=== PATIENT | male | born 1960 | race Caucasian/White ===

== ENCOUNTER → 2017-09-23 17:41 | Outpatient (CLI) | payer MEDICAID, SELFPAY ==
[2017-09-23 18:19] LABS: Hematocrit 36.3 % (40-54); Hemoglobin 11.9 g/dl (13.0-16.5); Mean Corp Hgb Conc 32.8 g/gl (32-36); Mean Corpuscular Volume 88.5 fL (80-94); Mean Platelet Vol. 10.1 fl (6.2-12.0); Platelet Count 258 K/mm3 (150-450); RBC Distribution Width CV 15.4 % (11.6-14.6); RBC Distribution Width SD 49.6 fl (35.1-43.9); White Blood Count 7.2 K/mm3 (4.4-11.0)
[2017-09-23 18:21] LABS: Scan Indicated on CBC? Y/N NO
[2017-09-23 18:42] LABS: Albumin, Serum 3.3 g/dL (3.2-5.0); BUN 44 mg/dL (7-18); BUN/Creat Ratio 14.9 RATIO (10-20); Chloride 109 mmol/L (98-107); Creatinine, Serum 2.96 mg/dL (0.70-1.30); EST Glomerular Filtration Rate 24 mL/min (>60); Est Glom Filt Rate - Afr Amer 29 mL/min (>60); Glucose 81 mg/dL (74-106); Phosphorus 3.8 mg/dL (2.5-4.9); Potassium 4.6 mmol/L (3.5-5.1); Sodium Level 142 mmol/L (136-145)
[2017-09-23 19:02] LABS: Microalbumin:Creatinine Ratio 2369.6 mg/g CRE (<30 mg/g CRE)
[2017-09-24 09:06] LABS: PTHIN 56.8 pg/mL (18.4-80.1)
[2017-09-24 09:34] LABS: Vitamin D,25 Hydroxy 38.2 ng/mL (29.95-100.01)
== END ==
PROVIDERS: Family Provider Family Medicine Geriatric Medicine; PCP Family Medicine Geriatric Medicine; Visit Provider Internal Medicine Nephrology
DX: N18.4 Chronic kidney disease, stage 4 (severe) (principal); D64.9 Anemia, unspecified; E55.9 Vitamin D deficiency, unspecified
CPT/HCPCS: 36415; 80069; 82043; 82306; 82570; 83970; 85027

== ENCOUNTER → 2017-09-29 13:42 | Outpatient (CLI) | payer MEDICAID, SELFPAY ==
[2017-09-29 17:14] LABS: Absolute Lymphocyte Count 2.05 X10^3/ul (0.83-4.51); Absolute Neutrophil Count 4.2 X10^3/uL (2.0-7.7); Basophil# 0.04 X10^3/uL; Basophil% 0.5 % (0-1); Eosinophil# 0.21 X10^3/uL; Eosinophils% 2.8 % (0-5); Hematocrit 36.8 % (40-54); Lymphocyte # 2.05 X10^3/ul (4.0); Lymphocyte % 27.7 % (19-41); Mean Corp Hgb Conc 32.6 g/gl (32-36); Mean Corpuscular Hgb 28.9 pg (27.0-32.0); Mean Corpuscular Volume 88.7 fL (80-94); Mean Platelet Vol. 10.3 fl (6.2-12.0); Monocyte# 0.88 X10^3/uL; Monocyte% 11.9 % (0-10); Neutrophil # 4.17 X10^3/uL (2.7-7.7); Neutrophil % 56.6 % (47-70); POSITIVE COUNT NO; POSITIVE DIFFERENTIAL NO; POSITIVE MORPHOLOGY NO; Platelet Count 231 K/mm3 (150-450); RBC Distribution Width CV 15.4 % (11.6-14.6); Red Blood Count 4.15 M/mm3 (4.6-6.2); White Blood Count 7.4 K/mm3 (4.4-11.0)
[2017-09-29 17:39] LABS: ALB/GLOB Ratio 0.9 RATIO (0.9-2.4); AST(SGOT) 8 U/L (15-37); Alanine Aminotransfer ALT/SGPT 18 U/L (16-61); Albumin, Serum 3.2 g/dL (3.2-5.0); Alkaline Phosphatase 68 U/L (45-117); Anion Gap 10 (5-15); BUN 49 mg/dL (7-18); BUN/Creat Ratio 16.1 RATIO (10-20); Calcium,Total 8.3 mg/dL (8.5-10.1); Chloride 109 mmol/L (98-107); Creatinine, Serum 3.04 mg/dL (0.70-1.30); EST Glomerular Filtration Rate 23 mL/min (>60); Est Glom Filt Rate - Afr Amer 28 mL/min (>60); Globulin 3.4 g/dL (2.2-4.2); Glucose 80 mg/dL (74-106); Potassium 3.9 mmol/L (3.5-5.1); Protein, Total 6.6 g/dL (6.4-8.2); Sodium Level 144 mmol/L (136-145); Thyroid Stim Hormone (TSH) 2.03 uIU/mL (0.358-3.74)
== END ==
PROVIDERS: Family Provider Family Medicine Geriatric Medicine; PCP Family Medicine Geriatric Medicine; Visit Provider Family Medicine Geriatric Medicine
DX: I10 Essential (primary) hypertension (principal)
CPT/HCPCS: 36415; 80053; 84443; 85025

== ENCOUNTER → 2017-10-16 11:08 | Outpatient (CLI) | payer MEDICAID, SELFPAY ==
--- NOTE | 2017-10-16 11:11 | CT_ITS ---
STUDY: CT BRAIN WITHOUT CONTRAST REASON FOR EXAM: Male, 57 years old. SAH--S/P CLIPPING DIZZINESS, HEADACHE RADIATION DOSAGE (If Supplied By Facility): CTDIvol = ( 44.99 ) mGy, DLP = ( 779.24 ) mGycm TECHNIQUE: Transaxial CT imaging of the brain was performed without administration of intravenous contrast material. Individualized dose optimization techniques were used for this CT. COMPARISON: 05.13.17. FINDINGS: Normal soft tissue structures. There is a left frontal craniotomy/craniectomy. There are calcifications around the carotid artery. These are noted in the cavernous carotid arteries. There is mild cerebral atrophy with widening of the extra-axial spaces and ventricular dilatation. There are areas of decreased attenuation within the white matter tracts of the supratentorial brain, consistent with microvascular disease changes. Normal basal ganglia and thalami. Normal brainstem. There is mild cerebellar atrophy. There is an old infarct of the frontal lobes. Diffuse areas of encephalomalacia from prior infarction or surgery in the superior right frontoparietal lobe. Bilateral frontal lobe rales. There is no intracranial hemorrhage. There are no findings of an acute ischemic infarction. Opacified left maxillary sinus. Soft tissue mass extends from the left maxillary sinus into the left side of the nasopharynx. This appears stable. CT/Brain/Head without Contrast IMPRESSION: Chronic involutional changes of the brain. There are no acute findings. Old stable infarction or areas related to prior surgery. Opacified left maxillary sinus. Soft tissue mass extends from the left maxillary sinus into the left side of the nasopharynx. This appears stable. Electronically Signed: Daryn Clark MD at 20:17 EDT , Service support ,
== END ==
PROVIDERS: Family Provider Family Medicine Geriatric Medicine; PCP Family Medicine Geriatric Medicine; Visit Provider Nurse Practitioner Acute Care
DX: R42 Dizziness and giddiness (principal); R51 Headache; Z86.79 Personal history of other diseases of the circulatory system
CPT/HCPCS: 70450

== ENCOUNTER → 2017-12-24 09:19 | Outpatient (CLI) | payer MEDICAID, SELFPAY ==
[2017-12-24 12:16] LABS: Absolute Lymphocyte Count 1.88 X10^3/ul (0.83-4.51); Absolute Neutrophil Count 5.2 X10^3/uL (2.0-7.7); Basophil# 0.04 X10^3/uL; Basophil% 0.5 % (0-1); Differential Indicated SCAN CRITERIA MET; Eosinophil# 0.21 X10^3/uL; Eosinophils% 2.6 % (0-5); Hematocrit 38.5 % (40-54); Hemoglobin 12.3 g/dl (13.0-16.5); Lymphocyte # 1.88 X10^3/ul (4.0); Lymphocyte % 23.2 % (19-41); Mean Corp Hgb Conc 31.9 g/gl (32-36); Mean Corpuscular Hgb 28.3 pg (27.0-32.0); Mean Corpuscular Volume 88.7 fL (80-94); Mean Platelet Vol. 10.6 fl (6.2-12.0); Monocyte# 0.77 X10^3/uL; Monocyte% 9.5 % (0-10); Neutrophil # 5.19 X10^3/uL (2.7-7.7); POSITIVE COUNT NO; POSITIVE DIFFERENTIAL NO; POSITIVE MORPHOLOGY YES; Platelet Count 260 K/mm3 (150-450); RBC Distribution Width CV 14.8 % (11.6-14.6); RBC Distribution Width SD 47.8 fl (35.1-43.9); Red Blood Count 4.34 M/mm3 (4.6-6.2); White Blood Count 8.1 K/mm3 (4.4-11.0)
[2017-12-24 12:40] LABS: ALB/GLOB Ratio 0.9 RATIO (0.9-2.4); AST(SGOT) 9 U/L (15-37); Alanine Aminotransfer ALT/SGPT 18 U/L (16-61); Albumin, Serum 3.3 g/dL (3.2-5.0); Alkaline Phosphatase 72 U/L (45-117); Anion Gap 8 (5-15); BUN 42 mg/dL (7-18); BUN/Creat Ratio 11.3 RATIO (10-20); Calcium,Total 8.4 mg/dL (8.5-10.1); Chloride 108 mmol/L (98-107); Creatinine, Serum 3.73 mg/dL (0.70-1.30); EST Glomerular Filtration Rate 18 mL/min (>60); Est Glom Filt Rate - Afr Amer 22 mL/min (>60); Globulin 3.5 g/dL (2.2-4.2); Glucose 73 mg/dL (74-106); Potassium 4.5 mmol/L (3.5-5.1); Protein, Total 6.8 g/dL (6.4-8.2); Sodium Level 144 mmol/L (136-145); Thyroid Stim Hormone (TSH) 1.89 uIU/mL (0.358-3.74)
[2017-12-24 13:16] LABS: Differential Comment SCANNED
== END ==
PROVIDERS: Family Provider Family Medicine Geriatric Medicine; PCP Family Medicine Geriatric Medicine; Visit Provider Family Medicine Geriatric Medicine
DX: I10 Essential (primary) hypertension (principal)
CPT/HCPCS: 36415; 80053; 84443; 85025

== ENCOUNTER → 2018-01-17 09:29 | Outpatient (CLI) | payer MEDICAID, SELFPAY ==
--- NOTE | 2018-01-18 14:26 | EEG ---
- Electroencephalogram Date of service 01/17/18 History EEG is being done in this 57 yr M to rule out seizures EEG Description: This is an 18 channel EEG with 10-20 lead placement system. Bipolar montages, Referential and Circumferential montages were reviewed. Photic stimulation and Hyperventilation were performed. The posterior dominant background rhythm is 8-9 HZ synchronous, symmetric, reacting to eye opening and closing. Photo stimulation elicited normal driving response but no abnormal photoparoxysmal response, Hyperventilation did not elicit any abnormal photoparoxysmal response but elicited post hyperventilation slowing. Sleep was not identified. There was no epileptiform discharges or electrographic seizures noted during this recording. EEG Interpretation This is a normal awake EEG. There is no epileptiform discharges or electrographic seizures noted during the record.
== END ==
PROVIDERS: Family Provider Family Medicine Geriatric Medicine; PCP Family Medicine Geriatric Medicine; Visit Provider Psychiatry & Neurology Neurology
DX: R56.9 Unspecified convulsions (principal)
CPT/HCPCS: 95819; 97112

== ENCOUNTER → 2018-02-07 17:05 | Outpatient (CLI) | payer MEDICAID, SELFPAY ==
[2018-02-07 17:47] LABS: Hematocrit 38.5 % (40-54); Hemoglobin 12.3 g/dl (13.0-16.5); Mean Corp Hgb Conc 31.9 g/gl (32-36); Mean Corpuscular Hgb 28.5 pg (27.0-32.0); Mean Corpuscular Volume 89.1 fL (80-94); Mean Platelet Vol. 9.3 fl (6.2-12.0); Platelet Count 425 K/mm3 (150-450); RBC Distribution Width CV 14.9 % (11.6-14.6); RBC Distribution Width SD 47.6 fl (35.1-43.9); Red Blood Count 4.32 M/mm3 (4.6-6.2); White Blood Count 12.1 K/mm3 (4.4-11.0)
--- NOTE | 2018-02-07 17:47 | RAD_ITS ---
STUDY: X-RAY CHEST REASON FOR EXAM: Male, 57 years old. Cough. TECHNIQUE: PA and lateral views of the chest. COMPARISON: May 13, 2017. FINDINGS: The lungs are clear and expanded. There is no demonstrated pleural abnormality. Normal size heart. Normal mediastinum and riky. Normal visualized pulmonary arteries. There is mild atherosclerotic calcification of the aortic arch with tortuosity. Normal visualized thoracic spine. Normal visualized ribs, clavicles, and shoulders. There is no demonstrated abnormality of the visualized soft tissue structures of the upper abdomen. RAD/Chest PA and Lateral IMPRESSION: No acute cardiopulmonary disease or major interval change. Electronically Signed: Miki Hernandez DO at 19:52 EDT Tel [phone], Service support ,
[2018-02-07 18:08] LABS: Albumin, Serum 2.5 g/dL (3.2-5.0); BUN 60 mg/dL (7-18); BUN/Creat Ratio 14.1 RATIO (10-20); Calcium,Total 8.6 mg/dL (8.5-10.1); Chloride 111 mmol/L (98-107); Creatinine, Serum 4.25 mg/dL (0.70-1.30); EST Glomerular Filtration Rate 16 mL/min (>60); Est Glom Filt Rate - Afr Amer 19 mL/min (>60); Glucose 96 mg/dL (74-106); Phosphorus 4.4 mg/dL (2.5-4.9); Potassium 4.4 mmol/L (3.5-5.1); Sodium Level 147 mmol/L (136-145)
[2018-02-07 18:13] LABS: PTHIN 36.6 pg/mL (18.4-80.1); Vitamin D,25 Hydroxy 38.6 ng/mL (29.95-100.01)
[2018-02-07 18:47] LABS: Basophil% 0.6 % (0-1); Differential Indicated SCAN CRITERIA MET; Lymphocyte % 15.6 % (19-41); Monocyte% 13.6 % (0-10); Neutrophil % 67.4 % (47-70); POSITIVE COUNT NO; POSITIVE DIFFERENTIAL YES; POSITIVE MORPHOLOGY YES
[2018-02-07 18:48] LABS: Absolute Lymphocyte Count 1.98 X10^3/ul (0.83-4.51); Absolute Neutrophil Count 8.6 X10^3/uL (2.0-7.7); Basophil# 0.07 X10^3/uL; Eosinophil# 0.13 X10^3/uL; Lymphocyte # 1.98 X10^3/ul (4.0); Monocyte# 1.73 X10^3/uL; Neutrophil # 8.55 X10^3/uL (2.7-7.7)
[2018-02-07 19:08] LABS: Differential Comment SCANNED
== END ==
PROVIDERS: Family Provider Family Medicine Geriatric Medicine; PCP Family Medicine Geriatric Medicine; Visit Provider Internal Medicine Nephrology
DX: N18.4 Chronic kidney disease, stage 4 (severe) (principal); N39.0 Urinary tract infection, site not specified; R05 Cough; R09.02 Hypoxemia
CPT/HCPCS: 36415; 71046; 80069; 82306; 83970; 85025; 87086; 87088; 87633

== ENCOUNTER → 2018-03-28 13:50 | Outpatient (CLI) | payer MEDICAID, SELFPAY | PROVIDERS: Family Provider Family Medicine Geriatric Medicine; PCP Family Medicine Geriatric Medicine; Visit Provider Family Medicine Geriatric Medicine | DX: Z00.00 Encounter for general adult medical examination without abnormal findings (principal) ==

== ENCOUNTER → 2018-05-02 10:09 | Outpatient (CLI) | payer MEDICAID, SELFPAY ==
--- NOTE | 2018-05-02 10:13 | NM_ITS ---
CLINICAL: 58-year-old male with reported history of subclinical hyperthyroidism. I-123 THYROID UPTAKE and SCAN COMPARISON: None available FINDINGS: The patient was administered a 294 uCi I-123 capsule by mouth. The 4-hour I-123 radioactive iodine thyroidal uptake was calculated to be 1.9 % (normal 5 to 25 %). The 24-hour I-123 radioactive iodine thyroidal uptake was calculated to be 2.5 % (normal 5 to 40 %). The I-123 thyroid scan demonstrates nonvisualization of functioning thyroid colloid in the expected distribution of the right-left thyroid beds. NM/Thyroid Uptake Single or Mult IMPRESSION: 1. ABNORMAL DECREASED 4- and 24-hour I-123 radioactive iodine thyroidal uptakes. 2. Nonvisualization of the thyroid colloid on the thyroid scan, in conjunction with a calculated iodine uptake values and apparent clinical hyperthyroidism is most consistent with the injurious phase of subacute thyroiditis. (Kp et al, Endocrinol Rev 1: 411, 1980). Electronically Signed: Wayne Grullon DO at 23:46 EDT Tel , Service support ,
== END ==
PROVIDERS: Family Provider Family Medicine Geriatric Medicine; PCP Family Medicine Geriatric Medicine; Referring Provider Family Medicine Geriatric Medicine; Visit Provider Family Medicine Geriatric Medicine
DX: E05.90 Thyrotoxicosis, unspecified without thyrotoxic crisis or storm (principal)
CPT/HCPCS: 78012; A9516

== ENCOUNTER → 2018-06-02 14:53 | Outpatient (CLI) | payer MEDICAID, SELFPAY ==
[2018-06-02 13:35] VITALS: BMI 20.9
[2018-06-02 16:34] LABS: Free T3 1.9 pg/mL (2.18-3.98); T4 Free Direct 0.81 ng/dL (0.76-1.46); Thyroid Stim Hormone (TSH) 3.45 uIU/mL (0.358-3.74)
[2018-06-04 09:18] LABS: Thyroid Peroxidase AB 7 IU/mL (0-34)
--- OUTSIDE RECORDS SUMMARY | 2018-07-28 20:29 | XMS RPT_ITS ---
:1960 Author Organization OHIP Support Name Relationship Address Phone CUTTER, ADRIENNE Unavailable [address] + [place] [address] D Unavailable Unavailable Unavailable CUTTER, ADRIENNE Unavailable [address] + [place] [address] D Unavailable Unavailable Unavailable CUTTER, ADRIENNE Unavailable [address] + [place] [address] D Unavailable Unavailable Unavailable CUTTER, ADRIENNE Unavailable [address] + [place] [address] D Unavailable Unavailable Unavailable CUTTER, ADRIENNE Unavailable [address] + [place] [address] D Unavailable Unavailable Unavailable CUTTER, ADRIENNE Unavailable [address] + [place] [address] D Unavailable Unavailable Unavailable CUTTER, ADRIENNE Unavailable [address] + [place] [address] D Unavailable Unavailable Unavailable CUTTER, ADRIENNE Unavailable [address] + [place] [address] D Unavailable Unavailable Unavailable CUTTER, ADRIENNE Unavailable [address] + [facility] [place] [address] D Unavailable Unavailable Unavailable CUTTER, ADRIENNE Unavailable Unavailable + CUTTER, ADRIENNE Unavailable Unavailable + CUTTER, ADRIENNE Unavailable Unavailable + CUTTER, ADRIENNE Unavailable Unavailable + CUTTER, ADRIENNE Unavailable Unavailable + CUTTER, ADRIENNE Unavailable Unavailable + CUTTER, ADRIENNE Unavailable [address] + [place] [address] D Unavailable Unavailable Unavailable CUTTER, ADRIENNE Unavailable Unavailable + CUTTER, ADRIENNE Unavailable [address] + [place] [address] D Unavailable Unavailable Unavailable CUTTER, ADRIENNE Unavailable [address] + [place] [address] D Unavailable Unavailable Unavailable CUTTER, ADRIENNE Unavailable Unavailable + CUTTER, ADRIENNE Unavailable [address] + [place] [id number] D Unavailable Unavailable Unavailable CUTTER, ADRIENNE Unavailable Unavailable + CUTTER, ADRIENNE Unavailable Unavailable + CUTTER, ADRIENNE Unavailable Unavailable + CUTTER, ADRIENNE Unavailable [address] + [place] [id number] D Unavailable Unavailable Unavailable CUTTER, ADRIENNE Unavailable Unavailable + CUTTER, ADRIENNE Unavailable [address] + [place] [id number] D Unavailable Unavailable Unavailable CUTTER, ADRIENNE Unavailable Unavailable + CUTTER, ADRIENNE Unavailable Unavailable + CUTTER, ADRIENNE Unavailable Unavailable + CUTTER, ADRIENNE Unavailable Unavailable + Care Team Providers Name Role Phone SELENA PORTILLO Attending Unavailable GEORGE, NILSON CHI Primary Care Unavailable GEORGE, NILSON CHI Primary Care Unavailable JAIME EPPS Attending Unavailable GEORGE, NILSON CHI Primary Care Unavailable MANJINDER VILLARREAL Attending Unavailable GEORGE, NILSON CHI Primary Care Unavailable LONAS, PIYUSH K Attending Unavailable GEORGE, NILSON CHI Primary Care Unavailable LONAS, PIYUSH K Attending Unavailable GEORGE, NILSON CHI Primary Care Unavailable LONAS, PIYUSH K Attending Unavailable GEORGE, NILSON CHI Primary Care Unavailable LONAS, PIYUSH K Attending Unavailable GEORGE, NILSON CHI Primary Care Unavailable LONAS, PIYUSH K Attending Unavailable GEORGE, NILSON CHI Primary Care Unavailable LONAS, PIYUSH K Attending Unavailable GEORGE, NILSON CHI Primary Care Unavailable LONAS, PIYUSH K Attending Unavailable GEORGE, NILSON CHI Primary Care Unavailable YIFAN HDZ Attending Unavailable GEORGE, NILSON CHI Primary Care Unavailable JARED BEGUM Attending Unavailable GEORGE, NILSON CHI Primary Care Unavailable JARED BEGUM Attending Unavailable GEORGE, NILSON CHI Primary Care Unavailable LONAS, PIYUSH K Attending Unavailable GEORGE, NILSON CHI Primary Care Unavailable LONAS, PIYUSH K Attending Unavailable GEORGE, NILSON CHI Primary Care Unavailable LONAS, PIYUSH K Attending Unavailable George, Nilson Chi Attending Unavailable George, Nilson Chi Attending Unavailable Ankur Tolentino Primary Care Unavailable George, Nilson Chi Attending Unavailable George, Nilson Chi Primary Care Unavailable Nina, Jayaprakash Attending Unavailable George, Nilson Chi Primary Care Unavailable Nina, Jayaprakash Attending Unavailable George, Nilson Chi Primary Care Unavailable George, Nilson Chi Attending Unavailable George, Nilson Chi Primary Care Unavailable Karen Clayton HAND EXPANSION ENVELOPE MAKER-C Attending Unavailable ForrestKaren HAND EXPANSION ENVELOPE MAKER-C Referring Unavailable George, Inlson Chi Primary Care Unavailable George, Nilson Chi Attending Unavailable George, Nilson Chi Referring Unavailable George, Nilson Chi Primary Care Unavailable George, Nilson Chi Attending Unavailable George, Nilson Chi Primary Care Unavailable Nina, Jayaprakash Attending Unavailable George, Nilson Chi Primary Care Unavailable Nina, Jayaprakash Referring Unavailable Denice Velasco Attending Unavailable Denice Velasco Referring Unavailable George, Nilson Chi Primary Care Unavailable George, Nilson Chi Attending Unavailable George, Nilson Chi Primary Care Unavailable George, Nilson Chi Attending Unavailable George, Nilson Chi Referring Unavailable George, Nilson Chi Primary Care Unavailable Mariana Bolden HAND EXPANSION ENVELOPE MAKER-C Attending Unavailable George, Nilson Chi Referring Unavailable Nina, Jayaprakash Attending Unavailable Nina, Jayaprakash Referring Unavailable George, Nilson Chi Primary Care Unavailable Mariana Bolden HAND EXPANSION ENVELOPE MAKER-C Consulting Unavailable PROBLEMS PROBLEMS DATE TYPE CONDITION / CODE ATTENDING STATUS SOURCE 06/20/2018 Unknown Z86.73 - Personal George, Nilson Chi Active [place] history of Community transient ischemic Hospital attack (TIA), and Repository cerebral infarction without residual deficits / Z86.73(ICD-10) 06/02/2018 Unknown N18.4 - Chronic Nina, Active [place] kidney disease, Jayaprakash Community stage 4 (severe) / Hospital N18.4(ICD-10) Repository 06/02/2018 Unknown D64.9 - Anemia, Nina, Active [place] unspecified / [facility] D64.9(ICD-10) Hospital Repository 06/02/2018 Unknown E06.0 - Acute Mariana Bolden Active [place] thyroiditis / HAND EXP[employer]ION ENVELOPE MAKER-C Community E06.0(ICD-10) Hospital Repository 02/07/2018 Unknown R05 - Cough / Nina, Active [place] R05(ICD-10) [facility] Hospital Repository 02/07/2018 Unknown N39.0 - Urinary Nina, Active [place] tract infection, [facility] site not specified Hospital / N39.0(ICD-10) Repository 12/24/2017 Unknown I10 - Essential George, Nilson Chi Active [place] (primary) Community hypertension / Hospital I10(ICD-10) Repository 07/26/2017 Unknown F17.200 - Nicotine George, Nilson Chi Active [place] dependence, Community unspecified, Hospital uncomplicated / Repository F17.200(ICD-10) 07/06/2017 Unknown R19.7 - Diarrhea, George, Nilson Chi Active [place] unspecified / Community R19.7(ICD-10) Hospital Repository 07/06/2017 Unknown N40.0 - Benign George, Nilson Chi Active [place] prostatic Community hyperplasia without Hospital lower urinary tract Repository symptoms / N40.0(ICD-10) 06/30/2017 Unknown E55.9 - Vitamin D George, Nilson Chi Active [place] deficiency, Community unspecified / Hospital E55.9(ICD-10) Repository 06/30/2017 Unknown Z12.5 - Encounter George, Nilson Chi Active [place] for screening for Community malignant neoplasm [facility] of prostate / Repository Z12.5(ICD-10) 06/30/2017 Unknown Z13.89 - Encounter George, Nilson Chi Active [place] for screening for Community other disorder / Hospital Z13.89(ICD-10) Repository PROCEDURES PROCEDURES No Procedure Records FoundRESULTS RESULTS OFFICE VISIT REPORT Observed: 06/05/2018 Status: F Source: [place] 5:09 PM [facility] HOSPITAL REPOSITORY [facility] [place] [address] OFFICE VISIT Date of Service: 06/02/18 MR#: [id number] Acct: [id number] Patient: SHIRLENE [place] Rep #: [id number] : 1960 Provider: Mariana Bolden NP Age/Sex: 58/M Location: [facility] [place] [place] Status: Signed Intake Vital Signs06/02/18 Height 5 ft 11 in 06/02/18 Weight: 150 lb 06/02/18 Body Mass Index (BMI) 20.9 06/02/18 Blood Pressure 132/85 H 06/02/18 Blood Pressure Location Rt popliteal 06/02/18 Blood Pressure Position Sitting Intake Visit Reasons: Thyroid dysfunction Pediatric Social Worker Required: No Accompanied by: Family / Other Allergies No Known Allergies Allergy (Verified 06/02/18 13:22) Medications Aspirin [Aspirin, Baby] 81 mg PO DAILY@0800 05/08/17 [History Confirmed 06/02/18] Amlodipine [Norvasc] 10 mg PO DAILY #30 tab 06/15/17 [Rx Confirmed 06/02/18] Atorvastatin Calcium [Lipitor] 40 mg PO QHS #30 tab 06/15/17 [Rx Confirmed 06/02/18] Cholecalciferol (VIT D3) [Vitamin D3] 1,000 unit PO DAILY #30 tab 06/15/17 [Rx Confirmed 06/02/18] Divalproex Sodium [Depakote] 500 mg PO TIDCM #90 tab 06/15/17 [Rx Confirmed 06/02/18] metoprolol tartrate 25 mg tablet 12.5 mg PO DAILY tab 06/02/18 [History] quetiapine 25 mg tablet 50 mg PO BID tab 06/02/18 [History] sertraline 50 mg tablet 150 mg PO DAILY tab 06/02/18 [History] PFSH Medical History Anxiety and depression (Acute) Arthritis (Acute) Back problem (Acute) Bone fracture (Acute) Brain aneurysm (Acute) H/O transfusion of whole blood (Acute) Kidney disease (Acute) Kidney failure (Acute) Seasonal allergies (Acute) Seizure (Acute) Stroke (Acute) Vitamin D deficiency (Acute) HTN (hypertension) (Chronic) Family History Unknown Arthritis Breast cancer Hypertension Kidney stones Social History Smoking Status: Former smoker alcohol intake: never substance use type: does not use Questionnaire Depression Screen PHQ-2/9 PHQ-2 Over the last 2 weeks, how often have you been bothered by any of the following problems? 1. Little interest or pleasure in doing things: more than half the days 2. Feeling down, depressed, or hopeless: more than half the days Total score: 4 If score is 2 or greater, continue 3. Trouble falling or staying asleep, or sleeping too much: more than half the days 4. Feeling tired or having little energy: nearly every day 5. Poor appetite or overeating: more than half the days 6. Feeling bad about yourself - or that you are a failure or have let yourself and your family down: several days 7. Trouble concentrating on things, such as reading the newspaper or watching television: more than half the days 8. Moving or speaking so slowly that other people could have noticed? - Or the opposite - being so fidgety or restless that you have been moving around a lot more than usual: several days 9. Thoughts that you would be better off or of hurting yourself in some way: several days Total score: 16 If you checked off any problems, how difficult have these problems made it for you to do your work, take care of things at home, or get along with other people?: extremely difficult Source: Developed by Drs. Cisco Layton, Kecia Tejeda, Rustam Ayala and colleagues, with an educational teri from [employer]. Scoring: Total Score Depression Severity Action 1-4 Minimal depression No action needed 5-9 Mild depression Repeat PHQ-9 at follow up 10-14 Moderate depression Make tx plan,consider counseling, fup, prescription HPI HPI Details: SHIRLENE HERNANDEZ, is a 58 M who presents to the office today for consult of thyroid. Patient of Dr. Vazquez. Is accompanied by his daughter and son in law. Labs note 04/04/18 he had a TSH of 0.01. At that time Dr. Vazquez ordered HUIZAR 123 scan which noted decreased uptake. No additional labs done since 04/2018 Severity, modifying factors, context, and associated signs and symptoms are as follows: Thyroid pain: No Energy: s/p stroke in w/c Sleep: Not awakened refreshed Temp: No intolerance GI:constipation Weight: Flucuates Eyes: Denies any pain, unable to tell me if vision has changed Appetite has diminished. Angry much of the time. ROS Const Constitutional: Positive for fatigue, malaise, weakness and change in appetite; no anorexia, body ache, chills, fever(s), frequent falls, decreased energy, night sweats, weight change, sleep problems, abnormal sleep pattern, other, headache(s), snoring or excessive sweating Eyes Eyes: No blurry vision, change in vision, double vision, discharge, dry eyes, bulging eyes, floaters, visual disturbances, eye pain, light sensitivity, spots in vision, tunnel vision or other ENT ENT: Positive for nasal congestion and nasal discharge; no abnormal hearing, ear pain, ear discharge, ear pressure, hearing loss, tinnitus, dizziness/vertigo, balance problems, nosebleed/epistaxis, nasal obstruction, nose pain, sinus pressure, sinus pain, post nasal drip, headache(s), facial pain, dental pain, dry mouth, bad breath, hoarseness, lip swelling, mouth lesions, mouth pain, sore throat, tongue swelling, throat swelling, other, difficulty swallowing or neck pain Resp Respiratory: No cough, change in phlegm color, chest congestion, excessive phlegm production, hemoptysis, pain on inspiration, shortness of breath, pain with cough, snoring, stridor, wheezing or other Cardio Cardiology: Positive for lightheadedness; no chest pain at rest, chest pain with exertion, leg pain with exertion, excessive sweating, shortness of breath, dyspnea on exertion, generalized swelling, irregular heart rhythm, orthopnea, radiating jaw, neck or arm pain, fast heart rate, slow heart rate, palpitations or other Gastro GI: Positive for constipation; no abdominal pain, belching, bloating, change in bowel habits, change in stool character, coffee ground emesis, cramping, diarrhea, heartburn, difficulty swallowing, feeling full early, excessive flatus, incontinent of stools, Vomiting blood/hematemesis, blood in stool, loose stools, Black,tarry stools, nausea/dyspepsia, pain with swallowing, vomiting or other Genitourinary Male: No difficulty urinating, burning urination, painful urination, urinary incontinence, urinary frequency, urinary urgency, urinary hesitancy, urinary retention, blood in urine, Frequent nighttime urination/ nocturia, post void dribbling, suprapubic fullness, side pain, sexual problems, genital lesions, genital itching, erectile dysfunction, penile discharge, difficulty with ejaculations, blood in semen, scrotal swelling, testicle lump, testicle pain or other Musc Musculoskeletal: No abnormal walking, joint pain, back pain, deformity, joint swelling, limited range of motion, loss of height, muscle cramps, muscle weakness, decreased muscle mass, body aches, neck pain, numbness, radiating pain into limb, stiffness, tingling or other Skin Skin: No acne, hair loss, change in hair, nail changes, boil, change in skin color, dry skin, redness, excessive hair growth, yellowing of the skin, lesions, itching, rash, skin pain, skin ulcer, sores, skin swelling, wounds or other Breast Breast: No other Neuro Neurology: Positive for weakness; no frequent falls, visual disturbances, abnormal hearing, headache(s), abnormal walking, numbness or tingling Psych Psychiatric: No abnormal sleep pattern, Positive for change in appetite Endo Endocrine: Positive for fatigue; no other or excessive sweating Aller/Imm Allergy/Immunologic: No lip swelling, tongue swelling, throat swelling, wheezing or itchy eyes Exam Const General: comfortable Nutritional Appearance: well nourished Orientation: oriented to person Limitations: behavioral limitations [facility] Head: normal to inspection, atraumatic Ears: hearing grossly normal bilaterally Mouth: oral mucosae normal, moist mucous membranes Teeth and gingiva: dentition normal Eyes General: appearance normal, both eyes and all related structures Eyelids: eyelids normal Conjunctivae: conjunctivae normal Resp Effort AND Inspection: normal respiratory effort, able to speak in complete sentences, symmetric chest movement Auscultation: Bilateral: Clear to Auscultation Cardio Rate: regular rate Rhythm: regular rhythm Heart Sounds: S1 normal, S2 normal GI Auscultation: normal bowel sounds Palpation: soft, no guarding Musc Musculoskeletal: No muscle weakness Skin General: no rashes or lesions noted Hair: normal Neuro General: does not move all extremities, other (In wheelchair, easily agitated) Extrem General: muscle atrophy Psych Appearance: well kempt Mood: angry Affect: indifferent Speech and Movement: speech clear Attitude: other Thought Process: other Judgment: poor Assessment AND Plan 1. Thyroid dysfunction E07.9 Plan Initiial lab with suppressed TSH noted. Will recheck as the I-123 suggests thyroiditis. Discussed with patient and his family the difference of hyperthyroidism and thyroiditis. Discussed standard treatment of hyperthyroidism as well as how thyroiditis is managed. Will recheck labs today and then discuss how to proceed with family. Plan Detail Other Orders Orders: Additional Comments Labs today. Will call patient/family with results and POC. Coding Level of Care Code Off vis,new,level 3 Diagnoses Thyroid dysfunction E07.9 06/05/18 1709 <Electronically signed by Mariana COLEC> Date Mariana Bolden NP-C Cosigner Signature: Date (if applicable) CC: FREE T3 Collected: 06/02/2018 Status: F Source: [place] 3:00 PM [facility] Order Comment: DR. RICHARDSON WANTS THE PTH VITD RENAL CBC HAND EXPANSION ENVELOPE MAKER.FABI WANTS THE TSH T4F T3F THYROID AB TYPE CODE TESTS RESULT OUT OF RANGE REFERENCE UNITS LAB L501.04351 2.18-3.98 pg/mL Low FREE T3 1.9 Performed By: #### L501.89777, L501.9520, L506.0400 #### [facility] [address] [place], [address] THYROID STIM HORMONE Collected: 06/02/2018 Status: F Source: [place] (TSH) 3:00 PM [facility] Order Comment: DR. RICHARDSON WANTS THE PTH VITD RENAL CBC HAND EXPANSION ENVELOPE MAKER.FABI WANTS THE TSH T4F T3F THYROID AB TYPE CODE TESTS RESULT OUT OF RANGE REFERENCE UNITS LAB L501.9520 0.358-3.74 uIU/mL Normal TSH 3.45 Performed By: #### L501.61591, L501.9520, L506.0400 #### [facility] [address] [place], [address] T4 FREE DIRECT Collected: 06/02/2018 Status: F Source: [place] 3:00 PM [facility] Order Comment: DR. RICHARDSON WANTS THE PTH VITD RENAL CBC HAND EXPANSION ENVELOPE MAKER.FABI WANTS THE TSH T4F T3F THYROID AB TYPE CODE TESTS RESULT OUT OF RANGE REFERENCE UNITS LAB L506.0400 0.76-1.46 ng/dL Normal T4 FREE 0.81 DIRECT Performed By: #### L501.84198, L501.9520, L506.0400 #### [facility] [address] [place], [place], [address] THYROID PEROXIDASE AB Collected: 06/02/2018 Status: F Source: [place] 3:00 PM [facility] Order Comment: DR. RICHARDSON WANTS THE PTH VITD RENAL CBC HAND EXPANSION ENVELOPE MAKER.FABI WANTS THE TSH T4F T3F THYROID AB TYPE CODE TESTS RESULT OUT OF RANGE REFERENCE UNITS LAB L3300.6900 0-34 IU/mL Normal TPO AB 7 [phone] Result Comment: Performed at: [facility] [id number] Poultry Grader: Karlos Fleming PhD, Phone: [phone] Performed By: #### L3300.6900 #### [facility] (refer to report for specific site) refer to report for address and phone number OT D/C SUMMARY Observed: 05/31/2018 Status: F Source: [place] 9:37 AM [facility] [address] [place] [address]. [address] [place] [address] Fax REHABILITATION SERVICES DISCHARGE SUMMARY MR#: [id number] Acct: [id number] Name: SHIRLENE [place] Rep #: [id number] : 1960 58 From: Meme Fernandez OTR/L, CHT Referring Dr.: Nilson Vazquez MD Status: REG RCR Eval Date: Discharge Date: HP - OT D/C Summary It has been my pleasure to treat SHIRLENE HERNANDEZ under orders from Nilson Vazquez, for the diagnosis of CVA for a total of 17 visit(s). Please see the following information for a summary of their discharge status. - Objective Objective/Function: Family with pt. states they have had difficlty with care staff in following with pts HEP. pts. dtr. and son in law are doing well with mtg. pts needs and following HEP. Family agreed to HEP as increase difficulty with transportation. OT educated pt. about HEP and handouts for new care staff on PROM, AAROM and wt.bearing ex. upon pt. d/c. - Goals Patient Goals: Regain Mobility, Use Hand/Wrist/Arm Normally Again, Be More Independent in ADLS Goal:: pt will demo a increase in left shoulder AROM by 90 degrees or greater to increase pts ind. with BADls and IADLS. Pt will demo active elbow flex to 135 degrees to increase pts use of left UE as assistive unit with performance of BADLS and IADLS by D/c Goal:: pt will demo the ability to use left UE as assisite device for BADLs and IADLS by d/c Goal:: Pt will demo ability to citrus picker large, med. sized objects to increase pts ind.with BADLS and IADLS by d/c Goal:: caregiver ed will be completed to assist pt with cont. with his HEP - Plan Plan: arm bike followed by increasing awareness of pt. L arm. - D/C Information Discharge Comments: patient made progress with POC and demo decreased tone in hand. At this time with POC, pt. plateaued with current progression. pt. success may have been limited by inability to attend all therapy visits. pt. was d/c with HEP for cont. management of tone. pt. and family reported understanding of the HEP. If there are questions or concerns regarding this patient's occupational therapy, please fell free to call me at [phone]. Thank you for the referral of this patient. Sincerely, DARLINE Cueto/Leonel, CHT <Electronically signed by Meme GREGORIO/Leonel CHT> 05/31/18 0937 CC: Nilson Vazquez MD CHELA Signed THYROID UPTAKE Observed: 05/02/2018 Status: F Source: [place] SINGLE OR MULT 10:14 AM [facility] Imaging Services [address] [place] [address] Thyroid Uptake Single or Mult MR#: [id number] Acct: [id number] Name: HANDYGEMMASHIRLENE R Rep #: [id number] : 1960 M 58 From: Wayne Grullon DO PCP: George CODY,Nilson Blankenship Status: REG CLI Study: Thyroid Uptake Single or Mult Date of Exam: 05/02/18 Exam# [id number] Ordering Dr: Nilson Vazquez MD CLINICAL: 58-year-old male with reported history of subclinical hyperthyroidism. I-123 THYROID UPTAKE and SCAN COMPARISON: None available FINDINGS: The patient was administered a 294 uCi I-123 capsule by mouth. The 4-hour I-123 radioactive iodine thyroidal uptake was calculated to be 1.9 % (normal 5 to 25 %). The 24-hour I-123 radioactive iodine thyroidal uptake was calculated to be 2.5 % (normal 5 to 40 %). The I-123 thyroid scan demonstrates nonvisualization of functioning thyroid colloid in the expected distribution of the right-left thyroid beds. NM/Thyroid Uptake Single or Mult IMPRESSION: 1. ABNORMAL DECREASED 4- and 24-hour I-123 radioactive iodine thyroidal uptakes. 2. Nonvisualization of the thyroid colloid on the thyroid scan, in conjunction with a calculated iodine uptake values and apparent clinical hyperthyroidism is most consistent with the injurious phase of subacute thyroiditis. (Kp et al, Endocrinol Rev 1: 411, 1980). Electronically Signed: Wayne Grullon DO at 23:46 EDT Tel , Service support , CC: Nilson Vazquez MD Wood Tile Installer: Signed CBC W/DIFF, AUTOMATED Collected: 04/04/2018 Status: F Source: [place] 3:34 PM [facility] Order Comment: DR RICHARDSON ORDERED RENAL PTH VITD TYPE CODE TESTS RESULT OUT OF RANGE REFERENCE UNITS LAB L100.1000 4.4-11.0 K/mm3 Normal WBC 8.6 LAB L100.1200 4.6-6.2 M/mm3 Low RBC 4.36 LAB L100.1300 13.0-16.5 g/dl Low HGB 12.5 LAB L100.1400 40-54 % Low HCT 38.8 LAB L100.1500 80-94 fL Normal MCV 89.0 LAB L100.1600 27.0-32.0 pg Normal MCH 28.7 LAB L100.1700 32-36 g/gl Normal MCHC 32.2 LAB L100.1810 11.6-14.6 % High RDW CV 16.1 LAB L100.1820 35.1-43.9 fl High RDW SD 51.9 LAB L100.1900 150-450 K/mm3 Normal PLT 226 LAB L100.2000 6.2-12.0 fl Normal MPV 10.6 LAB L100.2100 47-70 % Normal NEUT% 65.7 LAB L100.2200 19-41 % Normal LY% 19.4 LAB L100.2300 0-10 % High MONO% 11.9 LAB L100.2400 0-5 % Normal EO% 1.8 LAB L100.2500 0-1 % Normal BASO% 0.4 LAB L100.2550 0.0-0.9 % Normal IM GRAN % 0.800 Result Comment: IG% - Immature Granulocytes (promyelocytes, myelocytes and metamyelocytes) > 1% indicates that a LEFT SHIFT is Present. LAB L100.2620 2.0-7.7 X10 3/uL Normal Absolute Neut 5.6 LAB L100.2720 0.83-4.51 X10 3/ul Normal Absolute Lymph 1.66 Performed By: #### L100.0100 #### [facility] [address] [place], [address] COMPREHENSIVE METABOLIC Collected: 04/04/2018 Status: F Source: [place] [facility] 3:34 PM [facility] Order Comment: DR RICHARDSON ORDERED RENAL PTH VITD DR VAZQUEZ ADDED FT4 [id number] LIPID TYPE CODE TESTS RESULT OUT OF RANGE REFERENCE UNITS LAB L501.0100 74-106 mg/dL Normal GLU 97 Result Comment: Please note revised GLUCOSE reference range effective 2017. LAB L501.1000 7-18 mg/dL High BUN 38 LAB L501.1100 0.70-1.30 mg/dL High CREAT,SERUM 3.68 Result Comment: The validity of the calculated GFR AND GFRAA in patients over 70 years has not been determined. Clinical correlation is essential. LAB L501.1110 >60 mL/min Low EST GFR 18 Result Comment: Non- GFR Calc LAB L501.1115 >60 mL/min Low EST GFR - AA 22 Result Comment: GFR Calc LAB L501.1300 10-20 RATIO Normal BUN/CRE 10.3 LAB L501.1500 6.4-8.2 g/dL T Normal PROT 6.6 LAB L501.1800 3.2-5.0 g/dL Low ALB 2.7 LAB L501.1950 2.2-4.2 g/dL Normal GLOB 3.9 LAB L501.2000 0.9-2.4 RATIO Low A/G 0.7 LAB L501.2200 8.5-10.1 mg/dL CA Normal 9.0 LAB L501.4100 15-37 U/L Low AST 13 Result Comment: Slight Hemolysis, Result may be falsely increased. LAB L501.4305 45-117 U/L Normal ALK P 77 LAB L501.4405 16-61 U/L Normal ALT 18 LAB L501.4600 0.20-1.00 mg/dL Normal T BILI 0.20 LAB L501.5300 136-145 mmol/L Normal NA 143 LAB L501.5600 3.5-5.1 mmol/L Normal K 4.5 Result Comment: Slight Hemolysis, Result may be falsely increased. LAB L501.5900 98-107 mmol/L High CL 108 LAB L501.6100 21.0-32.0 mmol/L Normal CO2 28.0 LAB L501.6200 5-15 Normal 7 GAP Performed By: #### L500.4050, L501.4700, L501.9520, L500.4100, L501.9195, L506.0400 #### [facility] [address] [place], [address] BILIRUBIN, DIRECT Collected: 04/04/2018 Status: F Source: [place] 3:34 PM [facility] Order Comment: DR RICHARDSON ORDERED RENAL PTH VITD DR VAZQUEZ ADDED FT4 [id number] LIPID TYPE CODE TESTS RESULT OUT OF RANGE REFERENCE UNITS LAB L501.4700 0.00-0.30 mg/dL Normal D BILI 0.06 Performed By: #### L500.4050, L501.4700, L501.9520, L500.4100, L501.9195, L506.0400 #### [facility] [address] [place], [address] THYROID STIM HORMONE Collected: 04/04/2018 Status: F Source: [place] ([facility]) 3:34 PM [facility] Order Comment: DR RICHARDSON ORDERED RENAL PTH VITD DR VAZQUEZ ADDED FT4 [id number] LIPID TYPE CODE TESTS RESULT OUT OF RANGE REFERENCE UNITS LAB L501.9520 0.358-3.74 uIU/mL Low TSH < 0.01 Performed By: #### L500.4050, L501.4700, L501.9520, L500.4100, L501.9195, L506.0400 #### [facility] [address] [place], [address] LIPID PROFILE Collected: 04/04/2018 Status: F Source: [place] 3:34 PM [facility] Order Comment: DR RICHARDSON ORDERED RENAL PTH VITD DR VAZQUEZ ADDED FT4 [id number] LIPID TYPE CODE TESTS RESULT OUT OF RANGE REFERENCE UNITS LAB L501.5000 mg/dL High TRIG 220 Result Comment: The drugs N-Acetylcysteine and Metamizole may falsely depress this assay. Serum Triglycerides Reference Interval Normal <150 mg/dL Borderline high 150 - 199 mg/dL High 200 - 499 mg/dL Very High > or = 500 mg/dL LAB L501.6400 mg/dL Low HDL 28 Result Comment: The drugs N-Acetylcysteine and Metamizole may falsely depress this assay. Reference Range HDL <40 mg/dL Low HDL Cholesterol HDL >or= 60 mg/dL High HDL Cholesterol LAB L501.4900 200 mg/dL Normal CHOL 128 Result Comment: <200 mg/dL Desirable 200-240 mg/dL Borderline >240 mg/dL High Risk LAB L501.6500 0-130 mg/dL Normal LDL 56 LAB L501.6600 5-40 mg/dL High VLDL 44 Performed By: #### L500.4050, L501.4700, L501.9520, L500.4100, L501.9195, L506.0400 #### [facility] [address] [place], [address] T3 UPTAKE Collected: 04/04/2018 Status: F Source: [place] 3:34 PM [facility] Order Comment: DR RICHARDSON ORDERED RENAL PTH VITD DR VAZQUEZ ADDED FT4 [id number] LIPID TYPE CODE TESTS RESULT OUT OF RANGE REFERENCE UNITS LAB L501.9410 1.4-4.5 Test Normal T7 (FTI) not performed LAB L501.9210 33-40 % 34 Normal T3 UPTAKE Performed By: #### L500.4050, L501.4700, L501.9520, L500.4100, L501.9195, L506.0400 #### [facility] [address] [place], [address] T4 FREE DIRECT Collected: 04/04/2018 Status: F Source: [place] 3:34 PM [facility] Order Comment: DR RICHARDSON ORDERED RENAL PTH VITD DR VAZQUEZ ADDED FT4 [id number] LIPID TYPE CODE TESTS RESULT OUT OF RANGE REFERENCE UNITS LAB L506.0400 0.76-1.46 ng/dL Normal T4 FREE 0.98 DIRECT Performed By: #### L500.4050, L501.4700, L501.9520, L500.4100, L501.9195, L506.0400 #### [facility] [address] [place], [address] PTHIN Collected: 04/04/2018 Status: F Source: [place] 3:34 PM [facility] Order Comment: DR RICHARDSON ORDERED RENAL PTH VITD TYPE CODE TESTS RESULT OUT OF RANGE REFERENCE UNITS LAB L509.1000 18.4-80.1 pg/mL Normal PTHIN 22.7 Performed By: #### L509.1000 #### [facility] [address] [place], [address] VITAMIN D,25 HYDROXY Collected: 04/04/2018 Status: F Source: [place] 3:34 PM [facility] Order Comment: DR RICHARDSON ORDERED RENAL PTH VITD TYPE CODE TESTS RESULT OUT OF RANGE REFERENCE UNITS LAB L506.1000 29.95-100.01 ng/mL Normal Vitamin D 34.4 25-OH Result Comment: Vitamin D 25(OH) Status Range Deficiency <20 ng/mL (50nmol/L) Insuffciency 20 - 30 ng/mL (50 - 75 nmol/L) Sufficiency 30 - 100 ng/mL (75 - 250 nmol/L) Toxicity >100 ng/mL (>250 nmol/L) Performed By: #### L506.1000 #### [facility] [address] [place], [address] RE-EVALUATION - PT (1) Observed: 04/04/2018 Status: F Source: [place] 1:22 PM [facility] [address] [place] [address] Fax REEVALUATION / MEDICARE RECERTIFICATION PHYSICAL THERAPY MR#: [id number] Acct: [id number] Name: SHIRLENE HERNANDEZ Rep #: [id number] : 1960 57 From: Jack Nichols DPT Referring Dr.: Nilson Vazquez MD Status: REG RCR Insurance: [facility] SELF PAY INSURANCE Nilson Vazquez, It has been my pleasure to treat SHIRLENE HERNANDEZ over the last 9 visits for Subarachnoid hemorage, CVA, seizure disorder. Please see the progress note below for an update on the physical therapy plan of care! Subjective: Pt. was on PT hold as he was awaiting botox injection in his arm and wanted to complete therapies together, same day. Pt. reports no new symptoms, but reports feeling weaker. he reports not being as active as he was recovering form being sick. Objective/Function: Reassement: sit to stand- min A with increased Vcing for proper hand placement. Stand pivot transfer with hemiwalker and Ladi for stability, pivots with LLE, tends to not lift. GAIT: pt. ambulated upto 36' this date with mod A for LLE advance ment and min A for stablity with trunk. Pt. has alot of difficulty with attempts to advance LLE Pt. reports increased pain in LLE during stance phase. MMT: LLE- flacid distal strength, 2/5 HS, 2/5 hip flexors, 2-/5 hip abductors. bed mobility- mod A to complete with limited ability on LLE to assist, both UE and LEs. Plan Plan: Pt. would benefit from continued to PT to work on txs, gait, bed mobility. He needs to have icnreased stability with bed mobility and txs. It would be great to increase his gait stability, but with his difficulty advancing his LLE, independent walking may not be achievable. Goals Goal 1:: Pt. to be I with HEP. Goal Time Frame: 4-6 Weeks Goal Progress: Progressing Goal 2:: Pt. to have increased bilateral HS length to 70deg in 90/90 testing Goal Time Frame: 4-6 Weeks Goal Progress: Progressing Goal 3:: Pt. to ambulate 50+ft. with hemiwalker with CGA/SBA allowing for increased ease of functional mobility in home. Goal Time Frame: 4-6 Weeks Goal Progress: Progressing Goal 4:: Pt. to have increased RLE strength by 1/2 grade allowing for increased stability with gait and stability with functional mobility. Goal Time Frame: 4-6 Weeks Goal Progress: Progressing Goal 5:: Pt. to compelted all txs with CGA with hemiwalker allowing for increased stability and decreased caregiver need. Goal Time Frame: 4-6 Weeks Goal Progress: Progressing Goal 6:: Pt. to complete all bed mobilty with CGA allowing for increased independence with in room. Goal Time Frame: 4-6 Weeks Anticipated Interventions Patient/Client Instruction: Educate patient on: Condition, Plan of Care, Risk Factors, Benefits of Fitness Program For the Purpose of:: To improve decision making, To facilitate caregiver knowledge, To improve self management, To prevent re-injury, To improve ability to perform tasks related to life management, To improve tolerance to ADL's Therapeutic Exercise to Include: Strength training, Power training, Endurance training, Agility training, Body mechanics, Postural training, Flexibilty training, Gait and locomotor training, Passive ROM, Active ROM, Dynamic Lumbar Stabilization For the Purpose of:: To decrease pain, To increase ROM, To improve nutrient delivery to tissue, To improve muscle performance and motor function, To improve ability to perform ADL's, To increase tolerance to activity/condition/position, To improve performance and independence with ADL's, To decrease level of supervision to perform tasks, To improve ability of physical actions for home/community/work/leisure, To improve gait and locomotor functions, To improve health of tissue, To decrease soft tissue restriction, To increase flexibility/ROM Please do not hesitate to contact me at [phone] by phone or if you have questions or concerns regarding this new plan of care! Sincerely, Jack Nichols <Electronically signed by Jack Nichols DPT> 04/04/18 1322 CC: Nilson Vazquez MD CLS Signed For Medicare only, by signing this I certify the plan of care. Physicians Signature Date RE-EVALUATION - PT (1) Observed: 04/04/2018 Status: F Source: [place] 1:01 PM [facility] [address] [place] [address] Fax REEVALUATION / MEDICARE RECERTIFICATION PHYSICAL THERAPY MR#: [id number] Acct: [id number] Name: SHIRLENE HERNANDEZ Rep #: [id number] : 1960 57 From: Jack Nichols DPT Referring Dr.: Nilson Vazquez MD Status: REG RCR Insurance: [facility] SELF PAY INSURANCE Nilson Vazquez, It has been my pleasure to treat SHIRLENE HERNANDEZ over the last 10 visits for Subarachnoid hemorage, CVA, seizure disorder. Please see the progress note below for an update on the physical therapy plan of care! Subjective: Pt. arrives today with his son in law. Pt. reports continued L knee pain with standing and WBing activities. He has AFO on this date. Pt. reports nothing new. No new symptoms. Objective/Function: Pt. tolerated all PT, he continues to have increased difficulty with L stance phase, but is slowly improving. Pt. continues to slowly progress. Pt. family was walking about pt. have consistent difficulty with sacral wounds. He does not currently have one, but caregivers report that his skin is heading that way. Pt. would benefit from a wedge to increase proper positioning in bed to reduce skin break down. Plan Plan: Possible need for meniscal tear managment. May be injection? But unsure if this would even help. POC will be extended x2 per week for 4 weeks to continue to progress RLE strenth, transfer training to increas independence and gait progression. Goals Goal 1:: Pt. to be I with HEP. Goal Time Frame: 4-6 Weeks Goal Progress: Progressing Goal 2:: Pt. to have increased bilateral HS length to 70deg in 90/90 testing Goal Time Frame: 4-6 Weeks Goal Progress: Progressing Goal 3:: Pt. to ambulate 50+ft. with hemiwalker with CGA/SBA allowing for increased ease of functional mobility in home. Goal Time Frame: 4-6 Weeks Goal Progress: Progressing Goal 4:: Pt. to have increased RLE strength by 1/2 grade allowing for increased stability with gait and stability with functional mobility. Goal Time Frame: 4-6 Weeks Goal Progress: Progressing Goal 5:: Pt. to compelted all txs with CGA with hemiwalker allowing for increased stability and decreased caregiver need. Goal Time Frame: 4-6 Weeks Goal Progress: Progressing Goal 6:: Pt. to complete all bed mobilty with CGA allowing for increased independence with in room. Goal Time Frame: 4-6 Weeks Anticipated Interventions Patient/Client Instruction: Educate patient on: Condition, Plan of Care, Risk Factors, Benefits of Fitness Program For the Purpose of:: To improve decision making, To facilitate caregiver knowledge, To improve self management, To prevent re-injury, To improve ability to perform tasks related to life management, To improve tolerance to ADL's Therapeutic Exercise to Include: Strength training, Power training, Endurance training, Agility training, Body mechanics, Postural training, Flexibilty training, Gait and locomotor training, Passive ROM, Active ROM, Dynamic Lumbar Stabilization For the Purpose of:: To decrease pain, To increase ROM, To improve nutrient delivery to tissue, To improve muscle performance and motor function, To improve ability to perform ADL's, To increase tolerance to activity/condition/position, To improve performance and independence with ADL's, To decrease level of supervision to perform tasks, To improve ability of physical actions for home/community/work/leisure, To improve gait and locomotor functions, To improve health of tissue, To decrease soft tissue restriction, To increase flexibility/ROM Please do not hesitate to contact me at [phone] by phone or if you have questions or concerns regarding this new plan of care! Sincerely, Jack Nichols <Electronically signed by Jack Nichols DPT> 04/04/18 1301 CC: Nilson Vazquez MD CLS Signed For Medicare only, by signing this I certify the plan of care. Physicians Signature Date RE-EVALUTION OT Observed: 03/16/2018 Status: F Source: [place] 12:24 PM [facility] [address] [place] [address] Fax REEVALUATION / MEDICARE RECERTIFICATION OCCUPATIONAL THERAPY MR#: [id number] Acct: [id number] Name: SHIRLENE HERNANDEZ Rep #: [id number] : 1960 57 From: Meme Fernandez OTR/L, CHT Referring Dr.: Nilson Vazquez MD Status: REG R Insurance: [facility] Date: SELF PAY INSURANCE Nilson Vazquez, It has been my pleasure to treat SHIRLENE HERNANDEZ over the last 9 visits for CVA. Please see the progress note below for an update on the occupational therapy plan of care! Subjective: pt arrives with brother and sister two weeks following botox injections. Objective/Function: digits lose and not digging into palm of hand with PROM of wrist- wrist to N. therapist question if carpal bones are shifting blocking further ext of wrist. pt does have pain at base of D2 at carpal region - pt would benefit from skilled OT services 2x week for 4 weeks to challenged left UE as a functional assistive RU for ADLS Plan Frequency: 2-3x /Week Duration: 4 Weeks Plan: cont to intiate elbow flx/ext with FES use of arm skate- (use wrist brace while performing this) and if time permits initiate wrist ext /finger ext/flex. Goals - Goals Goal:: pt will demo a increase in left shoulder AROM by 90 degrees or greater to increase pts ind. with BADls and IADLS. Pt will demo active elbow flex to 135 degrees to increase pts use of left UE as assistive unit with performance of BADLS and IADLS by D/c Goal:: pt will demo the ability to use left UE as assisite device for BADLs and IADLS by d/c Goal:: Pt will demo ability to citrus picker large, med. sized objects to increase pts ind.with BADLS and IADLS by d/c Goal:: caregiver ed will be completed to assist pt with cont. with his HEP Anticipated Interventions Anticipated Interventions: A/AAROM/PROM, Strengthening, Modalities, Orthoses, Neuro Reeducation, Caregiver Training Please do not hesitate to contact me at [phone] by phone or if you have questions or concerns regarding this new plan of care! Sincerely, DARLINE Cueto/ROHAN Castaneda <Electronically signed by Meme GREGORIO/ROHAN Castaneda> 03/16/18 1224 CC: Nilson Vazquez MD Signed For Medicare only, by signing this I certify the plan of care. Physicians Signature Date Observed: 02/07/2018 Status: F Source: [place] CULTURE, URINE 6:16 PM [facility] Urine Culture ORGANISM 1: Mixed Gram Pos AND Gram Neg Org [place] Count 25,000-50,000 MIX CULTURE Mixed contaminants. Submit a new specimen if indicated. Performed By: #### M100.0650 #### [facility] [place] [address], [address] Observed: 02/07/2018 Status: F Source: [place] RESPIRATORY PANEL 6:10 PM [facility] RP PANEL ADENOVIRUS Not Detected HUMAN METAPHNEUMO Not Detected INFLUENZA A Not Detected INFLUENZA A (SUBTYPE H1) Not Detected INFLUENZA A (SUBTYPE H3) Not Detected INFLUENZA B Not Detected PARAINFLUENZA 1 Not Detected PARAINFLUENZA 2 Not Detected PARAINFLUENZA 3 Not Detected PARAINFLUENZA 4 Not Detected RHINOVIRUS Not Detected RSV A Not Detected RSV B Not Detected NAAT METHOD Testing was performed using nucleic acid amplification Performed By: #### M100.638 #### [facility] [address] [place], [address] CHEST PA AND LATERAL Observed: 02/07/2018 Status: F Source: [place] 5:47 PM [facility] Imaging Services [address] [place] [address] Chest PA and Lateral MR#: [id number] Acct: [id number] Name: SHIRLENE HERNANDEZ Rep #: [id number] : 1960 M 57 From: Miki Hernandez DO PCP: Nilson Vazquez MD, Chi Status: REG CLI Study: Chest PA and Lateral Date of Exam: 02/07/18 Exam# [id number] Ordering Dr: Nilson Vazquez MD STUDY: X-RAY CHEST REASON FOR EXAM: Male, 57 years old. Cough. TECHNIQUE: PA and lateral views of the chest. COMPARISON: May 13, 2017. FINDINGS: The lungs are clear and expanded. There is no demonstrated pleural abnormality. Normal size heart. Normal mediastinum and riky. Normal visualized pulmonary arteries. There is mild atherosclerotic calcification of the aortic arch with tortuosity. Normal visualized thoracic spine. Normal visualized ribs, clavicles, and shoulders. There is no demonstrated abnormality of the visualized soft tissue structures of the upper abdomen. RAD/Chest PA and Lateral IMPRESSION: No acute cardiopulmonary disease or major interval change. Electronically Signed: Miki Hernandez DO at 19:52 EDT Tel [phone], Service support , CC: Nilson Vazquez MD Wood Tile Installer: Signed CBC-COMPLETE BLOOD CNT Collected: 02/07/2018 Status: F Source: [place] NO DIFF 5:06 PM [facility] TYPE CODE TESTS RESULT OUT OF RANGE REFERENCE UNITS LAB L100.1000 4.4-11.0 K/mm3 High WBC 12.1 LAB L100.1200 4.6-6.2 M/mm3 Low RBC 4.32 LAB L100.1300 13.0-16.5 g/dl Low HGB 12.3 LAB L100.1400 40-54 % Low HCT 38.5 LAB L100.1500 80-94 fL Normal MCV 89.1 LAB L100.1600 27.0-32.0 pg Normal MCH 28.5 LAB L100.1700 32-36 g/gl Low MCHC 31.9 LAB L100.1810 11.6-14.6 % High RDW CV 14.9 LAB L100.1820 35.1-43.9 fl High RDW SD 47.6 LAB L100.1900 150-450 K/mm3 Normal PLT 425 LAB L100.2000 6.2-12.0 fl Normal MPV 9.3 Performed By: #### L100.0500, L100.0100 #### [facility] [address], [place], [id number] CBC W/DIFF, AUTOMATED Collected: 02/07/2018 Status: F Source: [place] 5:06 PM [facility] TYPE CODE TESTS RESULT OUT OF RANGE REFERENCE UNITS LAB L100.1000 4.4-11.0 K/mm3 High WBC 12.1 LAB L100.1200 4.6-6.2 M/mm3 Low RBC 4.32 LAB L100.1300 13.0-16.5 g/dl Low HGB 12.3 LAB L100.1400 40-54 % Low HCT 38.5 LAB L100.1500 80-94 fL Normal MCV 89.1 LAB L100.1600 27.0-32.0 pg Normal MCH 28.5 LAB L100.1700 32-36 g/gl Low MCHC 31.9 LAB L100.1810 11.6-14.6 % High RDW CV 14.9 LAB L100.1820 35.1-43.9 fl High RDW SD 47.6 LAB L100.1900 150-450 K/mm3 Normal PLT 425 LAB L100.2000 6.2-12.0 fl Normal MPV 9.3 LAB L100.2100 47-70 % Normal NEUT% 67.4 LAB L100.2200 19-41 % Low LY% 15.6 LAB L100.2300 0-10 % High MONO% 13.6 LAB L100.2400 0-5 % Normal EO% 1.0 LAB L100.2500 0-1 % Normal BASO% 0.6 LAB L100.2550 0.0-0.9 % High IM GRAN % 1.800 Result Comment: IG% - Immature Granulocytes (promyelocytes, myelocytes and metamyelocytes) > 1% indicates that a LEFT SHIFT is Present. LAB L100.2620 2.0-7.7 X10 3/uL High Absolute Neut 8.6 LAB L100.2720 0.83-4.51 X10 3/ul Normal Absolute Lymph 1.98 LAB L100.4500 Normal SMEAR COMMENT SCANNED Performed By: #### L100.0500, L100.0100 #### [facility] [address] [place], [address] RENAL PROFILE Collected: 02/07/2018 Status: F Source: [place] 5:06 PM [facility] TYPE CODE TESTS RESULT OUT OF RANGE REFERENCE UNITS LAB L501.0100 74-106 mg/dL Normal GLU 96 Result Comment: Please note revised GLUCOSE reference range effective 2017. LAB L501.1000 7-18 mg/dL High BUN 60 LAB L501.1100 0.70-1.30 mg/dL High CREAT,SERUM 4.25 Result Comment: The validity of the calculated GFR AND GFRAA in patients over 70 years has not been determined. Clinical correlation is essential. LAB L501.1110 >60 mL/min Low EST GFR 16 Result Comment: Non- GFR Calc LAB L501.1115 >60 mL/min Low EST GFR - AA 19 Result Comment: GFR Calc LAB L501.1300 10-20 RATIO Normal BUN/CRE 14.1 LAB L501.1800 3.2-5.0 g/dL Low ALB 2.5 LAB L501.2200 8.5-10.1 mg/dL CA Normal 8.6 LAB L501.2300 2.5-4.9 mg/dL Normal PHOS 4.4 LAB L501.5300 136-145 mmol/L High NA 147 LAB L501.5600 3.5-5.1 mmol/L K Normal 4.4 LAB L501.5900 98-107 mmol/L High CL 111 LAB L501.6100 21.0-32.0 mmol/L Normal CO2 26.0 Performed By: #### L500.3600 #### [facility] [address] [place], [address] VITAMIN D,25 HYDROXY Collected: 02/07/2018 Status: F Source: [place] 5:06 PM [facility] TYPE CODE TESTS RESULT OUT OF RANGE REFERENCE UNITS LAB L506.1000 29.95-100.01 ng/mL Normal Vitamin D 38.6 25-OH Result Comment: Vitamin D 25(OH) Status Range Deficiency <20 ng/mL (50nmol/L) Insuffciency 20 - 30 ng/mL (50 - 75 nmol/L) Sufficiency 30 - 100 ng/mL (75 - 250 nmol/L) Toxicity >100 ng/mL (>250 nmol/L) Performed By: #### L506.1000 #### [facility] [address] [place], [address] PTHIN Collected: 02/07/2018 Status: F Source: [place] 5:06 PM [facility] TYPE CODE TESTS RESULT OUT OF RANGE REFERENCE UNITS LAB L509.1000 18.4-80.1 pg/mL Normal PTHIN 36.6 Performed By: #### L509.1000 #### [facility] [address] [place], [address] ELECTROENCEPHALOGRAM Observed: 01/30/2018 Status: F Source: [place] 12:32 AM [facility] Pulmonary Services/Neurology [address] [place] [address] [place] [address] MR#: [id number] Acct: [id number] Name: SHIRLENE HERNANDEZ Rep #: [id number] : 1960 57 From: Denice Velasco MD Referring Dr: Krista CODY, Jayden Status: REG CLI Ordering Dr: Date: Location: [facility] Sex: M C - Electroencephalogram Date of service 01/17/18 History EEG is being done in this 57 yr M to rule out seizures EEG Description: This is an 18 channel EEG with 10-20 lead placement system. Bipolar montages, Referential and Circumferential montages were reviewed. Photic stimulation and Hyperventilation were performed. The posterior dominant background rhythm is 8-9 HZ synchronous, symmetric, reacting to eye opening and closing. Photo stimulation elicited normal driving response but no abnormal photoparoxysmal response, Hyperventilation did not elicit any abnormal photoparoxysmal response but elicited post hyperventilation slowing. Sleep was not identified. There was no epileptiform discharges or electrographic seizures noted during this recording. EEG Interpretation This is a normal awake EEG. There is no epileptiform discharges or electrographic seizures noted during the record. 01/30/18 0032 <Electronically signed by Denice Velasco MD> Date Denice Velasco MD CC: Jayden Velasco MD; Nilson Vazquez MD Date Dictated: 01/18/181425 Date Transcribed: 01/18/181425 Wood Tile Installer: RSR Signed RE-EVALUATION - PT (1) Observed: 01/26/2018 Status: F Source: [place] 12:13 PM [facility] [address] [place] [address]. [address] [place], [place] [address] Fax REEVALUATION / MEDICARE RECERTIFICATION PHYSICAL THERAPY MR#: [id number] Acct: [id number] Name: SHIRLENE HERNANDEZ Rep #: [id number] : 1960 57 From: Jack Nichols DPT Referring Dr.: Nilson Vazquez MD Status: REG RCR Insurance: [employer] SELF PAY INSURANCE Nilson Vazquez, It has been my pleasure to treat SHIRLENE HERNANDEZ over the last 8 visits for Subarachnoid hemorage, CVA, seizure disorder. Please see the progress note below for an update on the physical therapy plan of care! Subjective: Pt. reports having increased L knee pain this date. Pt. arrives with daughter today. Daughter reports he is attempting more walking at home. Objective/Function: Pt. reported increased L knee pain. Pt. has improved ability to hip hike for 10 feet, but fatigues out at that point. Pt. does better with assistance to advance LLE. Pt. continues to slowly progress. He has increased RLE strenght, but cotninues to have no voluntary movement of L ankle/knee, slight hip hiking wtih QL, but other than than minimal LLE movement. Pt. is limited with gait with increased L knee pain during all wt bearing activites. Pt. may have better functional mobility if he did not have a great of pain with L knee wt bearing activities. Plan Plan: Possible need for meniscal tear managment. May be injection? But unsure if this would even help. POC will be extended x2 per week for 4 weeks to continue to progress RLE strenth, transfer training to increas independence and gait progression. Goals Goal 1:: Pt. to be I with HEP. Goal Time Frame: 4-6 Weeks Goal Progress: Progressing Goal 2:: Pt. to have increased bilateral HS length to 70deg in 90/90 testing Goal Time Frame: 4-6 Weeks Goal Progress: Progressing Goal 3:: Pt. to ambulate 50+ft. with hemiwalker with CGA/SBA allowing for increased ease of functional mobility in home. Goal Time Frame: 4-6 Weeks Goal Progress: Progressing Goal 4:: Pt. to have increased RLE strength by 1/2 grade allowing for increased stability with gait and stability with functional mobility. Goal Time Frame: 4-6 Weeks Goal Progress: Progressing Goal 5:: Pt. to compelted all txs with CGA with hemiwalker allowing for increased stability and decreased caregiver need. Goal Time Frame: 4-6 Weeks Goal Progress: Progressing Goal 6:: Pt. to complete all bed mobilty with CGA allowing for increased independence with in room. Goal Time Frame: 4-6 Weeks Anticipated Interventions Patient/Client Instruction: Educate patient on: Condition, Plan of Care, Risk Factors, Benefits of Fitness Program For the Purpose of:: To improve decision making, To facilitate caregiver knowledge, To improve self management, To prevent re-injury, To improve ability to perform tasks related to life management, To improve tolerance to ADL's Therapeutic Exercise to Include: Strength training, Power training, Endurance training, Agility training, Body mechanics, Postural training, Flexibilty training, Gait and locomotor training, Passive ROM, Active ROM, Dynamic Lumbar Stabilization For the Purpose of:: To decrease pain, To increase ROM, To improve nutrient delivery to tissue, To improve muscle performance and motor function, To improve ability to perform ADL's, To increase tolerance to activity/condition/position, To improve performance and independence with ADL's, To decrease level of supervision to perform tasks, To improve ability of physical actions for home/community/work/leisure, To improve gait and locomotor functions, To improve health of tissue, To decrease soft tissue restriction, To increase flexibility/ROM Please do not hesitate to contact me at [phone] by phone or if you have questions or concerns regarding this new plan of care! Sincerely, Jack Nichols <Electronically signed by Jack Nichols DPT> 01/26/18 1213 CC: Nilson Vazquez MD CLS Signed For Medicare only, by signing this I certify the plan of care. Physicians Signature Date INITAL EVALUATION (1) Observed: 12/28/2017 Status: F Source: [place] - [place] 2:05 PM [facility] [address] [place] [address] Fax REHABILITATION SERVICES INITIAL EVALUATION MR#: [id number] Acct: [id number] Name: [place]Y [place] Rep #: [id number] : 1960 57 From: Jack Nichols DPT Referring Dr.: Nilson Vazquez MD Status: REG RCR Insurance: [facility] SELF PAY INSURANCE Patient's Visit Information SHIRLENE R GLORIANataliia is a 57 year old M referred to Physical Therapy by Nilson Vazquez with a diagnosis of Subarachnoid hemorage, CVA, seizure disorder. Date of Evaluation: 12/21/17 Physical Therapist: Jack Nichols - Visit Plan Frequency: 2-3x /Week Duration: 4-6 Weeks Plan: Start with RLE strengthening, static/dynamic balance, gait training, endurnace training. tx training and bed mobility. Add in HS stretching as well. - Subjective Subjective: Pt. is here today for his initial evaluation with diagnosis of CVA and seizure disorder. This 57 year old male of CVA- pt suffered a stroke on November 25 after undergiong sx to repair a aneurysm on November 24, 2016. per family he was in the hospital or therapy until 2016. pt has had home therapy until two weeks ago. pt amb with anjali walker and has hired aide 5 x week for 8-9 hours a day to assist pt with self care, bathing, dressing etc. Family reports patient walks in home with assistance and completes all functional mobility with assistance. Pt. can also become agitated at times and gets easily distracted per family. He has an AFO on his L ankle and L knee brace as well. Pt. reports having constant pain in his L knee, that increases with walking. - Pain L knee Pain Intensity (Out of 10): Unrated - Objective POSTURE: Pt. is able to sit with proper improved posture with VCing. Generally flexed posture. Pt. uses pummel in wc to maintain improved stability. Pt. marked weakness in LUE, kept at side. (OT addressing). PALPATION: Pt. has increased pain to palpation throughout LLE including knee and quad. No back pain noted. NEUROLOGICAL: Pt. has 2+ RLE achilles and patellar DTR, did not elicite LLE DTR. Pt. has normal sensation to sharp touch on bilateral LEs. Pt. has decreased sensation throughout LLE to light touch. Pt. is unable to rise on heels or toes of either LE in standing. He is able to use RLE in sitting through, LLE no able to complete. ROM: Pt. has full ROM of BLEs, increased pain with L knee ROM, tightness in B HS L worse than R. Pt. has tight L G/S complex as well. MMT: RLE- ankle 5/5 throughout; knee- ext 4+/5, flexion 4/5; hip- flexion 4/5, abd 4/5, ext 4/5. LLE- ankle 1/5 throughout knee- ext 1/5, flexion 1/5; hip- flexion 2+/5, abd 2+/5, ext 2/5. Core strength- poor-. GAIT: Pt. ambulates with a anjali walker 1x15' and 1x5' with MODA to complete. Pt. has step to pattern with increased trunk rotation to advance LLE. Pt. reports fatigue and L leg pain as limiting factor. Pt. became agitated during txs and gait testing, but after stopping was plesant. TX- sit to stand modA x1, stand pivot txs with hemiwalker modA x1 + VCing for proper technqiues. Bed mobility- supine to sitting max A for LEs, mod A x1 for UB. Rolling- min A to L side and CGA to R side. STAIRS- DNT. - Goals Goal 1:: Pt. to be I with HEP. Goal Time Frame: 4-6 Weeks Goal 2:: Pt. to have increased bilateral HS length to 70deg in 90/90 testing Goal Time Frame: 4-6 Weeks Goal 3:: Pt. to ambulate 50+ft. with hemiwalker with CGA/SBA allowing for increased ease of functional mobility in home. Goal Time Frame: 4-6 Weeks Goal 4:: Pt. to have increased RLE strength by 1/2 grade allowing for increased stability with gait and stability with functional mobility. Goal Time Frame: 4-6 Weeks Goal 5:: Pt. to compelted all txs with CGA with hemiwalker allowing for increased stability and decreased caregiver need. Goal Time Frame: 4-6 Weeks Goal 6:: Pt. to complete all bed mobilty with CGA allowing for increased independence with in room. Goal Time Frame: 4-6 Weeks - Rehabilitation Potential Physical Therapy Diagnosis: Pt. has sigs and symptoms consistent with generall weakness, difficulty with gait, imbalance, LLE pain and difficulty with all functional mobility after having CVA and subarachnoid hemorage. Pt. would benefit from PT to address above issues progressing gait and stability allowing for increased safety in home and decreased caregiver need. Rehabilitation Potential: Fair - Anticipated Interventions Patient/Client Instruction: Educate patient on: Condition, Plan of Care, Risk Factors, Benefits of Fitness Program For the Purpose of:: To improve decision making, To facilitate caregiver knowledge, To improve self management, To prevent re-injury, To improve ability to perform tasks related to life management, To improve tolerance to ADL's Therapeutic Exercise to Include: Strength training, Power training, Endurance training, Agility training, Body mechanics, Postural training, Flexibilty training, Gait and locomotor training, Passive ROM, Active ROM, Dynamic Lumbar Stabilization For the Purpose of:: To decrease pain, To increase ROM, To improve nutrient delivery to tissue, To improve muscle performance and motor function, To improve ability to perform ADL's, To increase tolerance to activity/condition/position, To improve performance and independence with ADL's, To decrease level of supervision to perform tasks, To improve ability of physical actions for home/community/work/leisure, To improve gait and locomotor functions, To improve health of tissue, To decrease soft tissue restriction, To increase flexibility/ROM Thank you for the opportunity to evaluate your patient. For Medicare and Medicare HMO plans, please review the plan of care and approve it. It will need to be FAXED BACK to us at [phone] for Medicare purposes. Please let me know if there are questions or concerns regarding this plan of care. Physician Signature: Date: <Electronically signed by Jack Nichols DPT> 12/28/17 1405 CC: Nilson Vazquez MD CLS Signed For Medicare only, by signing this I certify the plan of care. Physicians Signature Date CBC W/DIFF, AUTOMATED Collected: 12/24/2017 Status: F Source: [place] 10:06 AM [facility] [place] TYPE CODE TESTS RESULT OUT OF RANGE REFERENCE UNITS LAB L100.1000 4.4-11.0 K/mm3 Normal WBC 8.1 LAB L100.1200 4.6-6.2 M/mm3 Low RBC 4.34 LAB L100.1300 13.0-16.5 g/dl Low HGB 12.3 LAB L100.1400 40-54 % Low HCT 38.5 LAB L100.1500 80-94 fL Normal MCV 88.7 LAB L100.1600 27.0-32.0 pg Normal MCH 28.3 LAB L100.1700 32-36 g/gl Low MCHC 31.9 LAB L100.1810 11.6-14.6 % High RDW CV 14.8 LAB L100.1820 35.1-43.9 fl High RDW SD 47.8 LAB L100.1900 150-450 K/mm3 Normal PLT 260 LAB L100.2000 6.2-12.0 fl Normal MPV 10.6 LAB L100.2100 47-70 % Normal NEUT% 64.0 LAB L100.2200 19-41 % Normal LY% 23.2 LAB L100.2300 0-10 % Normal MONO% 9.5 LAB L100.2400 0-5 % Normal EO% 2.6 LAB L100.2500 0-1 % Normal BASO% 0.5 LAB L100.2550 0.0-0.9 % Normal IM GRAN % 0.200 Result Comment: IG% - Immature Granulocytes (promyelocytes, myelocytes and metamyelocytes) > 1% indicates that a LEFT SHIFT is Present. LAB L100.2620 2.0-7.7 X10 3/uL Normal Absolute Neut 5.2 LAB L100.2720 0.83-4.51 X10 3/ul Normal Absolute Lymph 1.88 LAB L100.4500 Normal SMEAR COMMENT SCANNED Performed By: #### L100.0100 #### [facility] [address] [place], [address] COMPREHENSIVE METABOLIC Collected: 12/24/2017 Status: F Source: [facility] 10:06 AM [facility] TYPE CODE TESTS RESULT OUT OF RANGE REFERENCE UNITS LAB L501.0100 74-106 mg/dL Low GLU 73 Result Comment: Please note revised GLUCOSE reference range effective 2017. LAB L501.1000 7-18 mg/dL High BUN 42 LAB L501.1100 0.70-1.30 mg/dL High CREAT,SERUM 3.73 Result Comment: The validity of the calculated GFR AND GFRAA in patients over 70 years has not been determined. Clinical correlation is essential. LAB L501.1110 >60 mL/min Low EST GFR 18 Result Comment: Non- GFR Calc LAB L501.1115 >60 mL/min Low EST GFR - AA 22 Result Comment: GFR Calc LAB L501.1300 10-20 RATIO Normal BUN/CRE 11.3 LAB L501.1500 6.4-8.2 g/dL T Normal PROT 6.8 LAB L501.1800 3.2-5.0 g/dL Normal ALB 3.3 LAB L501.1950 2.2-4.2 g/dL Normal GLOB 3.5 LAB L501.2000 0.9-2.4 RATIO Normal A/G 0.9 LAB L501.2200 8.5-10.1 mg/dL Low CA 8.4 LAB L501.4100 15-37 U/L Low AST 9 LAB L501.4305 45-117 U/L Normal ALK P 72 LAB L501.4405 16-61 U/L Normal ALT 18 LAB L501.4600 0.20-1.00 mg/dL T Normal BILI 0.30 LAB L501.5300 136-145 mmol/L NA Normal 144 LAB L501.5600 3.5-5.1 mmol/L K Normal 4.5 LAB L501.5900 98-107 mmol/L High CL 108 LAB L501.6100 21.0-32.0 mmol/L Normal CO2 28.0 LAB L501.6200 5-15 Normal GAP 8 Performed By: #### L500.4050, L501.9520 #### [facility] [address] [facility]. [place], [place], [id number] THYROID STIM HORMONE Collected: 12/24/2017 Status: F Source: [place] ([facility]) 10:06 AM [facility] TYPE CODE TESTS RESULT OUT OF RANGE REFERENCE UNITS LAB L501.9520 0.358-3.74 uIU/mL Normal TSH 1.89 Performed By: #### L500.4050, L501.9520 #### [facility] [address] [place], [place], [id number] OT GENERAL EVALUATION Observed: 12/23/2017 Status: F Source: [place] 2:31 PM [facility] [address] [place] [address] Fax REHABILITATION SERVICES INITIAL EVALUATION MR#: [id number] Acct: [id number] Name: SHIRLENE HERNANDEZ Rep #: [id number] : 1960 57 From: Meme GREGORIO/ROHAN Castaneda Referring Dr.: Nilson Vazquez MD Status: REG RCR Insurance: [place] Eval Date: SELF PAY INSURANCE Patient's Visit Information SHIRLENE HERNANDEZ is a 57 year old M, referred to Occupational Therapy by Nilson Vazquez, with a diagnosis of CVA. Date of Evaluation: 12/21/17 Occupational Therapist: DARLINE Cueto/Leonel, ROHAN - Subjective Subjective: This 57 year old male was seen for inital OT eval with dx. of CVA- pt suffered a stroke on November 25 after undergiong sx to repair a aneurysm on November 24, 2016. per family he was in the hospital or therapy until 2016. pt has had home therapy until two weeks ago. pt amb with anjali walker and has hired aide 5 x week for 8-9 hours a day to assist pt with self care, bathing, dressing etc. Family would like for pt to reach his max rehab potential and possible use of left UE as assistive arm/hand - ROM ROM Comments: no active left UE ROM - - Strength Slunk Skinner: right 45# left unable - Sensation Stereognosis: Normal - Right, Abnormal - Left Kinesthesia: Normal - Right, Abnormal - Left Proprioception: Normal - Right, Abnormal - Left - Movement Muscle Tone: left wrist ext max tone- min elbow tone and min digit tone Movement Comments: left UE demo no initiation of movement - Cognitive Skills Follows Directions: Yes Oriented to (Check all that apply): Person Cognitive Comments: pt impulsive and will yell out with bad language - Attention Attention: Fair - In-Hand Manipulation Finger to Palm Translation: Normal - Right, Unable - Right Palm to Finger Translation: Normal - Right, Unable - Right Shift: Normal - Right, Unable - Right Rotation: Normal - Right, Unable - Right - DASH-Disabilities of Arm, Shoulder AND Hand DASH Sum: 111 - Goals Goal:: pt will demo a increase in left shoulder AROM by 90 degrees or greater to increase pts ind. with BADls and IADLS. Pt will demo active elbow flex to 135 degrees to increase pts use of left UE as assistive unit with performance of BADLS and IADLS by D/c Goal:: pt will demo the ability to use left UE as assisite device for BADLs and IADLS by d/c Goal:: Pt will demo ability to citrus picker large, med. sized objects to increase pts ind.with BADLS and IADLS by d/c Goal:: caregiver ed will be completed to assist pt with cont. with his HEP - Rehabilitation General Assessment: Left UE weakness Rehabilitation Potential: Questionable - Anticipated Interventions Anticipated Interventions: A/AAROM/PROM, Strengthening, Modalities, Orthoses, Neuro Reeducation, Caregiver Training - Visit Plan Frequency: 2-3x /Week Duration: 4 Weeks TEXT: Thank you for the opportunity to evaluate your patient. For Medicare and Medicare HMO plans, please review the plan of care and approve it. It will need to be FAXED BACK to us at [phone] for Medicare purposes. Please let me know if there are questions or concerns regarding this plan of care. Physician Signature: Date: <Electronically signed by Meme GREGORIO/ROHAN Castaneda> 12/23/17 1431 CC: Nilson Vazquez MD CHELA Signed For Medicare only, by signing this I certify the plan of care. Physicians Signature Date BRAIN/HEAD WITHOUT Observed: 10/16/2017 Status: F Source: [place] 11:12 AM [facility] Imaging Services [address] [place] [address] Brain/Head without Contrast MR#: [id number] Acct: [id number] Name: SHIRLENE HERNANDEZ Rep #: [id number] : 1960 M 57 From: Daryn Clark MD PCP: George CODY,Nilson Blankenship Status: REG CLI Study: Brain/Head without Contrast Date of Exam: 10/16/17 Exam# [id number] Ordering Dr: Karen Clayton HAND EXPANSION ENVELOPE MAKER-C STUDY: CT BRAIN WITHOUT CONTRAST REASON FOR EXAM: Male, 57 years old. SAH--S/P CLIPPING DIZZINESS, HEADACHE RADIATION DOSAGE (If Supplied By Facility): CTDIvol = ( 44.99 ) mGy, DLP = ( 779.24 ) mGycm TECHNIQUE: Transaxial CT imaging of the brain was performed without administration of intravenous contrast material. Individualized dose optimization techniques were used for this CT. COMPARISON: 05.13.17. FINDINGS: Normal soft tissue structures. There is a left frontal craniotomy/craniectomy. There are calcifications around the carotid artery. These are noted in the cavernous carotid arteries. There is mild cerebral atrophy with widening of the extra- axial spaces and ventricular dilatation. There are areas of decreased attenuation within the white matter tracts of the supratentorial brain, consistent with microvascular disease changes. Normal basal ganglia and thalami. Normal brainstem. There is mild cerebellar atrophy. There is an old infarct of the frontal lobes. Diffuse areas of encephalomalacia from prior infarction or surgery in the superior right frontoparietal lobe. Bilateral frontal lobe rales. There is no intracranial hemorrhage. There are no findings of an acute ischemic infarction. Opacified left maxillary sinus. Soft tissue mass extends from the left maxillary sinus into the left side of the nasopharynx. This appears stable. CT/Brain/Head without Contrast IMPRESSION: Chronic involutional changes of the brain. There are no acute findings. Old stable infarction or areas related to prior surgery. Opacified left maxillary sinus. Soft tissue mass extends from the left maxillary sinus into the left side of the nasopharynx. This appears stable. Electronically Signed: Daryn Clark MD at 20:17 EDT , Service support , CC: DENILSON Clayton; Nilson Vazquez MD Wood Tile Installer: Signed CBC W/DIFF, AUTOMATED Collected: 09/29/2017 Status: F Source: [place] 1:47 PM [facility] TYPE CODE TESTS RESULT OUT OF RANGE REFERENCE UNITS LAB L100.1000 4.4-11.0 K/mm3 Normal WBC 7.4 LAB L100.1200 4.6-6.2 M/mm3 Low RBC 4.15 LAB L100.1300 13.0-16.5 g/dl Low HGB 12.0 LAB L100.1400 40-54 % Low HCT 36.8 LAB L100.1500 80-94 fL Normal MCV 88.7 LAB L100.1600 27.0-32.0 pg Normal MCH 28.9 LAB L100.1700 32-36 g/gl Normal MCHC 32.6 LAB L100.1810 11.6-14.6 % High RDW CV 15.4 LAB L100.1820 35.1-43.9 fl High RDW SD 50.0 LAB L100.1900 150-450 K/mm3 Normal PLT 231 LAB L100.2000 6.2-12.0 fl Normal MPV 10.3 LAB L100.2100 47-70 % Normal NEUT% 56.6 LAB L100.2200 19-41 % Normal LY% 27.7 LAB L100.2300 0-10 % High MONO% 11.9 LAB L100.2400 0-5 % Normal EO% 2.8 LAB L100.2500 0-1 % Normal BASO% 0.5 LAB L100.2550 0.0-0.9 % Normal IM GRAN % 0.500 Result Comment: IG% - Immature Granulocytes (promyelocytes, myelocytes and metamyelocytes) > 1% indicates that a LEFT SHIFT is Present. LAB L100.2620 2.0-7.7 X10 3/uL Normal Absolute Neut 4.2 LAB L100.2720 0.83-4.51 X10 3/ul Normal Absolute Lymph 2.05 Performed By: #### L100.0100 #### [facility] [place], [place], [address] COMPREHENSIVE METABOLIC Collected: 09/29/2017 Status: F Source: [place] 1:47 PM [facility] Order Comment: Comments: \ TYPE CODE TESTS RESULT OUT OF RANGE REFERENCE UNITS LAB L501.0100 74-106 mg/dL Normal GLU 80 Result Comment: Please note revised GLUCOSE reference range effective 2017. LAB L501.1000 7-18 mg/dL High BUN 49 LAB L501.1100 0.70-1.30 mg/dL High CREAT,SERUM 3.04 Result Comment: The validity of the calculated GFR AND GFRAA in patients over 70 years has not been determined. Clinical correlation is essential. LAB L501.1110 >60 mL/min Low EST GFR 23 Result Comment: Non- GFR Calc LAB L501.1115 >60 mL/min Low EST GFR - AA 28 Result Comment: GFR Calc LAB L501.1300 10-20 RATIO Normal BUN/CRE 16.1 LAB L501.1500 6.4-8.2 g/dL T Normal PROT 6.6 LAB L501.1800 3.2-5.0 g/dL Normal ALB 3.2 LAB L501.1950 2.2-4.2 g/dL Normal GLOB 3.4 LAB L501.2000 0.9-2.4 RATIO Normal A/G 0.9 LAB L501.2200 8.5-10.1 mg/dL Low CA 8.3 LAB L501.4100 15-37 U/L Low AST 8 LAB L501.4305 45-117 U/L Normal ALK P 68 LAB L501.4405 16-61 U/L Normal ALT 18 Result Comment: Please note revised ALT reference range effective 2017. LAB L501.4600 0.20-1.00 mg/dL Normal T BILI 0.20 LAB L501.5300 136-145 mmol/L Normal NA 144 LAB L501.5600 3.5-5.1 mmol/L Normal K 3.9 LAB L501.5900 98-107 mmol/L High CL 109 LAB L501.6100 21.0-32.0 mmol/L Normal CO2 25.0 LAB L501.6200 5-15 Normal GAP 10 Performed By: #### L500.4050, L501.9520 #### [facility] [address] [place], [place], [address] THYROID STIM HORMONE Collected: 09/29/2017 Status: F Source: [place] ([facility]) 1:47 PM [facility] Order Comment: Comments: \ TYPE CODE TESTS RESULT OUT OF RANGE REFERENCE UNITS LAB L501.9520 0.358-3.74 uIU/mL Normal TSH 2.03 Performed By: #### L500.4050, L501.9520 #### [facility] [address] [place], [place], [id number] CBC-COMPLETE BLOOD CNT Collected: 09/23/2017 Status: F Source: [place] NO DIFF 5:49 PM [facility] TYPE CODE TESTS RESULT OUT OF RANGE REFERENCE UNITS LAB L100.1000 4.4-11.0 K/mm3 Normal WBC 7.2 LAB L100.1200 4.6-6.2 M/mm3 Low RBC 4.10 LAB L100.1300 13.0-16.5 g/dl Low HGB 11.9 LAB L100.1400 40-54 % Low HCT 36.3 LAB L100.1500 80-94 fL Normal MCV 88.5 LAB L100.1600 27.0-32.0 pg Normal MCH 29.0 LAB L100.1700 32-36 g/gl Normal MCHC 32.8 LAB L100.1810 11.6-14.6 % High RDW CV 15.4 LAB L100.1820 35.1-43.9 fl High RDW SD 49.6 LAB L100.1900 150-450 K/mm3 Normal PLT 258 LAB L100.2000 6.2-12.0 fl Normal MPV 10.1 Performed By: #### L100.0500 #### [facility] [address] [place], [place], [id number] RENAL PROFILE Collected: 09/23/2017 Status: F Source: [place] 5:49 PM [facility] [place] TYPE CODE TESTS RESULT OUT OF RANGE REFERENCE UNITS LAB L501.0100 74-106 mg/dL Normal GLU 81 Result Comment: Please note revised GLUCOSE reference range effective 2017. LAB L501.1000 7-18 mg/dL High BUN 44 LAB L501.1100 0.70-1.30 mg/dL High CREAT,SERUM 2.96 Result Comment: The validity of the calculated GFR AND GFRAA in patients over 70 years has not been determined. Clinical correlation is essential. LAB L501.1110 >60 mL/min Low EST GFR 24 Result Comment: Non- GFR Calc LAB L501.1115 >60 mL/min Low EST GFR - AA 29 Result Comment: GFR Calc LAB L501.1300 10-20 RATIO Normal BUN/CRE 14.9 LAB L501.1800 3.2-5.0 g/dL Normal ALB 3.3 LAB L501.2200 8.5-10.1 mg/dL Low CA 8.0 LAB L501.2300 2.5-4.9 mg/dL Normal PHOS 3.8 LAB L501.5300 136-145 mmol/L NA Normal 142 LAB L501.5600 3.5-5.1 mmol/L K Normal 4.6 LAB L501.5900 98-107 mmol/L High CL 109 LAB L501.6100 21.0-32.0 mmol/L Normal CO2 25.0 Performed By: #### L500.3600 #### [facility] [address] [facility]. [place], [place], [address] MICROALB:CREAT Collected: 09/23/2017 Status: F Source: [facility] [place] 5:49 PM [facility] [place] TYPE CODE TESTS RESULT OUT OF RANGE REFERENCE UNITS LAB L501.1200 NO RANGE EST. mg/dL Normal UR CREAT 92.00 LAB L502.0500 NO RANGE EST. mg/L Normal 2180.0 MICROALBUMIN ,UR LAB L502.0600 <30 mg/g CRE mg/g CRE High 2369.6 MALB:CREAT Performed By: #### L502.0250 #### [facility] [address] [place], [address] PTHIN Collected: 09/23/2017 Status: F Source: [place] 5:49 PM [facility] [place] TYPE CODE TESTS RESULT OUT OF RANGE REFERENCE UNITS LAB L509.1000 18.4-80.1 pg/mL Normal PTHIN 56.8 Result Comment: Please Note: PTH INTACT METHOD AND REFERENCE RANGE CHANGE Effective 06/23/2017. Performed By: #### L509.1000 #### [facility] [address] [facility] [place], [address] VITAMIN D,25 HYDROXY Collected: 09/23/2017 Status: F Source: [place] 5:49 PM [facility] [place] TYPE CODE TESTS RESULT OUT OF RANGE REFERENCE UNITS LAB L506.1000 29.95-100.01 ng/mL Normal Vitamin D 38.2 25-OH Result Comment: Vitamin D 25(OH) Status Range Deficiency <20 ng/mL (50nmol/L) Insuffciency 20 - 30 ng/mL (50 - 75 nmol/L) Sufficiency 30 - 100 ng/mL (75 - 250 nmol/L) Toxicity >100 ng/mL (>250 nmol/L) Performed By: #### L506.1000 #### [facility] [address] [facility] [place], [address] LUNG Observed: 07/26/2017 Status: F Source: [place] SCREENING 6:32 PM [facility] [place] [facility] Imaging Services [address] [facility] [place] [address] Lung Screening MR#: [id number] Acct: [id number] Name: SHIRLENE HERNANDEZ Rep #: [id number] : 1960 M 57 From: Bolivar Olvera MD PCP: George CODY,Nilson Blankenship Status: [facility] Study: Low Dose CT Lung Screening Date of Exam: 07/26/17 Exam# [id number] Ordering Dr: Nilson Vazquez MD STUDY: LOW DOSE CT LUNG CANCER SCREENING REASON FOR EXAM: Male, 57 years old. History of 30 pack year smoking. RADIATION DOSAGE (If Supplied By Facility): CTDIvol = ( 2.01 ) mGy, DLP = ( 63.94 ) mGycm TECHNIQUE: No contrast was administered. Low dose technique was utilized (average mAS-38 and kVp 120). 1.25 mm axial source images with a slice interval of 1.25- mm were reconstructed in lung windows. 2.5 mm axial source images with a slice interval of 2.5-mm were reconstructed in lung windows. 5.0 mm axial source images with a slice interval of 5.0-mm were reconstructed in soft tissue windows. Nodule measured using lung windows on PACS and/or independent workstation with automated measurement of minimum and maximum diameter. Nodule measurement reported as average diameter rounded to the nearest whole number. Growth is defined as an increase ins size of greater than 1.5 mm. COMPARISON: None. NODULES: There is evidence of a soft tissue density in the lung apices slightly worse on the right side. This most likely is secondary to apical scarring. Emphysema: Mild emphysematous changes. Endobronchial lesion: No endobronchial lesion is seen. Aorta: Coronary arteries: Coronary artery calcification. Heart: Not enlarged. Mediastinal nodes: Small mediastinal lymphadenopathy. Other chest and abdominal findings: CT/Low Dose CT Lung Screening IMPRESSION: Lung-RADS category 2 - Continue annual screening with LDCT in 12 months. IMPORTANT NOTES FOR USE: ACR Lung-RADS Version 1.0 Assessment Categories Release Date: October 30, 2013 Category: Coded 0-4 bases on nodule(s) with highest degree of suspicion. Negative screen is defined as categories 1 and 2; a positive screen is defined as categories 3 and 4. Category 3 and 4A nodules that are unchanged on interval CT should be coded as category 2, and individuals returned to screening in 12 months. Category 4X: Category 3 or 4 nodules with additional imaging findings that increase the suspicion of lung cancer, such as spiculation, GGN that doubles in size in 1 year, enlarged lymph notes, etc. Category Modifiers: S (significant finding unrelated to lung cancer) and C (prior history of treated lung cancer) may be added to the 0-4 Lung-RADS Electronically Signed: Bolivar Olvera MD at 9:35 EST Tel [phone], Service support , CC: Nilson Vazquez MD Wood Tile Installer: Signed STOOL Observed: 07/04/2017 Status: F Source: [place] LACTOFERRIN/WBC 1:20 PM [facility] [place] Stool Lacto/WBC Normal Reference Range = Negative Fecal WBC Lactoferrin Negative: No Fecal WBC Lactoferrin present Performed By: #### M100.0605, M100.7900, M100.6796, M100.637 #### [facility] [address] [place], [address] Observed: 07/04/2017 Status: F Source: [place] STOOL OCCULT BLOOD 1:20 PM [facility] [place] STOB iFOB Occult Blood Negative Performed By: #### M100.0605, M100.7900, M100.6796, M100.637 #### [facility] [address] [place], [address] Observed: 07/04/2017 Status: F Source: [place] CDIFF (MOLECULAR) 1:20 PM [facility] [place] Cdiff-Molecular Normal Reference Range = Negative C. Diff DNA Negative- No toxigenic C. Diff DNA Detected NAAT METHOD Testing was performed using nucleic acid amplification Performed By: #### M100.0605, M100.7900, M100.6796, M100.637 #### [facility] [address] [place], [place], [id number] Observed: 07/04/2017 Status: F Source: [place] ENTERIC PATHOGEN 1:20 PM [facility] [place] PANEL STOOL REPOSITORY EP PANEL STOOL Not detected for Campylobacter group, Salmonella species, Shigella species, Vibrio Group, Yersinia enterocolitica, EHEC (Shiga Toxin 1, Shiga Toxin 2), Norovirus Gl/Gll, and Rotavirus A. Other common stool pathogens are not detected on this panel include: Aeromonas/Plesiomonas or parasites. Order testing for these organisms separately if suspected. This is an amplified DNA test which makes it both specific and sensitive. Normal Reference Range = Not Detected CAMPYLOBACTER Not Detected Salmonella Not Detected Shigella sp. Not Detected Shiga Toxin Not Detected Yersinia Not Detected VIBRIO Not Detected Norovirus Not Detected Rotavirus Not Detected Performed By: #### M100.0605, M100.7900, M100.6796, M100.637 #### [facility] [address] [place], [address] Observed: 07/04/2017 Status: F Source: [place] OVA AND PARASITES 8623 1:20 PM [facility] [place] O + P 8623 OVA AND PARASITES EXAM, ROUTINE These results were obtained using wet preparation(s) and trichrome stained smear. This test does not include testing for Crytosporidium parvum, Cyclospora, or Microsporidia. TESTING PERFORMED AT [facility]. ORIGINAL REPORT ON FILE IN LAB CONTAINS ADDITIONAL TEST SITE INFORMATION. Ova/Parasite Exam NO OVA, CYSTS, OR PARASITES FOUND. Performed By: #### M600.5000 #### [facility] [place], [address] ABD INC DECUB Observed: 06/29/2017 Status: F Source: [place] AND/OR ERECT 3:14 PM [facility] [facility] Imaging Services [address] [place] [address] [place] [address] Abd Inc Decub and/or Erect MR#: [id number] Acct: [id number] Name: SHIRLENE HERNANDEZ Rep #: [id number] : 1960 M 57 From: Germán Gutierrez MD PCP: Status: REG CLI Study: Abd Inc Decub and/or Erect Date of Exam: 06/29/17 Exam# [id number] Ordering Dr: Nilson Vazquez MD STUDY: X-RAY - ABDOMEN/PELVIS REASON FOR EXAM: Male, 57 years old. Diarrhea. TECHNIQUE: Supine, frontal projections of the abdomen/pelvis. COMPARISON: None. FINDINGS: Normal visualized lung bases. There is an unremarkable bowel gas pattern. There is no demonstrated free abdominal air. The visualized liver, spleen and kidneys are grossly normal in size and morphology. Normal soft tissue structures. Normal visualized osseous structures. RAD/Abd Inc Decub and/or Erect IMPRESSION: Normal x-ray examination of the abdomen and pelvis. Electronically Signed: Germán Gutierrez MD at 15:19 EST , Service support , CC: Nilson Vazquez MD Wood Tile Installer: Signed CBC W/DIFF, AUTOMATED Collected: 06/29/2017 Status: F Source: [place] 2:38 PM [facility] [place] TYPE CODE TESTS RESULT OUT OF RANGE REFERENCE UNITS LAB L100.1000 4.4-11.0 K/mm3 Normal WBC 7.5 LAB L100.1200 4.6-6.2 M/mm3 Low RBC 4.21 LAB L100.1300 13.0-16.5 g/dl Low HGB 12.1 LAB L100.1400 40-54 % Low HCT 36.4 LAB L100.1500 80-94 fL Normal MCV 86.5 LAB L100.1600 27.0-32.0 pg Normal MCH 28.7 LAB L100.1700 32-36 g/gl Normal MCHC 33.2 LAB L100.1810 11.6-14.6 % High RDW CV 15.2 LAB L100.1820 35.1-43.9 fl High RDW SD 47.2 LAB L100.1900 150-450 K/mm3 Normal PLT 268 LAB L100.2000 6.2-12.0 fl Normal MPV 10.3 LAB L100.2100 47-70 % Normal NEUT% 62.4 LAB L100.2200 19-41 % Normal LY% 22.5 LAB L100.2300 0-10 % High MONO% 10.2 LAB L100.2400 0-5 % Normal EO% 4.1 LAB L100.2500 0-1 % Normal BASO% 0.7 LAB L100.2550 0.0-0.9 % Normal IM GRAN % 0.100 Result Comment: IG% - Immature Granulocytes (promyelocytes, myelocytes and metamyelocytes) > 1% indicates that a LEFT SHIFT is Present. LAB L100.2620 2.0-7.7 X10 3/uL Normal Absolute Neut 4.7 LAB L100.2720 0.83-4.51 X10 3/ul Normal Absolute Lymph 1.69 Performed By: #### L100.0100 #### [facility] [address] [place], [address] COMPREHENSIVE METABOLIC Collected: 06/29/2017 Status: F [facility] [place] TYPE CODE TESTS RESULT OUT OF RANGE REFERENCE UNITS LAB L501.0100 70-110 mg/dL Normal GLU 79 LAB L501.1000 7-18 mg/dL High BUN 41 LAB L501.1100 0.70-1.30 mg/dL High 3.57 CREAT,SERUM Result Comment: The validity of the calculated GFR AND GFRAA in patients over 70 years has not been determined. Clinical correlation is essential. LAB L501.1110 >60 mL/min Low EST GFR 19 Result Comment: Non- GFR Calc LAB L501.1115 >60 mL/min Low EST GFR - AA 23 Result Comment: GFR Calc LAB L501.1300 10-20 RATIO Normal BUN/CRE 11.5 LAB L501.1500 6.4-8.2 g/dL T Normal PROT 7.0 LAB L501.1800 3.4-5.0 g/dL Normal ALB 3.4 Result Comment: Please note revised Albumin AND Globulin reference range effective 2017. LAB L501.1950 2.2-4.2 g/dL Normal GLOB 3.6 LAB L501.2000 0.9-2.4 RATIO Normal A/G 0.9 LAB L501.2200 8.5-10.1 mg/dL Normal CA 9.6 LAB L501.4100 15-37 U/L Low AST 5 LAB L501.4305 45-117 U/L Normal ALK P 80 LAB L501.4405 12-78 U/L Low ALT 8 LAB L501.4600 0.20-1.00 mg/dL Normal T BILI 0.30 LAB L501.5300 136-145 mmol/L Normal NA 141 LAB L501.5600 3.5-5.1 mmol/L Normal K 3.8 LAB L501.5900 98-107 mmol/L High CL 109 LAB L501.6100 21.0-32.0 mmol/L Normal CO2 25.0 LAB L501.6200 5-15 Normal GAP 7 Performed By: #### L500.4050, L501.9520, L501.9910 #### [facility] [address] [place], [address] THYROID STIM HORMONE Collected: 06/29/2017 Status: F Source: [place] (TSH) 2:38 PM [facility] [place] TYPE CODE TESTS RESULT OUT OF RANGE REFERENCE UNITS LAB L501.9520 0.358-3.74 uIU/mL Normal TSH 1.65 Performed By: #### L500.4050, L501.9520, L501.9910 #### [facility] [address] [place], [address] PSA,TOTAL - ANNUAL Collected: 06/29/2017 Status: F Source: [place] SCREEN 2:38 PM [facility] [place] TYPE CODE TESTS RESULT OUT OF RANGE REFERENCE UNITS LAB L501.9910 0.00-4.00 ng/mL Normal PSA,TOT 0.58 SCREEN Result Comment: This test was performed using the TPSA assay method for the [employer] chemistry system. Values obtained with different assay methods cannot be used interchangably. When changing PSA assays in the course of monitoring a patient, additional sequential testing should be carried out to confirm baseline values. Performed By: #### L500.4050, L501.9520, L501.9910 #### [facility] [address] [place], [place], [address] VITAMIN D,25 HYDROXY Collected: 06/29/2017 Status: F Source: [place] 2:38 PM [facility] TYPE CODE TESTS RESULT OUT OF RANGE REFERENCE UNITS LAB L506.1000 ng/mL Normal Vitamin D 35.8 25-OH Result Comment: Vitamin D 25(OH) Status Range Deficiency <20 ng/mL (50nmol/L) Insuffciency 20 - 30 ng/mL (50 - 75 nmol/L) Sufficiency 30 - 100 ng/mL (75 - 250 nmol/L) Toxicity >100 ng/mL (>250 nmol/L) Performed By: #### L506.1000 #### [facility] [address] [place], [address] HEPATITIS C ANTIBODIES Collected: 06/29/2017 Status: F Source: [place] 2:38 PM [facility] [place] TYPE CODE TESTS RESULT OUT OF RANGE REFERENCE UNITS LAB L3100.0650 0.0-0.9 s/co ratio Normal HEP C AB <0.1 Result Comment: Negative: < 0.8 Indeterminate: 0.8 - 0.9 Positive: > 0.9 The CDC recommends that a positive HCV antibody result be followed up with a HCV Nucleic Acid Amplification test (241757). Performed at: [facility] [id number] Poultry Grader: Karlos Fleming PhD, Phone: [phone] Performed By: #### L3100.0625 #### [facility] (refer to report for specific site) refer to report for address and phone number ALLERGIES ALLERGIES DATE TYPE / CODE NAME / CODE REACTION SEVERITY SOURCE 06/02/2018 Drug No Known Unknown [facility] Allergy/416 Allergies/T75349 Hospital 661233(SNOM 0388(RXNORM) Repository ED CT) Drug NO KNOWN [facility] Three Class/86693 ALLERGIES Repository 1003(SNOMED CT) ENCOUNTERS ENCOUNTERS ADMIT/DISCHARGE ACCOUNT NUMBER ADMITTING ENCOUNTER LOCATION SOURCE CLASS 06/20/2018 [id number] Ambulatory [facility] ding:PT Repository 06/02/2018 [id number] Ambulatory [facility] ding:LAB Repository 06/02/2018/06/02/20 [id number] Ambulatory BMS[facility]: [place] [facility] Repository 05/02/2018 [id number] Ambulatory [facility] ding:NM Repository 03/28/2018 [id number] Ambulatory [facility] Hospital ding:POLAB3 Repository 02/07/2018 [id number] Ambulatory [facility] Hospital ding:LAB.FUT Repository URE 01/17/2018 [id number] Ambulatory [facility] Hospital ding:PSN Repository 12/24/2017 [id number] Ambulatory [facility] Hospital ding:POLAB3 Repository 10/16/2017 [id number] Ambulatory [facility] Hospital ding:CT Repository 10/08/2017 [id number] Ambulatory Building:[facility] Three Repository 10/08/2017 [id number] Ambulatory Building:[facility] Three Repository 10/08/2017 [id number] Ambulatory Building:[facility] Three Repository 10/06/2017 [id number] Ambulatory Building:[facility] Three Repository 10/05/2017 [id number] Ambulatory Building:[facility] Three Repository 10/04/2017 [id number] Ambulatory Building:[facility] Three Repository 09/29/2017 [id number] Ambulatory [facility] Hospital ding:POLAB3 Repository 09/27/2017 [id number] Ambulatory Building:[facility] Three Repository 09/23/2017 [id number] Ambulatory [facility] Hospital ding:LAB.FUT Repository URE 09/07/2017 [id number] Ambulatory [facility] Hospital ding:LAB.FUT Repository URE 08/30/2017 [id number] Ambulatory Building:[facility] Three Repository 07/26/2017 [id number] [facility] Repository 07/12/2017 [id number] Ambulatory Building:[facility] Three Repository 07/07/2017 [id number] Ambulatory Building:[facility] Three Repository 07/05/2017 [id number] Ambulatory Building:[facility] Three Repository 07/04/2017 [id number] Ambulatory [facility] Hospital ding:LABSPEC Repository 06/30/2017 [id number] Ambulatory Building:[facility] Three Repository 06/29/2017 [id number] Ambulatory [place] [facility] ding:POLAB3 Repository 06/29/2017 [id number] Ambulatory Building:[facility] Three Repository 06/28/2017 [id number] Ambulatory Building:[facility] Three Repository 06/26/2017 [id number] Ambulatory Building:[facility] Three Repository 06/23/2017 [id number] Ambulatory Building:[facility] Three Repository PAYERS PAYERS ENCOUNTER GUARANTOR PAYER SUBSCRIBER SOURCE 06/20/2018 [place] Darby [id number] W Insurance:CARESOURCEP SACHARADOB: [facility] Number: [id number] [id number] Repository [place] Date:2017-06-04P O 67[address]Yvx: (009) [address]ATTN: CLAIMS [phone] () [place] [address]BH: 06/20/2018 Secondary NOT GIVENUNK [place] Insurance:SELF PAY [facility] Number: Effective Repository Date:2017-12-14 06/02/2018 [place]E Darby [id number] W Insurance:CARESOURCEP SACHARADOB: [facility] Number: [id number] Clark Medical Center [id number] Repository [place] Date:2018-06-02P O 668[address]Aug: (816) [address]ATTN: CLAIMS [phone] () [place] [address]VM: 06/02/2018 Secondary NOT GIVENUNK [place] Insurance:SELF PAY [facility] Number: Effective Repository Date:2018-06-02 06/02/2018 SHIRLENE Darby [id number] W Insurance:CARESOURCEP SACHARADOB: [facility] Number: [id number] Clark Medical Center [id number] Repository [place] Date:2018-05-13P O 28[address]Rfq: (330) [address]ATTN: CLAIMS [phone] (HP) [place] [address]AP: 06/02/2018 Secondary NOT GIVENUNK [place] Insurance:SELF PAY [facility] Number: Effective Repository Date:2018-06-02 05/02/2018 SHIRLENE R Primary SHIRLENE R [place] [id number] W Insurance:CARESOURCEP SACHARADOB: [facility] Number: [id number] Clark Medical Center [id number] [place] Date:2018-04-08P O [address]87[address]Slp: (330) [address]ATTN: CLAIMS [phone] (HP) [place] [address]LR: 05/02/2018 Secondary NOT GIVENUNK [place] Insurance:SELF PAY [facility] Number: Effective Repository Date:2018-04-08 03/28/2018 SHIRLENE R Primary SHIRLENE R [place] [id number] W Insurance:CARESOURCEP SACHARADOB: [facility] Number: [id number] Clark Medical Center [id number] Repository [facility] Date:2018-03-28P O 513[address]Pum: (330) [address]ATTN: CLAIMS [phone] (HP) [place] [address]HX: 03/28/2018 Secondary NOT GIVENUNK [place] Insurance:SELF PAY [facility] Number: Effective Repository Date:2018-03-28 02/07/2018 [place]E [place] Primary SHIRLENE R [place] [id number] W Insurance:CARESOURCEP SACHARADOB: [facility] Number: [id number] Clark Medical Center [id number] Repository [facility] Date:2017-12-24P O 16872Kbu: (330) [address]ATTN: CLAIMS [phone] (HP) [place] [address]EK: 02/07/2018 Secondary NOT GIVENUNK [place] Insurance:SELF PAY [facility] Number: Effective Repository Date:2017-12-24 01/17/2018 SHIRLENE R Primary SHIRLENE [id number] W Insurance:CARESOURCEP SACHARADOB: [facility] Number: [id number] Clark Medical Center [id number] Repository [place] Date:2018-01-13 O 37267Fxz: 330) [address]ATTN: CLAIMS [phone] (HP) [place] [address]MM: 01/17/2018 Secondary NOT GIVENUNK [place] Insurance:SELF PAY [facility] Number: Effective Repository Date:2018-01-13 12/24/2017 SHIRLENE R Primary SHIRLENE R [place] [id number] W Insurance:CARESOURCEP SACHARADOB: [facility] Number: [id number] Clark Medical Center [id number] Repository [place] Date:2017-12-24P O 88[address]Nyp: (123) [address]ATTN: CLAIMS [phone] (HP) [place] [address]IX: 12/24/2017 Secondary NOT GIVENUNK [place] Insurance:SELF PAY [facility] Number: Effective Repository Date:2017-12-24 10/16/2017 SHIRLENE HERNANDEZ8 Primary SHIRLENE Darby TR Insurance:CARESOURCEP SACHARADOB: [address] Number: [id number], [place] [address]Pvy: [id number] Repository Date:2017-10-12P O (AI) [address]ATTN: [place] [address]YY: 10/16/2017 Secondary NOT GIVENUNK [place] Insurance:SELF PAY [facility] Number: Effective Repository Date:2017-10-12 10/08/2017 [facility]CARESOURCE SACHARADOB: Three Repository MANAGED [id number] [facility] MEDICAIDPolicy [address] [place] [address] Number: [place] [id number] [place], [place] [address]Pjh: (330) Date:1366-82-61AD [address] [phone] (HP) [place] [address]YO: 10/08/2017 [facility] Insurance:CARESOURCE SACHARADOB: Three Repository MANAGED [id number] MEDICAIDPolicy [address] [place] [address] Number: [place] [id number] [place] Date:3867-28-45YX [address] [address], [place] [address]NT: 10/08/[address] [facility] [facility]: [facility]OLIND[facility]ENTERAD[facility]: Three Repository MANAGED [id number] [facility] MEDICAIDPolicy [address] [place] [address] Number: [place] [id number] [place], [place] [address]Jlo: (330) Date:7593-76-08MV [address] [phone] (HP) [place] [address]TH: 10/08/2017 [facility] Insurance:CARESOURCE SACHARADOB: Three Repository MANAGED [id number] MEDICAIDPoly [address] [place] [address] Number: [place] [id number] [place] Date:3803-83-93KZ [address] [address], [place] [address]WI: 10/08/[address] [facility] [facility]: Insurance:CARESOURCE SACHARADOB: Three Repository MANAGED [id number] [place] [address] [place] [address] Number: [place] [id number] [place], [place] [address]Slz: (330) Date:4285-62-00VC [address] [phone] (HP) [address], [place] [address]PF: 10/08/2017 Secondary [facility] Insurance:CAR[facility]OLIND[facility]ACMOUNT[facility] MEDICAL CENTERADOB: Three Repository MANAGED [id number] MEDICAIDPolicy [address] [place] Number: [place] [id number] [place] Date:1892-22-90VL [address] [address], [place] [address]EF: 10/06/2017 [facility]:FIRSTHEALTHADOB: Three Repository MANAGED [id number] [place] MEDICAIDPolicy [address] Number: [place] [id number] [place], [place] [address]Sxh: (330) Date:1946-49-30[address] [phone] (HP) [address], [place] [address]DZ: 10/06/2017 [facility] Insurance:FIRSTHEALTHADOB: Three Repository MANAGED [id number] MEDICAIDPolicy [address] Number: [place] [id number] [place] Date:5219-66-56JP [address] [address] [address]TR: 10/05/2017 [facility]: Insurance[facility] MEDICAL CENTERADOB: Three Repository MANAGED [id number] [place] MEDICAIDPolicy [address] Number: [place] [id number] [place], [place] [address]Viw: (330) Date:7852-64-18TQ [address] [phone] (HP) [place], [place] [address]DV: 10/05/2017 Secondary [facility] Health Insurance:CARESOURCE SACHARADOB: Three Repository MANAGED [id number] MEDICAIDPolicy [address] [place] Number: [place] [id number] [facility] [place] Date:9970-74-35SH [address] [address], [place] [address]XP: 10/04/2017 [facility] SACHARADOB: Insurance:[facility] MARTHAB: Three Repository MANAGED [id number] [place] MEDICAIDPolicy [address] Number: [place], [place] [id number] [place], [place] [address]Dmw: (330) Date:8826-98-64HK [address] [phone] (HP) [address], [place] [address]FU: 10/04/2017 Secondary [facility] Insurance:[facility] SACHARADOB: Three Repository MANAGED [id number] MEDICAIDPolicy [address] [place] Number: [place] [id number] [facility], [place] Date:2531-25-86RG [address] [address] [place] [address]UH: 09/29/2017 SHIRLENE HERNANDEZ8 Primary SHIRLENE Darby TR Insurance:[facility]MERFL[facility]ENC[facility] THE MEDICAL CENTERADOB: [address] Number: [id number] [place], [place] [address]Ium: [id number] Repository [phone] Date:2017-09-29P O -2 (HP) [address]ATTN: [place] [address]WJ: 09/29/2017 Secondary NOT GIVENUNK [place] Insurance:SELF PAY Community [facility] Number: Effective Repository Date:2017-09-29 09/27/2017 SHIRLENE Primary [facility] SACHARADOB: Insurance:CARESOURCE SACKINGADOB: Three Repository MANAGED [id number] [place] MEDICAIDPolicy [address] Number: [place], [place] [id number] [place], [place] [address]Zny: (330) Date:4866-04-82MW [address] [phone] (HP) [address], [place] [address]VQ: 09/27/2017 Secondary [facility] Insurance:[facility]ENTERADOB: Three Repository MANAGED [id number] MEDICAIDPolicy [address] [place] Number: [place] [id number] [place] Date:3652-52-83WE [address] [phone] [address], [place] [address]DV: 09/23/2017 SHIRLENE Reinier HERNANDEZ8 Primary SHIRLENE R Mehnaz TR Insurance:CARESOURCEP THE MEDICAL CENTERADOB: [address] Number: [id number], [place] [address]Hjh: [id number] Repository [phone] Date:2017-09-22P O -2 (HP) [address]ATTN: [place] [address]XD: 09/23/2017 Secondary [facility] Mehnaz Insurance:SELF PAY [facility] Number: Effective Repository Date:2017-09-22 09/07/2017 SHIRLENE CASTROA8 Primary SHIRLENE Mehnaz TR Insurance:CARESOURCEP THE MEDICAL CENTERADOB: [address] Number: [id number], [place] [address]Iia: [id number] Repository [phone] Date:2017-09-07P O -2 (HP) [address]ATTN: [place] [address]AM: 09/07/2017 Secondary NOT GIVENUNK Mehnaz Insurance:SELF PAY [facility] Number: Effective Repository Date:2017-09-07 08/30/2017 SHIRLENE [facility] SACHARADOB: Insurance:CARESOURCE SACHARADOB: Three Repository MANAGED [id number] [place] MEDICAIDPolicy [address] Number: [place], [place] [id number] [place], [place] [address]Qwd: (330) Date:1708-63-26XQ [address] [phone] () [address], [place] [address]NG: 08/30/2017 Secondary [facility] Insurance:CARESOURCE SACHARADOB: Three Repository MANAGED [id number] MEDICAIDPolicy [address] Number: [place] [id number] [place] Date:1784-66-10HS [address] [address], [place] [address]EX: 07/26/2017 [address] Mehnaz TR Insurance:MARCELOSOKELSEY CASTROADOB: [address] Number: [id number] [place], [place] [address]Kwy: [id number] Repository [phone] Date:2017-06-29 O -2 () [address]ATTN: [place] [address]KJ: 07/26/2017 Secondary NOT G[place]UNK [place] Insurance:SELF PAY [facility] Number: Effective Repository Date:2017-06-29 07/12/2017 [facility] SACHARADOB: Insurance:CARESOURCE SACHARADOB: Three Repository MANAGED [id number] [place] MEDICAIDPolicy [address] Number: [place], [place] [id number] [place], [place] [address]Stx: (330) Date:4509-06-67ZF [address] [phone] (HP) [address], [place] [address]BV: 07/12/2017 [facility] Insurance:[facility] THE MEDICAL CENTERADOB: Three Repository MANAGED [id number] MEDICAIDPolicy [address] Number: [place] [id number] [place] Date:1043-62-04FT [address] [address], [place] [address]RI: 07/07/[address] [facility] [facility] Insurance:[facility]HEN[facility] FOR[facility] JACKSON HOSPITALADOB: Three Repository MANAGED [id number] [place] MEDICAIDPolicy [address] Number: [facility] [place] [id number] [place], [place] [address]Wkr: (330) Date:1572-62-86OV [address] [phone] (HP) [address], [place] [address]DQ: 07/07/2017 [facility] Insurance:FIRSTHEALTHADOB: Three Repository MANAGED [id number] MEDICAIDPolicy [address] [place] Number: [place] [id number] [place] Date:2899-98-81WG [address] [address] [place] [address]NN: 07/05/2017 [facility] SACHARADOB: Insurance:[facility]ENTERADOB: Three Repository MANAGED [id number] [place] MEDICAIDPolicy [address] Number: [facility]ENTER[facility]NEA [place] [id number] [place], [place] [address]Xvo: (330) Date:7614-08-06SU [address] [phone] (HP) [address], [place] [address]SP: 07/05/2017 Secondary [facility] Insurance:CARETENET ST. LOUISNahum SACHARADOB: Three Repository MANAGED [id number] MEDICAIDPolicy [address] Number: [place] [id number] [place] Date:2490-02-88XK [address] [address], [place] [address]TC: 07/04/2017 [place] [address] Primary [facility] Insurance:[facility]OSPITALB: [address] Number: [id number] [place], [place] [address]Mzy: [id number] Repository [phone] Date:2017-07-04 O -2 () [address]ATTN: [place] [address]FA: 07/04/2017 Secondary [facility]:SELF PAY [facility] Number: Effective Repository Date:2017-07-04 06/30/2017 [facility] SACHARADOB: Insurance:[facility] ELMERNahum THE MEDICAL CENTERJANETHB: Three Repository MANAGED [id number] [place] MEDICAIDPolicy [address] Number: [place], [place] [id number] [place], [place] [address]Svd: (330) Date:7751-31-71YO [address] [phone] (HP) [address], [place] [address]KE: 06/30/2017 Secondary [facility] Insurance:FIRSTHEALTHADOB: Three Repository MANAGED [id number] MEDICAIDPolicy [address] Number: [place] [id number] [place] Date:9912-35-49IJ [address] [address], [place] [address]LK: 06/29/2017 SHIRLENE GLORIAA8 Primary SHIRLENE Darby TR Insurance:CARESOURCEP SACHARADOB: [address] Number: [id number], [place] [address]Zan: [id number] Repository [phone] Date:2017-06-29P O -2 (HP) [address]ATTN: [place] [address]ZH: 06/29/2017 Secondary NOT RAYNA De La Torreoster Insurance:SELF PAY [facility] Number: Effective Repository Date:2017-06-29 06/29/2017 SHIRLENE [facility] SACHARADOB: Insurance:CARESOURCE SACHARADOB: Three Repository MANAGED [id number] [place] MEDICAIDPolicy [address] Number: [place], [place] [id number] [place], [place] [address]Dvv: (330) Date:5061-00-64LN [address] [phone] (HP) [address], [place] [address]LM: 06/29/2017 Secondary [facility] Insurance:CARESOURCE SACHARADOB: Three Repository MANAGED [id number] MEDICAIDPolicy [address] Number: [place] [id number] [facility], [place] Date:1310-91-65YA [address] [address] [address]CO: 06/28/2017 [facility] SACHARADOB: Insurance:CARESOURCE SACHARADOB: Three Repository MANAGED [id number] [place] MEDICAIDPolicy [address] Number: [place], [place] [id number] [place], [place] [address]Yug: (330) Date:9670-93-02PM [address] [phone] (HP) [place], [place] [address]JB: 06/28/2017 Secondary [facility] Health Insurance:CARESOURCE SACHARADOB: Three Repository MANAGED [id number] MEDICAIDPolicy [address] Number: [place] [id number] [place] Date:5239-45-89KJ [address] [address], [place] [address]PU: 06/26/2017 [facility] SACHARADOB: Insurance:[facility] THE MEDICAL CENTERADOB: Three Repository MANAGED [id number] [place] MEDICAIDPolicy [address] [place] [address] Number: [facility] HOSPITALDEREJE [place] [id number] [place], [place] [address]Aqv: (330) Date:9622-97-12RG [address] [phone] (HP) [address] [place] [address]EX: 06/26/2017 [facility] Health Insurance:[facility] SACM[facility] MED[facility] CENTERADOB: Three Repository MANAGED [id number] MEDICAIDPolicy [address] [place] Number: [place] [id number] [place] Date:6545-62-36HF [address] [address] [place] [address]MQ: 06/23/2017 [facility] SACHARADOB: Insurance:CARESOURCE SACHARADOB: Three Repository MANAGED [id number] [place] MEDICAIDPolicy [address] [place] [address] Number: [facility]NEA [place] [id number] [place], [place] [address]Siw: (330) Date:4213-68-28BV [address] [phone] (HP) [address], [place] [address]FT: 06/23/2017 Secondary [facility] Health Insurance:CARESOURCE SACHARADOB: Three Repository MANAGED [id number] MEDICAIDPolicy [address] [place] Number: [place]ST[place] [id number] [place]OY[place] Date:7149-37-74JE [address] [address], [place] [address]DX:
== END ==
PROVIDERS: Nurse Practitioner; Family Provider Family Medicine Geriatric Medicine; PCP Family Medicine Geriatric Medicine; Referring Provider Internal Medicine Nephrology; Visit Provider Internal Medicine Nephrology
DX: N18.4 Chronic kidney disease, stage 4 (severe) (principal); E06.0 Acute thyroiditis; D64.9 Anemia, unspecified
CPT/HCPCS: 36415; 84439; 84443; 84481; 86376

== ENCOUNTER → 2018-07-13 15:37 | Outpatient (CLI) | payer MEDICAID, SELFPAY ==
[2018-06-02 13:35] VITALS: BMI 20.9
[2018-07-13 18:31] LABS: ALB/GLOB Ratio 0.8 RATIO (0.9-2.4); AST(SGOT) 7 U/L (15-37); Alanine Aminotransfer ALT/SGPT 13 U/L (16-61); Albumin, Serum 2.7 g/dL (3.2-5.0); Alkaline Phosphatase 80 U/L (45-117); Anion Gap 10 (5-15); BUN 40 mg/dL (7-18); BUN/Creat Ratio 13.7 RATIO (10-20); Chloride 110 mmol/L (98-107); Cholesterol 196 mg/dL (200); Creatinine, Serum 2.93 mg/dL (0.70-1.30); EST Glomerular Filtration Rate 24 mL/min (>60); Est Glom Filt Rate - Afr Amer 29 mL/min (>60); Globulin 3.6 g/dL (2.2-4.2); Glucose 68 mg/dL (74-106); High Density Lipoprotein 41 mg/dL; PSA,Total - Annual Screen 0.74 ng/mL (0.00-4.00); Potassium 4.2 mmol/L (3.5-5.1); Protein, Total 6.3 g/dL (6.4-8.2); Sodium Level 144 mmol/L (136-145); Thyroid Stim Hormone (TSH) 3.91 uIU/mL (0.358-3.74); Triglycerides 235 mg/dL; Very Low Density Lipoprotein 47 mg/dL (5-40)
[2018-07-13 19:19] LABS: Absolute Lymphocyte Count 2.04 X10^3/ul (0.83-4.51); Absolute Neutrophil Count 4.1 X10^3/uL (2.0-7.7); Basophil# 0.06 X10^3/uL; Basophil% 0.8 % (0-1); Eosinophil# 0.22 X10^3/uL; Hematocrit 41.1 % (40-54); Hemoglobin 12.7 g/dl (13.0-16.5); Lymphocyte # 2.04 X10^3/ul (4.0); Mean Corp Hgb Conc 30.9 g/gl (32-36); Mean Corpuscular Hgb 28.7 pg (27.0-32.0); Mean Corpuscular Volume 92.8 fL (80-94); Mean Platelet Vol. 10.6 fl (6.2-12.0); Monocyte# 0.83 X10^3/uL; Monocyte% 11.4 % (0-10); Neutrophil # 4.09 X10^3/uL (2.7-7.7); Neutrophil % 56.3 % (47-70); POSITIVE COUNT NO; POSITIVE DIFFERENTIAL NO; POSITIVE MORPHOLOGY NO; Platelet Count 250 K/mm3 (150-450); RBC Distribution Width CV 16.1 % (11.6-14.6); RBC Distribution Width SD 55.1 fl (35.1-43.9); Red Blood Count 4.43 M/mm3 (4.6-6.2); White Blood Count 7.3 K/mm3 (4.4-11.0)
== END ==
PROVIDERS: Family Provider Family Medicine Geriatric Medicine; PCP Family Medicine Geriatric Medicine; Visit Provider Family Medicine Geriatric Medicine
DX: I10 Essential (primary) hypertension (principal); Z12.5 Encounter for screening for malignant neoplasm of prostate
CPT/HCPCS: 36415; 80053; 80061; 84153; 84443; 85025; G0103

== ENCOUNTER → 2018-07-13 16:51 | Outpatient (CLI) | payer MEDICAID, SELFPAY ==
[2018-06-02 13:35] VITALS: BMI 20.9
== END ==
PROVIDERS: Family Provider Family Medicine Geriatric Medicine; PCP Family Medicine Geriatric Medicine; Visit Provider Family Medicine Geriatric Medicine
DX: I10 Essential (primary) hypertension (principal); E78.49 Other hyperlipidemia; Z12.5 Encounter for screening for malignant neoplasm of prostate

== ENCOUNTER 2018-08-31 11:00 | Outpatient (RCR) | payer MEDICAID, SELFPAY ==
--- NOTE | 2017-12-21 15:19 | HP.OTEVAL_ITS ---
Patient's Visit Information SHIRLENE HERNANDEZ is a 57 year old M, referred to Occupational Therapy by Jarrett Garrett, with a diagnosis of CVA. Date of Evaluation: 12/21/17 Occupational Therapist: DARLINE Cueto/Leonel, CHT - Subjective Subjective: This 57 year old male was seen for inital OT eval with dx. of CVA- pt suffered a stroke on November 25 after undergiong sx to repair a aneurysm on November 24, 2016. per family he was in the hospital or therapy until 2016. pt has had home therapy until two weeks ago. pt amb with anjali walker and has hired aide 5 x week for 8-9 hours a day to assist pt with self care, bathing, dressing etc. Family would like for pt to reach his max rehab potential and possible use of left UE as assistive arm/hand - ROM ROM Comments: no active left UE ROM - - Strength Porcelain Enamel Installer: right 45# left unable - Sensation Stereognosis: Normal - Right, Abnormal - Left Kinesthesia: Normal - Right, Abnormal - Left Proprioception: Normal - Right, Abnormal - Left - Movement Muscle Tone: left wrist ext max tone- min elbow tone and min digit tone Movement Comments: left UE demo no initiation of movement - Cognitive Skills Follows Directions: Yes Oriented to (Check all that apply): Person Cognitive Comments: pt impulsive and will yell out with bad language - Attention Attention: Fair - In-Hand Manipulation Finger to Palm Translation: Normal - Right, Unable - Right Palm to Finger Translation: Normal - Right, Unable - Right Shift: Normal - Right, Unable - Right Rotation: Normal - Right, Unable - Right - DASH-Disabilities of Arm, Shoulder& Hand DASH Sum: 111 - Goals Goal:: pt will demo a increase in left shoulder AROM by 90 degrees or greater to increase pts ind. with BADls and IADLS. Pt will demo active elbow flex to 135 degrees to increase pts use of left UE as assistive unit with performance of BADLS and IADLS by D/c Goal:: pt will demo the ability to use left UE as assisite device for BADLs and IADLS by d/c Goal:: Pt will demo ability to pickling drum operator large, med. sized objects to increase pts ind.with BADLS and IADLS by d/c Goal:: caregiver ed will be completed to assist pt with cont. with his HEP - Rehabilitation General Assessment: Left UE weakness Rehabilitation Potential: Questionable - Anticipated Interventions Anticipated Interventions: A/AAROM/PROM, Strengthening, Modalities, Orthoses, Neuro Reeducation, Caregiver Training - Visit Plan Frequency: 2-3x /Week Duration: 4 Weeks TEXT: Thank you for the opportunity to evaluate your patient. For Medicare and Medicare HMO plans, please review the plan of care and approve it. It will need to be FAXED BACK to us at [phone] for Medicare purposes. Please let me know if there are questions or concerns regarding this plan of care. Physician Signature: Date:
--- NOTE | 2017-12-21 15:25 | HP.OTEVAL_ITS ---
Patient's Visit Information SHIRLENE HERNANDEZ is a 57 year old M, referred to Occupational Therapy by Jarrett Garrett, with a diagnosis of CVA. Date of Evaluation: 12/21/17 Occupational Therapist: DARLINE Cueto/Leonel, CHT - Subjective Subjective: This 57 year old male was seen for inital OT eval with dx. of CVA- pt suffered a stroke on November 25 after undergiong sx to repair a aneurysm on November 24, 2016. per family he was in the hospital or therapy until 2016. pt has had home therapy until two weeks ago. pt amb with anjali walker and has hired aide 5 x week for 8-9 hours a day to assist pt with self care, bathing, dressing etc. Family would like for pt to reach his max rehab potential and possible use of left UE as assistive arm/hand - ROM ROM Comments: no active left UE ROM - - Strength Cigarette Tipper: right 45# left unable - Sensation Stereognosis: Normal - Right, Abnormal - Left Kinesthesia: Normal - Right, Abnormal - Left Proprioception: Normal - Right, Abnormal - Left - Movement Muscle Tone: left wrist ext max tone- min elbow tone and min digit tone Movement Comments: left UE demo no initiation of movement - Cognitive Skills Follows Directions: Yes Oriented to (Check all that apply): Person Cognitive Comments: pt impulsive and will yell out with bad language - Attention Attention: Fair - In-Hand Manipulation Finger to Palm Translation: Normal - Right, Unable - Right Palm to Finger Translation: Normal - Right, Unable - Right Shift: Normal - Right, Unable - Right Rotation: Normal - Right, Unable - Right - DASH-Disabilities of Arm, Shoulder& Hand DASH Sum: 111 - Goals Goal:: pt will demo a increase in left shoulder AROM by 90 degrees or greater to increase pts ind. with BADls and IADLS. Pt will demo active elbow flex to 135 degrees to increase pts use of left UE as assistive unit with performance of BADLS and IADLS by D/c Goal:: pt will demo the ability to use left UE as assisite device for BADLs and IADLS by d/c Goal:: Pt will demo ability to pickle water pump operator large, med. sized objects to increase pts ind.with BADLS and IADLS by d/c Goal:: caregiver ed will be completed to assist pt with cont. with his HEP - Rehabilitation General Assessment: Left UE weakness Rehabilitation Potential: Questionable - Anticipated Interventions Anticipated Interventions: A/AAROM/PROM, Strengthening, Modalities, Orthoses, Neuro Reeducation, Caregiver Training - Visit Plan Frequency: 2-3x /Week Duration: 4 Weeks TEXT: Thank you for the opportunity to evaluate your patient. For Medicare and Medicare HMO plans, please review the plan of care and approve it. It will need to be FAXED BACK to us at [phone] for Medicare purposes. Please let me know if there are questions or concerns regarding this plan of care. Physician Signature: Date:
--- NOTE | 2017-12-28 14:05 | HP.PTEVAL_ITS ---
Patient's Visit Information SHIRLENE HERNANDEZ is a 57 year old M referred to Physical Therapy by Jarrett Garrett with a diagnosis of Subarachnoid hemorage, CVA, seizure disorder. Date of Evaluation: 12/21/17 Physical Therapist: Jack Nichols - Visit Plan Frequency: 2-3x /Week Duration: 4-6 Weeks Plan: Start with RLE strengthening, static/dynamic balance, gait training, endurnace training. tx training and bed mobility. Add in HS stretching as well. - Subjective Subjective: Pt. is here today for his initial evaluation with diagnosis of CVA and seizure disorder. This 57 year old male of CVA- pt suffered a stroke on November 25 after undergiong sx to repair a aneurysm on November 24, 2016. per family he was in the hospital or therapy until 2016. pt has had home therapy until two weeks ago. pt amb with anjali walker and has hired aide 5 x week for 8-9 hours a day to assist pt with self care, bathing, dressing etc. Family reports patient walks in home with assistance and completes all functional mobility with assistance. Pt. can also become agitated at times and gets easily distracted per family. He has an AFO on his L ankle and L knee brace as well. Pt. reports having constant pain in his L knee, that increases with walking. - Pain L knee Pain Intensity (Out of 10): Unrated - Objective POSTURE: Pt. is able to sit with proper improved posture with VCing. Generally flexed posture. Pt. uses pummel in wc to maintain improved stability. Pt. marked weakness in LUE, kept at side. (OT addressing). PALPATION: Pt. has increased pain to palpation throughout LLE including knee and quad. No back pain noted. NEUROLOGICAL: Pt. has 2+ RLE achilles and patellar DTR, did not elicite LLE DTR. Pt. has normal sensation to sharp touch on bilateral LEs. Pt. has decreased sensation throughout LLE to light touch. Pt. is unable to rise on heels or toes of either LE in standing. He is able to use RLE in sitting through , LLE no able to complete. ROM: Pt. has full ROM of BLEs, increased pain with L knee ROM, tightness in B HS L worse than R. Pt. has tight L G/S complex as well. MMT: RLE- ankle 5/5 throughout; knee- ext 4+/5, flexion 4/5; hip- flexion 4/5, abd 4/5, ext 4/5. LLE- ankle 1/5 throughout knee- ext 1/5, flexion 1/5; hip- flexion 2+/5, abd 2+/5, ext 2/5. Core strength- poor-. GAIT: Pt. ambulates with a anjali walker 1x15' and 1x5' with MODA to complete. Pt. has step to pattern with increased trunk rotation to advance LLE. Pt. reports fatigue and L leg pain as limiting factor. Pt. became agitated during txs and gait testing, but after stopping was plesant. TX- sit to stand modA x1, stand pivot txs with hemiwalker modA x1 + VCing for proper technqiues. Bed mobility- supine to sitting max A for LEs, mod A x1 for UB. Rolling- min A to L side and CGA to R side. STAIRS- DNT. - Goals Goal 1:: Pt. to be I with HEP. Goal Time Frame: 4-6 Weeks Goal 2:: Pt. to have increased bilateral HS length to 70deg in 90/90 testing Goal Time Frame: 4-6 Weeks Goal 3:: Pt. to ambulate 50+ft. with hemiwalker with CGA/SBA allowing for increased ease of functional mobility in home. Goal Time Frame: 4-6 Weeks Goal 4:: Pt. to have increased RLE strength by 1/2 grade allowing for increased stability with gait and stability with functional mobility. Goal Time Frame: 4-6 Weeks Goal 5:: Pt. to compelted all txs with CGA with hemiwalker allowing for increased stability and decreased caregiver need. Goal Time Frame: 4-6 Weeks Goal 6:: Pt. to complete all bed mobilty with CGA allowing for increased independence with in room. Goal Time Frame: 4-6 Weeks - Rehabilitation Potential Physical Therapy Diagnosis: Pt. has sigs and symptoms consistent with generall weakness, difficulty with gait, imbalance, LLE pain and difficulty with all functional mobility after having CVA and subarachnoid hemorage. Pt. would benefit from PT to address above issues progressing gait and stability allowing for increased safety in home and decreased caregiver need. Rehabilitation Potential: Fair - Anticipated Interventions Patient/Client Instruction: Educate patient on: Condition, Plan of Care, Risk Factors, Benefits of Fitness Program For the Purpose of:: To improve decision making, To facilitate caregiver knowledge, To improve self management, To prevent re-injury, To improve ability to perform tasks related to life management, To improve tolerance to ADL's Therapeutic Exercise to Include: Strength training, Power training, Endurance training, Agility training, Body mechanics, Postural training, Flexibilty training, Gait and locomotor training, Passive ROM, Active ROM, Dynamic Lumbar Stabilization For the Purpose of:: To decrease pain, To increase ROM, To improve nutrient delivery to tissue, To improve muscle performance and motor function, To improve ability to perform ADL's, To increase tolerance to activity/condition/ position, To improve performance and independence with ADL's, To decrease level of supervision to perform tasks, To improve ability of physical actions for home /community/work/leisure, To improve gait and locomotor functions, To improve health of tissue, To decrease soft tissue restriction, To increase flexibility/ ROM Thank you for the opportunity to evaluate your patient. For Medicare and Medicare HMO plans, please review the plan of care and approve it. It will need to be FAXED BACK to us at [phone] for Medicare purposes. Please let me know if there are questions or concerns regarding this plan of care. Physician Signature: Date:
--- NOTE | 2018-01-26 12:13 | HP.PTREVAL_ITS ---
Jarrett Garrett, It has been my pleasure to treat SHIRLENE HERNANDEZ over the last 8 visits for Subarachnoid hemorage, CVA, seizure disorder. Please see the progress note below for an update on the physical therapy plan of care! Subjective: Pt. reports having increased L knee pain this date. Pt. arrives with daughter today. Daughter reports he is attempting more walking at home. Objective/Function: Pt. reported increased L knee pain. Pt. has improved ability to hip hike for ~10 feet, but fatigues out at that point. Pt. does better with assistance to advance LLE. Pt. continues to slowly progress. He has increased RLE strenght, but cotninues to have no voluntary movement of L ankle/ knee, slight hip hiking wtih QL, but other than than minimal LLE movement. Pt. is limited with gait with increased L knee pain during all wt bearing activites. Pt. may have better functional mobility if he did not have a great of pain with L knee wt bearing activities. Plan Plan: Possible need for meniscal tear managment. May be injection? But unsure if this would even help. POC will be extended x2 per week for 4 weeks to continue to progress RLE strenth, transfer training to increas independence and gait progression. Goals Goal 1:: Pt. to be I with HEP. Goal Time Frame: 4-6 Weeks Goal Progress: Progressing Goal 2:: Pt. to have increased bilateral HS length to 70deg in 90/90 testing Goal Time Frame: 4-6 Weeks Goal Progress: Progressing Goal 3:: Pt. to ambulate 50+ft. with hemiwalker with CGA/SBA allowing for increased ease of functional mobility in home. Goal Time Frame: 4-6 Weeks Goal Progress: Progressing Goal 4:: Pt. to have increased RLE strength by 1/2 grade allowing for increased stability with gait and stability with functional mobility. Goal Time Frame: 4-6 Weeks Goal Progress: Progressing Goal 5:: Pt. to compelted all txs with CGA with hemiwalker allowing for increased stability and decreased caregiver need. Goal Time Frame: 4-6 Weeks Goal Progress: Progressing Goal 6:: Pt. to complete all bed mobilty with CGA allowing for increased independence with in room. Goal Time Frame: 4-6 Weeks Anticipated Interventions Patient/Client Instruction: Educate patient on: Condition, Plan of Care, Risk Factors, Benefits of Fitness Program For the Purpose of:: To improve decision making, To facilitate caregiver knowledge, To improve self management, To prevent re-injury, To improve ability to perform tasks related to life management, To improve tolerance to ADL's Therapeutic Exercise to Include: Strength training, Power training, Endurance training, Agility training, Body mechanics, Postural training, Flexibilty training, Gait and locomotor training, Passive ROM, Active ROM, Dynamic Lumbar Stabilization For the Purpose of:: To decrease pain, To increase ROM, To improve nutrient delivery to tissue, To improve muscle performance and motor function, To improve ability to perform ADL's, To increase tolerance to activity/condition/ position, To improve performance and independence with ADL's, To decrease level of supervision to perform tasks, To improve ability of physical actions for home /community/work/leisure, To improve gait and locomotor functions, To improve health of tissue, To decrease soft tissue restriction, To increase flexibility/ ROM Please do not hesitate to contact me at [phone] by phone or Fax: if you have questions or concerns regarding this new plan of care! Sincerely, Jack Nichols
--- NOTE | 2018-03-16 11:36 | HP.OTREVAL ---
Jarrett Garrett, It has been my pleasure to treat SHIRLENE HERNANDEZ over the last 9 visits for CVA. Please see the progress note below for an update on the occupational therapy plan of care! Subjective: pt arrives with brother and sister two weeks following botox injections. Objective/Function: digits lose and not digging into palm of hand with PROM of wrist- wrist to N. therapist question if carpal bones are shifting blocking further ext of wrist. pt does have pain at base of D2 at carpal region - pt would benefit from skilled OT services 2x week for 4 weeks to challenged left UE as a functional assistive RU for ADLS Plan Frequency: 2-3x /Week Duration: 4 Weeks Plan: cont to intiate elbow flx/ext with FES use of arm skate- (use wrist brace while performing this) and if time permits initiate wrist ext /finger ext/flex. Goals - Goals Goal:: pt will demo a increase in left shoulder AROM by 90 degrees or greater to increase pts ind. with BADls and IADLS. Pt will demo active elbow flex to 135 degrees to increase pts use of left UE as assistive unit with performance of BADLS and IADLS by D/c Goal:: pt will demo the ability to use left UE as assisite device for BADLs and IADLS by d/c Goal:: Pt will demo ability to bean picker machine operator large, med. sized objects to increase pts ind.with BADLS and IADLS by d/c Goal:: caregiver ed will be completed to assist pt with cont. with his HEP Anticipated Interventions Anticipated Interventions: A/AAROM/PROM, Strengthening, Modalities, Orthoses, Neuro Reeducation, Caregiver Training Please do not hesitate to contact me at [phone] by phone or if you have questions or concerns regarding this new plan of care! Sincerely, Meme Fernandez, OTR/L, CHT
--- NOTE | 2018-04-04 13:01 | HP.PTREVAL_ITS ---
Jarrett Garrett, It has been my pleasure to treat SHIRLENE HERNANDEZ over the last 10 visits for Subarachnoid hemorage, CVA, seizure disorder. Please see the progress note below for an update on the physical therapy plan of care! Subjective: Pt. arrives today with his son in law. Pt. reports continued L knee pain with standing and WBing activities. He has AFO on this date. Pt. reports nothing new. No new symptoms. Objective/Function: Pt. tolerated all PT, he continues to have increased difficulty with L stance phase, but is slowly improving. Pt. continues to slowly progress. Pt. family was walking about pt. have consistent difficulty with sacral wounds. He does not currently have one, but caregivers report that his skin is heading that way. Pt. would benefit from a wedge to increase proper positioning in bed to reduce skin break down. Plan Plan: Possible need for meniscal tear managment. May be injection? But unsure if this would even help. POC will be extended x2 per week for 4 weeks to continue to progress RLE strenth, transfer training to increas independence and gait p rogression. Goals Goal 1:: Pt. to be I with HEP. Goal Time Frame: 4-6 Weeks Goal Progress: Progressing Goal 2:: Pt. to have increased bilateral HS length to 70deg in 90/90 testing Goal Time Frame: 4-6 Weeks Goal Progress: Progressing Goal 3:: Pt. to ambulate 50+ft. with hemiwalker with CGA/SBA allowing for increased ease of functional mobility in home. Goal Time Frame: 4-6 Weeks Goal Progress: Progressing Goal 4:: Pt. to have increased RLE strength by 1/2 grade allowing for increased stability with gait and stability with functional mobility. Goal Time Frame: 4-6 Weeks Goal Progress: Progressing Goal 5:: Pt. to compelted all txs with CGA with hemiwalker allowing for increased stability and decreased caregiver need. Goal Time Frame: 4-6 Weeks Goal Progress: Progressing Goal 6:: Pt. to complete all bed mobilty with CGA allowing for increased independence with in room. Goal Time Frame: 4-6 Weeks Anticipated Interventions Patient/Client Instruction: Educate patient on: Condition, Plan of Care, Risk Factors, Benefits of Fitness Program For the Purpose of:: To improve decision making, To facilitate caregiver knowledge, To improve self management, To prevent re-injury, To improve ability to perform tasks related to life management, To improve tolerance to ADL's Therapeutic Exercise to Include: Strength training, Power training, Endurance training, Agility training, Body mechanics, Postural training, Flexibilty training, Gait and locomotor training, Passive ROM, Active ROM, Dynamic Lumbar Stabilization For the Purpose of:: To decrease pain, To increase ROM, To improve nutrient delivery to tissue, To improve muscle performance and motor function, To improve ability to perform ADL's, To increase tolerance to activity/condition/position, To improve performance and independence with ADL's, To decrease level of supervision to perform tasks, To improve ability of physical actions for home/community/work/leisure, To improve gait and locomotor functions, To improve health of tissue, To decrease soft tissue restriction, To increase flexibility/ROM Please do not hesitate to contact me at [phone] by phone or if you have questions or concerns regarding this new plan of care! Sincerely, aJck Nichols
--- NOTE | 2018-04-04 13:22 | HP.PTREVAL ---
Jarrett Garrett, It has been my pleasure to treat SHIRLENE HERNANDEZ over the last 9 visits for Subarachnoid hemorage, CVA, seizure disorder. Please see the progress note below for an update on the physical therapy plan of care! Subjective: Pt. was on PT hold as he was awaiting botox injection in his arm and wanted to complete therapies together, same day. Pt. reports no new symptoms, but reports feeling weaker. he reports not being as active as he was recovering form being sick. Objective/Function: Reassement: sit to stand- min A with increased Vcing for proper hand placement. Stand pivot transfer with hemiwalker and Ladi for stability, pivots with LLE, tends to not lift. GAIT: pt. ambulated upto 36' this date with mod A for LLE advance ment and min A for stablity with trunk. Pt. has alot of difficulty with attempts to advance LLE Pt. reports increased pain in LLE during stance phase. MMT: LLE- flacid distal strength, 2/5 HS, 2/5 hip flexors, 2-/5 hip abductors. bed mobility- mod A to complete with limited ability on LLE to assist, both UE and LEs. Plan Plan: Pt. would benefit from continued to PT to work on txs, gait, bed mobility. He needs to have icnreased stability with bed mobility and txs. It would be great to increase his gait stability, but with his difficulty advancing his LLE, independent walking may not be achievable. Goals Goal 1:: Pt. to be I with HEP. Goal Time Frame: 4-6 Weeks Goal Progress: Progressing Goal 2:: Pt. to have increased bilateral HS length to 70deg in 90/90 testing Goal Time Frame: 4-6 Weeks Goal Progress: Progressing Goal 3:: Pt. to ambulate 50+ft. with hemiwalker with CGA/SBA allowing for increased ease of functional mobility in home. Goal Time Frame: 4-6 Weeks Goal Progress: Progressing Goal 4:: Pt. to have increased RLE strength by 1/2 grade allowing for increased stability with gait and stability with functional mobility. Goal Time Frame: 4-6 Weeks Goal Progress: Progressing Goal 5:: Pt. to compelted all txs with CGA with hemiwalker allowing for increased stability and decreased caregiver need. Goal Time Frame: 4-6 Weeks Goal Progress: Progressing Goal 6:: Pt. to complete all bed mobilty with CGA allowing for increased independence with in room. Goal Time Frame: 4-6 Weeks Anticipated Interventions Patient/Client Instruction: Educate patient on: Condition, Plan of Care, Risk Factors, Benefits of Fitness Program For the Purpose of:: To improve decision making, To facilitate caregiver knowledge, To improve self management, To prevent re-injury, To improve ability to perform tasks related to life management, To improve tolerance to ADL's Therapeutic Exercise to Include: Strength training, Power training, Endurance training, Agility training, Body mechanics, Postural training, Flexibilty training, Gait and locomotor training, Passive ROM, Active ROM, Dynamic Lumbar Stabilization For the Purpose of:: To decrease pain, To increase ROM, To improve nutrient delivery to tissue, To improve muscle performance and motor function, To improve ability to perform ADL's, To increase tolerance to activity/condition/position, To improve performance and independence with ADL's, To decrease level of supervision to perform tasks, To improve ability of physical actions for home/community/work/leisure, To improve gait and locomotor functions, To improve health of tissue, To decrease soft tissue restriction, To increase flexibility/ROM Please do not hesitate to contact me at [phone] by phone or if you have questions or concerns regarding this new plan of care! Sincerely, Jack Nichols
[2018-04-04 17:22] LABS: Absolute Lymphocyte Count 1.66 X10^3/ul (0.83-4.51); Absolute Neutrophil Count 5.6 X10^3/uL (2.0-7.7); Basophil# 0.03 X10^3/uL; Basophil% 0.4 % (0-1); Eosinophil# 0.15 X10^3/uL; Eosinophils% 1.8 % (0-5); Hematocrit 38.8 % (40-54); Hemoglobin 12.5 g/dl (13.0-16.5); Lymphocyte # 1.66 X10^3/ul (4.0); Lymphocyte % 19.4 % (19-41); Mean Corp Hgb Conc 32.2 g/gl (32-36); Mean Corpuscular Hgb 28.7 pg (27.0-32.0); Mean Platelet Vol. 10.6 fl (6.2-12.0); Monocyte# 1.02 X10^3/uL; Monocyte% 11.9 % (0-10); Neutrophil # 5.64 X10^3/uL (2.7-7.7); Neutrophil % 65.7 % (47-70); Platelet Count 226 K/mm3 (150-450); RBC Distribution Width CV 16.1 % (11.6-14.6); RBC Distribution Width SD 51.9 fl (35.1-43.9); Red Blood Count 4.36 M/mm3 (4.6-6.2); White Blood Count 8.6 K/mm3 (4.4-11.0)
[2018-04-04 17:23] LABS: POSITIVE COUNT NO; POSITIVE DIFFERENTIAL NO; POSITIVE MORPHOLOGY NO
[2018-04-04 17:57] LABS: ALB/GLOB Ratio 0.7 RATIO (0.9-2.4); AST(SGOT) 13 U/L (15-37); Alanine Aminotransfer ALT/SGPT 18 U/L (16-61); Albumin, Serum 2.7 g/dL (3.2-5.0); Alkaline Phosphatase 77 U/L (45-117); Anion Gap 7 (5-15); BUN 38 mg/dL (7-18); BUN/Creat Ratio 10.3 RATIO (10-20); Bilirubin, Direct 0.06 mg/dL (0.00-0.30); Chloride 108 mmol/L (98-107); Creatinine, Serum 3.68 mg/dL (0.70-1.30); EST Glomerular Filtration Rate 18 mL/min (>60); Est Glom Filt Rate - Afr Amer 22 mL/min (>60); Globulin 3.9 g/dL (2.2-4.2); Glucose 97 mg/dL (74-106); Potassium 4.5 mmol/L (3.5-5.1); Protein, Total 6.6 g/dL (6.4-8.2); Sodium Level 143 mmol/L (136-145); Thyroid Stim Hormone (TSH) < 0.01 uIU/mL (0.358-3.74)
[2018-04-04 17:59] LABS: PTHIN 22.7 pg/mL (18.4-80.1); Vitamin D,25 Hydroxy 34.4 ng/mL (29.95-100.01)
[2018-04-05 10:04] LABS: Cholesterol 128 mg/dL (200); High Density Lipoprotein 28 mg/dL; T3 Uptake 34 % (33-40); T4 Free Direct 0.98 ng/dL (0.76-1.46); Triglycerides 220 mg/dL; Very Low Density Lipoprotein 44 mg/dL (5-40)
--- NOTE | 2018-05-30 09:44 | HP.OTDCSUM_ITS ---
HP - OT D/C Summary It has been my pleasure to treat SHIRLENE HERNANDEZ under orders from Jarrett Blankenship Gerry, for the diagnosis of CVA for a total of 17 visit(s). Please see the following information for a summary of their discharge status. - Objective Objective/Function: Family with pt. states they have had difficlty with care staff in following with pts HEP. pts. dtr. and son in law are doing well with mtg. pts needs and following HEP. Family agreed to HEP as increase difficulty with transportation. OT educated pt. about HEP and handouts for new care staff on PROM, AAROM and wt.bearing ex. upon pt. d/c. - Goals Patient Goals: Regain Mobility, Use Hand/Wrist/Arm Normally Again, Be More Independent in ADLS Goal:: pt will demo a increase in left shoulder AROM by 90 degrees or greater to increase pts ind. with BADls and IADLS. Pt will demo active elbow flex to 135 degrees to increase pts use of left UE as assistive unit with performance of BADLS and IADLS by D/c Goal:: pt will demo the ability to use left UE as assisite device for BADLs and IADLS by d/c Goal:: Pt will demo ability to picker tender helper large, med. sized objects to increase pts ind.with BADLS and IADLS by d/c Goal:: caregiver ed will be completed to assist pt with cont. with his HEP - Plan Plan: arm bike followed by increasing awareness of pt. L arm. - D/C Information Discharge Comments: patient made progress with POC and demo decreased tone in hand. At this time with POC, pt. plateaued with current progression. pt. success may have been limited by inability to attend all therapy visits. pt. was d/c with HEP for cont. management of tone. pt. and family reported understanding of the HEP. If there are questions or concerns regarding this patient's occupational therapy, please fell free to call me at [phone]. Thank you for the referral of this patient. Sincerely, Meme Fernandez, OTR/L, CHT
--- NOTE | 2018-06-29 07:34 | HP.PTREVAL ---
Jarrett Garrett MD, It has been my pleasure to treat SHIRLENE HERNANDEZ over the last 18 visits for Subarachnoid hemorage, CVA, seizure disorder. Please see the progress note below for an update on the physical therapy plan of care! Subjective: Pt. reports I am doing okay, the pain in my leg is gone. famly reports increased exercises and walking at home. Pt. still has quick spinning frame changer with assistance (aides) at home. Objective/Function: Pt. is able to complete sit to stand tx with Ladi, pt. is able to pull him self up without Assistance in parallel bars. Pt. still has trouble advancing LLE in stance. Pt. has increased stability with LLE wt. ~50% of the time. Pt. has improved gait pattern, but contniues to require increased VCing to increase erect posture. Pt. has 5-/5 RLE strength, contiues to have minimal volitional movement of LLE, slight hip flexion and 3/5 hip extension. Pt. has improved bed mobility to Ladi for LLE, but is able to hook with RLE at times to complete. Plan Plan: Pt. would benefit from PT to increase RLE strenth, stability/gait pattern, increase bed mobility and txs safety. I am requesting exetension of POC to x1-2 per week for another 4 weeks to work on above limitations. Goals Goal 1:: Pt. to be I with HEP. Goal Time Frame: 4-6 Weeks Goal Progress: Progressing Goal 2:: Pt. to have increased bilateral HS length to 70deg in 90/90 testing Goal Time Frame: 4-6 Weeks Goal Progress: Progressing Goal 3:: Pt. to ambulate 50+ft. with hemiwalker with CGA/SBA allowing for increased ease of functional mobility in home. Goal Time Frame: 4-6 Weeks Goal Progress: Progressing Goal 4:: Pt. to have increased RLE strength by 1/2 grade allowing for increased stability with gait and stability with functional mobility. Goal Time Frame: 4-6 Weeks Goal Progress: Progressing Goal 5:: Pt. to compelted all txs with CGA with hemiwalker allowing for increased stability and decreased caregiver need. Goal Time Frame: 4-6 Weeks Goal Progress: Progressing Goal 6:: Pt. to complete all bed mobilty with CGA allowing for increased independence with in room. Goal Time Frame: 4-6 Weeks Goal Progress: Progressing Anticipated Interventions Patient/Client Instruction: Educate patient on: Condition, Plan of Care, Risk Factors, Benefits of Fitness Program For the Purpose of:: To improve decision making, To facilitate caregiver knowledge, To improve self management, To prevent re-injury, To improve ability to perform tasks related to life management, To improve tolerance to ADL's Therapeutic Exercise to Include: Strength training, Power training, Endurance training, Agility training, Body mechanics, Postural training, Flexibilty training, Gait and locomotor training, Passive ROM, Active ROM, Dynamic Lumbar Stabilization For the Purpose of:: To decrease pain, To increase ROM, To improve nutrient delivery to tissue, To improve muscle performance and motor function, To improve ability to perform ADL's, To increase tolerance to activity/condition/position, To improve performance and independence with ADL's, To decrease level of supervision to perform tasks, To improve ability of physical actions for home/community/work/leisure, To improve gait and locomotor functions, To improve health of tissue, To decrease soft tissue restriction, To increase flexibility/ROM Please do not hesitate to contact me at [phone] by phone or if you have questions or concerns regarding this new plan of care! Sincerely, Jack Nicohls DPT
--- NOTE | 2018-09-13 15:45 | HP.PT.NRP ---
HP - Discharge Summary (1) - Patient Information SHIRLENE HERNANDEZ was seen in my office for initial evaluation on 12/21/17. The following Plan of Care was established for this patient: Initial Frequency: 2-3x /Week Initial Duration: 4-6 Weeks - Anticipated Interventions Patient/Client Instruction: Educate patient on: Condition, Plan of Care, Risk Factors, Benefits of Fitness Program For the Purpose of:: To improve decision making, To facilitate caregiver knowledge, To improve self management, To prevent re-injury, To improve ability to perform tasks related to life management, To improve tolerance to ADL's Therapeutic Exercise to Include: Strength training, Power training, Endurance training, Agility training, Body mechanics, Postural training, Flexibilty training, Gait and locomotor training, Passive ROM, Active ROM, Dynamic Lumbar Stabilization For the Purpose of:: To decrease pain, To increase ROM, To improve nutrient delivery to tissue, To improve muscle performance and motor function, To improve ability to perform ADL's, To increase tolerance to activity/condition/position, To improve performance and independence with ADL's, To decrease level of supervision to perform tasks, To improve ability of physical actions for home/community/work/leisure, To improve gait and locomotor functions, To improve health of tissue, To decrease soft tissue restriction, To increase flexibility/ROM This patient was last seen in our office 06/29/18. Pertinent comments regarding their Physical therapy will appear below: Pt. was seen for PT after sustaining a CVA. Pt. was making slow but gradual progress with ambulation and RLE. Pt. had limit activation of his LLE. Pt. has not been seen for a few months and will be DC from PT at this point in time. I did recieve a new script for PT and will be re evaluated at that time. At this point I will be discontinuing this patient from physical therapy. I would be happy to see this patient again in the future if found appropriate by the physician. Thank you! Jack Nichols DPT
== END 2018-08-31 19:00 | disposition home or self-care (01) ==
LOC: PT 11:00
PROVIDERS: Family Provider Family Medicine Geriatric Medicine; PCP Family Medicine Geriatric Medicine; Visit Provider Family Medicine Geriatric Medicine
DX: Z86.73 Personal history of transient ischemic attack (TIA), and cerebral infarction without residual deficits (principal)
CPT/HCPCS: 36415; 80053; 80061; 82248; 82306; 83970; 84439; 84443; 84479; 85025; 97110; 97112; 97162; 97166; 97530

== ENCOUNTER → 2018-09-26 13:17 | Outpatient (CLI) | payer MEDICAID, SELFPAY ==
[2018-06-02 13:35] VITALS: BMI 20.9
[2018-09-26 14:15] LABS: Hematocrit 45.8 % (40-54); Hemoglobin 14.2 g/dl (13.0-16.5); Mean Corpuscular Hgb 28.5 pg (27.0-32.0); Mean Platelet Vol. 10.9 fl (6.2-12.0); Platelet Count 226 K/mm3 (150-450); RBC Distribution Width CV 16.3 % (11.6-14.6); RBC Distribution Width SD 54.9 fl (35.1-43.9); Red Blood Count 4.98 M/mm3 (4.6-6.2); White Blood Count 9.3 K/mm3 (4.4-11.0)
[2018-09-26 14:26] LABS: Scan Indicated on CBC? Y/N NO
[2018-09-26 14:28] LABS: BUN 36 mg/dL (7-18); BUN/Creat Ratio 11.8 RATIO (10-20); Calcium,Total 8.6 mg/dL (8.5-10.1); Chloride 115 mmol/L (98-107); Creatinine, Serum 3.05 mg/dL (0.70-1.30); EST Glomerular Filtration Rate 23 mL/min (>60); Est Glom Filt Rate - Afr Amer 27 mL/min (>60); Glucose 83 mg/dL (74-106); Phosphorus 4.5 mg/dL (2.5-4.9); Potassium 4.4 mmol/L (3.5-5.1); Sodium Level 146 mmol/L (136-145)
[2018-09-26 14:35] LABS: PTHIN 66.9 pg/mL (18.4-80.1)
[2018-09-26 14:36] LABS: Vitamin D,25 Hydroxy 30.4 ng/mL (29.95-100.01)
== END ==
PROVIDERS: Family Provider Family Medicine Geriatric Medicine; PCP Family Medicine Geriatric Medicine; Referring Provider Internal Medicine Nephrology; Visit Provider Internal Medicine Nephrology
DX: N18.4 Chronic kidney disease, stage 4 (severe) (principal); D64.9 Anemia, unspecified
CPT/HCPCS: 36415; 80069; 82306; 83970; 85027

== ENCOUNTER → 2018-12-01 16:30 | Outpatient (CLI) | payer MEDICAID, SELFPAY ==
[2018-06-02 13:35] VITALS: BMI 20.9
[2018-12-01 17:32] LABS: Hematocrit 41.2 % (40-54); Hemoglobin 13.5 g/dl (13.0-16.5); Mean Corp Hgb Conc 32.8 g/gl (32-36); Mean Corpuscular Hgb 29.3 pg (27.0-32.0); Mean Corpuscular Volume 89.6 fL (80-94); Mean Platelet Vol. 11.9 fl (6.2-12.0); Platelet Count 221 K/mm3 (150-450); White Blood Count 10.8 K/mm3 (4.4-11.0)
[2018-12-01 17:34] LABS: Scan Indicated on CBC? Y/N NO
[2018-12-01 17:41] LABS: Albumin, Serum 3.1 g/dL (3.2-5.0); BUN 57 mg/dL (7-18); BUN/Creat Ratio 19.7 RATIO (10-20); Calcium,Total 8.6 mg/dL (8.5-10.1); Chloride 111 mmol/L (98-107); EST Glomerular Filtration Rate 24 mL/min (>60); Est Glom Filt Rate - Afr Amer 29 mL/min (>60); Glucose 96 mg/dL (74-106); Phosphorus 4.3 mg/dL (2.5-4.9); Potassium 4.5 mmol/L (3.5-5.1); Sodium Level 146 mmol/L (136-145)
[2018-12-01 17:48] LABS: PTHIN 74.2 pg/mL (18.4-80.1); Vitamin D,25 Hydroxy 31.6 ng/mL (29.95-100.01)
== END ==
PROVIDERS: Family Provider Family Medicine Geriatric Medicine; PCP Family Medicine Geriatric Medicine; Referring Provider Internal Medicine Nephrology; Visit Provider Internal Medicine Nephrology
DX: N18.4 Chronic kidney disease, stage 4 (severe) (principal); D64.9 Anemia, unspecified
CPT/HCPCS: 36415; 80069; 82306; 83970; 85027

== ENCOUNTER → 2019-01-12 16:38 | Outpatient (CLI) | payer MEDICAID, SELFPAY ==
[2018-06-02 13:35] VITALS: BMI 20.9
[2019-01-12 17:53] LABS: Absolute Lymphocyte Count 1.65 X10^3/ul (0.83-4.51); Basophil# 0.05 X10^3/uL; Basophil% 0.8 % (0-1); Eosinophil# 0.12 X10^3/uL; Eosinophils% 1.8 % (0-5); Hematocrit 41.9 % (40-54); Hemoglobin 13.4 g/dl (13.0-16.5); Lymphocyte # 1.65 X10^3/ul (4.0); Lymphocyte % 25.4 % (19-41); Mean Corpuscular Hgb 29.3 pg (27.0-32.0); Mean Corpuscular Volume 91.5 fL (80-94); Mean Platelet Vol. 11.8 fl (6.2-12.0); Monocyte# 0.65 X10^3/uL; Neutrophil # 4.01 X10^3/uL (2.7-7.7); Neutrophil % 61.7 % (47-70); Platelet Count 226 K/mm3 (150-450); RBC Distribution Width CV 14.9 % (11.6-14.6); RBC Distribution Width SD 50.5 fl (35.1-43.9); Red Blood Count 4.58 M/mm3 (4.6-6.2); White Blood Count 6.5 K/mm3 (4.4-11.0)
[2019-01-12 17:56] LABS: ALB/GLOB Ratio 0.8 RATIO (0.9-2.4); AST(SGOT) 10 U/L (15-37); Alanine Aminotransfer ALT/SGPT 17 U/L (16-61); Albumin, Serum 2.8 g/dL (3.2-5.0); Alkaline Phosphatase 76 U/L (45-117); Anion Gap 10 (5-15); BUN 48 mg/dL (7-18); BUN/Creat Ratio 16.1 RATIO (10-20); Calcium,Total 8.1 mg/dL (8.5-10.1); Chloride 110 mmol/L (98-107); Creatinine, Serum 2.98 mg/dL (0.70-1.30); EST Glomerular Filtration Rate 23 mL/min (>60); Est Glom Filt Rate - Afr Amer 28 mL/min (>60); Globulin 3.4 g/dL (2.2-4.2); Glucose 138 mg/dL (74-106); Potassium 4.4 mmol/L (3.5-5.1); Protein, Total 6.2 g/dL (6.4-8.2); Sodium Level 145 mmol/L (136-145); Thyroid Stim Hormone (TSH) 4.46 uIU/mL (0.358-3.74)
[2019-01-12 18:02] LABS: POSITIVE COUNT NO; POSITIVE DIFFERENTIAL NO; POSITIVE MORPHOLOGY NO
== END ==
PROVIDERS: Family Provider Family Medicine Geriatric Medicine; PCP Family Medicine Geriatric Medicine; Visit Provider Family Medicine Geriatric Medicine
DX: I10 Essential (primary) hypertension (principal)
CPT/HCPCS: 36415; 80053; 84443; 85025

== ENCOUNTER → 2019-02-28 14:02 | Outpatient (CLI) | payer MEDICAID, SELFPAY ==
[2018-06-02 13:35] VITALS: BMI 20.9
== END ==
PROVIDERS: Family Provider Family Medicine Geriatric Medicine; PCP Family Medicine Geriatric Medicine; Visit Provider Family Medicine Geriatric Medicine
DX: E03.9 Hypothyroidism, unspecified (principal)
CPT/HCPCS: 36415; 84443

== ENCOUNTER 2019-03-13 15:00 | Outpatient (RCR) | payer MEDICAID, SELFPAY ==
[2018-06-02 13:35] VITALS: BMI 20.9
--- NOTE | 2018-09-05 17:05 | HP.PTEVAL_ITS ---
Patient's Visit Information SHIRLENE HERNANDEZ is a 58 year old M referred to Physical Therapy by Jarrett Garrett MD with a diagnosis of Subarachnoid hemmorhage. Date of Evaluation: 09/05/18 Physical Therapist: Jack Nichols DPT - Visit Plan Frequency: 2x /Week Duration: 4-6 Weeks Plan: Start with RLE/core strengthening, txs ability, gait with anjali walker with decreased assistance, bed mobility and static/dynamic balance. - Subjective Findings: Pt. is here today for his initial evaluation with diagnosis of need for physical therapy after sustaining a subarachnoid hemorrhage. Pt. is known to this PT as I have seen him previously. Pt. is here today with his caregiver. Pt. walks with anjali walker, but only with assistance. Pt. reports having no pain currently. Pt. is requiring assistance with all functional mobility. Pt. is able to walk short distances in his home with assistance. He spends the majority of his time in his wheel chair and in his reclining chair. Pt. DME: wheel chair, hospital bed, raised commode. He also has a cushion. Pt's current wheel chair is damaged including the seat sling, and his pads on this arm rests are missing. Pt. also has a pummmel cushion which appears to be breaking down as well. Pt. is hopeful to increase his strength and improve his ability to ambulate. No pain reported in either knee pre treatment. - Objective POSTURE: Pt. is able to sit unsupported, but leans to his R side. Able to maintain improved posture with assitance. Pt. is able to stand with SBA with anjali walker,but has large R lateral lean. PALPATION: Pt. has subluxation of L shoulder, flacid L UE, but does have some flexor tone at his wrist and digits. Flaccid L LE. Pt. does wear an articulating AFO on his LLE. NEURO: No sensation on LLE to light and sharp touch. Pt. has normal RUE sensation. Pt. has 2+ patellar and achilles DTR on R side. ROM: Pt. has full ROM of bilateral LEs, expect 2deg of PROM L ankle in DF. Pt. has tight HS in BLE (L>R). MMT: RLE- ankle- 4/5 throughout; knee- ext 4+/5, flexion 4/5; hip- flexion 4/5, abd 4-/5, ext 4/5. LLE- ankle 0/5; knee- 0/5 throughout; hip- flexion 1/5, abd 1/5, ext 2/5. Core strength- poor. GAIT: Pt. ambulated wtih anjali walker and max A for his LLE to advance. ModA for stability. Pt. ambulated 23ft. before needing to sit down. STAIRS: Pt. unable to negotiate steps at this point in time. - Goals Goal 1:: Pt. to be I with HEP. Goal Time Frame: 4-6 Weeks Goal 2:: Pt. to ambulate with anjali walker with Ad[place]ay 50ft. allowing for increased independence in his home. Goal Time Frame: 4-6 Weeks Goal 3:: Pt. to have increased RLE strength by 1/2 grade of all effected musculature to increase stability with all functional mobility. Goal Time Frame: 4-6 Weeks Goal 4:: Pt. to complete all txs with Adonay with proper use of hemiwalker allo wing for increased independence in his home. Goal Time Frame: 4-6 Weeks Goal 5:: Pt. to complete bed mobility with ADONAY allowing for decreased caregiver assistance. - Rehabilitation Potential Physical Therapy Diagnosis: Pt. has signs and symptoms consist with L sided weakness, difficulty with gait and decreased stability after sustaining a subarachnoid hemmorhage. Pt. would benefit from PT to address above limitations progressing back to all functional mobility with decreased caregiver assistances. Rehabilitation Potential: Fair - Anticipated Interventions Patient/Client Instruction: Educate patient on: Condition, Plan of Care, Risk Factors, Benefits of Fitness Program For the Purpose of:: To facilitate caregiver knowledge, To improve self management, To prevent re-injury, To improve ability to perform tasks related to life management, To improve tolerance to ADL's Therapeutic Exercise to Include: Strength training, Power training, Endurance training, Balance training, Postural training, Flexibilty training, Gait and locomotor training, Passive ROM, Active ROM, Dynamic Lumbar Stabilization For the Purpose of:: To increase ROM, To improve nutrient delivery to tissue, To increase oxygenation perfusion, To improve muscle performance and motor function, To improve ability to perform ADL's, To improve gait and locomotor functions, To improve health of tissue, To decrease soft tissue restriction Thank you for the opportunity to evaluate your patient. For Medicare and Medicare HMO plans, please review the plan of care and approve it. It will need to be FAXED BACK to us at [phone] for Medicare purposes. For Medicare only, by signing this I certify the plan of care. Please let me know if there are questions or concerns regarding this plan of care. Physician Signature: Date:
--- NOTE | 2018-09-21 09:43 | HP.PTREVAL_ITS ---
Jarrett Garrett MD, It has been my pleasure to treat SHIRLENE HERNANDEZ over the last 4 visits for Subarachnoid hemmorhage. Please see the progress note below for an update on the physical therapy plan of care! Subjective: Pt. reports no new symptoms this date. His caregiver is with him today and was wondering about his DME and its progress towards getting them. He still has a a WC that has 2 arm rests, but the pads are no longer attached, he has 1 leg rest on the left side, the seat sling has wripped on the R side and is tearing further and his cushion is broken down. Objective/Function: Pt. had increased stability this date. He continues to have limited use throughout L side of his body. SLight glute activations, but minimal elsse where. He had no pain today. HIs caregivers main concern is with his wc breakdown. He truely needs a new wc. The seat sling is broken down, the pads from the arms rests are gone and his cushions is broken down. I am worried about skin break down in multiple places due to lack of padding and with the seat sling he is at a risk of eventually ripping it all the way through. I would hi ghly recommend a new wc. Due to the time frame that he spends in his wc daily I would recommend a higher quality of cushion to reduce risk of ischial tub skin break down. They also had questions on a chair lift. I think this could be appropriate, but may be difficult for him to self use. He also has a wrist splint to resist his flexor tone in his wrist and fingers. It as well has broken down a decent amount and really should be replaced. He did have spasticity management injections (botox I think). A better fitting splint would also be great. Thank you. Plan Plan: Cont. with POC. Goals Goal 1:: Pt. to be I with HEP. Goal Time Frame: 4-6 Weeks Goal 2:: Pt. to ambulate with anjali walker with Adonay 50ft. allowing for increased independence in his home. Goal Time Frame: 4-6 Weeks Goal 3:: Pt. to have increased RLE strength by 1/2 grade of all effected musculature to increase stability with all functional mobility. Goal Time Frame: 4-6 Weeks Goal 4:: Pt. to complete all txs with Adonay with proper use of hemiwalker allowing for increased independence in his home. Goal Time Frame: 4-6 Weeks Goal 5:: Pt. to complete bed mobility with ADONAY allowing for decreased caregiver assistance. Anticipated Interventions Patient/Client Instruction: Educate patient on: Condition, Plan of Care, Risk Factors, Benefits of Fitness Program For the Purpose of:: To facilitate caregiver knowledge, To improve self management, To prevent re-injury, To improve ability to perform tasks related to life management, To improve tolerance to ADL's Therapeutic Exercise to Include: Strength training, Power training, Endurance training, Balance training, Postural training, Flexibilty training, Gait and locomotor training, Passive ROM, Active ROM, Dynamic Lumbar Stabilization For the Purpose of:: To increase ROM, To improve nutrient delivery to tissue, To increase oxygenation perfusion, To improve muscle performance and motor function, To improve ability to perform ADL's, To improve gait and locomotor functions, To improve health of tissue, To decrease soft tissue restriction Please do not hesitate to contact me at [phone] by phone or if you have questions or concerns regarding this new plan of care! Sincerely, JAYE MatuteT
--- NOTE | 2018-11-24 11:24 | HP.OTEVAL ---
Patient's Visit Information SHIRLENE HERNANDEZ is a 58 year old M, referred to Occupational Therapy by Jarrett Garrett MD, with a diagnosis of stroke and seizure d/o. Date of Evaluation: 11/22/18 Occupational Therapist: Ritu Wilburn - Subjective Subjective: Pt seen for occupational therapy evaluation for contracted L arm s/p stroke 2 yrs ago and education on appropriate orthotics available for L UE. Pt had cortizone Wednesday L arm to decrease pain. Pt lives w/ daughter and has 24hr caregiver that completed ROM L UE every day. Caregiver states it is time for botox again and can't remember last time he had botox in L arm. R hand dominent. Wears resting hand splint all day other than couple hr breaks a day. Has L arm support on w/c to keep L arm supported secondary to pts tone. Pt had stroke 2 yrs ago. Pt's resting hand splint is made of soft material but very worn. Pt requires assist with all BADL tasks and ambulation and is currently in PT. Caregiver present for evaluation. Pt has PMHx of subarachnoid hemorrhage, debility, stroke. - Objective Objective/Observation: increased tone all joints L UE, Decreased AROM/PROM L UE, good skin integrity with wearing resting hand splint for several hrs, resting hand splint very worn. - ROM Wrist: L wrist - Edema Other: No edema - Goals Goal:: Pt will progress w/ L wrist PROM extension by 5 degrees with use of prolonged stretching technqiues by d/c from OT services. Goal:: Pt/caregivers will be educated on appropriate orthosis for L hand/wrist with good understanding 100%x. Goal:: Pt will be able to tolerate new orthotic for L hand/wrist while maintaining good skin integrity for 4 hrs at a time. Goal:: Pt/caregiver will be educated on L UE ROM HEP with good understanding and demo 100%x Goal:: Pt/caregiver will demo appropriate donning/doffing of new orthotic for L hand/wrist with 100% accuracy. - Rehabilitation General Assessment: Pt demonstrate tone and limited ROM of L UE all joints and would benefit from direct occupational therapy services to educate on L UE ROM HEP and would benefit from education on appropriate orthotic for L hand/wrist (resting hand splint) to decrease risk of further contracture while maintaining good skin integrity. 1x/wk for 4wks. Rehabilitation Potential: Excellent - Anticipated Interventions Anticipated Interventions: A/AAROM/PROM, Modalities, Orthoses, Neuro Reeducation, Education re Diagnosis, Education re Skin Care and Precautions, Education re Self Massage Techniques, Education re Correct Donning Tech,Care&Wearing Sched Comp Garments, Caregiver Training, Home Program - Visit Plan Frequency: 1x/Week Duration: 4 Weeks General Plan: increase PROM L wrist extension, edcuate on L UE ROM HEP, educate on appropriate L hand/wrist orthosis to decrease risk of further contracture while maintaining good skin integrity and ability to shelby/doff correctly to increase pts quality of life. 1x/wk x 4wks TEXT: Thank you for the opportunity to evaluate your patient. For Medicare and Medicare HMO plans, please review the plan of care and approve it. It will need to be FAXED BACK to us at [phone] for Medicare purposes. Please let me know if there are questions or concerns regarding this plan of care. Physician Signature: Date:
--- NOTE | 2018-12-13 14:57 | HP.PTREVAL_ITS ---
Jarrett Garrett MD, It has been my pleasure to treat SHIRLENE HERNANDEZ over the last 23 visits for Subarachnoid hemmorhage. Please see the progress note below for an update on the physical therapy plan of care! Subjective: No new issues. Pt's daughter and cavergiver would like the patient to have a platform attachment and walker for home use. Pt. reprots no new issues with walking or home use. Caregiver reports increased walking at home consistently. Objective/Function: Ambulation- patient is able to ambulate with platform walking with maxA to advance LLE, and varying between CGA to modA to trunk. Pt. is able to ambulate ranging from 15-35' consistently with gait, slowly progressing. Pt. does have minimal ability to advance his LLE in stance, but has incrased wt. shifting stability. Transfers- modA to complete with blocking of LLE for stability. Pt. has minimal strength through his LLE, but has improved with RLE strength and core stability. Plan Plan: Pt. has made some progress with walking, but minimal with LLE strength coordination. Pt. has progressed with platform walking stability and control, but continues to require min/mod A for trunk control and max A for LLE advancement. requesting further visits for PT to continue to work on gait and transfers to increase functional mobility and decreased caregvier burden. Goals Goal 1:: Pt. to be I with HEP. Goal Time Frame: 4-6 Weeks Goal Progress: Progressing Goal 2:: Pt. to ambulate 50ft. with platformwalker with Adonay allowing for increased mobility in home with decreased caregiver burden Goal Time Frame: 4-6 Weeks Goal Progress: Progressing Goal 3:: Pt. to have increased RLE strength by 1/2 grade of all effected muscula ture to increase stability with all functional mobility. Goal Time Frame: 4-6 Weeks Goal Progress: Goal Met Goal 4:: Pt. to complete all txs with Adonay with proper use of hemiwalker allowing for increased independence in his home. Goal Time Frame: 4-6 Weeks Goal Progress: Progressing Goal 5:: Pt. to complete bed mobility with ADONAY allowing for decreased caregiver assistance. Goal Progress: Progressing Anticipated Interventions Patient/Client Instruction: Educate patient on: Condition, Plan of Care, Risk Factors, Benefits of Fitness Program For the Purpose of:: To facilitate caregiver knowledge, To improve self management, To prevent re-injury, To improve ability to perform tasks related to life management, To improve tolerance to ADL's Therapeutic Exercise to Include: Strength training, Power training, Endurance training, Balance training, Postural training, Flexibilty training, Gait and locomotor training, Passive ROM, Active ROM, Dynamic Lumbar Stabilization For the Purpose of:: To increase ROM, To improve nutrient delivery to tissue, To increase oxygenation perfusion, To improve muscle performance and motor function, To improve ability to perform ADL's, To improve gait and locomotor functions, To improve health of tissue, To decrease soft tissue restriction Please do not hesitate to contact me at [phone] by phone or if you have questions or concerns regarding this new plan of care! Sincerely, JAYE MatuteT
--- NOTE | 2019-03-02 15:46 | HP.PTCOM ---
PT Communication Note 03/02/19 To Whom This May Concern , My name is Jack Nichols and I am the Physical Therapist who has been working with Mr. Hay Diego. He suffered an aneurysm and subsequent CVA leaving him with a very weak, (flaccid) right upper and lower extremity. Due to this he has a very difficult time walking and managing his wheel chair. He is able to ambulate with maximum assistance from aide or family member and is not safe to even attempt stair/step negotiation. He does have approximately 4-8 steps to enter his home making entering his home very difficult. I have not been there my self, but in the clinic he has not been able to complete any stair negotiation. He does not have the strength to advance his left leg or safety to bear wt. on that leg without maximum assistance. Have a ramp placement would allow for ease of entering/exiting home. Placement would also allow for potential independent entering/exiting home with use of wheel chair. Thank you for your consideration. If you have any questions about Mr. Diego's functional mobility please let me know. My number is [phone] Sincerely, Jack Nichols DPT Contact Information
--- NOTE | 2019-03-15 09:48 | HP.PTREVAL_ITS ---
Jarrett Garrett MD, It has been my pleasure to treat SHIRLENE HERNANDEZ over the last 31 visits for Subarachnoid hemmorhage. Please see the progress note below for an update on the physical therapy plan of care! Subjective: Caregiver reprots he did not do much over the past week or so. Pt. reports no pain when sitting, but once we attempted to stand he reports increased gluteal pain. Objective/Function: MMT: RLE- 5-/5 throughout, No pain. LLE- slight 1/5 knee ext at best, 0/5 ankle, 2/5 hip flexon, 2-/5 hip abd. GAIT: Pt. ambulated 31ft. with platform walker with min/mod A for UE and wt shifting. Max assistance to advance LLE. Pt. contiunes to require max Vcing for proper gait mechanics as he attempts to advance RLE, prior to LLE being planted. Increased assistance to advance LLE. Pt. cotniunes to become upset with all PT activites, but improves at times. Pt. contiunes to report increased pain with all standing/walking acivites. Patient fluctuates with ability to compelted bed mobility, a few attempts he was Adonay, then would be max A to complete, similar effect with txs. Plan Plan: Pt. needs to continue to increase WBing, standing, and walking to promote better health and fucntional independence. Cont. with nerve glides and core stability exercises as able. Goals Goal 1:: Pt. to be I with HEP. Goal Time Frame: 4-6 Weeks Goal Progress: Progressing Goal 2:: Pt. to ambulate 50ft. with platformwalker with Adonay allowing for increased mobility in home with decreased caregiver burden Goal Time Frame: 4-6 Weeks Goal Progress: Progressing Goal 3:: Pt. to have increased RLE strength by 1/2 grade of all effected musculature to increase stability with all functional mobility. Goal Time Frame: 4-6 Weeks Goal Progress: Goal Met Goal 4:: Pt. to complete all txs with Adonay with proper use of hemiwalker allow ing for increased independence in his home. Goal Time Frame: 4-6 Weeks Goal Progress: Progressing Goal 5:: Pt. to complete bed mobility with ADONAY allowing for decreased caregiver assistance. Goal Progress: Progressing Anticipated Interventions Patient/Client Instruction: Educate patient on: Condition, Plan of Care, Risk Factors, Benefits of Fitness Program For the Purpose of:: To facilitate caregiver knowledge, To improve self man agement, To prevent re-injury, To improve ability to perform tasks related to life management, To improve tolerance to ADL's Therapeutic Exercise to Include: Strength training, Power training, Endurance training, Balance training, Postural training, Flexibilty training, Gait and locomotor training, Passive ROM, Active ROM, Dynamic Lumbar Stabilization For the Purpose of:: To increase ROM, To improve nutrient delivery to tissue, To increase oxygenation perfusion, To improve muscle performance and motor function, To improve ability to perform ADL's, To improve gait and locomotor functions, To improve health of tissue, To decrease soft tissue restriction Please do not hesitate to contact me at [phone] by phone or Fax: if you have questions or concerns regarding this new plan of care! Sincerely, Jack Nichols DPT
== END 2019-03-13 19:00 | disposition home or self-care (01) ==
LOC: PT 15:00
PROVIDERS: Family Provider Family Medicine Geriatric Medicine; PCP Family Medicine Geriatric Medicine; Referring Provider Family Medicine Geriatric Medicine; Visit Provider Family Medicine Geriatric Medicine
DX: I60.9 Nontraumatic subarachnoid hemorrhage, unspecified (principal); R53.83 Other fatigue; M17.9 Osteoarthritis of knee, unspecified
CPT/HCPCS: 36415; 84443; 97110; 97161; 97166; 97530

== ENCOUNTER → 2019-04-28 11:50 | Outpatient (CLI) | payer MEDICAID, SELFPAY ==
[2018-06-02 13:35] VITALS: BMI 20.9
[2019-04-28 12:48] LABS: Absolute Lymphocyte Count 1.61 X10^3/uL (0.83-4.51); Absolute Neutrophil Count 7.5 X10^3/uL (2.0-7.7); Basophil# 0.06 X10^3/uL; Basophil% 0.6 % (0-1); Eosinophil# 0.15 X10^3/uL; Eosinophils% 1.5 % (0-5); Hematocrit 45.4 % (40-54); Hemoglobin 14.2 g/dL (13.0-16.5); Lymphocyte # 1.61 X10^3/ul (4.0); Lymphocyte % 15.9 % (19-41); Mean Corp Hgb Conc 31.3 g/dL (32-36); Mean Corpuscular Hgb 28.7 pg (27.0-32.0); Mean Corpuscular Volume 91.9 fL (80-94); Mean Platelet Vol. 10.8 fl (6.2-12.0); Monocyte# 0.79 X10^3/uL; Monocyte% 7.8 % (0-10); NRBC Flagged by Analyzer 0 % (0-5); Neutrophil # 7.49 X10^3/uL (2.7-7.7); Neutrophil % 73.8 % (47-70); Platelet Count 201 K/mm3 (150-450); RBC Distribution Width CV 14.8 % (11.6-14.6); RBC Distribution Width SD 50.4 fl (35.1-43.9); Red Blood Count 4.94 M/mm3 (4.6-6.2); White Blood Count 10.1 K/mm3 (4.4-11.0)
[2019-04-28 13:15] LABS: ALB/GLOB Ratio 0.8 RATIO (0.9-2.4); AST(SGOT) 15 U/L (15-37); Alanine Aminotransfer ALT/SGPT 10 U/L (16-61); Albumin, Serum 3.3 g/dL (3.2-5.0); Alkaline Phosphatase 91 U/L (45-117); Anion Gap 8 (5-15); BUN 23 mg/dL (7-18); BUN/Creat Ratio 9.2 RATIO (10-20); Chloride 107 mmol/L (98-107); EST Glomerular Filtration Rate 28 mL/min (>60); Est Glom Filt Rate - Afr Amer 34 mL/min (>60); Globulin 4.4 g/dL (2.2-4.2); Glucose 71 mg/dL (74-106); Potassium 4.2 mmol/L (3.5-5.1); Protein, Total 7.7 g/dL (6.4-8.2); Sodium Level 138 mmol/L (136-145); Thyroid Stim Hormone (TSH) 6.77 uIU/mL (0.358-3.74)
--- NOTE | 2019-04-28 13:24 | RAD_ITS ---
STUDY: X-RAY CHEST REASON FOR EXAM: Male, 59 years old. Chest congestion. TECHNIQUE: PA and lateral views of the chest. COMPARISON: Comparison is made with prior examination dated February 07, 2018. FINDINGS: The lungs are clear and expanded. There is no demonstrated pleural abnormality. Normal size heart. Normal mediastinum and riky. Normal visualized pulmonary arteries. There is atherosclerotic tortuosity of the aortic arch and descending thoracic aorta. There are degenerative changes of the visualized thoracic spine. Normal visualized ribs, clavicles, and shoulders. There is no demonstrated abnormality of the visualized soft tissue structures of the upper abdomen. RAD/Chest PA and Lateral IMPRESSION: No acute abnormalities seen. Electronically Signed: Bolivar Olvera, at 14:36 EDT , Service support ,
--- NOTE | 2019-04-28 13:30 | RAD_ITS ---
STUDY: X-RAY - ABDOMEN/PELVIS REASON FOR EXAM: Male, 59 years old. Fecal impaction TECHNIQUE: Single AP view of the abdomen / pelvis. COMPARISON: None. FINDINGS: Normal visualized lung bases. There is an unremarkable bowel gas pattern. There is no demonstrated free abdominal air. The visualized liver, spleen and kidneys are grossly normal in size and morphology. Normal soft tissue structures. Normal visualized osseous structures. RAD/Abdomen Single View IMPRESSION: Nonobstructive bowel gas pattern. Electronically Signed: Joe Davis MD (Brooks) at 17:15 EDT , Service support ,
== END ==
PROVIDERS: Family Provider Family Medicine Geriatric Medicine; PCP Family Medicine Geriatric Medicine; Referring Provider Family Medicine Geriatric Medicine; Visit Provider Family Medicine Geriatric Medicine
DX: F05 Delirium due to known physiological condition (principal); K56.41 Fecal impaction; R69 Illness, unspecified
CPT/HCPCS: 36415; 71046; 74018; 80053; 84443; 85025

== ENCOUNTER 2019-06-26 15:00 | Outpatient (RCR) | payer MEDICAID, SELFPAY ==
[2018-06-02 13:35] VITALS: BMI 20.9
--- NOTE | 2019-08-04 09:55 | HP.PT.NRP ---
HP - Discharge Summary (1) - Patient Information SHIRLENE HERNANDEZ was seen in my office for initial evaluation on . The following Plan of Care was established for this patient: This patient was last seen in our office 06/26/19. Pertinent comments regarding their Physical therapy will appear below: Pt. was seen for his CVA and general debility. Pt. was treated with strengthening, transfer training and gait. Pt. has not been seen for several weeks and will be DC from PT at this point in time. At this point I will be discontinuing this patient from physical therapy. I would be happy to see this patient again in the future if found appropriate by the physician. Thank you! JAYE MatuteT
== END 2019-06-26 19:00 | disposition home or self-care (01) ==
LOC: PT 15:00
PROVIDERS: Family Provider Family Medicine Geriatric Medicine; PCP Family Medicine Geriatric Medicine; Referring Provider Family Medicine Geriatric Medicine; Visit Provider Family Medicine Geriatric Medicine
DX: I60.9 Nontraumatic subarachnoid hemorrhage, unspecified (principal); R53.83 Other fatigue; Z86.73 Personal history of transient ischemic attack (TIA), and cerebral infarction without residual deficits

== ENCOUNTER → 2019-07-14 11:12 | Outpatient (CLI) | payer MEDICAID, SELFPAY ==
[2018-06-02 13:35] VITALS: BMI 20.9
[2019-07-14 12:44] LABS: Absolute Lymphocyte Count 1.74 X10^3/uL (0.83-4.51); Absolute Neutrophil Count 5.1 X10^3/uL (2.0-7.7); Basophil# 0.07 X10^3/uL; Basophil% 0.9 % (0-1); Eosinophil# 0.17 X10^3/uL; Eosinophils% 2.2 % (0-5); Hemoglobin 13.4 g/dL (13.0-16.5); Lymphocyte # 1.74 X10^3/ul (4.0); Lymphocyte % 22.3 % (19-41); Mean Corp Hgb Conc 31.2 g/dL (32-36); Mean Corpuscular Hgb 28.2 pg (27.0-32.0); Mean Corpuscular Volume 90.5 fL (80-94); Mean Platelet Vol. 11.9 fl (6.2-12.0); Monocyte# 0.68 X10^3/uL; Monocyte% 8.7 % (0-10); NRBC Flagged by Analyzer 0 % (0-5); Neutrophil % 65.4 % (47-70); Platelet Count 243 K/mm3 (150-450); RBC Distribution Width CV 14.1 % (11.6-14.6); RBC Distribution Width SD 46.9 fl (35.1-43.9); Red Blood Count 4.75 M/mm3 (4.6-6.2); White Blood Count 7.8 K/mm3 (4.4-11.0)
[2019-07-14 12:52] LABS: ALB/GLOB Ratio 0.8 RATIO (0.9-2.4); AST(SGOT) 5 U/L (15-37); Alanine Aminotransfer ALT/SGPT 13 U/L (16-61); Alkaline Phosphatase 80 U/L (45-117); Anion Gap 3 (5-15); BUN 37 mg/dL (7-18); BUN/Creat Ratio 12.7 RATIO (10-20); Calcium,Total 8.9 mg/dL (8.5-10.1); Chloride 111 mmol/L (98-107); Creatinine, Serum 2.91 mg/dL (0.70-1.30); EST Glomerular Filtration Rate 24 mL/min (>60); Est Glom Filt Rate - Afr Amer 29 mL/min (>60); Globulin 3.7 g/dL (2.2-4.2); Glucose 68 mg/dL (74-106); PSA,Total - Annual Screen 1.31 ng/mL (0.00-4.00); Potassium 4.6 mmol/L (3.5-5.1); Protein, Total 6.7 g/dL (6.4-8.2); Sodium Level 142 mmol/L (136-145); Thyroid Stim Hormone (TSH) 2.62 uIU/mL (0.358-3.74)
== END ==
PROVIDERS: Family Provider Family Medicine Geriatric Medicine; PCP Family Medicine Geriatric Medicine; Visit Provider Family Medicine Geriatric Medicine
DX: I10 Essential (primary) hypertension (principal); Z12.5 Encounter for screening for malignant neoplasm of prostate
CPT/HCPCS: 36415; 80053; 84153; 84443; 85025; G0103

== ENCOUNTER 2021-07-15 18:52 | Inpatient (IN) | payer MEDICAID, SELFPAY ==
[2021-07-15 18:53] VITALS: BP 149/93; PULSE 66; RESP 20; TEMP 36.4; O2SAT 98; BMI 26.1
[2021-07-15 18:59] VITALS: BP 149/93; PULSE 66; RESP 20; TEMP 36.4; O2SAT 98
--- NOTE | 2021-07-15 19:38 | EKG12_ITS ---
Test Reason : DYSRHYTHMIA Blood Pressure : / mmHG Vent. Rate : 070 BPM Atrial Rate : 070 BPM P-R Int : 146 ms QRS Dur : 084 ms QT Int : 400 ms P-R-T Axes : 053 -14 029 degrees QTc Int : 432 ms Normal sinus rhythm Nonspecific T wave abnormality Abnormal ECG Confirmed by ROMEO CODY, WILLIAN ([id number]), editor in chief newspaper [employer] PA ([id number]) on 07/16/2021 1:41:14 PM Referred By: EFRAIN Confirmed By:WILLIAN WALTERS MD
--- NOTE | 2021-07-15 19:41 | EDS_ITS ---
HPI History of Present Illness Chief Complaint: Abn Labs Detail of Chief Complaint: Abnormal labs Informant: patient Narrative Narrative: Patient sent to the emergency department from [facility] for abnormal lab work. Patient apparently tested positive for COVID-19 today. It is unclear how long he has had symptoms. Patient states he feels well otherwise. Patient apparently had elevated sodium and elevated creatinine as we ll as BUN. Patient tells me has been eating and drinking normally. Patient tells me has been urinating normally. Patient denies any fever. He has had mild cough. Prior similar symptoms: No PFSH PFSH Medical History (Updated 07/15/21 @ 21:[address] John Bean, DO) Anxiety and depression Arthritis Back problem Bone fracture Brain aneurysm H/O transfusion of whole blood HTN (hypertension) Kidney disease Kidney failure Seasonal allergies Seizure Stroke Vitamin D deficiency Home Medications aspirin 81 mg PO DAILY@0800 05/08/17 [History Last Taken 05/13/17] amlodipine 10 mg PO DAILY #30 tab 06/15/17 [Rx Last Taken Unknown] atorvastatin 40 mg PO QHS #30 tab 06/15/17 [Rx Last Taken Unknown] cholecalciferol (vitamin D3) 1,000 unit PO DAILY #30 tab 06/15/17 [Rx Last Taken Unknown] divalproex 500 mg PO TIDCM #90 tab 06/15/17 [Rx Last Taken Unknown] metoprolol tartrate 25 mg tablet 12.5 mg PO DAILY tab 06/02/18 [History Last Taken Unknown] quetiapine 25 mg tablet 50 mg PO BID tab 06/02/18 [History Last Taken Unknown] sertraline 50 mg tablet 150 mg PO DAILY tab 06/02/18 [History Last Taken Unknown] Allergy/AdvReac Type Severity Reaction Status Date / Time No Known Allergies Allergy Verified 07/15/21 18:59 Family History Unknown Arthritis Breast cancer Hypertension Kidney stones Social History (Updated 06/05/18 @ 17:08 by Mariana Bolden NP, UPHOLSTERY INSTRUCTOR-C) Smoking Status: Former smoker alcohol intake: never substance use type: does not use ROS ROS ED Constitutional Constitutional ED: Reports systems reviewed and no addt'l complaints, except as documented; Denies body ache(s), change in weight or chills Eyes Eyes: Denies acute decrease in peripheral vision, change in vision, double vision or loss of vision ENT ENT ED: Reports none; Denies ear pain, lip swelling, loss taste/smell, neck pain, otalgia or sore throat Cardiovascular Cardiovascular: Reports none; Denies abdominal pain, chest pain with activity, leg edema, lightheadedness, palpitations, rapid heart rate or syncope Respiratory/Chest Respiratory/Chest: Reports none and cough; Denies change in mental status, dry cough, dyspnea, hemoptysis, shortness of breath at rest or shortness of breath with exertion Gastrointestinal Gastrointestinal: Reports none; Denies abdominal pain, change in stool character, diarrhea, hematemesis, hematochezia, melena, rectal bleeding or vomiting Genitourinary Genitourinary ED: Reports none; Denies abdominal discomfort, anuria, dysuria, genital pain or polyuria Musculoskeletal Musculoskeletal: Reports none; Denies arthralgias, back pain, difficulty walking, extremity pain, muscle weakness or myalgias Integumentary Reports none; Denies abscess or rash Neurologic Neurologic: Reports none; Denies abnormal gait, confusion, focal weakness, frequent falls, headache(s), loss of vision, numbness, paresthesias, radicular pain, vertigo or weakness Psychiatric Psychiatric: Reports systems reviewed and no addt'l complaints, except as documented and none; Denies behavioral changes, confusion, difficulty concentrating, hallucinations, suicidal ideation, tactile hallucinations or visual hallucinations Endocrine Endocrinology: Denies none, cold intolerance, excessive sweating, fatigue or heat intolerance Hematologic/Lymphatic Hematologic/Lymphatic: Reports none; Denies anemia, easy bleeding or easy bruising Allergic/Immunologic Allergic/Immunologic ED: Denies as per HPI, none, lip swelling, mouth swelling, throat swelling, tongue swelling or hives EXAM Physical Exam Const Vital Signs: 07/15/21 18:53 07/15/21 18:59 07/15/21 19:00 Temperature 97.6 F L 97.6 F L Temperature Source Oral Oral Pulse Rate 66 66 Respiratory Rate 20 H 20 H Respiratory Effort Short of Breath Respiratory Pattern Normal Blood Pressure 149/93 H 149/93 H Blood Pressure Mean 111 111 Pulse Ox 98 98 Oxygen Delivery Method Room Air Room Air Positive well nourished and well developed General Appearance ED: well developed and NAD HEENT Reports TM's clear and moist mucous membranes normocephalic and atraumatic; Negative for trauma or tenderness Tympanic Membrane ED: Yes TM's clear Eyes PERRL and EOMs intact bilaterally General Eye ED: Negative for pale conjunctiva or scleral icterus Neck no lymphadenopathy, supple and no JVD General: Negative for tenderness Chest Wall inspection of chest normal and palpation of chest normal Chest: Negative for tenderness Resp normal respiratory effort and clear to auscultation bilaterally Effort and Inspection: Negative for respiratory distress or pain with movement Auscultation: Negative for rhonchi, wheezes or diminished lung sounds Cardio regular rate, regular rhythm, S1 normal heart sound, S2 normal heart sound and no murmurs Peripheral Pulses: pulses 2+ throughout GI normal to inspection, nondistended, normoactive bowel sounds, soft to palpation, non-tender, non-distended and no masses Back/Spine no CVA tenderness and no thoracic nor lumbar tenderness Extremity Extremity Narrative: Left upper extremity is contracted and paralyzed. Patient also with left lower extremity paralysis which is chronic from prior stroke. General Extremety ED: Negative for edema General Extremity: Negative for edema Neuro oriented x3, CN's II-XII intact bilaterally, no sensory deficits noted and gait normal Sensorium / Orientation: awake, alert, oriented to person, oriented to place and oriented to time Motor Exam: strength 5/5 throughout and strength abnormal Psych mental status grossly normal Skin no rashes or lesions noted and no wounds MDM MDM MDM Narrative Medical decision making narrative: IV line established on arrival. Patient was given a liter mostly of fluid bolus. Patient given normal saline. Case di scussed with hospitalist will evaluate patient for admission for acute kidney injury. Patient had a Galvan catheter placed to monitor I's and O's. Lab Data Attestation: I reviewed the patient's lab results. Labs: Laboratory Results - last 24 hr 07/15/21 07/15/21 07/15/21 19:06 19:06 20:00 WBC 3.5 L RBC 3.91 L Hgb 11.0 L Hct 34.8 L MCV 89.0 MCH 28.1 MCHC 31.6 L RDW Std Deviation 50.5 H RDW Coeff of Tomas 15.3 H Plt Count 248 MPV 11.1 Immature Gran % (Auto) 0.000 Neut % (Auto) 50.8 Lymph % (Auto) 26.6 [place] % (Auto) 15.6 H Eos % (Auto) 6.2 H Baso % (Auto) 0.8 Absolute Neuts (auto) 1.8 L Absolute Lymphs (auto) 0.94 Nucleated RBC % 0 Sodium 144 Potassium 4.7 Chloride 113 H Carbon Dioxide 24.0 Anion Gap 7 BUN 64 H Creatinine 6.49 H Estim Creat Clear Calc 13.05 Est GFR (MDRD) Af Amer 11 L Est GFR (MDRD) Non-Af 9 L BUN/Creatinine Ratio 9.9 L Glucose 124 H Lactic Acid 1.4 Calcium 8.3 L Total Bilirubin 0.20 AST 15 ALT 23 Alkaline Phosphatase 64 Troponin I High Sens 17 Total Protein 6.8 Albumin 3.2 Globulin 3.6 Albumin/Globulin Ratio 0.9 Valproic Acid 07/15/21 20:00 WBC RBC Hgb Hct MCV MCH MCHC RDW Std Deviation RDW Coeff of Tomas Plt Count MPV Immature Gran % (Auto) Neut % (Auto) Lymph % (Auto) [place] % (Auto) Eos % (Auto) Baso % (Auto) Absolute Neuts (auto) Absolute Lymphs (auto) Nucleated RBC % Sodium Potassium Chloride Carbon Dioxide Anion Gap BUN Creatinine Estim Creat Clear Calc Est GFR (MDRD) Af Amer Est GFR (MDRD) Non-Af BUN/Creatinine Ratio Glucose Lactic Acid Calcium Total Bilirubin AST ALT Alkaline Phosphatase Troponin I High Sens Total Protein Albumin Globulin Albumin/Globulin Ratio Valproic Acid < 3 L Radiography Diagnostic Testing: Clinical Impression(s) from Imaging Studies Chest X-Ray 07/15/21 20:30 IMPRESSION: Normal x-ray examination of the chest. Electronically Signed: Kaushik Lewis MD at 20:50 EST Tel , Service support , 1 view chest x-ray obtained interpreted by myself as no acute disease process. EKG Initial EKG: Attestation: I personally reviewed and interpreted this EKG as follows: Comments: Sinus rhythm with a ventricular rate of of [address] changes Discharge Plan Triage Chief Complaint: Abn Labs ED Provider: John Bean Dx/Rx/DC Orders Clinical Impression: JACI (acute kidney injury), COVID-19, Weakness Prescriptions: No Action metoprolol tartrate 25 mg tablet 12.5 mg PO DAILY RF: 0 quetiapine 25 mg tablet 50 mg PO BID RF: 0 sertraline 50 mg tablet 150 mg PO DAILY RF: 0 aspirin 81 MG tablet,chewable 81 mg PO DAILY@0800 RF: 0 atorvastatin 40 MG tablet 40 mg PO QHS Qty: 30 RF: 0 divalproex 250 MG tablet 500 mg PO TIDCM Qty: 90 RF: 0 amlodipine 10 MG tablet 10 mg PO DAILY Qty: 30 RF: 0 cholecalciferol (vitamin D3) 1,000 UNIT tablet 1,000 unit PO DAILY Qty: 30 RF: 0 Primary Care Provider: Jarrett Garrett Chi Referrals: Jarrett Garrett Chi, MD [Primary Care Provider] - Disposition Disposition: Acute Care Hospital [facility]
[2021-07-15 20:23] LABS: Absolute Lymphocyte Count 0.94 X10^3/uL (0.83-4.51); Absolute Neutrophil Count 1.8 X10^3/uL (2.0-7.7); Basophil# 0.03 X10^3/uL; Basophil% 0.8 % (0-1); Eosinophil# 0.22 X10^3/uL; Eosinophils% 6.2 % (0-5); Hematocrit 34.8 % (40-54); Lymphocyte # 0.94 X10^3/ul (0.83-4.51); Lymphocyte % 26.6 % (19-41); Mean Corp Hgb Conc 31.6 g/dL (32-36); Mean Corpuscular Hgb 28.1 pg (27.0-32.0); Mean Platelet Vol. 11.1 fl (6.2-12.0); Monocyte# 0.55 X10^3/uL; Monocyte% 15.6 % (0-10); NRBC Flagged by Analyzer 0 % (0-5); Neutrophil # 1.79 X10^3/uL (2.7-7.7); Neutrophil % 50.8 % (47-70); Platelet Count 248 K/mm3 (150-450); RBC Distribution Width CV 15.3 % (11.6-14.6); RBC Distribution Width SD 50.5 fl (35.1-43.9); Red Blood Count 3.91 M/mm3 (4.6-6.2); White Blood Count 3.5 K/mm3 (4.4-11.0)
--- NOTE | 2021-07-15 20:30 | RAD_ITS ---
STUDY: X-RAY CHEST REASON FOR EXAM: Male, 61 years old. covid TECHNIQUE: Single frontal view of the chest. COMPARISON: 04/28/2019. FINDINGS: The lungs are clear and expanded. There is no demonstrated pleural abnormality. Normal size heart. Normal mediastinum and riky. Normal visualized pulmonary arteries. Normal visualized aortic arch and descending thoracic aorta. Normal visualized thoracic spine. Normal visualized ribs, clavicles, and shoulders. There is no demonstrated abnormality of the visualized soft tissue structures of the upper abdomen. RAD/Chest 1 View (Portable) IMPRESSION: Normal x-ray examination of the chest. Electronically Signed: Kaushik Lewis MD at 20:50 EST Tel , Service support ,
[2021-07-15 20:42] LABS: ALB/GLOB Ratio 0.9 RATIO (0.9-2.4); AST(SGOT) 15 U/L (15-37); Alanine Aminotransfer ALT/SGPT 23 U/L (16-61); Albumin, Serum 3.2 g/dL (3.2-5.0); Alkaline Phosphatase 64 U/L (45-117); Anion Gap 7 (5-15); BUN 64 mg/dL (7-18); BUN/Creat Ratio 9.9 RATIO (10-20); Calcium,Total 8.3 mg/dL (8.5-10.1); Chloride 113 mmol/L (98-107); Creatinine, Serum 6.49 mg/dL (0.70-1.30); EST Glomerular Filtration Rate 9 mL/min (>60); Est Glom Filt Rate - Afr Amer 11 mL/min (>60); Estimated Creatinine Clearance 13.05 ml/min; Globulin 3.6 g/dL (2.2-4.2); Glucose 124 mg/dL (74-106); Potassium 4.7 mmol/L (3.5-5.1); Protein, Total 6.8 g/dL (6.4-8.2); Sodium Level 144 mmol/L (136-145); Troponin-I HS 17 pg/mL (3.0-78.0)
--- NOTE | 2021-07-15 21:00 | HP.PCM.HOS_ITS ---
HPI - General General Date of Admission: 07/15/21 Date of Service: 07/15/21 Chief Complaint: COVID positive, worsening renal function. HPI Narrative The patient is a 61 y/o M w/ PMHx: Hx CVA w/ chronic L sided hemiparesis, HTN, HLD, CKD stage IV, Seizure disorder, Anxiety and Depression, Former Tobacco use who presents to the [facility] ED on 07/15/21 with history of testing positive for COVID-19 at patient's long-term facility reporting with negative test the week prior with noted weekly testing with recent onset over the past 24 to 48 hours significant rhinorrhea, cough, mild frontal headache prompting facility to transport him to the ED for evaluation. The daughter reports patient having received a 2 dose vaccination series but cannot recall if it was Moderna or Pfizer with a booster as well. Patient occasionally noted not to be the best historian but does give information freely. Work-up in the ED included T97.6, heart rate 66, BP 149/93, respiratory rate 20, 98% on room air, CBC with WC 3.5, hemoglobin 11, platelet 248 with lymphopenia CMP with chloride 113, BUN/creatinine 64/6.49, glucose 124, lactic acid pending, unremarkable hepatic profile, troponin high-sensitivity 17, valproic acid level pending, blood cultur e x2 pending, chest x-ray with no acute cardiopulmonary findings. In ED patient ministered IV fluids. [facility] Medical History (Updated 07/16/21 @ 00:12 by Shruthi Dennis) Anxiety and depression Arthritis Back problem Bone fracture Brain aneurysm H/O transfusion of whole blood HTN (hypertension) Hypothyroidism Kidney disease Kidney failure Seasonal allergies Seizure Stroke Vascular dementia Vitamin D deficiency Home Medications aspirin 81 mg PO DAILY@0800 05/08/17 [History Last Taken 05/13/17] metoprolol tartrate 25 mg tablet 12.5 mg PO BID tab 06/02/18 [History Last Taken Unknown] amlodipine 5 mg PO DAILY 07/15/21 [History Last Taken Unknown] fenofibrate nanocrystallized 145 mg PO DAILY 07/15/21 [History Last Taken Unknown] fluoxetine 10 mg PO DAILY 07/15/21 [History Last Taken Unknown] gabapentin 300 mg PO QHS 07/15/21 [History Last Taken Unknown] hyoscyamine 0.125 mg PO TID 07/15/21 [History Last Taken Unknown] levothyroxine 50 mcg PO DAILY 07/15/21 [History Last Taken Unknown] lorazepam 0.5 mg PO Q6H 07/15/21 [History Last Taken Unknown] rosuvastatin [Crestor] 40 mg PO QHS 07/15/21 [History Last Taken Unknown] aripiprazole 10 mg PO QHS 07/16/21 [History Last Taken Unknown] cholecalciferol (vitamin D3) 1,250 mcg PO MOWEFR 07/16/21 [History Last Taken Unknown] fluticasone propionate [Flonase] 2 spray INTRANASAL DAILY 07/16/21 [History Last Taken Unknown] levocetirizine [Xyzal] 5 mg PO QPM 07/16/21 [History Last Taken Unknown] polyethylene glycol 3350 [Miralax] 17 g PO DAILY 07/16/21 [History Last Taken Unknown] sodium chloride [Saline Nasal] 2 spray INTRANASAL BID 07/16/21 [History Last Taken Unknown] Allergy/AdvReac Type Severity Reaction Status Date / Time No Known Allergies Allergy Verified 07/15/21 18:59 Family History (Updated 07/16/21 @ 02:[address] Julia Gruber MD) Unknown Arthritis Breast cancer Mother Kidney stones Father Hypertension Other Colon cancer Surgical History (Updated 07/16/21 @ 02:[address] Julia Gruber MD) H/O left inguinal hernia repair History of tonsillectomy and adenoidectomy S/P clamping of cerebral aneurysm Social History (Updated 07/16/21 @ 02:[address] Julia Gruber MD) housing: custodial Smoking Status: Former smoker how long ago did patient quit smoking: Quit 2017 after CVA, smoked 1 ppd since teen until quit. alcohol intake: never substance use type: does not use ROS ROS Narrative Admission Review of Systems: CONSTITUTIONAL: No weight loss, fever, chills, + weakness or fatigue. HEENT: + Headache, severe rhinorrhea, sore throat, congestion. Eyes: No visual loss, blurred vision, double vision or yellow sclerae. Ears, Nose, Throat: No hearing loss, sneezing. SKIN: No rash or itching, lesions, wounds. CARDIOVASCULAR: No chest pain, chest pressure or chest discomfort, palpitations, edema, orthopnea, syncopal events. RESPIRATORY: + Cough. No shortness of breath, increased sputum, wheezing, hemoptysis. GASTROINTESTINAL: No anorexia, nausea, vomiting or diarrhea, abdominal pain, melena, BRBPR. GENITOURINARY: No dysuria, frequency, urgency or retention. NEUROLOGICAL: + Hx CVA w/ chronic L sided paresis w/ contractures, headache, No dizziness, syncope, ataxia, change in bowel or bladder control, seizure. MUSCULOSKELETAL: + muscle, back pain, joint pain or stiffness. HEMATOLOGIC: No anemia, bleeding or bruising. LYMPHATICS: No enlarged nodes. No history of splenectomy. PSYCHIATRIC: + history of depression or anxiety. ENDOCRINOLOGIC: No reports of sweating, cold or heat intolerance. No polyuria or polydipsia. ALLERGIES: No history of asthma, hives, eczema or rhinitis. Vital Signs Vital Signs Vital Signs: 07/15/21 18:53 07/15/21 18:59 07/15/21 19:00 Temperature 97.6 F L 97.6 F L Temperature Source Oral Oral Pulse Rate 66 66 Respiratory Rate 20 H 20 H Respiratory Effort Short of Breath Respiratory Pattern Normal Blood Pressure 149/93 H 149/93 H Blood Pressure Mean 111 111 Pulse Ox 98 98 Oxygen Delivery Method Room Air Room Air Weight Weight: 187 lb 6.287 oz Body Mass Index (BMI) 26.1 Physical Exam Narrative Physical Examination: General: Awake, alert, oriented to self, place and some recent events, remains cooperative, fatigued, mildly ill-appearing, coughing fits, notable rhinorrhea, mildly increased respiratory rate. Skin: Normal color, normal turgor, no icterus, no cyanosis. HEENT: AT/NC, EOMI, PERRLA, moderately dry MM, significant rhinorrhea, no carotid bruits or JVD noted. Lungs: Diffusely diminished, greater bases, mildly increased respiratory rate, no rales, ronchi or wheezing. Heart: Regular rate with regular rhythm; no gallop, rub audible. Abdomen: Soft, NTTP, ND, mildly distant hypoactive bowel sounds, no obvious HSM. Extremities: No cyanosis, clubbing, or edema, chronic left-sided paresis with contractures. Neurological: Patient awake, alert, oriented as noted, cognitive function suspect near baseline intact with some suspected cognitive decline status post CVA; pupils equally reactive to light and accommodation, cranial nerves grossly normal, chronic left-sided paresis, strength severely global decrease secondary to acute presentation confounded by underlying comorbidities. Psychiatric: Affect appears fatigued, ill-appearing, no acute evidence of depressive or anxiety feelings. Results Lab / Micro Data Result Diagrams: 07/15/21 19:06 07/15/21 19:06 Labs: Laboratory Results - last 24 hr 07/15/21 19:06: WBC 3.5 L, RBC 3.91 L, Hgb 11.0 L, Hct 34.8 L, MCV 89.0, MCH 28.1, MCHC 31.6 L, RDW Std Deviation 50.5 H, RDW Coeff of Tomas 15.3 H, Plt Count 248, MPV 11.1, Immature Gran % (Auto) 0.000, Neut % (Auto) 50.8, Lymph % (Auto) 26.6, [place] % (Auto) 15.6 H, Eos % (Auto) 6.2 H, Baso % (Auto) 0.8, Absolute Neuts (auto) 1.8 L, Absolute Lymphs (auto) 0.94, Nucleated RBC % 0 07/15/21 19:06: Sodium 144, Potassium 4.7, Chloride 113 H, Carbon Dioxide 24.0, Anion Gap 7, BUN 64 H, Creatinine 6.49 H, Estim Creat Clear Calc 13.05, Est GFR (MDRD) Af Amer 11 L, Est GFR (MDRD) Non-Af 9 L, BUN/Creatinine Ratio 9.9 L, Glucose 124 H, Calcium 8.3 L, Total Bilirubin 0.20, AST 15, ALT 23, Alkaline Phosphatase 64, Troponin I High Sens 17, Total Protein 6.8, Albumin 3.2, Globulin 3.6, Albumin/Globulin Ratio 0.9 Radiology Impression Chest X-Ray 07/15/21 20:30 IMPRESSION: Normal x-ray examination of the chest. Electronically Signed: Kaushik Lewis MD at 20:50 EST Tel , Service support , Assessment & Plan Assessment/Plan (1) COVID-19: (2) JACI (acute kidney injury): PLAN: The patient is a 61 y/o M w/ PMHx: Hx CVA w/ chronic L sided hemiparesis, HTN, HLD, CKD stage IV, Seizure disorder, Anxiety and Depression, Former Tobacco use who presents to the [facility] ED on 07/15/21 with history of testing positive for COVID-19 at patient's long-term facility reporting with negative test the week prior with noted weekly testing with recent onset over the past 24 to 48 hours significant rhinorrhea, cough, mild frontal headache prompting facility to transport him to the ED for evaluation. #1. Acute Viral Syndrome, COVID-19: Will admit to the [place] telemetry, maintain on COVID precautions, will maintain on oxygen with wean as tolerated to room air, PRN albuterol, HOB, IS parameters w/ pending sputum cultures and urine antigens, will obtain D-dimer, procalcitonin, CRP, CPK, Ferritin, LDH and BNP, continue supportive care including q 2 hour turning including prone given no prone bed availability and judicious hydration, closely monitor for worsening status for ARDS and multiorgan failure. Patient suspect likely early in the course with no evidence of COVID-pneumonia on film nor any evidence of hypoxia therefore will defer any Decadron at this time. #2. Acute kidney injury on CKD stage IV: Secondary to suspected poor intake with #1, possibly GI side effects. Admission BUN/Cr 65/6.49, prior baseline creatinine noted to be 2.9-3.0 primarily. Will hydrate, hold nephrotoxic medications and repeat chemistry in AM. If no improvement would plan FeNa and renal US assessment. #3. Anxiety and depression/behavioral disorder: Patient per facility has significant behavioral disturbance issues requiring a sleeve placement as he attempts to bite himself, will closely monitor renal function but given history we will continue patient home psychiatric regimen with adjustments to dosing if needed if renal function continues to remain significantly impaired. #4. History of CVA: Patient with chronic left-sided hemiparesis with contractures, will continue aspirin, statin, hypertensive regimen. #5. Hypertension: Continue home regimen including metoprolol, amlodipine, PRN hydralazine. #6. Hyperlipidemia: We will continue patient on statin therapy. #7. Seizure disorder: Reported seizure disorder prior, previously on Depakote which is then discontinued per nursing facility with no recent seizure activity. #8. Hypothyroidism: We will continue patient home levothyroxine regimen. #9. Former tobacco use: Encourage continued tobacco cessation. #10. DVT prophylaxis: SCDs, heparin. #11. CODE status: Patient HCPSHONDA is his daughter who is present and living will is currently in place. Discussed CODE status at length including difference between FULL code, DNR-CCA and DNR-CC status. Following discussions about the differences in these status, requested DNR-CCA, no intubation status, no ag gressive interventions or procedures. Advanced Care Planning Face to Face Time: 16 minutes. Charges/Coding Visit Charges Inpatient E&M: 29399 Init Hosp L3 Procedures Hospitalists Procedures: 79827 Advncd Care Plan 30 Min
[2021-07-15 21:12] LABS: Lactic Acid 1.4 mmol/L (0.4-1.9)
[2021-07-15 21:21] LABS: Valproic Acid (Depakene) Level < 3 ug/mL (50-100)
[2021-07-15] MEDS: 0.9% Normal Saline 1,000 ML 999 ML IV (21:30)
[2021-07-15 22:05] VITALS: BP 168/87; PULSE 78; RESP 18; TEMP 37.1; O2SAT 98
[2021-07-15 22:08] LABS: Bacteria 0 SEEN /hpf (None Seen); Mucous, Urine 0 SEEN /hpf (<or=2+); Squamous Epithelial Cells - UA 0 SEEN /hpf (0-5)
[2021-07-15 22:18] LABS: D-Dimer Quantitative (DVT/PE) <= 0.27 FEU/ug/m (0.27-0.49)
[2021-07-15 22:20] LABS: Color, Urine Yellow (Yellow); Glucose, Dipstick 50 mg/dl (Normal); Ketone-Dipstick Negative (Negative); Leukocyte Esterase-Dipstick Negative /ul (Negative); Nitrite-Dipstick Negative (Negative); Occult Blood-Urine 50 /ul (Negative); Protein-Dipstick 500 mg/dl (Negative); Urine Bilirubin Dipstick Negative (Negative); Urine Clarity Clear (Clear); Urine Urobilinogen Normal (Normal)
[2021-07-15 22:28] LABS: Ferritin 55 ng/mL (26-388); LDH 206 U/L (87-241)
[2021-07-15 22:32] LABS: BNP,B-Type NATRIURETIC PEPTIDE 20.8 pg/mL (0-100); Procalcitonin 0.15 ng/mL (0.00-0.09)
[2021-07-15 22:33] VITALS: RESP 20
--- NOTE | 2021-07-15 22:34 | PCS.PANDOC ---
PANDEMIC DOCUMENTATION INITIATED: Date: 07/15/2021 Time 5397
[2021-07-15 22:51] VITALS: BP 139/70; PULSE 68; RESP 20; TEMP 36.8; O2SAT 98
[2021-07-15 22:57] LABS: Red Blood Cells-Urine 0-5 SEEN /hpf (0-5); White Blood Cells 0-5 SEEN /hpf (0-5)
[2021-07-15] MEDS: 0.9% Normal Saline 1,000 ML 125 ML IV (23:25)
[2021-07-15] MEDS: MELATONIN 3 MG TABLET PO (23:26)
[2021-07-15] MEDS: QUEtiapine 25 MG Tablet 50 MG PO (23:26)
[2021-07-15] MEDS: Heparin Injection (Vial) 5,000 UNIT/ML VIAL 5000 UNIT SC (23:26)
[2021-07-15] MEDS: guaiFENesin 10 ML UDC (200MG/10ML) 20 ML PO (23:26)
[2021-07-15] MEDS: Atorvastatin Calcium 40 MG Tablet PO (23:26)
[2021-07-15] MEDS: Acetaminophen 325 MG Tablet 650 MG PO (23:27)
[2021-07-15 23:29] VITALS: BMI 25.1
[2021-07-16] VITALS (12 sets, daily range): BP systolic 133–153; BP diastolic 76–100; PULSE 64–103; RESP 16–18; TEMP 36.5–37.1; O2SAT 95–100
[2021-07-16 01:26] LABS: Urine Sodium 83 mmol/L (Not Establ.)
[2021-07-16] MEDS: 0.9% Normal Saline 1,000 ML 125 ML IV ×2 (04:28→12:38)
[2021-07-16] MEDS: LORazepam 0.5 MG Tablet PO ×4 (04:28→21:58)
[2021-07-16 06:25] LABS: Absolute Lymphocyte Count 1.34 X10^3/uL (0.83-4.51); Absolute Neutrophil Count 2.4 X10^3/uL (2.0-7.7); Basophil# 0.02 X10^3/uL; Basophil% 0.4 % (0-1); Eosinophil# 0.25 X10^3/uL; Eosinophils% 5.5 % (0-5); Hemoglobin 9.9 g/dL (13.0-16.5); Lymphocyte # 1.34 X10^3/ul (0.83-4.51); Lymphocyte % 29.6 % (19-41); Mean Corp Hgb Conc 30.9 g/dL (32-36); Mean Corpuscular Hgb 27.4 pg (27.0-32.0); Mean Corpuscular Volume 88.6 fL (80-94); Mean Platelet Vol. 10.8 fl (6.2-12.0); Monocyte# 0.54 X10^3/uL; Monocyte% 11.9 % (0-10); NRBC Flagged by Analyzer 0 % (0-5); Neutrophil # 2.35 X10^3/uL (2.7-7.7); Neutrophil % 52.2 % (47-70); Platelet Count 221 K/mm3 (150-450); RBC Distribution Width CV 15.2 % (11.6-14.6); RBC Distribution Width SD 49.4 fl (35.1-43.9); Red Blood Count 3.61 M/mm3 (4.6-6.2); White Blood Count 4.5 K/mm3 (4.4-11.0)
[2021-07-16 06:51] LABS: ALB/GLOB Ratio 0.8 RATIO (0.9-2.4); AST(SGOT) 11 U/L (15-37); Alanine Aminotransfer ALT/SGPT 21 U/L (16-61); Albumin, Serum 2.6 g/dL (3.2-5.0); Alkaline Phosphatase 55 U/L (45-117); Anion Gap 10 (5-15); BUN 56 mg/dL (7-18); BUN/Creat Ratio 9.3 RATIO (10-20); Calcium,Total 7.7 mg/dL (8.5-10.1); Chloride 118 mmol/L (98-107); Creatinine, Serum 5.99 mg/dL (0.70-1.30); EST Glomerular Filtration Rate 10 mL/min (>60); Est Glom Filt Rate - Afr Amer 13 mL/min (>60); Estimated Creatinine Clearance 14.14 ml/min; Globulin 3.1 g/dL (2.2-4.2); Glucose 95 mg/dL (74-106); Potassium 4.2 mmol/L (3.5-5.1); Protein, Total 5.7 g/dL (6.4-8.2); Sodium Level 148 mmol/L (136-145)
[2021-07-16] MEDS: Hyoscyamine Sulfate 0.125 MG Tablet PO ×3 (08:58→17:19)
[2021-07-16] MEDS: Metoprolol Tartrate 25 MG Tablet 12.5 MG PO ×2 (09:00→21:57)
[2021-07-16] MEDS: FLUoxetine 10 MG Capsule PO (09:00)
[2021-07-16] MEDS: Polyethylene Glycol 3350 17 GM PACKET PO (09:00)
[2021-07-16] MEDS: Heparin Injection (Vial) 5,000 UNIT/ML VIAL 5000 UNIT SC ×2 (09:00→21:58)
[2021-07-16] MEDS: Aspirin 81 MG TAB.CHEW PO (09:01)
[2021-07-16] MEDS: amLODIPine 5 MG Tablet PO (09:01)
[2021-07-16] MEDS: Levothyroxine 50 MCG Tablet PO (09:01)
[2021-07-16] MEDS: QUEtiapine 25 MG Tablet 50 MG PO ×2 (09:02→21:56)
--- NOTE | 2021-07-16 10:31 | CASEMGMT ---
Addendum entered by Luly Alcazar 07/16/21 11:20: Social Work SW spoke w/Shila at [facility], pt can return when ready. SW called pt's daughter Lupe, confirmed the plan will be for pt to return to [facility] when ready. ANURADHA will continue to follow. 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 SW called, message left for [facility] inquiring if they will take pt back when he is ready, as he has COVID. Updates faxed. ANURADHA will continue to follow. [employer] [place]
--- NOTE | 2021-07-16 11:35 | PN.HOSP_ITS ---
Subjective Subjective Patient seen and examined. He was alert but not very verbally communicative. Unable to do review of systems as he would not really answer questions. He is noted to be mildly tachycardic but otherwise hemodynamically stable. Creatinine today is slightly down to 5.99. Objective Data Objective Data Vital Signs: Vital Signs Temp Pulse Resp BP Pulse Ox 98.2 F 103 H 16 153/91 H 100 07/16/21 10:30 07/16/21 10:30 07/16/21 10:30 07/16/21 10:30 07/16/21 10:30 Oxygen Delivery Method Room Air Weight: 178 lb 2.136 oz Body Mass Index (BMI) 25.1 Intake & Output: Intake and Output for Last 24 Hours 07/14/21 07/15/21 07/16/21 23:59 23:59 23:59 Intake Total 1200 / 1200 631.25 / 631.25 Output Total 300 / 300 300 / 300 Balance 900 / 900 331.25 / 331.25 Lab / Micro Data Result Diagrams: 07/16/21 05:54 07/16/21 05:54 Labs: Laboratory Results - last 24 hr 07/15/21 19:06: WBC 3.5 L, RBC 3.91 L, Hgb 11.0 L, Hct 34.8 L, MCV 89.0, MCH 28.1, MCHC 31.6 L, RDW Std Deviation 50.5 H, RDW Coeff of Tomas 15.3 H, Plt Count 248, MPV 11.1, Immature Gran % (Auto) 0.000, Neut % (Auto) 50.8, Lymph % (Auto) 26.6, [place] % (Auto) 15.6 H, Eos % (Auto) 6.2 H, Baso % (Auto) 0.8, Absolute Neuts (auto) 1.8 L, Absolute Lymphs (auto) 0.94, Nucleated RBC % 0 07/15/21 19:06: Sodium 144, Potassium 4.7, Chloride 113 H, Carbon Dioxide 24.0, Anion Gap 7, BUN 64 H, Creatinine 6.49 H, Estim Creat Clear Calc 13.05, Est GFR (MDRD) Af Amer 11 L, Est GFR (MDRD) Non-Af 9 L, BUN/Creatinine Ratio 9.9 L, Glucose 124 H, Calcium 8.3 L, Total Bilirubin 0.20, AST 15, ALT 23, Alkaline Phosphatase 64, Troponin I High Sens 17, Total Protein 6.8, Albumin 3.2, Globulin 3.6, Albumin/Globulin Ratio 0.9 07/15/21 19:06: Procalcitonin 0.15 H 07/15/21 19:06: Ferritin 55, Lactate Dehydrogenase 206, C-React Prot Ext Range 15.60 H 07/15/21 19:06: D-Dimer Quant (PE/DVT) <= 0.27 07/15/21 19:06: B-Natriuretic Peptide 20.8 07/15/21 20:00: Lactic Acid 1.4 07/15/21 20:00: Valproic Acid < 3 L 07/15/21 22:00: Urine Color Yellow, Urine Clarity Clear, Urine pH 7.0, Ur Specific [place] 1.010, Urine Protein 500 H, Urine Glucose (UA) 50 H, Urine Ketones Negative, Urine Occult Blood 50 H, Urine Nitrite Negative, Urine Bilirubin Negative, Urine Urobilinogen Normal, Ur Leukocyte Esterase Negative, Urine RBC 0-5 SEEN, Urine WBC 0-5 SEEN, Ur Squamous Epith Cells 0 SEEN, Urine Bacteria 0 SEEN, Urine Mucus 0 SEEN 07/16/21 01:00: Ur Random Sodium 83, Urine Creatinine 68.80 07/16/21 05:54: WBC 4.5, RBC 3.61 L, Hgb 9.9 L, Hct 32.0 L, MCV 88.6, MCH 27.4, MCHC 30.9 L, RDW Std Deviation 49.4 H, RDW Coeff of Tomas 15.2 H, Plt Count 221, MPV 10.8, Immature Gran % (Auto) 0.400, Neut % (Auto) 52.2, Lymph % (Auto) 29.6, Garden % (Auto) 11.9 H, Eos % (Auto) 5.5 H, Baso % (Auto) 0.4, Absolute Neuts (auto) 2.4, Absolute Lymphs (auto) 1.34, Nucleated RBC % 0 07/16/21 05:54: Sodium 148 H, Potassium 4.2, Chloride 118 H, Carbon Dioxide 20.0 L, Anion Gap 10, BUN 56 H, Creatinine 5.99 H, Estim Creat Clear Calc 14.14, Est GFR (MDRD) Af Amer 13 L, Est GFR (MDRD) Non-Af 10 L, BUN/Creatinine Ratio 9.3 L, Glucose 95, Calcium 7.7 L, Total Bilirubin 0.20, AST 11 L, ALT 21, Alkaline Phosphatase 55, Total Protein 5.7 L, Albumin 2.6 L, Globulin 3.1, Albumin/Globulin Ratio 0.8 L Micro: Microbiology 07/15/21 23:20 Urine Catheter - Catheter Legionella Antigen - Final 07/15/21 23:20 Urine Catheter - Catheter Streptococcus pneumoniae Antigen (M - Final Radiography Diagnostic Testing: Radiology Impression Chest X-Ray 07/15/21 20:30 IMPRESSION: Normal x-ray examination of the chest. Electronically Signed: Kaushik Lewis MD at 20:50 EST Tel , Service support , Physical Exam Const alert Constitutional Narrative: nonverbal Exam Limitations: other limitations HEENT head/scalp atraumatic Head and Scalp: normocephalic Mouth: dry mucous membranes Eyes PERRL, EOMs intact bilaterally and conjunctivae normal Neck no lymphadenopathy Resp normal respiratory effort, no retractions, no use of accessory muscles and clear to auscultation bilaterally Cardio regular rhythm, S1 normal heart sound, S2 normal heart sound and no murmurs GI normal to inspection, nondistended, normoactive bowel sounds, soft to palpation, non-tender and non-distended Extremity full ROM and no clubbing, cyanosis or edema Peripheral Pulses: Yes pulses 2+ throughout Skin no rashes or lesions noted Neuro Neuro Narrative: nonverbal, chronic left sided hemiparesis. Sensorium / Orientation: awake Psych Psych Narrative: flat affect Assessment & Plan Assessment/Plan (1) JACI (acute kidney injury): (2) CKD (chronic kidney disease) stage 4, GFR 15-29 ml/min: PLAN: #COVID 19 infection * On room air. Decadron deferred as patient is on room air. * Give oxygen as needed and titrate to maintain saturation above 90%. * #JACI on CKD stage IV * Creatinine is slightly down to 5.99 today. Baseline creatinine is about 2.9- 3. * Patient being hydrated with IV fluids. We will check renal ultrasound and also check Feurea * consult nephrology * monitor intake and output * #Hypernatremia: Sodium is up to 148 and this is likely due to IV fluid administration. Switch to half-normal saline. #History of CVA with chronic right hemiparesis: on aspirin and statin as well as metoprolol #Hypertension: on amlodipine and metoprolol. IV hydralazine prn. #Anxiety and depression with behavioral disorder * #Hypothyroidism: On Synthroid #History of seizure disorder: On Depakote which was discontinued in his [place] [facility] facility. Seizure precautions #Hyperlipidemia: On statin Charges/Coding Visit Charges Inpatient E&M: 71719 Subs Hosp L3
--- NOTE | 2021-07-16 11:46 | US_ITS ---
INDICATION: Maicol on CKD IV EXAMINATION: Ultrasound US Kidney(s) complete (eg, kidneys and bladder) TECHNIQUE: Gallagher scale and color doppler images were obtained of the kidneys. COMPARISON: 04/28/2019 abdominal x-ray. FINDINGS: RIGHT KIDNEY: 10.6 x 5.1 x 5.1 cm. There is no hydronephrosis. No shadowing calculus, suspicious focal lesion or perinephric collection is demonstrated. There are 2 simple renal cysts. One in the mid right kidney measuring 1.9 x 1.8 x 2.3 cm. Another at the inferior aspect of the right kidney, measuring 4.9 x 4.0 x 4.1 cm. These are both exophytic. LEFT KIDNEY: 9.4 x 5.2 x 5.5 cm. There is no hydronephrosis. No shadowing calculus, focal lesion or perinephric collection is demonstrated. There is trace bilateral cortical thinning. There may be mild, diffuse increased echogenicity as can be seen with medical renal disease. URINARY BLADDER: Mostly collapsed with MCARTHUR catheter in place. US/Kidney and Bladder IMPRESSION: No hydronephrosis or findings to explain acute kidney injury. Trace bilateral cortical thinning and questionable mild increased parenchymal echogenicity as can be seen with medical renal disease. Right renal exophytic simple cysts. Electronically Signed: Viktor Bartholomew DO at 20:07 EST Tel , Service support ,
--- NOTE | 2021-07-16 18:44 | PCM.CONS.R ---
Assessment & Plan Assessment/Plan (1) JACI (acute kidney injury): PLAN: -The patient has chronic kidney disease stage IV. Last available serum creatinine from 07/14/2019 was 2.91 mg/dL. -JACI is likely due to ischemic ATN. Fractional secretion sodium was greater than 1% on 07/15/2021. -However, the patient is still appears to be volume depleted on exam. Agree with continuing IV fluid. However, we will change IV fluid to half-normal saline since he is hypernatremic and he is hemodynamically stable. -We will recheck renal function tomorrow. There is no need for kidney replacement therapy tonight. (2) Chronic kidney disease, stage 4 (severe): PLAN: -Last available serum creatinine from 04/13/2020 was 2.91 mg/dL. Serum creatinine has been as high as 3.4 mg/dL in 2017 as well. -The patient tells me that he does not see a eyelet machine operator on a regular basis. (3) Metabolic acidosis: PLAN: -This is likely due to JACI. The patient denies diarrhea. -There could also be some contribution of saline causing acidosis as well. I will change the patient to half-normal saline. -If acidosis worsens, we may change him to D5W tomorrow if the patient remains hyponatremic and acidotic. (4) Hypernatremia: PLAN: -The patient does not appear to be polyuric. Hyponatremia is likely due to dehydration. -Since the patient is hemodynamically stable, I will switch the patient to half-normal saline for tonight. -Recheck serum sodium tomorrow. (5) COVID-19: PLAN: -Treatment as per hospital medicine service. 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 The patient presented from [facility] because of 2 days history of rhinorrhea, cough, and frontal headache. He also tested positive for COVID [address] [facility]. On presentation to the hospital, the patient was noted to have a serum creatinine of 6.49 mg/dL. Review of record reveals that his creatinine has been elevated as far back as 2017 at 3.4 mg/dL. The patient denies being followed by a eyelet machine operator on a regular basis. The patient also denies chest pain, shortness of breath, nausea, or edema. He denies lower urinary tract symptoms. He is not on STAR inhibitor or ARB at [facility], and there has been no exposure to NSAIDs. The patient has been placed on IV fluid since admission. He is serum creatinine has improved from 6.49 mg deciliter on 07/15/2021 down to 5.99 mg/dL today. The patient is not hyperkalemic. [facility] Medical History (Updated 07/16/21 @ 18:[address] Markel Askew MD) Anxiety and depression Arthritis Back problem Bone fracture Brain aneurysm H/O transfusion of whole blood HTN (hypertension) Hypothyroidism Kidney disease Kidney failure Seasonal allergies Seizure Stroke Vascular dementia Vitamin D deficiency Home Medications aspirin 81 mg PO DAILY@0800 05/08/17 [History Last Taken 05/13/17] metoprolol tartrate 25 mg tablet 12.5 mg PO BID tab 06/02/18 [History Last Taken Unknown] amlodipine 5 mg PO DAILY 07/15/21 [History Last Taken Unknown] fenofibrate nanocrystallized 145 mg PO DAILY 07/15/21 [History Last Taken Unknown] fluoxetine 10 mg PO DAILY 07/15/21 [History Last Taken Unknown] gabapentin 300 mg PO QHS 07/15/21 [History Last Taken Unknown] hyoscyamine 0.125 mg PO TID 07/15/21 [History Last Taken Unknown] levothyroxine 50 mcg PO DAILY 07/15/21 [History Last Taken Unknown] lorazepam 0.5 mg PO Q6H 07/15/21 [History Last Taken Unknown] rosuvastatin [Crestor] 40 mg PO QHS 07/15/21 [History Last Taken Unknown] aripiprazole 10 mg PO QHS 07/16/21 [History Last Taken Unknown] cholecalciferol (vitamin D3) 1,250 mcg PO MOWEFR 07/16/21 [History Last Taken Unknown] fluticasone propionate [Flonase] 2 spray INTRANASAL DAILY 07/16/21 [History Last Taken Unknown] levocetirizine [Xyzal] 5 mg PO QPM 07/16/21 [History Last Taken Unknown] polyethylene glycol 3350 [Miralax] 17 g PO DAILY 07/16/21 [History Last Taken Unknown] sodium chloride [Saline Nasal] 2 spray INTRANASAL BID 07/16/21 [History Last Taken Unknown] Allergy/AdvReac Type Severity Reaction Status Date / Time No Known Allergies Allergy Verified 07/15/21 18:59 Family History (Updated 07/16/21 @ 02:[address] Julia Gruber MD) Unknown Arthritis Breast cancer Mother Kidney stones Father Hypertension Other Colon cancer Surgical History (Updated 07/16/21 @ 02:[address] Julia Gruber MD) H/O left inguinal hernia repair History of tonsillectomy and adenoidectomy S/P clamping of cerebral aneurysm Social History (Updated 07/16/21 @ 02:[address] Julia Gruber MD) housing: residential Smoking Status: Former smoker how long ago did patient quit smoking: Quit 2017 after CVA, smoked 1 ppd since teen until quit. alcohol intake: never substance use type: does not use ROS ROS Narrative 06/15 review of system was done. They are otherwise noncontributory. Physical Exam Narrative General: No apparent distress. The patient is alert and oriented x3. HEENT: Normocephalic, atraumatic. Mucous membrane moist. PERRLA, EOMI. Neck: Supple, no JVD. Heart: Normal S1, S2 no rubs or murmurs. Lungs: CTAB. Abdomen: Normal bowel sounds, soft, nontender, no guarding or rebound. Extremity: No clubbing, cyanosis, or edema. Neurologic: Left hemiparesis. Dysarthric. Lab / Micro Data Result Diagrams: 07/16/21 05:54 07/16/21 05:54 Labs: Laboratory Results - last 24 hr 07/15/21 19:06: WBC 3.5 L, RBC 3.91 L, Hgb 11.0 L, Hct 34.8 L, MCV 89.0, MCH 28.1, MCHC 31.6 L, RDW Std Deviation 50.5 H, RDW Coeff of Tomas 15.3 H, Plt Count 248, MPV 11.1, Immature Gran % (Auto) 0.000, Neut % (Auto) 50.8, Lymph % (Auto) 26.6, [place] % (Auto) 15.6 H, Eos % (Auto) 6.2 H, Baso % (Auto) 0.8, Absolute Neuts (auto) 1.8 L, Absolute Lymphs (auto) 0.94, Nucleated RBC % 0 07/15/21 19:06: Sodium 144, Potassium 4.7, Chloride 113 H, Carbon Dioxide 24.0, Anion Gap 7, BUN 64 H, Creatinine 6.49 H, Estim Creat Clear Calc 13.05, Est GFR (MDRD) Af Amer 11 L, Est GFR (MDRD) Non-Af 9 L, BUN/Creatinine Ratio 9.9 L, Glucose 124 H, Calcium 8.3 L, Total Bilirubin 0.20, AST 15, ALT 23, Alkaline Phosphatase 64, Troponin I High Sens 17, Total Protein 6.8, Albumin 3.2, Globulin 3.6, Albumin/Globulin Ratio 0.9 07/15/21 19:06: Procalcitonin 0.15 H 07/15/21 19:06: Ferritin 55, Lactate Dehydrogenase 206, C-React Prot Ext Range 15.60 H 07/15/21 19:06: D-Dimer Quant (PE/DVT) <= 0.27 07/15/21 19:06: B-Natriuretic Peptide 20.8 07/15/21 20:00: Lactic Acid 1.4 07/15/21 20:00: Valproic Acid < 3 L 07/15/21 22:00: Urine Color Yellow, Urine Clarity Clear, Urine pH 7.0, Ur Specific [place] 1.010, Urine Protein 500 H, Urine Glucose (UA) 50 H, Urine Ketones Negative, Urine Occult Blood 50 H, Urine Nitrite Negative, Urine Bilirubin Negative, Urine Urobilinogen Normal, Ur Leukocyte Esterase Negative, Urine RBC 0-5 SEEN, Urine WBC 0-5 SEEN, Ur Squamous Epith Cells 0 SEEN, Urine Bacteria 0 SEEN, Urine Mucus 0 SEEN 07/16/21 01:00: Ur Random Sodium 83, Urine Creatinine 68.80 07/16/21 05:54: WBC 4.5, RBC 3.61 L, Hgb 9.9 L, Hct 32.0 L, MCV 88.6, MCH 27.4, MCHC 30.9 L, RDW Std Deviation 49.4 H, RDW Coeff of Tomas 15.2 H, Plt Count 221, MPV 10.8, Immature Gran % (Auto) 0.400, Neut % (Auto) 52.2, Lymph % (Auto) 29.6, [place] % (Auto) 11.9 H, Eos % (Auto) 5.5 H, Baso % (Auto) 0.4, Absolute Neuts (auto) 2.4, Absolute Lymphs (auto) 1.34, Nucleated RBC % 0 07/16/21 05:54: Sodium 148 H, Potassium 4.2, Chloride 118 H, Carbon Dioxide 20.0 L, Anion Gap 10, BUN 56 H, Creatinine 5.99 H, Estim Creat Clear Calc 14.14, Est GFR (MDRD) Af Amer 13 L, Est GFR (MDRD) Non-Af 10 L, BUN/Creatinine Ratio 9.3 L, Glucose 95, Calcium 7.7 L, Total Bilirubin 0.20, AST 11 L, ALT 21, Alkaline Phosphatase 55, Total Protein 5.7 L, Albumin 2.6 L, Globulin 3.1, Albumin/Globulin Ratio 0.8 L Micro: Microbiology 07/15/21 23:20 Urine Catheter - Catheter Legionella Antigen - Final 07/15/21 23:20 Urine Catheter - Catheter Streptococcus pneumoniae Antigen (M - Final Radiology Impression Chest X-Ray 07/15/21 20:30 IMPRESSION: Normal x-ray examination of the chest. Electronically Signed: Kaushik Lewis MD at 20:50 EST Tel , Service support ,
[2021-07-16] MEDS: 0.45% Normal Saline 1,000 ML 150 ML IV (21:23)
[2021-07-16] MEDS: Gabapentin 300 MG Capsule PO (21:56)
[2021-07-16] MEDS: ARIPiprazole 10 MG Tablet PO (21:56)
[2021-07-16] MEDS: Atorvastatin Calcium 40 MG Tablet PO (21:57)
[2021-07-17] VITALS (7 sets, daily range): BP systolic 144–158; BP diastolic 75–97; PULSE 64–72; RESP 16–18; TEMP 36.4–36.6; O2SAT 98–100
[2021-07-17] MEDS: 0.45% Normal Saline 1,000 ML 150 ML IV ×4 (04:00→23:32)
[2021-07-17] MEDS: LORazepam 0.5 MG Tablet PO ×4 (04:10→21:10)
[2021-07-17 07:15] LABS: Albumin, Serum 2.8 g/dL (3.2-5.0); BUN 48 mg/dL (7-18); BUN/Creat Ratio 9.7 RATIO (10-20); Calcium,Total 8.1 mg/dL (8.5-10.1); Chloride 116 mmol/L (98-107); Creatinine, Serum 4.94 mg/dL (0.70-1.30); EST Glomerular Filtration Rate 13 mL/min (>60); Est Glom Filt Rate - Afr Amer 16 mL/min (>60); Estimated Creatinine Clearance 17.15 ml/min; Glucose 81 mg/dL (74-106); Phosphorus 4.3 mg/dL (2.5-4.9); Potassium 4.2 mmol/L (3.5-5.1); Sodium Level 145 mmol/L (136-145)
[2021-07-17] MEDS: Polyethylene Glycol 3350 17 GM PACKET PO (09:29)
[2021-07-17] MEDS: Heparin Injection (Vial) 5,000 UNIT/ML VIAL 5000 UNIT SC ×2 (09:30→21:10)
[2021-07-17] MEDS: QUEtiapine 25 MG Tablet 50 MG PO ×2 (09:31→21:09)
[2021-07-17] MEDS: Levothyroxine 50 MCG Tablet PO (09:31)
[2021-07-17] MEDS: Aspirin 81 MG TAB.CHEW PO (09:31)
[2021-07-17] MEDS: Hyoscyamine Sulfate 0.125 MG Tablet PO ×3 (09:31→17:47)
[2021-07-17] MEDS: amLODIPine 5 MG Tablet PO (09:31)
[2021-07-17] MEDS: FLUoxetine 10 MG Capsule PO (09:32)
[2021-07-17] MEDS: Metoprolol Tartrate 25 MG Tablet 12.5 MG PO ×2 (09:37→21:09)
--- NOTE | 2021-07-17 10:18 | PN.RENAL_ITS ---
Subjective Subjective Following for JACI on CKD. The patient is dysarthric. He denies chest pain, shortness of breath, or nausea. There has been no diarrhea. Objective Data Objective Data Vital Signs: Vital Signs Temp Pulse Resp BP Pulse Ox 97.8 F 68 18 154/87 H 98 07/17/21 09:30 07/17/21 09:37 07/17/21 09:30 07/17/21 09:37 07/17/21 09:30 Oxygen Flow Rate (L/min) 97 Oxygen Delivery Method Room Air Weight: 79.8 kg Body Mass Index (BMI) 25.1 Intake & Output: Intake and Output for Last 24 Hours 07/15/21 07/16/21 07/17/21 23:59 23:59 23:59 Intake Total 1200 / 1200 3471.25 / 3471.25 992.5 / 992.5 Output Total 300 / 300 1150 / 1150 1050 / 1050 Balance 900 / 900 2321.25 / 2321.25 -57.5 / -57.5 Lab / Micro Data Result Diagrams: 07/16/21 05:54 07/17/21 06:20 Labs: Laboratory Results - last 24 hr 07/17/21 06:20: Sodium 145, Potassium 4.2, Chloride 116 H, Carbon Dioxide 21.0, BUN 48 H, Creatinine 4.94 H, Estim Creat Clear Calc 17.15, Est GFR (MDRD) Af Amer 16 L, Est GFR (MDRD) Non-Af 13 L, BUN/Creatinine Ratio 9.7 L, Glucose 81, Calcium 8.1 L, Phosphorus 4.3, Albumin 2.8 L Micro: Microbiology 07/15/21 23:20 Urine Catheter - Catheter Legionella Antigen - Final 07/15/21 23:20 Urine Catheter - Catheter Streptococcus pneumoniae Antigen (M - Final Radiography Diagnostic Testing: Radiology Impression Renal Ultrasound 07/16/21 11:46 IMPRESSION: No hydronephrosis or findings to explain acute kidney injury. Trace bilateral cortical thinning and questionable mild increased parenchymal echogenicity as can be seen with medical renal disease. Right renal exophytic simple cysts. Electronically Signed: Viktor Bartholomew DO at 20:07 EST Tel , Service support , Physical Exam Narrative General: No apparent distress. Neck: Supple, no JVD. Heart: Normal S1, S2 no rubs or murmurs. Lungs: CTAB. Abdomen: Normal bowel sounds, soft, nontender, no guarding or rebound. Extremity: No clubbing, cyanosis, or edema. Neurologic: Left hemiparesis. Dysarthric. Assessment & Plan Assessment/Plan (1) JACI (acute kidney injury): PLAN: -The patient has chronic kidney disease stage IV. Last available serum creatinine from 07/14/2019 was 2.91 mg/dL. -JACI is likely due to ischemic ATN. Fractional secretion sodium was greater than 1% on 07/15/2021. -Renal function is better today. -We will continue IV fluid today. Will reassess volume status again tomorrow. If he is more euvolemic, I will stop IV fluid tomorrow. -We will recheck renal function tomorrow. There is no need for kidney replacement therapy today. (2) Chronic kidney disease, stage 4 (severe): PLAN: -Last available serum creatinine from 04/13/2020 was 2.91 mg/dL. Serum creatinine has been as high as 3.4 mg/dL in 2017 as well. -The patient tells me that he does not see a fermentation engineer on a regular basis. -Once he is discharged, I will arrange for outpatient follow-up in our [place] office. (3) Metabolic acidosis: PLAN: -This is likely due to JACI. The patient denies diarrhea. -Serum bicarbonate level is better today at 21 mmol/L as renal function has improved. We will continue to monitor. (4) Hypernatremia: PLAN: -The patient does not appear to be polyuric. Hyponatremia is due to dehydration. -We will continue half-normal saline for today. -Recheck serum sodium tomorrow. (5) COVID-19: PLAN: -Treatment as per hospital medicine service.
--- NOTE | 2021-07-17 10:35 | CASEMGMT ---
Social Work Pt is not ready for discharge yet. Updates faxed to [facility]uero[facility]. [employer] [place]
--- NOTE | 2021-07-17 14:20 | PN.HOSP_ITS ---
Subjective Subjective Patient seen and examined. He was more alert and communicative today. He had no active complaints today and had an uneventful night. Review of systems is otherwise negative. He has remained hemodynamically stable. Objective Data Objective Data Vital Signs: Vital Signs Temp Pulse Resp BP Pulse Ox 97.8 F 68 18 154/87 H 98 07/17/21 09:30 07/17/21 09:37 07/17/21 09:30 07/17/21 09:37 07/17/21 09:30 Oxygen Flow Rate (L/min) 97 Oxygen Delivery Method Room Air Weight: 175 lb 14.862 oz Body Mass Index (BMI) 25.1 Intake & Output: Intake and Output for Last 24 Hours 07/15/21 07/16/21 07/17/21 23:59 23:59 23:59 Intake Total 1200 / 1200 3471.25 / 3471.25 1992.5 / 1992.5 Output Total 300 / 300 1150 / 1150 2100 / 2100 Balance 900 / 900 2321.25 / 2321.25 -107.5 / -107.5 Lab / Micro Data Result Diagrams: 07/16/21 05:54 07/17/21 06:20 Labs: Laboratory Results - last 24 hr 07/17/21 06:20: Sodium 145, Potassium 4.2, Chloride 116 H, Carbon Dioxide 21.0, BUN 48 H, Creatinine 4.94 H, Estim Creat Clear Calc 17.15, Est GFR (MDRD) Af Amer 16 L, Est GFR (MDRD) Non-Af 13 L, BUN/Creatinine Ratio 9.7 L, Glucose 81, Calcium 8.1 L, Phosphorus 4.3, Albumin 2.8 L Micro: Microbiology 07/15/21 23:20 Urine Catheter - Catheter Legionella Antigen - Final 07/15/21 23:20 Urine Catheter - Catheter Streptococcus pneumoniae Antigen (M - Final Radiography Diagnostic Testing: Radiology Impression Renal Ultrasound 07/16/21 11:46 IMPRESSION: No hydronephrosis or findings to explain acute kidney injury. Trace bilateral cortical thinning and questionable mild increased parenchymal echogenicity as can be seen with medical renal disease. Right renal exophytic simple cysts. Electronically Signed: Viktor Bartholomew DO at 20:07 EST Tel , Service support , Physical Exam Const alert, oriented x3 and no apparent distress Exam Limitations: no limitations HEENT head/scalp atraumatic Head and Scalp: normocephalic Eyes PERRL, EOMs intact bilaterally and conjunctivae normal Neck no lymphadenopathy Resp normal respiratory effort, no retractions, no use of accessory muscles and clear to auscultation bilaterally Cardio regular rate, regular rhythm, S1 normal heart sound, S2 normal heart sound and no murmurs GI normal to inspection, nondistended, normoactive bowel sounds, soft to palpation, non-tender and non-distended Extremity normal to inspection and no clubbing, cyanosis or edema Extremity Narrative: chronic left hemiparesis with contractures Peripheral Pulses: Yes pulses 2+ throughout Skin no rashes or lesions noted Neuro Neuro Narrative: nonverbal, chronic left sided hemiparesis. Sensorium / Orientation: awake Psych Psych Narrative: flat affect Assessment & Plan Assessment/Plan (1) JACI (acute kidney injury): (2) CKD (chronic kidney disease) stage 4, GFR 15-29 ml/min: PLAN: #COVID 19 infection * remains on room air. Decadron deferred as patient is on room air. * Give oxygen as needed and titrate to maintain saturation above 90%. * #JACI on CKD stage IV * Creatinine is slightly down to 4.94 today. Baseline creatinine is about 2.9- 3. * Patient being hydrated with IV fluids- 0.45 NS. We will check renal ultrasound and also check Feurea * nephrology on board. Appreciate rec's * monitor intake and output * #Hypernatremia: resolved. Na is now 145. #History of CVA with chronic right hemiparesis: on aspirin and statin as well as metoprolol #Hypertension: on amlodipine and metoprolol. IV hydralazine prn. #Anxiety and depression with behavioral disorder #Hypothyroidism: On Synthroid #History of seizure disorder: On Depakote which was discontinued in his long-term. Seizure precautions #Hyperlipidemia: On statin DVT prophylaxis; heparin Charges/Coding Visit Charges Inpatient E&M: 59247 Subs Hosp L2
[2021-07-17] MEDS: Gabapentin 300 MG Capsule PO (21:09)
[2021-07-17] MEDS: Atorvastatin Calcium 40 MG Tablet PO (21:09)
[2021-07-17] MEDS: ARIPiprazole 10 MG Tablet PO (21:10)
[2021-07-17] MEDS: 0.9% Saline Lock 10 ML Syringe IV (23:30)
[2021-07-18] VITALS (8 sets, daily range): BP systolic 132–154; BP diastolic 81–97; PULSE 62–74; RESP 16–18; TEMP 36.2–36.4; O2SAT 96–100
[2021-07-18] MEDS: LORazepam 0.5 MG Tablet PO ×4 (03:57→22:26)
[2021-07-18] MEDS: 0.45% Normal Saline 1,000 ML 150 ML IV (05:41)
[2021-07-18 06:30] LABS: Absolute Lymphocyte Count 0.85 X10^3/uL (0.83-4.51); Absolute Neutrophil Count 3.1 X10^3/uL (2.0-7.7); Basophil# 0.02 X10^3/uL; Basophil% 0.4 % (0-1); Eosinophil# 0.17 X10^3/uL; Eosinophils% 3.7 % (0-5); Hematocrit 33.3 % (40-54); Hemoglobin 10.4 g/dL (13.0-16.5); Lymphocyte # 0.85 X10^3/ul (0.83-4.51); Lymphocyte % 18.7 % (19-41); Mean Corp Hgb Conc 31.2 g/dL (32-36); Mean Corpuscular Hgb 26.9 pg (27.0-32.0); Mean Corpuscular Volume 86.3 fL (80-94); Mean Platelet Vol. 10.2 fl (6.2-12.0); Monocyte# 0.45 X10^3/uL; Monocyte% 9.9 % (0-10); NRBC Flagged by Analyzer 0 % (0-5); Neutrophil # 3.05 X10^3/uL (2.7-7.7); Neutrophil % 67.1 % (47-70); Platelet Count 232 K/mm3 (150-450); RBC Distribution Width CV 14.6 % (11.6-14.6); RBC Distribution Width SD 46.4 fl (35.1-43.9); Red Blood Count 3.86 M/mm3 (4.6-6.2); White Blood Count 4.6 K/mm3 (4.4-11.0)
[2021-07-18 06:52] LABS: BUN 44 mg/dL (7-18); Calcium,Total 8.2 mg/dL (8.5-10.1); Chloride 110 mmol/L (98-107); Creatinine, Serum 4.42 mg/dL (0.70-1.30); EST Glomerular Filtration Rate 15 mL/min (>60); Est Glom Filt Rate - Afr Amer 18 mL/min (>60); Estimated Creatinine Clearance 19.17 ml/min; Glucose 80 mg/dL (74-106); Phosphorus 3.5 mg/dL (2.5-4.9); Potassium 4.1 mmol/L (3.5-5.1); Sodium Level 139 mmol/L (136-145)
[2021-07-18] MEDS: Polyethylene Glycol 3350 17 GM PACKET PO (08:55)
[2021-07-18] MEDS: Heparin Injection (Vial) 5,000 UNIT/ML VIAL 5000 UNIT SC ×2 (08:56→22:26)
[2021-07-18] MEDS: amLODIPine 5 MG Tablet PO (08:56)
[2021-07-18] MEDS: Aspirin 81 MG TAB.CHEW PO (08:56)
[2021-07-18] MEDS: Hyoscyamine Sulfate 0.125 MG Tablet PO ×3 (08:56→16:38)
[2021-07-18] MEDS: Metoprolol Tartrate 25 MG Tablet 12.5 MG PO ×2 (08:57→22:25)
[2021-07-18] MEDS: QUEtiapine 25 MG Tablet 50 MG PO ×2 (08:57→22:23)
[2021-07-18] MEDS: Levothyroxine 50 MCG Tablet PO (08:58)
[2021-07-18] MEDS: FLUoxetine 10 MG Capsule PO (08:58)
--- NOTE | 2021-07-18 10:29 | CASEMGMT ---
Social Work Note ANURADHA faxed updated clinicals to [facility]. ANURADHA wrote on fax coversheet that pt may be ready for discharge over the weekend. ANURADHA placed Green Sheet, transport forms, COVID tool on pt's chart. Plan: Return to [facility] when medically cleared Audrey Neff DREDGE OPERATOR, DICTATING TRANSCRIBING MACHINE SERVICER
--- NOTE | 2021-07-18 10:43 | PCM.PN.REN ---
Subjective Subjective Following for JACI on CKD No overnight events. Objective Data Objective Data Vital Signs: Vital Signs Temp Pulse Resp BP Pulse Ox 97.4 F L 72 18 154/83 H 99 07/18/21 08:48 07/18/21 08:57 07/18/21 08:48 07/18/21 08:57 07/18/21 08:48 Oxygen Flow Rate (L/min) 97 Oxygen Delivery Method Room Air Weight: 79.5 kg Body Mass Index (BMI) 25.1 Intake & Output: Intake and Output for Last 24 Hours 07/16/21 07/17/21 07/18/21 23:59 23:59 23:59 Intake Total 3471.25 / 3471.25 3840.0 / 3840.0 2522.5 / 2522.5 Output Total 1150 / 1150 2550 / 2550 1650 / 1650 Balance 2321.25 / 2321.25 1290.0 / 1290.0 872.5 / 872.5 Lab / Micro Data Result Diagrams: 07/18/21 05:55 07/18/21 05:55 Labs: Laboratory Results - last 24 hr 07/18/21 05:55: Sodium 139, Potassium 4.1, Chloride 110 H, Carbon Dioxide 21.0, BUN 44 H, Creatinine 4.42 H, Estim Creat Clear Calc 19.17, Est GFR (MDRD) Af Amer 18 L, Est GFR (MDRD) Non-Af 15 L, BUN/Creatinine Ratio 10.0, Glucose 80, Calcium 8.2 L, Phosphorus 3.5, Albumin 3.0 L 07/18/21 05:55: WBC 4.6, RBC 3.86 L, Hgb 10.4 L, Hct 33.3 L, MCV 86.3, MCH 26.9 L, MCHC 31.2 L, RDW Std Deviation 46.4 H, RDW Coeff of Tomas 14.6, Plt Count 232, MPV 10.2, Immature Gran % (Auto) 0.200, Neut % (Auto) 67.1, Lymph % (Auto) 18.7 L, [place] % (Auto) 9.9, Eos % (Auto) 3.7, Baso % (Auto) 0.4, Absolute Neuts (auto) 3.1, Absolute Lymphs (auto) 0.85, Nucleated RBC % 0 Micro: Microbiology 07/15/21 20:00 Blood Culture (Wb) - Right Forearm Blood Culture - Preliminary No growth in 48 hours. 07/15/21 19:45 Blood Culture (Wb) - Right Forearm Blood Culture - Preliminary No growth in 48 hours. 07/15/21 23:20 Urine Catheter - Catheter Legionella Antigen - Final 07/15/21 23:20 Urine Catheter - Catheter Streptococcus pneumoniae Antigen (M - Final Physical Exam Narrative General: No apparent distress. Neck: Supple, no JVD. Heart: Normal S1, S2 no rubs or murmurs. Lungs: CTAB. Abdomen: Normal bowel sounds, soft, nontender, no guarding or rebound. Extremity: No clubbing, cyanosis, or edema. Neurologic: Left hemiparesis. Dysarthric. Assessment & Plan Assessment/Plan (1) JACI (acute kidney injury): PLAN: -The patient has chronic kidney disease stage IV. Last available serum creatinine from 07/14/2019 was 2.91 mg/dL. -JACI is likely due to ischemic ATN. Fractional secretion sodium was greater than 1% on 07/15/2021. -SCr peaked 6.49 mg/dL on 07/15/2021. Today creatinine 4.42 mg/dL. No acute indication for HARNESS BUILDER. -We will continue IV fluid today, decrease rate. Will reassess volume status again tomorrow. If he is more euvolemic, can stop IV fluid. Patient is on room air. (2) Chronic kidney disease, stage 4 (severe): PLAN: -Last available serum creatinine from 04/13/2020 was 2.91 mg/dL. Serum creatinine has been as high as 3.4 mg/dL in 2017 as well. -The patient tells me that he does not see a crap shooter on a regular basis. -Blood pressures acceptable on Lopressor and amlodipine. If systolic blood pressures consistently above 150, can increase amlodipine. -Once he is discharged, I will arrange for outpatient follow-up in our [place] office. Patient resides at [facility] (3) Metabolic acidosis: PLAN: -This is likely due to JACI. The patient denies diarrhea. -Serum bicarbonate level is better today at 21 mmol/L as renal function has improved. We will continue to monitor. (4) Hypernatremia: PLAN: -The patient does not appear to be polyuric. Hyponatremia is due to dehydration. -We will continue half-normal saline for today, will decrease rate and can possibly discontinue IV fluids tomorrow. (5) COVID-19: PLAN: -Treatment as per hospital medicine service.
--- NOTE | 2021-07-18 11:08 | PN.HOSP_ITS ---
Subjective Subjective Patient seen and examined. He had no active complaints and felt well. Review of systems otherwise negative. Cr is down to 4.42. Objective Data Objective Data Vital Signs: Vital Signs Temp Pulse Resp BP Pulse Ox 97.4 F L 72 18 154/83 H 99 07/18/21 08:48 07/18/21 08:57 07/18/21 08:48 07/18/21 08:57 07/18/21 08:48 Oxygen Flow Rate (L/min) 97 Oxygen Delivery Method Room Air Weight: 175 lb 4.28 oz Body Mass Index (BMI) 25.1 Intake & Output: Intake and Output for Last 24 Hours 07/16/21 07/17/21 07/18/21 23:59 23:59 23:59 Intake Total 3471.25 / 3471.25 3840.0 / 3840.0 2522.5 / 2522.5 Output Total 1150 / 1150 2550 / 2550 1650 / 1650 Balance 2321.25 / 2321.25 1290.0 / 1290.0 872.5 / 872.5 Lab / Micro Data Result Diagrams: 07/18/21 05:55 07/18/21 05:55 Labs: Laboratory Results - last 24 hr 07/18/21 05:55: Sodium 139, Potassium 4.1, Chloride 110 H, Carbon Dioxide 21.0, BUN 44 H, Creatinine 4.42 H, Estim Creat Clear Calc 19.17, Est GFR (MDRD) Af Amer 18 L, Est GFR (MDRD) Non-Af 15 L, BUN/Creatinine Ratio 10.0, Glucose 80, Calcium 8.2 L, Phosphorus 3.5, Albumin 3.0 L 07/18/21 05:55: WBC 4.6, RBC 3.86 L, Hgb 10.4 L, Hct 33.3 L, MCV 86.3, MCH 26.9 L, MCHC 31.2 L, RDW Std Deviation 46.4 H, RDW Coeff of Tomas 14.6, Plt Count 232, MPV 10.2, Immature Gran % (Auto) 0.200, Neut % (Auto) 67.1, Lymph % (Auto) 18.7 L, [place] % (Auto) 9.9, Eos % (Auto) 3.7, Baso % (Auto) 0.4, Absolute Neuts (auto) 3.1, Absolute Lymphs (auto) 0.85, Nucleated RBC % 0 Micro: Microbiology 07/15/21 20:00 Blood Culture (Wb) - Right Forearm Blood Culture - Preliminary No growth in 48 hours. 07/15/21 19:45 Blood Culture (Wb) - Right Forearm Blood Culture - Preliminary No growth in 48 hours. 07/15/21 23:20 Urine Catheter - Catheter Legionella Antigen - Final 07/15/21 23:20 Urine Catheter - Catheter Streptococcus pneumoniae Antigen (M - Final Physical Exam Const alert, oriented x3 and no apparent distress Constitutional Narrative: nonverbal Exam Limitations: no limitations HEENT head/scalp atraumatic Head and Scalp: normocephalic Eyes PERRL, EOMs intact bilaterally and conjunctivae normal Neck no lymphadenopathy Resp normal respiratory effort, no retractions, no use of accessory muscles and clear to auscultation bilaterally Cardio regular rate, regular rhythm, S1 normal heart sound, S2 normal heart sound and no murmurs GI normal to inspection, nondistended, normoactive bowel sounds, soft to palpation, non-tender and non-distended Extremity normal to inspection and no clubbing, cyanosis or edema Extremity Narrative: chronic left hemiparesis with contractures Skin no rashes or lesions noted Neuro oriented x3 Neuro Narrative: nonverbal, chronic left sided hemiparesis. Sensorium / Orientation: awake and alert Psych Psych Narrative: flat affect Assessment & Plan Assessment/Plan (1) JACI (acute kidney injury): (2) CKD (chronic kidney disease) stage 4, GFR 15-29 ml/min: PLAN: #COVID 19 infection * remains on room air. Decadron deferred as patient is on room air. * Give oxygen as needed and titrate to maintain saturation above 90%. * #JACI on CKD stage IV * Creatinine is down to 4.42 today. Baseline creatinine is about 2.9-3. * Patient being hydrated with IV fluids- 0.45 NS. * nephrology on board. Appreciate rec's * monitor intake and output * renal USG showed no hydronephrosis, trace bilateral cortical thinning and questionable mild increase parenchymal echogenicity as can by seen with medical renal disease. * #Hypernatremia: resolved. #History of CVA with chronic right hemiparesis: on aspirin and statin as well as metoprolol #Hypertension: on amlodipine and metoprolol. IV hydralazine prn. #Anxiety and depression with behavioral disorder #Hypothyroidism: On Synthroid #History of seizure disorder: On Depakote which was discontinued in his fdc. Seizure precautions #Hyperlipidemia: On statin DVT prophylaxis; heparin Charges/Coding Visit Charges Inpatient E&M: 01271 Subs Hosp L2
[2021-07-18] MEDS: 0.45% Normal Saline 1,000 ML 100 ML IV ×2 (12:25→21:41)
--- NOTE | 2021-07-18 15:30 | CASEMGMT ---
Social Work Note ANURADHA received call from Sheridan at [facility] stating they prefer for pt to return to them on Wednesday. Sheridan states they currently have a COVID outbreak and for staffing would prefer pt to return Wednesday. ANURADHA informed Sheridan that this worker will let physician know their preference. ANURADHA asked Sheridan if pt is medically ready for discharge over the weekend if they would tell [facility] to keep pt and Sheridan states they may. Sheridan states they may tell [facility] they cannot accept him back over the weekend. ANURADHA updated physician. ANURADHA updated Green sheet for staff to call [facility] on day of discharge to inquire if they can accept pt on day of discharge. Plan: Return to [facility]. [facility] is requesting pt return to them on Wednesday. Audrey Neff PRODUCTION CONTROL COORDINATOR, GROUNDS SUPERVISOR
[2021-07-18] MEDS: Gabapentin 300 MG Capsule PO (22:26)
[2021-07-18] MEDS: Atorvastatin Calcium 40 MG Tablet PO (22:26)
[2021-07-18] MEDS: ARIPiprazole 10 MG Tablet PO (22:27)
[2021-07-18] MEDS: 0.9% Saline Lock 10 ML Syringe IV (23:48)
[2021-07-19] VITALS (8 sets, daily range): BP systolic 122–171; BP diastolic 68–121; PULSE 76–117; RESP 18; TEMP 36–36.6; O2SAT 95–99
[2021-07-19] MEDS: hydrALAZINE 20 MG/ML Vial 10 MG IV (02:31)
[2021-07-19] MEDS: LORazepam 0.5 MG Tablet PO ×4 (04:05→21:15)
[2021-07-19 06:13] LABS: Absolute Lymphocyte Count 0.57 X10^3/uL (0.83-4.51); Absolute Neutrophil Count 7.4 X10^3/uL (2.0-7.7); Basophil# 0.03 X10^3/uL; Basophil% 0.4 % (0-1); Differential Indicated SCAN CRITERIA MET; Eosinophil# 0.01 X10^3/uL; Eosinophils% 0.1 % (0-5); Hematocrit 34.6 % (40-54); Lymphocyte # 0.57 X10^3/ul (0.83-4.51); Lymphocyte % 6.7 % (19-41); Mean Corp Hgb Conc 31.8 g/dL (32-36); Mean Corpuscular Hgb 27.1 pg (27.0-32.0); Mean Corpuscular Volume 85.2 fL (80-94); Mean Platelet Vol. 10.7 fl (6.2-12.0); Monocyte# 0.49 X10^3/uL; Monocyte% 5.7 % (0-10); NRBC Flagged by Analyzer 0 % (0-5); Neutrophil # 7.41 X10^3/uL (2.7-7.7); Neutrophil % 86.4 % (47-70); POSITIVE DIFFERENTIAL YES; Platelet Count 264 K/mm3 (150-450); RBC Distribution Width CV 14.6 % (11.6-14.6); RBC Distribution Width SD 44.9 fl (35.1-43.9); Red Blood Count 4.06 M/mm3 (4.6-6.2); White Blood Count 8.6 K/mm3 (4.4-11.0)
[2021-07-19 06:38] LABS: Differential Comment SCANNED
[2021-07-19 06:44] LABS: Anion Gap 7 (5-15); BUN 46 mg/dL (7-18); BUN/Creat Ratio 9.9 RATIO (10-20); Calcium,Total 8.7 mg/dL (8.5-10.1); Chloride 113 mmol/L (98-107); Creatinine, Serum 4.66 mg/dL (0.70-1.30); EST Glomerular Filtration Rate 14 mL/min (>60); Est Glom Filt Rate - Afr Amer 17 mL/min (>60); Estimated Creatinine Clearance 18.18 ml/min; Glucose 91 mg/dL (74-106); Potassium 4.2 mmol/L (3.5-5.1); Sodium Level 140 mmol/L (136-145)
[2021-07-19] MEDS: amLODIPine 5 MG Tablet PO (07:57)
[2021-07-19] MEDS: Hyoscyamine Sulfate 0.125 MG Tablet PO ×3 (07:57→16:18)
[2021-07-19] MEDS: Polyethylene Glycol 3350 17 GM PACKET PO (07:57)
[2021-07-19] MEDS: Levothyroxine 50 MCG Tablet PO (07:58)
[2021-07-19] MEDS: FLUoxetine 10 MG Capsule PO (07:59)
[2021-07-19] MEDS: QUEtiapine 25 MG Tablet 50 MG PO ×2 (08:02→21:15)
[2021-07-19] MEDS: Metoprolol Tartrate 25 MG Tablet 12.5 MG PO ×2 (08:05→21:14)
[2021-07-19] MEDS: Heparin Injection (Vial) 5,000 UNIT/ML VIAL 5000 UNIT SC ×2 (08:14→21:16)
[2021-07-19] MEDS: Aspirin 81 MG TAB.CHEW PO (09:53)
--- NOTE | 2021-07-19 10:11 | PCM.PN.REN ---
Subjective Subjective Following for JACI on CKD. The patient denies chest pain, shortness of breath, nausea, or vomiting. There is no diarrhea. The patient is eating, but he spits out around 50% of his food. Objective Data Objective Data Vital Signs: Vital Signs Temp Pulse Resp BP Pulse Ox 97.8 F 117 H 18 144/121 H 95 07/19/21 08:15 07/19/21 08:15 07/19/21 08:15 07/19/21 08:15 07/19/21 08:37 Oxygen Flow Rate (L/min) 97 Oxygen Delivery Method Room Air Weight: 80.1 kg Body Mass Index (BMI) 25.1 Intake & Output: Intake and Output for Last 24 Hours 07/17/21 07/18/21 07/19/21 23:59 23:59 23:59 Intake Total 3840.0 / 3840.0 4449.17 / 4449.17 Output Total 2550 / 2550 5100 / 5100 450 / 450 Balance 1290.0 / 1290.0 -650.83 / -650.83 -450 / -450 Lab / Micro Data Result Diagrams: 07/19/21 05:50 07/19/21 05:50 Labs: Laboratory Results - last 24 hr 07/19/21 05:50: WBC 8.6, RBC 4.06 L, Hgb 11.0 L, Hct 34.6 L, MCV 85.2, MCH 27.1, MCHC 31.8 L, RDW Std Deviation 44.9 H, RDW Coeff of Tomas 14.6, Plt Count 264, MPV 10.7, Immature Gran % (Auto) 0.700, Neut % (Auto) 86.4 H, Lymph % (Auto) 6.7 L, [place] % (Auto) 5.7, Eos % (Auto) 0.1, Baso % (Auto) 0.4, Absolute Neuts (auto) 7.4, Absolute Lymphs (auto) 0.57 L, Nucleated RBC % 0, Differential Comment SCANNED 07/19/21 05:50: Sodium 140, Potassium 4.2, Chloride 113 H, Carbon Dioxide 20.0 L, Anion Gap 7, BUN 46 H, Creatinine 4.66 H, Estim Creat Clear Calc 18.18, Est GFR (MDRD) Af Amer 17 L, Est GFR (MDRD) Non-Af 14 L, BUN/Creatinine Ratio 9.9 L, Glucose 91, Calcium 8.7 Micro: Microbiology 07/15/21 20:00 Blood Culture (Wb) - Right Forearm Blood Culture - Preliminary No growth in 48 hours. 07/15/21 19:45 Blood Culture (Wb) - Right Forearm Blood Culture - Preliminary No growth in 48 hours. 07/15/21 23:20 Urine Catheter - Catheter Legionella Antigen - Final 07/15/21 23:20 Urine Catheter - Catheter Streptococcus pneumoniae Antigen (M - Final Physical Exam Narrative General: No apparent distress. Neck: Supple, no JVD. Heart: Normal S1, S2 no rubs or murmurs. Lungs: CTAB anteriorly. Abdomen: Normal bowel sounds, soft, nontender, no guarding or rebound. Extremity: No clubbing, cyanosis, or edema. Neurologic: Left hemiparesis. Dysarthric. Assessment & Plan Assessment/Plan (1) JACI (acute kidney injury): PLAN: -The patient has chronic kidney disease stage IV. Last available serum creatinine from 07/14/2019 was 2.91 mg/dL. -JACI is likely due to ischemic ATN. Fractional secretion sodium was greater than 1% on 07/15/2021. -SCr peaked 6.49 mg/dL on 07/15/2021. Serum creatinine proved to 4.42 mg/dL yesterday on 07/18/2021. -However, serum creatinine increased to 4.66 mg/dL today. -Current serum creatinine of 4.4-4.7 may be his new baseline. No acute indication for OFFICE MACHINE MECHANIC since he is not uremic. -We will continue IV fluid today at current rate. Will reassess volume status again tomorrow. If renal function and volume status is stable tomorrow, we will stop IV fluid at that time. (2) Chronic kidney disease, stage 4 (severe): PLAN: -Last available serum creatinine from 04/13/2020 was 2.91 mg/dL. Serum creatinine has been as high as 3.4 mg/dL in 2017 as well. -The patient tells me that he does not see a insurance clerk on a regular basis. -Therefore, current serum creatinine of 4.4 to 4.7 mg/dL may be his new baseline as CKD may have progressed. -Blood pressures acceptable on Lopressor and amlodipine. If systolic blood pressures consistently above 150, can increase amlodipine. -Once he is discharged, I will arrange for outpatient follow-up in our [place] office. Patient resides at [facility] (3) Metabolic acidosis: PLAN: -This is likely due to JACI. The patient denies diarrhea. -Serum bicarbonate level is better today at 20 mmol/L. We will continue to monitor. -No need for supplemental sodium bicarbonate. (4) Hypernatremia: PLAN: -The patient does not appear to be polyuric. Hypernatremia was due to dehydration. -Serum sodium has improved. Serum sodium is 140 mmol/L today. Continue current IV fluid. (5) COVID-19: PLAN: -Treatment as per hospital medicine service.
--- NOTE | 2021-07-19 11:24 | PN.HOSP_ITS ---
Subjective Subjective Patient seen and examined. He had no complaints and had an uneventful night. Review of systems otherwise negative. Objective Data Objective Data Vital Signs: Vital Signs Temp Pulse Resp BP Pulse Ox 97.8 F 117 H 18 144/121 H 95 07/19/21 08:15 07/19/21 08:15 07/19/21 08:15 07/19/21 08:15 07/19/21 08:37 Oxygen Flow Rate (L/min) 98 Oxygen Delivery Method Room Air Weight: 176 lb 9.444 oz Body Mass Index (BMI) 25.1 Intake & Output: Intake and Output for Last 24 Hours 07/17/21 07/18/21 07/19/21 23:59 23:59 23:59 Intake Total 3840.0 / 3840.0 4449.17 / 4449.17 Output Total 2550 / 2550 5100 / 5100 450 / 450 Balance 1290.0 / 1290.0 -650.83 / -650.83 -450 / -450 Lab / Micro Data Result Diagrams: 07/19/21 05:50 07/19/21 05:50 Labs: Laboratory Results - last 24 hr 07/19/21 05:50: WBC 8.6, RBC 4.06 L, Hgb 11.0 L, Hct 34.6 L, MCV 85.2, MCH 27.1, MCHC 31.8 L, RDW Std Deviation 44.9 H, RDW Coeff of Tomas 14.6, Plt Count 264, MPV 10.7, Immature Gran % (Auto) 0.700, Neut % (Auto) 86.4 H, Lymph % (Auto) 6.7 L, [place] % (Auto) 5.7, Eos % (Auto) 0.1, Baso % (Auto) 0.4, Absolute Neuts (auto) 7.4, Absolute Lymphs (auto) 0.57 L, Nucleated RBC % 0, Differential Comment SCANNED 07/19/21 05:50: Sodium 140, Potassium 4.2, Chloride 113 H, Carbon Dioxide 20.0 L , Anion Gap 7, BUN 46 H, Creatinine 4.66 H, Estim Creat Clear Calc 18.18, Est GFR (MDRD) Af Amer 17 L, Est GFR (MDRD) Non-Af 14 L, BUN/Creatinine Ratio 9.9 L, Glucose 91, Calcium 8.7 Micro: Microbiology 07/15/21 20:00 Blood Culture (Wb) - Right Forearm Blood Culture - Preliminary No growth in 48 hours. 07/15/21 19:45 Blood Culture (Wb) - Right Forearm Blood Culture - Prelimina ry No growth in 48 hours. 07/15/21 23:20 Urine Catheter - Catheter Legionella Antigen - Final 07/15/21 23:20 Urine Catheter - Catheter Streptococcus pneumoniae Antigen (M - Final Physical Exam Const alert, oriented x3 and no apparent distress Exam Limitations: no limitations HEENT head/scalp atraumatic Head and Scalp: normocephalic Eyes PERRL, EOMs intact bilaterally and conjunctivae normal Neck no lymphadenopathy Resp normal respiratory effort, no retractions, no use of accessory muscles and clear to auscultation bilaterally Cardio regular rate, regular rhythm, S1 normal heart sound, S2 normal heart sound and no murmurs GI normal to inspection, nondistended, normoactive bowel sounds, soft to palpation, non-tender and non-distended Extremity no clubbing, cyanosis or edema Extremity Narrative: chronic left hemiparesis with contractures Peripheral Pulses: Yes pulses 2+ throughout Skin no rashes or lesions noted Neuro oriented x3 Neuro Narrative: chronic left sided hemiparesis. Sensorium / Orientation: awake and alert Psych Psych Narrative: flat affect Assessment & Plan Assessment/Plan (1) JACI (acute kidney injury): (2) CKD (chronic kidney disease) stage 4, GFR 15-29 ml/min: PLAN: #COVID 19 infection * remains on room air. Decadron deferred as patient is on room air. * Give oxygen as needed and titrate to maintain saturation above 90%. * #JACI on CKD stage IV and nonanion gap metabolic alkalosis * Creatinine trended up slightly to 4.66 today. * Patient being hydrated with IV fluids- 0.45 NS. * nephrology on board. * Per nephro, JACI is likely due to ATN. Thinking is that this current creatinine may be around his baseline. * Continue gentle hydration with IV fluids. If kidney function remains stable tomorrow, will DC IV fluids. * monitor intake and output * renal USG showed no hydronephrosis, trace bilateral cortical thinning and questionable mild increase parenchymal echogenicity as can by seen with medical renal disease. * #Hypernatremia: resolved. #History of CVA with chronic right hemiparesis: on aspirin and statin as well as metoprolol #Hypertension: on amlodipine and metoprolol. IV hydralazine prn. #Anxiety and depression with behavioral disorder #Hypothyroidism: On Synthroid #History of seizure disorder: On Depakote which was discontinued in his [facility] living. Currently not on any meds. Seizure precautions #Hyperlipidemia: On statin DVT prophylaxis; heparin Charges/Coding Visit Charges Inpatient E&M: 18901 Subs Hosp L2
[2021-07-19] MEDS: 0.45% Normal Saline 1,000 ML 100 ML IV ×2 (13:44→21:42)
[2021-07-19] MEDS: Gabapentin 300 MG Capsule PO (21:15)
[2021-07-19] MEDS: ARIPiprazole 10 MG Tablet PO (21:15)
[2021-07-19] MEDS: Atorvastatin Calcium 40 MG Tablet PO (21:15)
[2021-07-20] MEDS: LORazepam 0.5 MG Tablet PO ×4 (03:41→20:14)
[2021-07-20 03:47] VITALS: BP 136/88; PULSE 88; RESP 19; TEMP 36; O2SAT 98
[2021-07-20] MEDS: 0.45% Normal Saline 1,000 ML 100 ML IV (06:25)
[2021-07-20 07:37] LABS: Absolute Lymphocyte Count 0.72 X10^3/uL (0.83-4.51); Absolute Neutrophil Count 10.6 X10^3/uL (2.0-7.7); Basophil# 0.02 X10^3/uL; Basophil% 0.2 % (0-1); Hematocrit 31.4 % (40-54); Hemoglobin 10.2 g/dL (13.0-16.5); Lymphocyte # 0.72 X10^3/ul (0.83-4.51); Lymphocyte % 5.9 % (19-41); Mean Corp Hgb Conc 32.5 g/dL (32-36); Mean Corpuscular Hgb 27.3 pg (27.0-32.0); Mean Corpuscular Volume 84.2 fL (80-94); Mean Platelet Vol. 10.8 fl (6.2-12.0); Monocyte# 0.89 X10^3/uL; Monocyte% 7.2 % (0-10); NRBC Flagged by Analyzer 0 % (0-5); Neutrophil # 10.58 X10^3/uL (2.7-7.7); Neutrophil % 86.1 % (47-70); Platelet Count 282 K/mm3 (150-450); RBC Distribution Width CV 14.8 % (11.6-14.6); RBC Distribution Width SD 45.3 fl (35.1-43.9); Red Blood Count 3.73 M/mm3 (4.6-6.2); White Blood Count 12.3 K/mm3 (4.4-11.0)
[2021-07-20 08:09] LABS: Anion Gap 11 (5-15); BUN 44 mg/dL (7-18); BUN/Creat Ratio 10.3 RATIO (10-20); Calcium,Total 8.2 mg/dL (8.5-10.1); Chloride 108 mmol/L (98-107); Creatinine, Serum 4.29 mg/dL (0.70-1.30); EST Glomerular Filtration Rate 15 mL/min (>60); Est Glom Filt Rate - Afr Amer 18 mL/min (>60); Estimated Creatinine Clearance 19.75 ml/min; Glucose 101 mg/dL (74-106); Potassium 3.5 mmol/L (3.5-5.1); Sodium Level 137 mmol/L (136-145)
[2021-07-20 08:12] VITALS: BP 160/89; PULSE 90; RESP 18; TEMP 36.7; O2SAT 98
[2021-07-20 08:15] VITALS: PULSE 90
[2021-07-20] MEDS: Aspirin 81 MG TAB.CHEW PO (08:15)
[2021-07-20] MEDS: Metoprolol Tartrate 25 MG Tablet 12.5 MG PO ×2 (08:15→20:15)
[2021-07-20] MEDS: Polyethylene Glycol 3350 17 GM PACKET PO (08:15)
[2021-07-20] MEDS: amLODIPine 5 MG Tablet PO (08:16)
[2021-07-20] MEDS: FLUoxetine 10 MG Capsule PO (08:16)
[2021-07-20] MEDS: Hyoscyamine Sulfate 0.125 MG Tablet PO ×3 (08:16→17:52)
[2021-07-20] MEDS: Heparin Injection (Vial) 5,000 UNIT/ML VIAL 5000 UNIT SC ×2 (08:16→20:29)
[2021-07-20] MEDS: Levothyroxine 50 MCG Tablet PO (08:16)
[2021-07-20] MEDS: QUEtiapine 25 MG Tablet 50 MG PO ×2 (08:19→20:14)
--- NOTE | 2021-07-20 10:39 | PN.RENAL_ITS ---
Subjective Subjective Following for JACI on CKD. No new complaints. The patient denies chest pain or shortness of breath at rest. Objective Data Objective Data Vital Signs: Vital Signs Temp Pulse Resp BP Pulse Ox 98.0 F 90 18 160/89 H 98 07/20/21 08:12 07/20/21 08:15 07/20/21 08:12 07/20/21 08:12 07/20/21 08:12 Oxygen Flow Rate (L/min) 98 Oxygen Delivery Method Room Air Weight: 84.2 kg Body Mass Index (BMI) 25.1 Intake & Output: Intake and Output for Last 24 Hours 07/18/21 07/19/21 07/20/21 23:59 23:59 23:59 Intake Total 4449.17 / 4449.17 2696.67 / 2696.67 1111.67 / 1111.67 Output Total 5100 / 5100 2200 / 2200 600 / 600 Balance -650.83 / -650.83 496.67 / 496.67 511.67 / 511.67 Lab / Micro Data Result Diagrams: 07/20/21 06:45 07/20/21 06:45 Labs: Laboratory Results - last 24 hr 07/20/21 06:45: WBC 12.3 H, RBC 3.73 L, Hgb 10.2 L, Hct 31.4 L, MCV 84.2, MCH 27.3, MCHC 32.5, RDW Std Deviation 45.3 H, RDW Coeff of Tomas 14.8 H, Plt Count 282, MPV 10.8, Immature Gran % (Auto) 0.600, Neut % (Auto) 86.1 H, Lymph % (Auto) 5.9 L, [place] % (Auto) 7.2, Eos % (Auto) 0.0, Baso % (Auto) 0.2, Absolute Neuts (auto) 10.6 H, Absolute Lymphs (auto) 0.72 L, Nucleated RBC % 0 07/20/21 06:45: Sodium 137, Potassium 3.5, Chloride 108 H, Carbon Dioxide 18.0 L , Anion Gap 11, BUN 44 H, Creatinine 4.29 H, Estim Creat Clear Calc 19.75, Est GFR (MDRD) Af Amer 18 L, Est GFR (MDRD) Non-Af 15 L, BUN/Creatinine Ratio 10.3, Glucose 101, Calcium 8.2 L Micro: Microbiology 07/15/21 20:00 Blood Culture (Wb) - Right Forearm Blood Culture - Prelim inary No growth in 48 hours. 07/15/21 19:45 Blood Culture (Wb) - Right Forearm Blood Culture - Preliminary No growth in 48 hours. 07/15/21 23:20 Urine Catheter - Catheter Legionella Antigen - Final 07/15/21 23:20 Urine Catheter - Catheter Streptococcus pneumoniae Antigen (M - Final Physical Exam Narrative General: No apparent distress. Neck: Supple, no JVD. Heart: Normal S1, S2 no rubs or murmurs. Lungs: CTAB anteriorly. Abdomen: Normal bowel sounds, soft, nontender, no guarding or rebound. Extremity: No clubbing, cyanosis, or edema. Neurologic: Left hemiparesis. Dysarthric. Assessment & Plan Assessment/Plan (1) JACI (acute kidney injury): PLAN: -The patient has chronic kidney disease stage IV. Last available serum creatinine from 07/14/2019 was 2.91 mg/dL. -JACI is likely due to ischemic ATN. Fractional secretion sodium was greater than 1% on 07/15/2021. -SCr peaked 6.49 mg/dL on 07/15/2021. Serum creatinine has improved to 4.29 mg/dL today. -Current serum creatinine of 4.3-4.7 may be his new baseline creatinine. -No acute indication for KINESIOLOGIST since he is not uremic. -We will stop IV fluid today. The patient has been eatuing well. -Will reassess volume status and renal function again tomorrow off IVF. (2) Chronic kidney disease, stage 4 (severe): PLAN: -Last available serum creatinine from 04/13/2020 was 2.91 mg/dL. Serum creatinine has been as high as 3.4 mg/dL in 2017 as well. -The patient tells me that he does not see a ward attendant on a regular basis. -Therefore, current serum creatinine of 4.3 to 4.7 mg/dL may be his new baseline as CKD may have progressed. -Blood pressures acceptable on Lopressor and amlodipine. If systolic blood pressures consistently above 150, can increase amlodipine. -Once he is discharged, I will arrange for outpatient follow-up in our [place] office. Patient resides at [facility] (3) Metabolic acidosis: PLAN: -This is likely due to JACI. The patient denies diarrhea. -Serum bicarbonate level is lower today at 18 mmol/L. Will stop 1/2NS which can contribute to acidosis. -We will continue to monitor serum bicarbonate. -No need for supplemental sodium bicarbonate. (4) Hypernatremia: PLAN: -Resolved. -The patient does not appear to be polyuric. Hypernatremia was due to dehydration. Na was as high as 148 mmol/L on 07/16/21. -Serum sodium has improved with 1/2NS. Serum sodium is 137 mmol/L today. -Encouraged the patient to push oral fluids since we are stopping IV fluid. (5) COVID-19: PLAN: -Treatment as per hospital medicine service.
--- NOTE | 2021-07-20 10:40 | PN.RENAL_ITS ---
Subjective Subjective Following for JACI on CKD. No new complaints. The patient denies chest pain or shortness of breath at rest. Objective Data Objective Data Vital Signs: Vital Signs Temp Pulse Resp BP Pulse Ox 98.0 F 90 18 160/89 H 98 07/20/21 08:12 07/20/21 08:15 07/20/21 08:12 07/20/21 08:12 07/20/21 08:12 Oxygen Flow Rate (L/min) 98 Oxygen Delivery Method Room Air Weight: 84.2 kg Body Mass Index (BMI) 25.1 Intake & Output: Intake and Output for Last 24 Hours 07/18/21 07/19/21 07/20/21 23:59 23:59 23:59 Intake Total 4449.17 / 4449.17 2696.67 / 2696.67 1111.67 / 1111.67 Output Total 5100 / 5100 2200 / 2200 600 / 600 Balance -650.83 / -650.83 496.67 / 496.67 511.67 / 511.67 Lab / Micro Data Result Diagrams: 07/20/21 06:45 07/20/21 06:45 Labs: Laboratory Results - last 24 hr 07/20/21 06:45: WBC 12.3 H, RBC 3.73 L, Hgb 10.2 L, Hct 31.4 L, MCV 84.2, MCH 27.3, MCHC 32.5, RDW Std Deviation 45.3 H, RDW Coeff of Tomas 14.8 H, Plt Count 282, MPV 10.8, Immature Gran % (Auto) 0.600, Neut % (Auto) 86.1 H, Lymph % (Auto) 5.9 L, [place] % (Auto) 7.2, Eos % (Auto) 0.0, Baso % (Auto) 0.2, Absolute Neuts (auto) 10.6 H, Absolute Lymphs (auto) 0.72 L, Nucleated RBC % 0 07/20/21 06:45: Sodium 137, Potassium 3.5, Chloride 108 H, Carbon Dioxide 18.0 L , Anion Gap 11, BUN 44 H, Creatinine 4.29 H, Estim Creat Clear Calc 19.75, Est GFR (MDRD) Af Amer 18 L, Est GFR (MDRD) Non-Af 15 L, BUN/Creatinine Ratio 10.3, Glucose 101, Calcium 8.2 L Micro: Microbiology 07/15/21 20:00 Blood Culture (Wb) - Right Forearm Blood Culture - Prelim inary No growth in 48 hours. 07/15/21 19:45 Blood Culture (Wb) - Right Forearm Blood Culture - Preliminary No growth in 48 hours. 07/15/21 23:20 Urine Catheter - Catheter Legionella Antigen - Final 07/15/21 23:20 Urine Catheter - Catheter Streptococcus pneumoniae Antigen (M - Final Physical Exam Narrative General: No apparent distress. Neck: Supple, no JVD. Heart: Normal S1, S2 no rubs or murmurs. Lungs: CTAB anteriorly. Abdomen: Normal bowel sounds, soft, nontender, no guarding or rebound. Extremity: No clubbing, cyanosis, or edema. Neurologic: Left hemiparesis. Dysarthric. Assessment & Plan Assessment/Plan (1) JACI (acute kidney injury): PLAN: -The patient has chronic kidney disease stage IV. Last available serum creatinine from 07/14/2019 was 2.91 mg/dL. -JACI is likely due to ischemic ATN. Fractional secretion sodium was greater than 1% on 07/15/2021. -SCr peaked 6.49 mg/dL on 07/15/2021. Serum creatinine has improved to 4.29 mg/dL today. -Current serum creatinine of 4.3-4.7 may be his new baseline creatinine. -No acute indication for BENEFITS ASSISTANT since he is not uremic. -We will stop IV fluid today. The patient has been eatuing well. -Will reassess volume status and renal function again tomorrow off IVF. (2) Chronic kidney disease, stage 4 (severe): PLAN: -Last available serum creatinine from 04/13/2020 was 2.91 mg/dL. Serum creatinine has been as high as 3.4 mg/dL in 2017 as well. -The patient tells me that he does not see a marketing outreach coordinator on a regular basis. -Therefore, current serum creatinine of 4.3 to 4.7 mg/dL may be his new baseline as CKD may have progressed. -Blood pressures acceptable on Lopressor and amlodipine. If systolic blood pressures consistently above 150, can increase amlodipine. -Once he is discharged, I will arrange for outpatient follow-up in our [place] office. Patient resides at [facility] (3) Metabolic acidosis: PLAN: -This is likely due to JACI. The patient denies diarrhea. -Serum bicarbonate level is lower today at 18 mmol/L. Will stop 1/2NS which can contribute to acidosis. -We will continue to monitor serum bicarbonate. -No need for supplemental sodium bicarbonate. (4) Hypernatremia: PLAN: -Resolved. -The patient does not appear to be polyuric. Hypernatremia was due to dehydration. Na was as high as 148 mmol/L on 07/16/21. -Serum sodium has improved with 1/2NS. Serum sodium is 137 mmol/L today. -Encouraged the patient to push oral fluids since we are stopping IV fluid. (5) COVID-19: PLAN: -Treatment as per hospital medicine service.
[2021-07-20] MEDS: Fluticasone 0.05% 1 SPRAY NASAL.SRY NASAL ×2 (11:35→20:28)
--- NOTE | 2021-07-20 12:12 | PN.HOSP_ITS ---
Subjective Subjective Patient seen and examined. He was resting calmly in bed. He had no active complaints and review of systems was otherwise negative. His Cr is down to 4.29 today Objective Data Objective Data Vital Signs: Vital Signs Temp Pulse Resp BP Pulse Ox 98.0 F 90 18 160/89 H 98 07/20/21 08:12 07/20/21 08:15 07/20/21 08:12 07/20/21 08:12 07/20/21 08:12 Oxygen Flow Rate (L/min) 98 Oxygen Delivery Method Room Air Weight: 185 lb 10.067 oz Body Mass Index (BMI) 25.1 Intake & Output: Intake and Output for Last 24 Hours 07/18/21 07/19/21 07/20/21 23:59 23:59 23:59 Intake Total 4449.17 / 4449.17 2696.67 / 2696.67 2420.00 / 2420.00 Output Total 5100 / 5100 2200 / 2200 1250 / 1250 Balance -650.83 / -650.83 496.67 / 496.67 1170.00 / 1170.00 Lab / Micro Data Result Diagrams: 07/20/21 06:45 07/20/21 06:45 Labs: Laboratory Results - last 24 hr 07/20/21 06:45: WBC 12.3 H, RBC 3.73 L, Hgb 10.2 L, Hct 31.4 L, MCV 84.2, MCH 27.3, MCHC 32.5, RDW Std Deviation 45.3 H, RDW Coeff of Tomas 14.8 H, Plt Count 282, MPV 10.8, Immature Gran % (Auto) 0.600, Neut % (Auto) 86.1 H, Lymph % (Auto) 5.9 L, [place] % (Auto) 7.2, Eos % (Auto) 0.0, Baso % (Auto) 0.2, Absolute Neuts (auto) 10.6 H, Absolute Lymphs (auto) 0.72 L, Nucleated RBC % 0 07/20/21 06:45: Sodium 137, Potassium 3.5, Chloride 108 H, Carbon Dioxide 18.0 L , Anion Gap 11, BUN 44 H, Creatinine 4.29 H, Estim Creat Clear Calc 19.75, Est GFR (MDRD) Af Amer 18 L, Est GFR (MDRD) Non-Af 15 L, BUN/Creatinine Ratio 10.3, Glucose 101, Calcium 8.2 L Micro: Microbiology 07/15/21 20:00 Blood Culture (Wb) - Right Forearm Blood Culture - Preliminary No growth in 48 hours. 07/15/21 19:45 Blood Culture (Wb) - Right Forearm Blood Culture - Preliminary No growth in 48 hours. 07/15/21 23:20 Urine Catheter - Catheter Legionella Antigen - Final 07/15/21 23:20 Urine Catheter - Catheter Streptococcus pneumoniae Antigen (M - Final Physical Exam Const alert, oriented x3 and no apparent distress Constitutional Narrative: nonverbal Exam Limitations: no limitations HEENT head/scalp atraumatic and moist oral mucous membranes Head and Scalp: normocephalic Eyes PERRL, EOMs intact bilaterally and conjunctivae normal Neck no lymphadenopathy Resp normal respiratory effort, no retractions, no use of accessory muscles and clear to auscultation bilaterally Cardio regular rate, regular rhythm, S1 normal heart sound, S2 normal heart sound and no murmurs GI normal to inspection, nondistended, normoactive bowel sounds, soft to palpation, non-tender and non-distended Extremity no clubbing, cyanosis or edema Extremity Narrative: chronic left hemiparesis with contractures Peripheral Pulses: Yes pulses 2+ throughout Skin no rashes or lesions noted Neuro oriented x3 Neuro Narrative: chronic left sided hemiparesis. Sensorium / Orientation: awake and alert Psych Psych Narrative: flat affect Assessment & Plan Assessment/Plan (1) JACI (acute kidney injury): (2) CKD (chronic kidney disease) stage 4, GFR 15-29 ml/min: PLAN: #COVID 19 infection * remains on room air. Decadron deferred as patient is on room air. * Give oxygen as needed and titrate to maintain saturation above 90%. * #JACI on CKD stage IV and nonanion gap metabolic alkalosis * Creatinine is down to 4.29 today. * Patient being hydrated with IV fluids- 0.45 NS. * nephrology on board. * Per nephro, JACI is likely due to ATN. Thinking is that this current creatinine may be around his baseline. * per nephro, fluids dc'd maldonado. * monitor intake and output * renal USG showed no hydronephrosis, trace bilateral cortical thinning and questionable mild increase parenchymal echogenicity as can by seen with medical renal disease. * bicarb is 18 and anion gap is 11. * #Hypernatremia: resolved. #History of CVA with chronic right hemiparesis: on aspirin and statin as well as metoprolol #Hypertension: on amlodipine and metoprolol. IV hydralazine prn. #Anxiety and depression with behavioral disorder #Hypothyroidism: On Synthroid #History of seizure disorder: * On Depakote which was discontinued in his snf. Currently not on any meds. Seizure precautions #Hyperlipidemia: On statin DVT prophylaxis; heparin Charges/Coding Visit Charges Inpatient E&M: 32698 Subs Hosp L2
[2021-07-20 13:42] VITALS: BP 123/69; PULSE 96; RESP 18; TEMP 37.2; O2SAT 96
[2021-07-20 20:10] VITALS: BP 130/94; PULSE 109; RESP 18; TEMP 36.9; O2SAT 95
[2021-07-20] MEDS: ARIPiprazole 10 MG Tablet PO (20:14)
[2021-07-20] MEDS: Gabapentin 300 MG Capsule PO (20:14)
[2021-07-20 20:15] VITALS: BP 130/94; PULSE 109
[2021-07-20] MEDS: Atorvastatin Calcium 40 MG Tablet PO (20:15)
[2021-07-21 02:09] VITALS: PULSE 86; O2SAT 95
[2021-07-21 02:35] VITALS: BP 116/66; PULSE 80; RESP 18; TEMP 36.5; O2SAT 93
[2021-07-21] MEDS: LORazepam 0.5 MG Tablet PO ×2 (02:40→10:19)
[2021-07-21 06:36] LABS: Absolute Lymphocyte Count 1.49 X10^3/uL (0.83-4.51); Absolute Neutrophil Count 8.6 X10^3/uL (2.0-7.7); Basophil# 0.03 X10^3/uL; Basophil% 0.3 % (0-1); Eosinophils% 0.9 % (0-5); Hemoglobin 9.6 g/dL (13.0-16.5); Lymphocyte # 1.49 X10^3/ul (0.83-4.51); Lymphocyte % 12.9 % (19-41); Mean Corpuscular Hgb 27.4 pg (27.0-32.0); Mean Corpuscular Volume 85.7 fL (80-94); Mean Platelet Vol. 10.5 fl (6.2-12.0); Monocyte# 1.23 X10^3/uL; Monocyte% 10.6 % (0-10); NRBC Flagged by Analyzer 0 % (0-5); Neutrophil # 8.61 X10^3/uL (2.7-7.7); Neutrophil % 74.4 % (47-70); Platelet Count 262 K/mm3 (150-450); RBC Distribution Width CV 15.4 % (11.6-14.6); RBC Distribution Width SD 48.1 fl (35.1-43.9); White Blood Count 11.6 K/mm3 (4.4-11.0)
[2021-07-21 07:03] LABS: Anion Gap 10 (5-15); BUN 45 mg/dL (7-18); BUN/Creat Ratio 9.5 RATIO (10-20); Calcium,Total 8.3 mg/dL (8.5-10.1); Chloride 112 mmol/L (98-107); Creatinine, Serum 4.75 mg/dL (0.70-1.30); EST Glomerular Filtration Rate 13 mL/min (>60); Est Glom Filt Rate - Afr Amer 16 mL/min (>60); Estimated Creatinine Clearance 17.83 ml/min; Glucose 90 mg/dL (74-106); Potassium 3.4 mmol/L (3.5-5.1); Sodium Level 141 mmol/L (136-145)
[2021-07-21 08:00] VITALS: O2SAT 98
[2021-07-21 08:35] VITALS: BP 115/65; PULSE 92; RESP 18; TEMP 36.6; O2SAT 98
[2021-07-21] MEDS: QUEtiapine 25 MG Tablet 50 MG PO (08:51)
[2021-07-21 08:54] VITALS: BP 115/61; PULSE 91
[2021-07-21] MEDS: FLUoxetine 10 MG Capsule PO (08:54)
[2021-07-21] MEDS: amLODIPine 5 MG Tablet PO (08:54)
[2021-07-21] MEDS: Metoprolol Tartrate 25 MG Tablet 12.5 MG PO (08:54)
[2021-07-21] MEDS: Levothyroxine 50 MCG Tablet PO (08:54)
[2021-07-21] MEDS: Hyoscyamine Sulfate 0.125 MG Tablet PO ×2 (08:54→11:59)
[2021-07-21] MEDS: Aspirin 81 MG TAB.CHEW PO (08:54)
[2021-07-21] MEDS: Heparin Injection (Vial) 5,000 UNIT/ML VIAL 5000 UNIT SC (08:55)
[2021-07-21] MEDS: Fluticasone 0.05% 1 SPRAY NASAL.SRY NASAL (08:55)
--- NOTE | 2021-07-21 10:39 | CASEMGMT ---
Addendum entered by Audrey Neff 07/21/21 12:08: ANURADHA placed a call to Sheridan at [facility] and updated her that pt will likely discharge back to [facility] today. Sheridan states understanding. Original Note: Social Work Note ANURADHA faxed updated clinicals to [facility]. Plan: Return to [facility] when medically cleared Audrey Neff [employer]TURE POWER PLANT ENGINEER, ROUTE AIDE
--- NOTE | 2021-07-21 11:43 | PCM.PN.REN ---
Subjective Subjective No complaints, no overnight events. Objective Data Objective Data Vital Signs: Vital Signs Temp Pulse Resp BP Pulse Ox 97.8 F 91 18 115/61 98 07/21/21 08:35 07/21/21 08:54 07/21/21 08:35 07/21/21 08:54 07/21/21 08:35 Oxygen Flow Rate (L/min) 98 Oxygen Delivery Method Room Air Weight: 80.286 kg Body Mass Index (BMI) 25.1 Intake & Output: Intake and Output for Last 24 Hours 07/19/21 07/20/21 07/21/21 23:59 23:59 23:59 Intake Total 2696.67 / 2696.67 2420.00 / 2420.00 Output Total 2200 / 2200 2050 / 2050 650 / 650 Balance 496.67 / 496.67 370.00 / 370.00 -650 / -650 Lab / Micro Data Result Diagrams: 07/21/21 06:16 07/21/21 06:16 Labs: Laboratory Results - last 24 hr 07/21/21 06:16: WBC 11.6 H, RBC 3.50 L, Hgb 9.6 L, Hct 30.0 L, MCV 85.7, MCH 27.4, MCHC 32.0, RDW Std Deviation 48.1 H, RDW Coeff of Tomas 15.4 H, Plt Count 262, MPV 10.5, Immature Gran % (Auto) 0.900, Neut % (Auto) 74.4 H, Lymph % (Auto) 12.9 L, [place] % (Auto) 10.6 H, Eos % (Auto) 0.9, Baso % (Auto) 0.3, Absolute Neuts (auto) 8.6 H, Absolute Lymphs (auto) 1.49, Nucleated RBC % 0 07/21/21 06:16: Sodium 141, Potassium 3.4 L, Chloride 112 H, Carbon Dioxide 19.0 L, Anion Gap 10, BUN 45 H, Creatinine 4.75 H, Estim Creat Clear Calc 17.83, Est GFR (MDRD) Af Amer 16 L, Est GFR (MDRD) Non-Af 13 L, BUN/Creatinine Ratio 9.5 L, Glucose 90, Calcium 8.3 L Micro: Microbiology 07/15/21 19:45 Blood Culture (Wb) - Right Forearm Blood Culture - Final No growth in 5 days. 07/15/21 20:00 Blood Culture (Wb) - Right Forearm Blood Culture - Final No growth in 5 days. 07/15/21 23:20 Urine Catheter - Catheter Legionella Antigen - Final 07/15/21 23:20 Urine Catheter - Catheter Streptococcus pneumoniae Antigen (M - Final Physical Exam Narrative General: No apparent distress. Heart: Normal S1, S2 no rubs or murmurs. Lungs: CTAB anteriorly. Abdomen: Normal bowel sounds Extremity: No clubbing, cyanosis, or edema. Neurologic: Left hemiparesis. Dysarthric. Assessment & Plan Assessment/Plan (1) JACI (acute kidney injury): PLAN: -The patient has chronic kidney disease stage IV. Last available serum creatinine from 07/14/2019 was 2.91 mg/dL. -JACI is likely due to ischemic ATN. Fractional secretion sodium was greater than 1% on 07/15/2021. -SCr peaked 6.49 mg/dL on 07/15/2021. Current Serum creatinine 4.75mg/dL today. -Current serum creatinine of 4.3-4.7 may be his new baseline creatinine. 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 -He is off IVF. The patient has been eating ok. He needs to be encouraged to increase solute/fluids per nursing. (2) Chronic kidney disease, stage 4 (severe): PLAN: -Last available serum creatinine from 07/14/2019 was 2.91 mg/dL. Serum creatinine has been as high as 3.4 mg/dL in 2017 as well. -The patient tells me that he does not see a night warehouse manager on a regular basis. -Therefore, current serum creatinine of 4.3 to 4.7 mg/dL may be his new baseline as CKD may have progressed. -Blood pressures acceptable on Lopressor and amlodipine. -Once he is discharged, I will arrange for outpatient follow-up in our [place] office. Patient resides at [facility] (3) Metabolic acidosis: PLAN: -This is likely due to JACI. The patient denies diarrhea. imporved to 19mmol/L today -We will continue to monitor serum bicarbonate. -No need for supplemental sodium bicarbonate. (4) Hypernatremia: PLAN: -Resolved. -The patient does not appear to be polyuric. Hypernatremia was due to dehydration. Na was as high as 148 mmol/L on 07/16/21. -Serum sodium has improved with 1/2NS. Serum sodium is 141 mmol/L today. -Encouraged the patient to push oral fluids since we are stopped IV fluid. (5) COVID-19: PLAN: -Treatment as per hospital medicine service. Discharge planning in progress, to return to [facility] hopefully today
--- NOTE | 2021-07-21 13:06 | PCM.TXEXTCAR ---
Diet 07/15/21 22:33 Diet: Cardiac - Heart Healthy Food consistency:: Mechanical (Minced/Moist) Liquid Consistency:: Regular/Thin Is pt able to select menu?: No Routine Orders/Code Status Code Status: DNRCC-A (no intubation) Therapies Weight Bearing: Full weight bearing Physical Therapy: Eval and Treat Occupational Therapy: Eval and Treat Speech Therapy: Eval and Treat Problem/Diagnosis (1) JACI (acute kidney injury): Status: Acute (2) Chronic kidney disease, stage 4 (severe): Status: Chronic (3) Metabolic acidosis: Status: Acute (4) Hypernatremia: Status: Acute (5) COVID-19: Status: Acute Allergies/Procedures Done in Hospital Allergies No Known Allergies Allergy (Verified 07/15/21 18:59) Procedures: None Type of Care/Length of Stay Estimated LOS: More Than 30 Days Type of Care Needed: Intermediate Rehab Potential: Fair Prognosis: Fair Additional Orders/Day of Discharge Additional Orders: Self isolate for at least 10 days since symptoms began or the first positive COVID-19 test (07/15-) AND at least one day (24 hours) have passed since resolution of fever without the use of fever-reducing agents AND improvement of symptoms (e.g., cough, shortness of breath) When around people in the same room, wear a face mask. Individuals also in the room should wear a mask. If possible, use a different bathroom and bedroom. Perform adequate hand hygiene. Avoid sharing dishes, glasses, etc. Day of Discharge: 07/21/21 Dietary and Speech Recommendations Dietitian Recommendations/Changes: continue cardiac diet- mechanical soft (minced/moist), thin liquids as tolerated. If PO intake fails, consider ensure compact BID w/ meals. Will monitor renal labs and provide dietary restrictions as indicated. Discharge Plan Admission Admit Date/Time: 07/15/21 21:09 Primary Reason for Your Visit: JACI Attending Provider: Efrain Hoyos Consulting Providers: Mariangel Velasquez ; Jonh Torres ; Feng Wood ; Markel Askew ; Lidia Brewster ; Chris Hogue ; Rolando Calixto ; Yoanna Ramires Discharge Orders/Prescriptions Prescriptions: New amlodipine 5 mg Tablet 5 mg PO DAILY Qty: 0 RF: 0 Continued metoprolol tartrate 25 mg tablet 12.5 mg PO BID RF: 0 aspirin 81 MG tablet,chewable 81 mg PO DAILY@0800 RF: 0 fluoxetine 10 mg Tablet 10 mg PO DAILY RF: 0 levothyroxine 50 mcg Tablet 50 mcg PO DAILY RF: 0 hyoscyamine 0.15 mg Tablet 0.125 mg PO TID RF: 0 rosuvastatin [Crestor] 40 mg Tablet 40 mg PO QHS RF: 0 gabapentin 300 mg Tablet 300 mg PO QHS RF: 0 fenofibrate nanocrystallized 145 mg Tablet 145 mg PO DAILY RF: 0 aripiprazole 10 mg Tablet 10 mg PO QHS RF: 0 polyethylene glycol 3350 [Miralax] 17 gram Powder In Packet 17 g PO DAILY RF: 0 fluticasone propionate 50 mcg/actuation [place],Suspension 2 spray INTRANASAL DAILY RF: 0 Saline Nasal 0.65 % Aerosol,[place] 2 spray INTRANASAL BID RF: 0 cholecalciferol (vitamin D3) 1,250 mcg (50,000 unit) Tablet 1,250 mcg PO MOWEFR RF: 0 levocetirizine [Xyzal] 5 mg Tablet 5 mg PO QPM RF: 0 Discontinued lorazepam 0.5 mg Tablet 0.5 mg PO Q6H RF: 0 amlodipine 10 MG tablet 5 mg PO DAILY RF: 0 Referrals / Follow Up: Markel Askew MD [STAFF PHYSICIAN] - Within 1 Month Jarrett Garrett Chi, MD [COURTESY STAFF PHYSICIAN] - Within 2 Weeks Disposition Disposition (needs filled in before D/C Order can be placed): Residential Facility
[2021-07-21 13:15] VITALS: BP 133/75; PULSE 88; RESP 18; TEMP 36.4; O2SAT 98
--- NOTE | 2021-07-21 13:38 | DS.PCM_ITS ---
Providers Date of Admission: 07/15/21 Consultations 07/16/21 13:08 Consult: Nephrology Routine Consulting Provider: [facility] Reason for Consult: ckd stage 4, pt known to you EMERGENT Consult: No MD Notified: Yes Date Notified: 07/16/21 Time Notified: 13:27 Method of Notification: paged through office Reason For Visit: COVID, JACI Diagnosis Discharge Diagnosis (1) JACI (acute kidney injury): Status: Acute Code(s): N17.9 - Acute kidney failure, unspecified (2) Chronic kidney disease, stage 4 (severe): Status: Chronic Code(s): N18.4 - Chronic kidney disease, stage 4 (severe) (3) Metabolic acidosis: Status: Acute Code(s): E87.2 - Acidosis (4) Hypernatremia: Status: Acute Code(s): E87.0 - Hyperosmolality and hypernatremia (5) COVID-19: Status: Acute Code(s): U07.1 - COVID-19 Medications at Discharge Home Medications aspirin 81 mg PO DAILY@0800 05/08/17 metoprolol tartrate 25 mg tablet 12.5 mg PO BID tab 06/02/18 fenofibrate nanocrystallized 145 mg PO DAILY 07/15/21 fluoxetine 10 mg PO DAILY 07/15/21 gabapentin 300 mg PO QHS 07/15/21 hyoscyamine 0.125 mg PO TID 07/15/21 levothyroxine 50 mcg PO DAILY 07/15/21 rosuvastatin [Crestor] 40 mg PO QHS 07/15/21 Saline Nasal 2 spray INTRANASAL BID 07/16/21 aripiprazole 10 mg PO QHS 07/16/21 cholecalciferol (vitamin D3) 1,250 mcg PO MOWEFR 07/16/21 fluticasone propionate 2 spray INTRANASAL DAILY 07/16/21 levocetirizine [Xyzal] 5 mg PO QPM 07/16/21 polyethylene glycol 3350 [Miralax] 17 g PO DAILY 07/16/21 amlodipine 5 mg PO DAILY #0 tab 07/21/21 Hospital Course Operations None Procedures None Summary of Care Provided Minutes Spent on Discharge: 32 Hospital Course: 61-year-old male presents with COVID-19 but had worsening kidney function.. Patient had some mild upper respiratory symptoms from COVID and was previously vaccinated and boosted. His creatinine was noted to be elevated at 6.49, up from his baseline of 2.9. Patient was seen by nephrology. Patient was also having metabolic acidosis due to his acute kidney injury. Patient was on IV fluids and his creatinine steadily improved. No need for renal replacement therapy. Patient will be discharged back to his senior care in stable condition. Patient will need to continue with his isolation. Physical Exam Const alert Resp normal respiratory effort, no retractions, no use of accessory muscles and clear to auscultation bilaterally Cardio regular rate, regular rhythm, S1 normal heart sound and S2 normal heart sound GI normal to inspection, nondistended, normoactive bowel sounds, soft to palpation and non-tender Weight / BMI Weight Weight: 80.286 kg Body Mass Index (BMI) 25.1 ABG / Lab / Microbiology Data Result Diagrams: 07/21/21 06:16 07/21/21 06:16 Laboratory: Laboratory Results - last 24 hr 07/21/21 06:16: WBC 11.6 H, RBC 3.50 L, Hgb 9.6 L, Hct 30.0 L, MCV 85.7, MCH 27.4, MCHC 32.0, RDW Std Deviation 48.1 H, RDW Coeff of Tomas 15.4 H, Plt Count 262, MPV 10.5, Immature Gran % (Auto) 0.900, Neut % (Auto) 74.4 H, Lymph % (Auto) 12.9 L, [place] % (Auto) 10.6 H, Eos % (Auto) 0.9, Baso % (Auto) 0.3, Ab solute Neuts (auto) 8.6 H, Absolute Lymphs (auto) 1.49, Nucleated RBC % 0 07/21/21 06:16: Sodium 141, Potassium 3.4 L, Chloride 112 H, Carbon Dioxide 19.0 L, Anion Gap 10, BUN 45 H, Creatinine 4.75 H, Estim Creat Clear Calc 17.83, Est GFR (MDRD) Af Amer 16 L, Est GFR (MDRD) Non-Af 13 L, BUN/Creatinine Ratio 9.5 L , Glucose 90, Calcium 8.3 L Microbiology: Microbiology 07/15/21 19:45 Blood Culture (Wb) - Right Forearm Blood Culture - Final No growth in 5 days. 07/15/21 20:00 Blood Culture (Wb) - Right Forearm Blood Culture - Final No growth in 5 days. 07/15/21 23:20 Urine Catheter - Catheter Legionella Antigen - Final 07/15/21 23:20 Urine Catheter - Catheter Streptococcus pneumoniae Antigen (M - Final Meaningful Use Info Meaningful Use Diagnoses (Choose all that apply): None applicable Discharge Plan Admission Admit Date/Time: 07/15/21 21:09 Primary Reason for Your Visit: JACI Attending Provider: Efrain Hoyos Consulting Providers: Mariangel Velasquez ; Jonh Torres ; Feng Wood ; Markel Askew ; Lidia Brewster ; Chris Hogue ; Rolando Calixto ; Yoanna Ramires Discharge Orders/Prescriptions Prescriptions: New amlodipine 5 mg Tablet 5 mg PO DAILY Qty: 0 RF: 0 Continued metoprolol tartrate 25 mg tablet 12.5 mg PO BID RF: 0 aspirin 81 MG tablet,chewable 81 mg PO DAILY@0800 RF: 0 fluoxetine 10 mg Tablet 10 mg PO DAILY RF: 0 levothyroxine 50 mcg Tablet 50 mcg PO DAILY RF: 0 hyoscyamine 0.15 mg Tablet 0.125 mg PO TID RF: 0 rosuvastatin [Crestor] 40 mg Tablet 40 mg PO QHS RF: 0 gabapentin 300 mg Tablet 300 mg PO QHS RF: 0 fenofibrate nanocrystallized 145 mg Tablet 145 mg PO DAILY RF: 0 aripiprazole 10 mg Tablet 10 mg PO QHS RF: 0 polyethylene glycol 3350 [Miralax] 17 gram Powder In Packet 17 g PO DAILY RF: 0 fluticasone propionate 50 mcg/actuation [place],Suspension 2 spray INTRANASAL DAILY RF: 0 Saline Nasal 0.65 % Aerosol,[place] 2 spray INTRANASAL BID RF: 0 cholecalciferol (vitamin D3) 1,250 mcg (50,000 unit) Tablet 1,250 mcg PO MOWEFR RF: 0 levocetirizine [Xyzal] 5 mg Tablet 5 mg PO QPM RF: 0 Discontinued lorazepam 0.5 mg Tablet 0.5 mg PO Q6H RF: 0 amlodipine 10 MG tablet 5 mg PO DAILY RF: 0 Referrals / Follow Up: Markel Askew MD [STAFF PHYSICIAN] - Within 1 Month Jarrett Garrett Chi, MD [COURTESY STAFF PHYSICIAN] - Within 2 Weeks Disposition Disposition (needs filled in before D/C Order can be placed): [facility] Charges/Coding Visit Charges Inpatient E&M: 23868 Disch Hosp
--- NOTE | 2021-07-21 14:00 | CASEMGMT ---
Social Work Note Pt to discharge back to [facility] today. ANURADHA faxed completed discharge paperwork to [facility] including transfer to extended care facility, signed medication list, any scripts, COVID tool. Original in SNF folder and copy on pt's chart. ANURADHA spoke with RN, pt to transport via cot. SW accessed trip assist and arranged transportation via cot for 3:00pm. Transportation form completed and placed on SNF folder and copy on pt's chart. SW updated RN on transportation time. ANURADHA reviewed chart. Pt with agitation, vascular dementia. ANURADHA placed a call to pt's daughter Lupe and updated her that pt will be discharged back to [facility] today at 3:00pm. Lupe states understanding. ANURADHA placed a call to [facility] and spoke with Sheridan and updated her on discharge and transportation time. Sheridan states understanding. Plan: Return to [facility] with [facility] transporting pt via cot at 3:00pm Audrey HODGES, TANK SYSTEMS MAINTAINER
== END 2021-07-21 14:45 | disposition skilled nursing facility (03) | DRG 469 ==
LOC: ED 21:28 → MS3 21:56
PROVIDERS: Internal Medicine Nephrology; Nurse Practitioner Adult Health; Student in an Organized Health Care Education/Training Program; Admitting Provider Family Medicine; Emergency Provider Emergency Medicine
DX: N17.0 Acute kidney failure with tubular necrosis (principal); U07.1 COVID-19; E87.0 Hyperosmolality and hypernatremia; E87.2 Acidosis; I69.359 Hemiplegia and hemiparesis following cerebral infarction affecting unspecified side; N18.4 Chronic kidney disease, stage 4 (severe); G40.909 Epilepsy, unspecified, not intractable, without status epilepticus; F91.9 Conduct disorder, unspecified; I12.9 Hypertensive chronic kidney disease with stage 1 through stage 4 chronic kidney disease, or unspecified chronic kidney disease; E03.9 Hypothyroidism, unspecified; E78.5 Hyperlipidemia, unspecified; I69.322 Dysarthria following cerebral infarction; F41.9 Anxiety disorder, unspecified; Z87.891 Personal history of nicotine dependence; F32.A Depression, unspecified; Z66 Do not resuscitate; Z79.82 Long term (current) use of aspirin
CPT/HCPCS: 36415; 71045; 76770; 80048; 80053; 80069; 80164; 81001; 82570; 82728; 83605; 83615; 83880; 84145; 84300; 84484; 85025; 85379; 86140; 87040; 87449; 93005; 97110; 97162; 97166; 97530; 97535; 99251; 99285; J7030; A4216; G0463

== ENCOUNTER 2021-07-25 19:07 | Inpatient (IN) | payer MEDICAID, SELFPAY ==
[2021-07-25] VITALS (15 sets, daily range): BP systolic 94–157; BP diastolic 64–142; PULSE 100–109; RESP 17–28; TEMP 36.5–37.7; O2SAT 73–100; BMI 25.4; BMI 23.6
--- NOTE | 2021-07-25 19:33 | EKG12_ITS ---
Test Reason : DYSRHYTHMIA Blood Pressure : / mmHG Vent. Rate : 102 BPM Atrial Rate : 102 BPM P-R Int : 126 ms QRS Dur : 090 ms QT Int : 316 ms P-R-T Axes : 017 -10 124 degrees QTc Int : 411 ms Sinus tachycardia T wave abnormality, consider lateral ischemia Abnormal ECG Confirmed by SHADY CODY, MING ([id number]), editor newspaper NIMA PA ([id number]) on 07/28/2021 10:44:06 A M Referred By: CHIQUI Confirmed By:FATIMAH CARUSO MD
--- NOTE | 2021-07-25 19:35 | EDS_ITS ---
HPI History of Present Illness Chief Complaint: General Illness Informant: patient, family and SNF Narrative Narrative: Patient sent in from [facility] secondary to increased white count and worsening renal function. Patient was admitted to the hospital July 15 with COVID and acute renal failure. At the time of discharge his creatinine was 4.75. His white count was 11. It does not appear that he was discharged on Decadron. Lab work obtained from the [place] [facility] today indicates a white count of 23.9 and a BUN/creatinine of 59/7.0. Daughter is at bedside. She states he continues to have cough and congestion. He continues to have intermittent fevers. He does have an indwelling Galvan catheter now that he did not have prior to hospitalization. He was placed on oxygen today secondary to shortness of breath. [facility] Medical History Anxiety and depression Arthritis Back problem Bone fracture Brain aneurysm H/O transfusion of whole blood HTN (hypertension) Hypothyroidism Kidney disease Kidney failure Seasonal allergies Seizure Stroke Vascular dementia Vitamin D deficiency Home Medications aspirin 81 mg PO DAILY@0800 05/08/17 [History Last Taken 05/13/17] metoprolol tartrate 25 mg tablet 12.5 mg PO BID tab 06/02/18 [History Last Taken Unknown] fenofibrate nanocrystallized 145 mg PO DAILY 07/15/21 [History Last Taken Unknown] fluoxetine 10 mg PO DAILY 07/15/21 [History Last Taken Unknown] gabapentin 300 mg PO QHS 07/15/21 [History Last Taken Unknown] hyoscyamine 0.125 mg PO TID 07/15/21 [History Last Taken Unknown] levothyroxine 50 mcg PO DAILY 07/15/21 [History Last Taken Unknown] rosuvastatin [Crestor] 40 mg PO QHS 07/15/21 [History Last Taken Unknown] Saline Nasal 2 spray INTRANASAL BID 07/16/21 [History Last Taken Unknown] aripiprazole 10 mg PO QHS 07/16/21 [History Last Taken Unknown] cholecalciferol (vitamin D3) 1,250 mcg PO MOWEFR 07/16/21 [History Last Taken Unknown] fluticasone propionate 2 spray INTRANASAL DAILY 07/16/21 [History Last Taken Unknown] levocetirizine [Xyzal] 5 mg PO QPM 07/16/21 [History Last Taken Unknown] polyethylene glycol 3350 [Miralax] 17 g PO DAILY 07/16/21 [History Last Taken Unknown] amlodipine 5 mg PO DAILY #0 tab 07/21/21 [Rx Last Taken Unknown] Ativan 0.5 mg PO/SL 4X/DAY 07/25/21 [History Last Taken Unknown] Allergy/AdvReac Type Severity Reaction Status Date / Time No Known Allergies Allergy Verified 07/25/21 19:45 Family History Unknown Arthritis Breast cancer Mother Kidney stones Father Hypertension Other Colon cancer Surgical History H/O left inguinal hernia repair History of tonsillectomy and adenoidectomy S/P clamping of cerebral aneurysm Social History housing: [facility] Smoking Status: Former smoker how long ago did patient quit smoking: Quit 2017 after CVA, smoked 1 ppd since teen until quit. alcohol intake: never substance use type: does not use ROS ROS ED Constitutional Constitutional ED: Reports chills and fever(s) Eyes Eyes: Denies blurry vision ENT ENT ED: Denies rhinorrhea or sore throat Cardiovascular Cardiovascular: Denies chest pain Respiratory/Chest Respiratory/Chest: Reports cough and dyspnea Gastrointestinal Gastrointestinal: Reports nausea and vomiting Musculoskeletal Musculoskeletal: Denies myalgias Integumentary Denies rash Neurologic Neurologic: Denies headache(s) Allergic/Immunologic Allergic/Immunologic ED: Denies urticaria EXAM Physical Exam Const Vital Signs: 07/25/21 19:07 07/25/21 19:13 07/25/21 19:20 Temperature 97.7 F L 97.9 F Temperature Source Temporal Temporal Pulse Rate 105 H 105 H Respiratory Rate 17 19 H Respiratory Effort Respiratory Pattern Blood Pressure 126/77 H 126/77 H Blood Pressure Mean 93 93 Pulse Ox 100 98 93 Oxygen Delivery Method Nasal Cannula Room Air Nasal Cannula Oxygen Flow Rate (L/min) 3 3 07/25/21 19:46 07/25/21 19:48 07/25/21 19:51 Temperature 99.3 F H Temperature Source Temporal Pulse Rate 101 H Respiratory Rate 24 H Respiratory Effort Normal Respiratory Pattern Tachypnea Blood Pressure 157/142 H Blood Pressure Mean 147 Pulse Ox 98 Oxygen Delivery Method Nasal Cannula Oxygen Flow Rate (L/min) 2 07/25/21 20:33 07/25/21 21:00 07/25/21 21:16 Temperature 99.3 F H 99.8 F H 99.8 F H Temperature Source Temporal Oral Oral Pulse Rate 107 H 109 H 109 H Respiratory Rate 24 H 20 H 20 H Respiratory Effort Respiratory Pattern Blood Pressure 114/90 H 100/72 100/72 Blood Pressure Mean 98 81 81 Pulse Ox 98 95 95 Oxygen Delivery Method Nasal Cannula Nasal Cannula Oxygen Flow Rate (L/min) 2 2 Positive well nourished and well developed General Appearance ED: well developed Eyes PERRL and EOMs intact bilaterally Neck supple Chest Wall inspection of chest normal and palpation of chest normal Resp Resp Narrative: Lung sounds slightly diminished at the bases. No wheezes or rhonchi noted. Auscultation: diminished lung sounds Cardio regular rate and regular rhythm GI Auscultation: hypoactive bowel sounds Palpation: soft Extremity Extremity Narrative: Chronic contracture left upper extremity. Neuro Neuro Narrative: Answer some questions. Chronic left-sided weakness from prior stroke. Sensorium / Orientation: alert Skin no rashes or lesions noted MDM MDM MDM Narrative Medical decision making narrative: Sepsis work-up initiated. Lab Data Attestation: I reviewed the patient's lab results. Labs: Laboratory Results - last 24 hr 07/25/21 07/25/21 07/25/21 19:54 19:54 19:54 WBC 26.2 H RBC 3.18 L Hgb 8.5 L Hct 27.5 L MCV 86.5 MCH 26.7 L MCHC 30.9 L RDW Std Deviation 50.8 H RDW Coeff of Tomas 15.9 H Plt Count 343 MPV 10.7 Immature Gran % (Auto) 4.100 H Neut % (Auto) 85.1 H Lymph % (Auto) 4.4 L [place] % (Auto) 6.0 Eos % (Auto) 0.0 Baso % (Auto) 0.4 Absolute Neuts (auto) 22.3 H Absolute Lymphs (auto) 1.15 Nucleated RBC % 0 Differential Comment SCANNED Diff Path Review May foll PT Cancelled INR Cancelled APTT Cancelled Sodium 141 Potassium 4.1 Chloride 111 H Carbon Dioxide 23.0 Anion Gap 7 BUN 65 H Creatinine 7.63 H* Estim Creat Clear Calc 10.76 Est GFR (MDRD) Af Amer 9 L Est GFR (MDRD) Non-Af 8 L BUN/Creatinine Ratio 8.5 L Glucose 108 H Lactic Acid Calcium 8.4 L Total Bilirubin 0.30 AST 23 ALT 16 Alkaline Phosphatase 93 Total Protein 6.2 L Albumin 2.1 L Globulin 4.1 Albumin/Globulin Ratio 0.5 L Urine Color Urine Clarity Urine pH Ur Specific [place] Urine Protein Urine Glucose (UA) Urine Ketones Urine Occult Blood Urine Nitrite Urine Bilirubin Urine Urobilinogen Ur Leukocyte Esterase Urine RBC Urine WBC Ur Squamous Epith Cells Urine Bacteria Urine Mucus 07/25/21 07/25/21 07/25/21 19:54 20:33 20:53 WBC RBC Hgb Hct MCV MCH MCHC RDW Std Deviation RDW Coeff of Tomas Plt Count MPV Immature Gran % (Auto) Neut % (Auto) Lymph % (Auto) [place] % (Auto) Eos % (Auto) Baso % (Auto) Absolute Neuts (auto) Absolute Lymphs (auto) Nucleated RBC % Differential Comment Diff Path Review PT 17.2 H INR 1.5 APTT 43.6 H Sodium Potassium Chloride Carbon Dioxide Anion Gap BUN Creatinine Estim Creat Clear Calc Est GFR (MDRD) Af Amer Est GFR (MDRD) Non-Af BUN/Creatinine Ratio Glucose Lactic Acid 2.3 H* Calcium Total Bilirubin AST ALT Alkaline Phosphatase Total Protein Albumin Globulin Albumin/Globulin Ratio Urine Color Yellow Urine Clarity Sl. Cloudy Urine pH 5.0 Ur Specific [place] 1.015 Urine Protein 500 H Urine Glucose (UA) Normal Urine Ketones Negative Urine Occult Blood 250 H Urine Nitrite Positive H Urine Bilirubin Negative Urine Urobilinogen Normal Ur Leukocyte Esterase 500 H Urine RBC 10-25 SEEN Urine WBC 25-50 SEEN Ur Squamous Epith Cells 0 SEEN Urine Bacteria 1+ Urine Mucus 0 SEEN Influenza swab negative Radiography Chest X-Ray - ED: 1 View, Read by ED Physician and - (Atelectasis right base. No focal infiltrate.) Diagnostic Testing: Clinical Impression(s) from Imaging Studies Chest X-Ray 07/25/21 19:50 IMPRESSION: 1. Mildly decreased lung volumes and mild atelectasis right lower lobe. 2. No acute cardiopulmonary disease. Electronically Signed: Viktor Bartholomew DO at 20:15 EST Tel , Service support , EKG Initial EKG: Attestation: I personally reviewed and interpreted this EKG as follows: Interpretation: Sinus Tachycardia (Sinus tach at 102. Nonspecific lateral T wave flattening unchanged when compared to prior study.) Treatment and Re-Evaluation Comments:: CBC does reveal white count of 26.2 with left shift. Chemistry studies significant for BUN of 65 and creatinine is 7.63. Potassium normal at 4.1. Lactic acid mildly elevated at 2.3. Urinalysis does reveal infection with positive nitrites, 25-50 white cells, 1+ bacteria. Patient is given IV fluid bolus along with IV Rocephin. Patient be discussed with hospitalist regarding admission. Discharge Plan Triage Chief Complaint: General Illness ED Provider: Maribell Laws Dx/Rx/DC Orders Clinical Impression: UTI (urinary tract infection), Severe sepsis Prescriptions: No Action metoprolol tartrate 25 mg tablet 12.5 mg PO BID RF: 0 aspirin 81 MG tablet,chewable 81 mg PO DAILY@0800 RF: 0 fluoxetine 10 mg Tablet 10 mg PO DAILY RF: 0 levothyroxine 50 mcg Tablet 50 mcg PO DAILY RF: 0 hyoscyamine 0.15 mg Tablet 0.125 mg PO TID RF: 0 rosuvastatin [Crestor] 40 mg Tablet 40 mg PO QHS RF: 0 gabapentin 300 mg Tablet 300 mg PO QHS RF: 0 fenofibrate nanocrystallized 145 mg Tablet 145 mg PO DAILY RF: 0 aripiprazole 10 mg Tablet 10 mg PO QHS RF: 0 polyethylene glycol 3350 [Miralax] 17 gram Powder In Packet 17 g PO DAILY RF: 0 fluticasone propionate 50 mcg/actuation [place],Suspension 2 spray INTRANASAL DAILY RF: 0 Saline Nasal 0.65 % Aerosol,[place] 2 spray INTRANASAL BID RF: 0 cholecalciferol (vitamin D3) 1,250 mcg (50,000 unit) Tablet 1,250 mcg PO MOWEFR RF: 0 levocetirizine [Xyzal] 5 mg Tablet 5 mg PO QPM RF: 0 amlodipine 5 mg Tablet 5 mg PO DAILY Qty: 0 RF: 0 Ativan 0.5 mg PO/SL 4X/DAY RF: 0 Primary Care Provider: Yesy Ortzi Referrals: Yesy Ortiz [Primary Care Provider] - Disposition Disposition: Acute Care Hospital [facility]
--- NOTE | 2021-07-25 19:50 | RAD_ITS ---
INDICATION: sob EXAMINATION/TECHNIQUE: X-RAY - XR Chest 1 View COMPARISON: Chest x-ray 07/15/2021 and 04/28/2019 FINDINGS: LINES/DEVICES: None. LUNGS: Mildly decreased lung volumes with subtle linear reticular opacities right lung base likely representing atelectasis. No airspace disease. No pleural effusion or pneumothorax. Normal interstitial pattern. MEDIASTINUM AND CARDIOVASCULAR STRUCTURES: Normal size and contour of the cardiomediastinal silhouette. No evidence of pulmonary vascular congestion. BONES AND SOFT TISSUES: Mild lateral curvature, convex right, upper thoracic spine RAD/Chest 1 View (Portable) IMPRESSION: 1. Mildly decreased lung volumes and mild atelectasis right lower lobe. 2. No acute cardiopulmonary disease. Electronically Signed: Viktor Bartholomew DO at 20:15 EST Tel , Service support ,
[2021-07-25 20:05] LABS: Absolute Lymphocyte Count 1.15 X10^3/uL (0.83-4.51); Absolute Neutrophil Count 22.3 X10^3/uL (2.0-7.7); Basophil% 0.4 % (0-1); Eosinophil# 0.01 X10^3/uL; Hematocrit 27.5 % (40-54); Hemoglobin 8.5 g/dL (13.0-16.5); Lymphocyte # 1.15 X10^3/ul (0.83-4.51); Lymphocyte % 4.4 % (19-41); Mean Corp Hgb Conc 30.9 g/dL (32-36); Mean Corpuscular Hgb 26.7 pg (27.0-32.0); Mean Corpuscular Volume 86.5 fL (80-94); Mean Platelet Vol. 10.7 fl (6.2-12.0); Monocyte# 1.58 X10^3/uL; NRBC Flagged by Analyzer 0 % (0-5); Neutrophil % 85.1 % (47-70); POSITIVE DIFFERENTIAL YES; Platelet Count 343 K/mm3 (150-450); RBC Distribution Width CV 15.9 % (11.6-14.6); RBC Distribution Width SD 50.8 fl (35.1-43.9); Red Blood Count 3.18 M/mm3 (4.6-6.2); White Blood Count 26.2 K/mm3 (4.4-11.0)
[2021-07-25 20:10] LABS: Differential Indicated SCAN CRITERIA MET
[2021-07-25 20:46] LABS: ALB/GLOB Ratio 0.5 RATIO (0.9-2.4); AST(SGOT) 23 U/L (15-37); Alanine Aminotransfer ALT/SGPT 16 U/L (16-61); Albumin, Serum 2.1 g/dL (3.2-5.0); Alkaline Phosphatase 93 U/L (45-117); Anion Gap 7 (5-15); BUN 65 mg/dL (7-18); BUN/Creat Ratio 8.5 RATIO (10-20); Calcium,Total 8.4 mg/dL (8.5-10.1); Chloride 111 mmol/L (98-107); Creatinine, Serum 7.63 mg/dL (0.70-1.30); EST Glomerular Filtration Rate 8 mL/min (>60); Est Glom Filt Rate - Afr Amer 9 mL/min (>60); Estimated Creatinine Clearance 10.76 ml/min; Globulin 4.1 g/dL (2.2-4.2); Glucose 108 mg/dL (74-106); Lactic Acid 2.3 mmol/L (0.4-1.9); Potassium 4.1 mmol/L (3.5-5.1); Protein, Total 6.2 g/dL (6.4-8.2); Sodium Level 141 mmol/L (136-145)
[2021-07-25 20:49] LABS: International Normalized Ratio 1.5; Prothrombin Time (Protime)PT. 17.2 SECONDS (11.7-14.9)
[2021-07-25 20:50] LABS: Partial Thromboplast Time 43.6 Seconds (24.1-36.2)
[2021-07-25 20:58] LABS: Mucous, Urine 0 SEEN /hpf (<or=2+); Squamous Epithelial Cells - UA 0 SEEN /hpf (0-5)
[2021-07-25] MEDS: 0.9% Normal Saline 1,000 ML 999 ML IV (21:00)
[2021-07-25 21:11] LABS: Color, Urine Yellow (Yellow); Glucose, Dipstick Normal (Normal); Ketone-Dipstick Negative (Negative); Leukocyte Esterase-Dipstick 500 /ul (Negative); Nitrite-Dipstick Positive (Negative); Occult Blood-Urine 250 /ul (Negative); Protein-Dipstick 500 mg/dl (Negative); Specific Gravity, Urine 1.015 (1.002-1.030); Urine Bilirubin Dipstick Negative (Negative); Urine Clarity Sl. Cloudy (Clear); Urine Urobilinogen Normal (Normal)
[2021-07-25 21:13] LABS: Differential Comment SCANNED
[2021-07-25 21:17] LABS: Red Blood Cells-Urine 10-25 SEEN /hpf (0-5); White Blood Cells 25-50 SEEN /hpf (0-5)
[2021-07-25 21:18] LABS: Bacteria 1+ /hpf (None Seen)
[2021-07-25] MEDS: Ceftriaxone 1 GM/50 ML BAG IV (21:40)
--- NOTE | 2021-07-25 21:59 | PCM.HP.STD ---
HPI - General General Date of Admission: 07/25/21 HPI Narrative History was taken from patient daughter who was at the bedside because patient has vascular dementia and is unable to provide history. SHIRLENE HERNANDEZ, is a 61 M who is a patient at the skilled nursing and with a significant history of left-sided CVA and vascular dementia and who was admitted at the hospital on July 15 to July 21, 2021 with COVID returning because of fever. In regards to patient's COVID this day of presentation is the last day of his quarantine. Patient daughter reported that patient has been having fever for couple of days without being able to state the exact date. Associated with patient's symptoms is nausea, vomiting, and malaise. Because of nausea and vomiting on the same day of presentation the skilled nursing started patient on clear liquid diet. Patient has some productive cough. Per patient's daughter, on patient's recent admission to the hospital (July 15 to 2021) a Galvan catheter was placed. Patient daughter think that the Galvan catheter may be contributing to patient's symptoms and is requesting that it be removed. On last presentation patient had elevated creatinine and on this presentation his creatinine is even elevated some more. [facility] Medical History Anxiety and depression Arthritis Back problem Bone fracture Brain aneurysm H/O transfusion of whole blood HTN (hypertension) Hypothyroidism Kidney disease Kidney failure Seasonal allergies Seizure Stroke Vascular dementia Vitamin D deficiency Home Medications aspirin 81 mg PO DAILY@0800 05/08/17 [History Last Taken 05/13/17] metoprolol tartrate 25 mg tablet 12.5 mg PO BID tab 06/02/18 [History Last Taken Unknown] fenofibrate nanocrystallized 145 mg PO DAILY 07/15/21 [History Last Taken Unknown] fluoxetine 10 mg PO DAILY 07/15/21 [History Last Taken Unknown] gabapentin 300 mg PO QHS 07/15/21 [History Last Taken Unknown] hyoscyamine 0.125 mg PO TID 07/15/21 [History Last Taken Unknown] levothyroxine 50 mcg PO DAILY 07/15/21 [History Last Taken Unknown] rosuvastatin [Crestor] 40 mg PO QHS 07/15/21 [History Last Taken Unknown] Saline Nasal 2 spray INTRANASAL BID 07/16/21 [History Last Taken Unknown] aripiprazole 10 mg PO QHS 07/16/21 [History Last Taken Unknown] cholecalciferol (vitamin D3) 1,250 mcg PO MOWEFR 07/16/21 [History Last Taken Unknown] fluticasone propionate 2 spray INTRANASAL DAILY 07/16/21 [History Last Taken Unknown] levocetirizine [Xyzal] 5 mg PO QPM 07/16/21 [History Last Taken Unknown] polyethylene glycol 3350 [Miralax] 17 g PO DAILY 07/16/21 [History Last Taken Unknown] amlodipine 5 mg PO DAILY #0 tab 07/21/21 [Rx Last Taken Unknown] Ativan 0.5 mg PO/SL 4X/DAY 07/25/21 [History Last Taken Unknown] Allergy/AdvReac Type Severity Reaction Status Date / Time No Known Allergies Allergy Verified 07/25/21 19:45 Family History Unknown Arthritis Breast cancer Mother Kidney stones Father Hypertension Other Colon cancer Surgical History H/O left inguinal hernia repair History of tonsillectomy and adenoidectomy S/P clamping of cerebral aneurysm Social History housing: skilled nursing Smoking Status: Former smoker how long ago did patient quit smoking: Quit 2017 after CVA, smoked 1 ppd since teen until quit. alcohol intake: never substance use type: does not use ROS Review of Systems ROS Unobtainable: due to mental condition Vital Signs Vital Signs Vital Signs: 07/25/21 19:07 07/25/21 19:13 07/25/21 19:20 Temperature 97.7 F L 97.9 F Temperature Source Temporal Temporal Pulse Rate 105 H 105 H Respiratory Rate 17 19 H Respiratory Effort Respiratory Pattern Blood Pressure 126/77 H 126/77 H Blood Pressure Mean 93 93 Pulse Ox 100 98 93 Oxygen Delivery Method Nasal Cannula Room Air Nasal Cannula Oxygen Flow Rate (L/min) 3 3 07/25/21 19:46 07/25/21 19:48 07/25/21 19:51 Temperature 99.3 F H Temperature Source Temporal Pulse Rate 101 H Respiratory Rate 24 H Respiratory Effort Normal Respiratory Pattern Tachypnea Blood Pressure 157/142 H Blood Pressure Mean 147 Pulse Ox 98 Oxygen Delivery Method Nasal Cannula Oxygen Flow Rate (L/min) 2 07/25/21 20:33 07/25/21 21:00 07/25/21 21:16 Temperature 99.3 F H 99.8 F H 99.8 F H Temperature Source Temporal Oral Oral Pulse Rate 107 H 109 H 109 H Respiratory Rate 24 H 20 H 20 H Respiratory Effort Respiratory Pattern Blood Pressure 114/90 H 100/72 100/72 Blood Pressure Mean 98 81 81 Pulse Ox 98 95 95 Oxygen Delivery Method Nasal Cannula Nasal Cannula Oxygen Flow Rate (L/min) 2 2 Weight Weight: 80.513 kg Body Mass Index (BMI) 25.4 Physical Exam Narrative Physical exam: General: Well-nourished, well-developed. Head: Normocephalic, atraumatic, no tenderness Eyes: PERRLA, EOMI ENT, no trauma, no rhinorrhea Neck: Nontender, full range of motion, no spinal tenderness, deformities, step-off CVS: Regular rate and rhythm. S1-S2 present. No murmur, gallop or rub. Respiratory : clear to auscultation bilaterally, chest wall nontender, no wheezing Abdomen: Soft, nontender, nondistended, normal bowel sounds, no masses : Deferred Back: Nontender, no CVA tenderness, no midline spinal tenderness, deformities, step-offs Extremities: Nontender full range of motion, no trauma Skin: Normal color, no trauma, abrasions Neuro: Contracted left hand. Unable to move left upper and left lower extremity. Strength in right upper and right lower extremity 5 out of 5. Alert. Confused. Psychiatry: Verbally aggressive. Results Lab / Micro Data Result Diagrams: 07/25/21 19:54 07/25/21 19:54 Labs: Laboratory Results - last 24 hr 07/25/21 19:54: WBC 26.2 H, RBC 3.18 L, Hgb 8.5 L, Hct 27.5 L, MCV 86.5, MCH 26.7 L, MCHC 30.9 L, RDW Std Deviation 50.8 H, RDW Coeff of Tomas 15.9 H, Plt Count 343, MPV 10.7, Immature Gran % (Auto) 4.100 H, Neut % (Auto) 85.1 H, Lymph % (Auto) 4.4 L, [place] % (Auto) 6.0, Eos % (Auto) 0.0, Baso % (Auto) 0.4, Absolute Neuts (auto) 22.3 H, Absolute Lymphs (auto) 1.15, Nucleated RBC % 0, Differential Comment SCANNED, Diff Path Review November07/25/21 19:54: PT Cancelled, INR Cancelled, APTT Cancelled 07/25/21 19:54: Sodium 141, Potassium 4.1, Chloride 111 H, Carbon Dioxide 23.0, Anion Gap 7, BUN 65 H, Creatinine 7.63 H*, Estim Creat Clear Calc 10.76, Est GFR (MDRD) Af Amer 9 L, Est GFR (MDRD) Non-Af 8 L, BUN/Creatinine Ratio 8.5 L, Glucose 108 H, Calcium 8.4 L, Total Bilirubin 0.30, AST 23, ALT 16, Alkaline Phosphatase 93, Total Protein 6.2 L, Albumin 2.1 L, Globulin 4.1, Albumin/Globulin Ratio 0.5 L 07/25/21 19:54: Lactic Acid 2.3 H* 07/25/21 20:33: PT 17.2 H, INR 1.5, APTT 43.6 H 07/25/21 20:53: Urine Color Yellow, Urine Clarity Sl. Cloudy, Urine pH 5.0, Ur Specific [place] 1.015, Urine Protein 500 H, Urine Glucose (UA) Normal, Urine Ketones Negative, Urine Occult Blood 250 H, Urine Nitrite Positive H, Urine Bilirubin Negative, Urine Urobilinogen Normal, Ur Leukocyte Esterase 500 H, Urine RBC 10-25 SEEN, Urine WBC 25-50 SEEN, Ur Squamous Epith Cells 0 SEEN, Urine Bacteria 1+, Urine Mucus 0 SEEN Micro: Microbiology 07/25/21 20:00 Mucosa - Nasopharyngeal Influenza Types A,B Direct FA ([facility]) - Final Radiology Impression Chest X-Ray 07/25/21 19:50 IMPRESSION: 1. Mildly decreased lung volumes and mild atelectasis right lower lobe. 2. No acute cardiopulmonary disease. Electronically Signed: Viktor Bartholomew DO at 20:15 EST Tel , Service support , Assessment & Plan Assessment/Plan (1) UTI (urinary tract infection): (2) Severe sepsis: PLAN: Severe sepsis secondary to UTI with Galvan catheter contributing. SIRS criteria: Heart rate as high as 109 and sustained in the 100s. Respiratory rate as high as 28. White count 26.2. With neutrophilia of 85.1% and lymphopenia of 4.4%. Low-grade fever at the hospital. Chest x-ray independent interpretation no acute cardiopulmonary process and agree radiologist interpretation. Organ dysfunction: Lactic acid of 2.3. Creatinine of 7.63. Of note when patient left the hospital on 07/21/2021 his creatinine was 4.75. Lactic acid on presentation was elevated; trend. Urinalysis at the emergency department was abnormal. Urine culture and blood culture ordered to ED, follow-up. Received ceftriaxone the emergency department and continued. Received IV fluid bolus at the emergency department. Maintenance IV hydration ordered. Remove Galvan catheter. Hold all hypertensive medications. Accordingly will hold amlodipine and metoprolol. JACI on chronic kidney disease stage III From H&P on 07/15/2021 patient creatinine baseline creatinine is 2.9-3. Creatinine on presentation was 7.63. IV hydration as above. Avoid nephrotoxins. Hold fenofibrate. Decrease dose of gabapentin. As seen previously by architectural associate on last hospital admission. Nephrology consult. COVID-19 infection Enhanced isolation precautions for 1 more day. DVT prophylaxis: Subcutaneous heparin ordered. Charges/Coding Visit Charges Inpatient E&M: 37456 Init Hosp L3
[2021-07-25] MEDS: 0.9% Normal Saline 1,000 ML 99 ML IV (22:19)
--- NOTE | 2021-07-25 22:27 | ED.RN ---
Report given to Kassy in ICU
[2021-07-25] MEDS: 0.9% Normal Saline 1,000 ML 100 ML IV (23:27)
[2021-07-26] VITALS (20 sets, daily range): BP systolic 92–128; BP diastolic 59–86; PULSE 61–102; RESP 16–28; TEMP 36.6–37.7; O2SAT 94–99
[2021-07-26] LABS: Reflex Lactate? Y
[2021-07-26] MEDS: Sodium Chloride 0.65% 1 SPRAY SPRAY.BTL 2 SPRAY NASAL (00:44)
[2021-07-26] MEDS: Heparin Injection (Vial) 5,000 UNIT/ML VIAL 5000 UNIT SC ×4 (00:44→20:42)
[2021-07-26 01:18] LABS: Lactic Acid 1.3 mmol/L (0.4-1.9)
[2021-07-26 04:41] LABS: Absolute Lymphocyte Count 0.93 X10^3/uL (0.83-4.51); Absolute Neutrophil Count 23.9 X10^3/uL (2.0-7.7); Basophil# 0.07 X10^3/uL; Basophil% 0.3 % (0-1); Eosinophil# 0.04 X10^3/uL; Eosinophils% 0.1 % (0-5); Hematocrit 26.1 % (40-54); Hemoglobin 8.2 g/dL (13.0-16.5); Lymphocyte # 0.93 X10^3/ul (0.83-4.51); Lymphocyte % 3.4 % (19-41); Mean Corp Hgb Conc 31.4 g/dL (32-36); Mean Corpuscular Hgb 26.8 pg (27.0-32.0); Mean Corpuscular Volume 85.3 fL (80-94); Mean Platelet Vol. 10.3 fl (6.2-12.0); Monocyte# 2.15 X10^3/uL; Monocyte% 7.8 % (0-10); NRBC Flagged by Analyzer 0 % (0-5); Neutrophil % 86.5 % (47-70); POSITIVE DIFFERENTIAL YES; Platelet Count 348 K/mm3 (150-450); RBC Distribution Width CV 16.1 % (11.6-14.6); RBC Distribution Width SD 51.1 fl (35.1-43.9); Red Blood Count 3.06 M/mm3 (4.6-6.2); White Blood Count 27.6 K/mm3 (4.4-11.0)
[2021-07-26 04:51] LABS: Differential Indicated SCAN CRITERIA MET
[2021-07-26 04:54] LABS: Anion Gap 10 (5-15); BUN 60 mg/dL (7-18); BUN/Creat Ratio 8.2 RATIO (10-20); Calcium,Total 8.1 mg/dL (8.5-10.1); Chloride 113 mmol/L (98-107); EST Glomerular Filtration Rate 8 mL/min (>60); Est Glom Filt Rate - Afr Amer 10 mL/min (>60); Glucose 107 mg/dL (74-106); Potassium 3.8 mmol/L (3.5-5.1); Sodium Level 142 mmol/L (136-145)
[2021-07-26 05:36] LABS: Differential Comment SCANNED
--- NOTE | 2021-07-26 07:00 | CON.PCM.CC_ITS ---
Assessment & Plan Assessment/Plan (1) Severe sepsis: (2) UTI (urinary tract infection): (3) CKD (chronic kidney disease) stage 4, GFR 15-29 ml/min: (4) COVID-19: PLAN: RECOMMENDATIONS: 1. Continue empiric antibiotics pending culture results 2. No need for respiratory isolation 3. Not a candidate for Decadron, Remdesivir or baricitinib in my opinion 4. Possible transfer out of the intensive care unit later today 5. If remains hemodynamically stable on room air, will likely sign off from a critical care perspective on transfer IMPRESSIONS: 1. Severe sepsis secondary to UTI in the setting of chronic indwelling catheter Patient with significant leukocytosis, tachycardic, tachypneic and positive UA. Patient is on appropriate antibiotics at this time. Monitor in the intensive care unit through the morning to make sure he does not have a gram-negative syndrome, but if able to tolerate patient can likely leave the intensive care unit. Chest x-ray does not appear to have significant pneumonia or other complication following COVID-19. Galvan catheter has been removed, but may need a bladder scan if no urine output is noted as retention could be a problem. Continue to hold antihypertensive medications 2. JACI on CKD stage IIIb Patient with recent insult and renal failure following COVID-19 diagnosis. Patient's baseline appears to be around 3. Patient does have significant el evation of BUN and creatinine acute indications for [employer]RO [employer] at this time. Recommend treating problem #1 and monitoring renal function. Nephrology has been consulted. Patient has received IV hydration. 3. Recent COVID-19 Patient appears to be relatively asymptomatic from a COVID-19 perspective. Patient is on room air. Chest x-ray is not suggestive of extensive infilt rates. Patient was vaccinated 4. Debility/history of IVH/seizure disorder/vascular dementia/hypothyroidism Complicates care, management, recovery and prognosis. Okay to continue with baseline medications excluding those above. HPI Consult Data Date of Consult: 07/26/21 HPI Narrative HPI Narrative: SHIRLENE HERNANDEZ is a 61 M, with past medical history listed below, who presents to [facility] from [facility] on 07/25/2021 secondary to worsening renal function, leukocytosis and concerns for sepsis. Geo cheung was recently hospitalized July 15 through the for COVID and acute kidney injury. Patient had a creatinine of 4.75 on discharge with a white count of 11. Patient's blood was drawn at the [facility] and found to have a white count of 23.9 with a BUN and creatinine of 59/7. Patient has had some cough and congestion, but remains doing well on room air. Patient reportedly was discha rged with an indwelling Galvan catheter. In the ER, patient was afebrile, but tachycardic at 105 bpm. Blood pressures were adequate. Laboratory work-up showed a white blood cell count of 26.2, hemoglobin of 8.5, BUN of 65 and a creatinine of 7.63. Potassium is 4.1. INR is 1.5 and lactate was 2.3. UA is suggestive of a urinary tract infection. Chest x-ray was relatively unremarkable except for some mild atelectasis in the right lower lobe and EKG showed only sinus tachycardia. Patient was given Rocephin and admitted to the intensive care unit for further evaluation. Patient is not in respiratory isolation secondary to protracted COVID course. Since being admitted to the intensive care unit, patient has remained hemodynamically stable on room air. Patient reportedly has had some in termittent aggression with the nursing staff verbally, but is following commands and seems appropriate. Patient had reported some dysuria, especially with discontinuation of the Galvan catheter. Patient does have residual left-sided weakness secondary to a previous IVH. Patient is not reporting any dyspnea. Patient has had some cough. Patient denies any nausea or vomiting at this time. No seizure activity has been reported. Review of systems otherwise negative from a constitutional, HEENT, respiratory, cardiovascular, GI, genitourinary, musculoskeletal, skin, neurologic, psychiatric and hematologic system unless stated above. [facility] Medical History Anxiety and depression Arthritis Back problem Bone fracture Brain aneurysm H/O transfusion of whole blood HTN (hypertension) Hypothyroidism Kidney disease Kidney failure Seasonal allergies Seizure Stroke Vascular dementia Vitamin D deficiency Home Medications aspirin 81 mg PO DAILY@0800 05/08/17 [History Last Taken 05/13/17] metoprolol tartrate 25 mg tablet 12.5 mg PO BID tab 06/02/18 [History Last Taken Unknown] fenofibrate nanocrystallized 145 mg PO DAILY 07/15/21 [History Last Taken Unknown] fluoxetine 10 mg PO DAILY 07/15/21 [History Last Taken Unknown] gabapentin 300 mg PO QHS 07/15/21 [History Last Taken Unknown] hyoscyamine 0.125 mg PO TID 07/15/21 [History Last Taken Unknown] levothyroxine 50 mcg PO DAILY 07/15/21 [History Last Taken Unknown] rosuvastatin [Crestor] 40 mg PO QHS 07/15/21 [History Last Taken Unknown] Saline Nasal 2 spray INTRANASAL BID 07/16/21 [History Last Taken Unknown] aripiprazole 10 mg PO QHS 07/16/21 [History Last Taken Unknown] cholecalciferol (vitamin D3) 1,250 mcg PO MOWEFR 07/16/21 [History Last Taken Unknown] fluticasone propionate 2 spray INTRANASAL DAILY 07/16/21 [History Last Taken Unknown] levocetirizine [Xyzal] 5 mg PO QPM 07/16/21 [History Last Taken Unknown] polyethylene glycol 3350 [Miralax] 17 g PO DAILY 07/16/21 [History Last Taken Unknown] amlodipine 5 mg PO DAILY #0 tab 07/21/21 [Rx Last Taken Unknown] Ativan 0.5 mg PO/SL 4X/DAY 07/25/21 [History Last Taken Unknown] Allergy/AdvReac Type Severity Reaction Status Date / Time No Known Allergies Allergy Verified 07/25/21 19:45 Family History Unknown Arthritis Breast cancer Mother Kidney stones Father Hypertension Other Colon cancer Surgical History H/O left inguinal hernia repair History of tonsillectomy and adenoidectomy S/P clamping of cerebral aneurysm Social History housing: [facility] Smoking Status: Former smoker how long ago did patient quit smoking: Quit 2017 after CVA, smoked 1 ppd since teen until quit. alcohol intake: never substance use type: does not use ROS ROS Narrative See HPI Physical Exam Const alert and no apparent distress Orientation / Consciousness: oriented to person and oriented to place Exam Limitations: no limitations HEENT head/scalp atraumatic and moist oral mucous membranes Head and Scalp: normocephalic Eyes PERRL, EOMs intact bilaterally and conjunctivae normal Neck no lymphadenopathy Resp normal respiratory effort, no retractions, no use of accessory muscles and clear to auscultation bilaterally Cardio regular rate, regular rhythm, S1 normal heart sound, S2 normal heart sound and no murmurs GI normal to inspection, nondistended, normoactive bowel sounds, soft to palpation, non-tender and non-distended Extremity no clubbing, cyanosis or edema Extremity Narrative: chronic left hemiparesis with contractures Peripheral Pulses: Yes pulses 2+ throughout Skin no rashes or lesions noted Neuro oriented x3 Neuro Narrative: chronic left sided hemiparesis. Sensorium / Orientation: awake and alert Psych Psych Narrative: flat affect Lab / Micro Data Result Diagrams: 07/26/21 04:30 07/26/21 04:30 Labs: Laboratory Results - last 24 hr 07/25/21 19:54: WBC 26.2 H, RBC 3.18 L, Hgb 8.5 L, Hct 27.5 L, MCV 86.5, MCH 26.7 L, MCHC 30.9 L, RDW Std Deviation 50.8 H, RDW Coeff of Tomas 15.9 H, Plt Count 343, MPV 10.7, Immature Gran % (Auto) 4.100 H, Neut % (Auto) 85.1 H, Lymph % (Auto) 4.4 L, Boyle % (Auto) 6.0, Eos % (Auto) 0.0, Baso % (Auto) 0.4, Absolute Neuts (auto) 22.3 H, Absolute Lymphs (auto) 1.15, Nucleated RBC % 0, Differential Comment SCANNED, Diff Path Review November foll 07/25/21 19:54: PT Cancelled, INR Cancelled, APTT Cancelled 07/25/21 19:54: Sodium 141, Potassium 4.1, Chloride 111 H, Carbon Dioxide 23.0, Anion Gap 7, BUN 65 H, Creatinine 7.63 H*, Estim Creat Clear Calc 10.76, Est GFR (MDRD) Af Amer 9 L, Est GFR (MDRD) Non-Af 8 L, BUN/Creatinine Ratio 8.5 L, Glucose 108 H, Calcium 8.4 L, Total Bilirubin 0.30, AST 23, ALT 16, Alkaline Phosphatase 93, Total Protein 6.2 L, Albumin 2.1 L, Globulin 4.1, Albumin/Glob ulin Ratio 0.5 L 07/25/21 19:54: Lactic Acid 2.3 H* 07/25/21 20:33: PT 17.2 H, INR 1.5, APTT 43.6 H 07/25/21 20:53: Urine Color Yellow, Urine Clarity Sl. Cloudy, Urine pH 5.0, Ur Specific [place] 1.015, Urine Protein 500 H, Urine Glucose (UA) Normal, Urine Ketones Negative, Urine Occult Blood 250 H, Urine Nitrite Positive H, Urine Bilirubin Negative, Urine Urobilinogen Normal, Ur Leukocyte Esterase 500 H, Urine RBC 10-25 SEEN, Urine WBC 25-50 SEEN, Ur Squamous Epith Cells 0 SEEN, Urine Bacteria 1+, Urine Mucus 0 SEEN 07/26/21 00:40: Lactic Acid 1.3 07/26/21 04:30: WBC 27.6 H, RBC 3.06 L, Hgb 8.2 L, Hct 26.1 L, MCV 85.3, MCH 26.8 L, MCHC 31.4 L, RDW Std Deviation 51.1 H, RDW Coeff of Tomas 16.1 H, Plt Count 348, MPV 10.3, Immature Gran % (Auto) 1.900 H, Neut % (Auto) 86.5 H, Lymph % (Auto) 3.4 L, Boyle % (Auto) 7.8, Eos % (Auto) 0.1, Baso % (Auto) 0.3, Absolute Neuts (auto) 23.9 H, Absolute Lymphs (auto) 0.93, Nucleated RBC % 0, Differential Comment SCANNED, Diff Path Review November foll 07/26/21 04:30: Sodium 142, Potassium 3.8, Chloride 113 H, Carbon Dioxide 19.0 L , Anion Gap 10, BUN 60 H, Creatinine 7.30 H, Estim Creat Clear Calc 11.60, Est GFR (MDRD) Af Amer 10 L, Est GFR (MDRD) Non-Af 8 L, BUN/Creatinine Ratio 8.2 L, Glucose 107 H, Calcium 8.1 L Micro: Microbiology 07/25/21 20:00 Mucosa - Nasopharyngeal Influenza Types A,B Direct FA ([facility]) - Final Radiology Impression Chest X-Ray 07/25/21 19:50 IMPRESSION: 1. Mildly decreased lung volumes and mild atelectasis right lower lobe. 2. No acute cardiopulmonary disease. Electronically Signed: Viktor Bartholomew DO at 20:15 EST Tel , Service support , Charges/Coding Visit Charges Inpatient E&M: 14442 Init Hosp L2
[2021-07-26] MEDS: 0.9% Normal Saline 1,000 ML 100 ML IV ×2 (09:44→18:16)
--- NOTE | 2021-07-26 11:39 | PCM.PN.HOSP ---
Subjective Subjective Feels well. Denies complaints. Was curing at the nurses. Objective Data Objective Data Vital Signs: Vital Signs Temp Pulse Resp BP Pulse Ox 37.4 C H 95 19 H 118/77 98 07/26/21 04:00 07/26/21 10:00 07/26/21 10:00 07/26/21 10:00 07/26/21 10:00 Oxygen Flow Rate (L/min) 2 Oxygen Delivery Method Room Air Weight: 76.8 kg Body Mass Index (BMI) 23.6 Intake & Output: Intake and Output for Last 24 Hours 07/24/21 07/25/21 07/26/21 23:59 23:59 23:59 Intake Total 1135.8 / 1135.8 1914.2 / 1914.2 Output Total 525 / 525 Balance 1135.8 / 885.8 1389.2 / 1389.2 Lab / Micro Data Result Diagrams: 07/26/21 04:30 07/26/21 04:30 Labs: Laboratory Results - last 24 hr 07/25/21 19:54: WBC 26.2 H, RBC 3.18 L, Hgb 8.5 L, Hct 27.5 L, MCV 86.5, MCH 26.7 L, MCHC 30.9 L, RDW Std Deviation 50.8 H, RDW Coeff of Tomas 15.9 H, Plt Count 343, MPV 10.7, Immature Gran % (Auto) 4.100 H, Neut % (Auto) 85.1 H, Lymph % (Auto) 4.4 L, [place] % (Auto) 6.0, Eos % (Auto) 0.0, Baso % (Auto) 0.4, Absolute Neuts (auto) 22.3 H, Absolute Lymphs (auto) 1.15, Nucleated RBC % 0, Differential Comment SCANNED, Diff Path Review November07/25/21 19:54: PT Cancelled, INR Cancelled, APTT Cancelled 07/25/21 19:54: Sodium 141, Potassium 4.1, Chloride 111 H, Carbon Dioxide 23.0, Anion Gap 7, BUN 65 H, Creatinine 7.63 H*, Estim Creat Clear Calc 10.76, Est GFR (MDRD) Af Amer 9 L, Est GFR (MDRD) Non-Af 8 L, BUN/Creatinine Ratio 8.5 L, Glucose 108 H, Calcium 8.4 L, Total Bilirubin 0.30, AST 23, ALT 16, Alkaline Phosphatase 93, Total Protein 6.2 L, Albumin 2.1 L, Globulin 4.1, Albumin/Globulin Ratio 0.5 L 07/25/21 19:54: Lactic Acid 2.3 H* 07/25/21 20:33: PT 17.2 H, INR 1.5, APTT 43.6 H 07/25/21 20:53: Urine Color Yellow, Urine Clarity Sl. Cloudy, Urine pH 5.0, Ur Specific [place] 1.015, Urine Protein 500 H, Urine Glucose (UA) Normal, Urine Ketones Negative, Urine Occult Blood 250 H, Urine Nitrite Positive H, Urine Bilirubin Negative, Urine Urobilinogen Normal, Ur Leukocyte Esterase 500 H, Urine RBC 10-25 SEEN, Urine WBC 25-50 SEEN, Ur Squamous Epith Cells 0 SEEN, Urine Bacteria 1+, Urine Mucus 0 SEEN 07/26/21 00:40: Lactic Acid 1.3 07/26/21 04:30: WBC 27.6 H, RBC 3.06 L, Hgb 8.2 L, Hct 26.1 L, MCV 85.3, MCH 26.8 L, MCHC 31.4 L, RDW Std Deviation 51.1 H, RDW Coeff of Tomas 16.1 H, Plt Count 348, MPV 10.3, Immature Gran % (Auto) 1.900 H, Neut % (Auto) 86.5 H, Lymph % (Auto) 3.4 L, [place] % (Auto) 7.8, Eos % (Auto) 0.1, Baso % (Auto) 0.3, Absolute Neuts (auto) 23.9 H, Absolute Lymphs (auto) 0.93, Nucleated RBC % 0, Differential Comment SCANNED, Diff Path Review November foll 07/26/21 04:30: Sodium 142, Potassium 3.8, Chloride 113 H, Carbon Dioxide 19.0 L, Anion Gap 10, BUN 60 H, Creatinine 7.30 H, Estim Creat Clear Calc 11.60, Est GFR (MDRD) Af Amer 10 L, Est GFR (MDRD) Non-Af 8 L, BUN/Creatinine Ratio 8.2 L, Glucose 107 H, Calcium 8.1 L Micro: Microbiology 07/25/21 20:53 Urine, Clean Catch Urine Culture - Preliminary Gram negative aggie 07/25/21 20:00 Mucosa - Nasopharyngeal Influenza Types A,B Direct FA ([facility]) - Final Radiography Diagnostic Testing: Radiology Impression Chest X-Ray 07/25/21 19:50 IMPRESSION: 1. Mildly decreased lung volumes and mild atelectasis right lower lobe. 2. No acute cardiopulmonary disease. Electronically Signed: Viktor Bartholomew, DO at 20:15 EST Tel , Service support , Physical Exam Const alert and no apparent distress Resp normal respiratory effort, no retractions, no use of accessory muscles and clear to auscultation bilaterally Cardio regular rate, regular rhythm, S1 normal heart sound and S2 normal heart sound GI normal to inspection, nondistended, normoactive bowel sounds, soft to palpation, non-tender and non-distended Extremity normal to inspection Neuro Sensorium / Orientation: awake and alert Assessment & Plan Assessment/Plan (1) Sepsis: QUALIFIERS: Sepsis type: sepsis due to unspecified organism Sepsis acute organ dysfunction status: unspecified Qualified Code(s): A41.9 - Sepsis, unspecified organism (2) UTI (urinary tract infection): QUALIFIERS: Urinary tract infection type: catheter-associated UTI Indwelling urinary catheter type: indwelling urethral catheter Encounter type: initial encounter Qualified Code(s): T83.511A - Infection and inflammatory reaction due to indwelling urethral catheter, initial encounter; N39.0 - Urinary tract infection, site not specified (3) JACI (acute kidney injury): (4) Metabolic acidosis: PLAN: 1. Sepsis Present on admission qSOFA of 3 Severe sepsis ruled out Second UTI 2. UTI, catheter associated On ceftriaxone Follow-up cultures 3. Acute kidney injury On CKD 4 Continue IV fluids Nephrology consult 4. COVID-19 Completed quarantine No additional work-up or treatment indicated at this time 5. Metabolic acidosis Secondary to JACI Monitor 6. Depression/anxiety/behavioral disturbances Continue with aripiprazole Transfer to the progressive care unit Charges/Coding Visit Charges Inpatient E&M: 43324 Subs Hosp L2
--- NOTE | 2021-07-26 12:49 | CASEMGMT ---
HUGO PETERS chart review: Patient was admitted 07/15-07/21/21 for covid and JACI. Patient is from [facility]. See ANURADHA notes from previous admission. Patient was discharged to [facility] with follow-up with nephrology in 1 month. Patient returned to [facility] ED for general illness, increase WBC, and decreased kidney function. Patient was diagnosed with severe sepsis sencondary to UTI with chronic indwelling catheter. Patient was started on IV Rocephin daily and chin removed. Patient to return to [facility] when medically ready. ANURADHA notified of LTC at [facility].
--- NOTE | 2021-07-26 14:15 | NURSING ---
This RN took over care at this time.
--- NOTE | 2021-07-26 15:12 | PCS.PANDOC ---
PANDEMIC DOCUMENTATION INITIATED: Date: 02/17/2021 Time: 190
--- NOTE | 2021-07-26 16:42 | CM.ED ---
ANURADHA Note: ANURADHA called [facility] and spoke to patient's RN, Jey. She said that they are holding patient's bed and he can return at discharge. ANURADHA advised that patient's SW on PCU is Samia Flores [facility]
--- NOTE | 2021-07-26 18:08 | CON.PCM.RE_ITS ---
Assessment & Plan Assessment/Plan (1) JACI (acute kidney injury): PLAN: - The patient had recent JACI at the last hospital admission. Serum creatinine peaked at 6.49 mg deciliter at that time. Serum creatinine improved to 4.75 mg/dL prior to discharge with IV fluid volume repletion. -Serum creatinine is higher this time at 7.30 mg/dL. -Hopefully, we are dealing with mainly prerenal JACI from sepsis, poor intake and volume depletion from fever. JACI from these causes may be reversible. -Agree with continuing IV fluid and encouraging oral intake. -No urgent need for dialysis today. -However, the possibility of dialysis was mentioned to the patient and his daughter, Lupe, today since kidney injury is more severe than the last admission. (2) CKD (chronic kidney disease) stage 4, GFR 15-29 ml/min: PLAN: - Baseline serum creatinine is around 4.7 mg/dL. His serum creati nine was already 3.4 mg/dL as far back as 2017. -The patient's daughter tells me that he was dialyzed temporarily in 2017 at [facility]. -He did not follow-up with nephrology since then. -I suspect that there has been progression of CKD since then. (3) Metabolic acidosis: PLAN: - Serum bicarbonate level is slightly low at 19 mmol/L. -This is likely due to JACI on CKD. -If serum bicarbonate level is any lower tomorrow, I will switch the patient to LR. (4) UTI (urinary tract infection): QUALIFIERS: Urinary tract infection type: catheter-associated UTI Indwelling urinary catheter type: indwelling urethral catheter Encounter type: initial encounter Qualified Code(s): T83.511A - Infection and inflammatory reaction due to indwelling urethral catheter, initial encounter; N39.0 - Urinary tract infection, site not specified PLAN: - The patient is on ceftriaxone. -Management as per hospital medicine service. 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 [facility] serum creatinine has been around 4.7 to 4.8 mg/dL. The patient was admitted to the hospital between 07/15/2021 until 07/21/2021 with COVID-19 pneumonia. On presentation to the hospital at the last admission, the patient was noted to have a serum creatinine of 6.49 mg/dL. Review of record reveals that his creatinine has been elevated as far back as 2017 at 3.4 mg/dL. The patient denies being followed by a policy officer on a regular basis. Renal function did improve with IV fluid, and the patient was discharged on 07/21/2021 with serum creatinine of 4.75 mg/dL. The patient returns to the hospital yesterday on 07/25/2021 with fever for 2 days prior to admission. The patient also has nausea and vomiting with decreased oral intake prior to presentation. The patient denies chest pain, shortness of breath, nausea, or edema today. He also denies lower urinary tract symptoms. He is not on STAR inhibitor or ARB at [facility], and there has been no exposure to NSAIDs. Renal ultrasound at the last visit on 07/16/2021 did not reveal hydronephrosis. [facility] Medical History Anxiety and depression Arthritis Back problem Bone fracture Brain aneurysm H/O transfusion of whole blood HTN (hypertension) Hypothyroidism Kidney disease Kidney failure Seasonal allergies Seizure Stroke Vascular dementia Vitamin D deficiency Home Medications aspirin 81 mg PO DAILY@0800 05/08/17 [History Last Taken 05/13/17] metoprolol tartrate 25 mg tablet 12.5 mg PO BID tab 06/02/18 [History Last Taken Unknown] fenofibrate nanocrystallized 145 mg PO DAILY 07/15/21 [History Last Taken Unknown] fluoxetine 10 mg PO DAILY 07/15/21 [History Last Taken Unknown] gabapentin 300 mg PO QHS 07/15/21 [History Last Taken Unknown] hyoscyamine 0.125 mg PO TID 07/15/21 [History Last Taken Unknown] levothyroxine 50 mcg PO DAILY 07/15/21 [History Last Taken Unknown] rosuvastatin [Crestor] 40 mg PO QHS 07/15/21 [History Last Taken Unknown] Saline Nasal 2 spray INTRANASAL BID 07/16/21 [History Last Taken Unknown] aripiprazole 10 mg PO QHS 07/16/21 [History Last Taken Unknown] cholecalciferol (vitamin D3) 1,250 mcg PO MOWEFR 07/16/21 [History Last Taken Unknown] fluticasone propionate 2 spray INTRANASAL DAILY 07/16/21 [History Last Taken Unknown] levocetirizine [Xyzal] 5 mg PO QPM 07/16/21 [History Last Taken Unknown] polyethylene glycol 3350 [Miralax] 17 g PO DAILY 07/16/21 [History Last Taken Unknown] amlodipine 5 mg PO DAILY #0 tab 07/21/21 [Rx Last Taken Unknown] Ativan 0.5 mg PO/SL 4X/DAY 07/25/21 [History Last Taken Unknown] Allergy/AdvReac Type Severity Reaction Status Date / Time No Known Allergies Allergy Verified 07/25/21 19:45 Family History Unknown Arthritis Breast cancer Mother Kidney stones Father Hypertension Other Colon cancer Surgical History H/O left inguinal hernia repair History of tonsillectomy and adenoidectomy S/P clamping of cerebral aneurysm Social History [facility] Smoking Status: Former smoker how long ago did patient quit smoking: Quit 2017 after CVA, smoked 1 ppd since teen until quit. alcohol intake: never substance use type: does not use ROS ROS Narrative 06/15 ROS done. They are otherwise noncontributory. Physical Exam Narrative General: No apparent distress. The patient is alert and oriented x3. HEENT: Normocephalic, atraumatic. Mucous membrane moist. PERRLA, EOMI. Neck: Supple, no JVD. Heart: Normal S1, S2 no rubs or murmurs. Lungs: CTAB. Abdomen: Normal bowel sounds, soft, nontender, no guarding or rebound. Extremity: No clubbing, cyanosis, or edema. Neurologic: Left hemiparesis. Dysarthric. Lab / Micro Data Result Diagrams: 07/26/21 04:30 07/26/21 04:30 Labs: Laboratory Results - last 24 hr 07/25/21 19:54: WBC 26.2 H, RBC 3.18 L, Hgb 8.5 L, Hct 27.5 L, MCV 86.5, MCH 26.7 L, MCHC 30.9 L, RDW Std Deviation 50.8 H, RDW Coeff of Tomas 15.9 H, Plt Count 343, MPV 10.7, Immature Gran % (Auto) 4.100 H, Neut % (Auto) 85.1 H, Lymph % (Auto) 4.4 L, [place] % (Auto) 6.0, Eos % (Auto) 0.0, Baso % (Auto) 0.4, Absolute Neuts (auto) 22.3 H, Absolute Lymphs (auto) 1.15, Nucleated RBC % 0, Differential Comment SCANNED, Diff Path Review November07/25/21 19:54: PT Cancelled, INR Cancelled, APTT Cancelled 07/25/21 19:54: Sodium 141, Potassium 4.1, Chloride 111 H, Carbon Dioxide 23.0, Anion Gap 7, BUN 65 H, Creatinine 7.63 H*, Estim Creat Clear Calc 10.76, Est GFR (MDRD) Af Amer 9 L, Est GFR (MDRD) Non-Af 8 L, BUN/Creatinine Ratio 8.5 L, Glucose 108 H, Calcium 8.4 L, Total Bilirubin 0.30, AST 23, ALT 16, Alkaline Phosphatase 93, Total Protein 6.2 L, Albumin 2.1 L, Globulin 4.1, Albumin/Globulin Ratio 0.5 L 07/25/21 19:54: Lactic Acid 2.3 H* 07/25/21 20:33: PT 17.2 H, INR 1.5, APTT 43.6 H 07/25/21 20:53: Urine Color Yellow, Urine Clarity Sl. Cloudy, Urine pH 5.0, Ur Specific [place] 1.015, Urine Protein 500 H, Urine Glucose (UA) Normal, Urine Ketones Negative, Urine Occult Blood 250 H, Urine Nitrite Positive H, Urine Bilirubin Negative, Urine Urobilinogen Normal, Ur Leukocyte Esterase 500 H, Urine RBC 10-25 SEEN, Urine WBC 25-50 SEEN, Ur Squamous Epith Cells 0 SEEN, Urine Bacteria 1+, Urine Mucus 0 SEEN 07/26/21 00:40: Lactic Acid 1.3 07/26/21 04:30: WBC 27.6 H, RBC 3.06 L, Hgb 8.2 L, Hct 26.1 L, MCV 85.3, MCH 26.8 L, MCHC 31.4 L, RDW Std Deviation 51.1 H, RDW Coeff of Tomas 16.1 H, Plt Count 348, MPV 10.3, Immature Gran % (Auto) 1.900 H, Neut % (Auto) 86.5 H, Lymph % (Auto) 3.4 L, [place] % (Auto) 7.8, Eos % (Auto) 0.1, Baso % (Auto) 0.3, Absolute Neuts (auto) 23.9 H, Absolute Lymphs (auto) 0.93, Nucleated RBC % 0, Differential Comment SCANNED, Diff Path Review November foll 07/26/21 04:30: Sodium 142, Potassium 3.8, Chloride 113 H, Carbon Dioxide 19.0 L , Anion Gap 10, BUN 60 H, Creatinine 7.30 H, Estim Creat Clear Calc 11.60, Est GFR (MDRD) Af Amer 10 L, Est GFR (MDRD) Non-Af 8 L, BUN/Creatinine Ratio 8.2 L, Glucose 107 H, Calcium 8.1 L Micro: Microbiology 07/25/21 20:53 Urine, Clean Catch Urine Culture - Preliminary Gram negative aggie 07/25/21 20:00 Mucosa - Nasopharyngeal Influenza Types A,B Direct FA ([place]) - Final Radiology Impression Chest X-Ray 07/25/21 19:50 IMPRESSION: 1. Mildly decreased lung volumes and mild atelectasis right lower lobe. 2. No acute cardiopulmonary disease. Electronically Signed: Viktor Bartholomew DO at 20:15 EST Tel , Service support ,
[2021-07-26] MEDS: Ceftriaxone 1 GM/50 ML BAG IV (22:19)
[2021-07-27] VITALS (8 sets, daily range): BP systolic 109–125; BP diastolic 66–76; PULSE 80–91; RESP 15–18; TEMP 36.4–36.9; O2SAT 95–98
[2021-07-27] MEDS: 0.9% Normal Saline 1,000 ML 100 ML IV (05:41)
[2021-07-27] MEDS: Heparin Injection (Vial) 5,000 UNIT/ML VIAL 5000 UNIT SC ×3 (05:44→20:48)
[2021-07-27 07:13] LABS: Absolute Lymphocyte Count 1.06 X10^3/uL (0.83-4.51); Absolute Neutrophil Count 15.3 X10^3/uL (2.0-7.7); Basophil# 0.06 X10^3/uL; Basophil% 0.3 % (0-1); Eosinophil# 0.14 X10^3/uL; Eosinophils% 0.8 % (0-5); Hematocrit 24.8 % (40-54); Hemoglobin 7.8 g/dL (13.0-16.5); Lymphocyte # 1.06 X10^3/ul (0.83-4.51); Lymphocyte % 5.9 % (19-41); Mean Corp Hgb Conc 31.5 g/dL (32-36); Mean Corpuscular Hgb 26.9 pg (27.0-32.0); Mean Corpuscular Volume 85.5 fL (80-94); Mean Platelet Vol. 10.6 fl (6.2-12.0); Monocyte# 1.15 X10^3/uL; Monocyte% 6.4 % (0-10); NRBC Flagged by Analyzer 0 % (0-5); Neutrophil # 15.28 X10^3/uL (2.7-7.7); Neutrophil % 85.6 % (47-70); Platelet Count 320 K/mm3 (150-450); RBC Distribution Width CV 16.3 % (11.6-14.6); RBC Distribution Width SD 50.8 fl (35.1-43.9); White Blood Count 17.9 K/mm3 (4.4-11.0)
[2021-07-27 07:42] LABS: ALB/GLOB Ratio 0.4 RATIO (0.9-2.4); AST(SGOT) 65 U/L (15-37); Alanine Aminotransfer ALT/SGPT 36 U/L (16-61); Albumin, Serum 1.7 g/dL (3.2-5.0); Alkaline Phosphatase 96 U/L (45-117); Anion Gap 10 (5-15); BUN 56 mg/dL (7-18); BUN/Creat Ratio 8.4 RATIO (10-20); Calcium,Total 8.3 mg/dL (8.5-10.1); Chloride 120 mmol/L (98-107); EST Glomerular Filtration Rate 9 mL/min (>60); Est Glom Filt Rate - Afr Amer 11 mL/min (>60); Estimated Creatinine Clearance 12.64 ml/min; Globulin 3.9 g/dL (2.2-4.2); Glucose 84 mg/dL (74-106); Potassium 3.6 mmol/L (3.5-5.1); Protein, Total 5.6 g/dL (6.4-8.2); Sodium Level 146 mmol/L (136-145)
[2021-07-27] MEDS: Lactated Ringers 1,000 ML 100 ML IV ×2 (08:46→18:36)
[2021-07-27] MEDS: Aspirin 81 MG TAB.CHEW PO (08:48)
[2021-07-27] MEDS: Sodium Chloride 0.65% 1 SPRAY SPRAY.BTL 2 SPRAY NASAL ×2 (09:04→20:45)
[2021-07-27] MEDS: FLUoxetine 10 MG Capsule PO ×2 (09:04→20:48)
[2021-07-27] MEDS: Fluticasone 0.05% 1 SPRAY NASAL.SRY 2 SPRAY NASAL (09:04)
--- NOTE | 2021-07-27 12:21 | PCM.PN.HOSP ---
Subjective Subjective Denies any complaints. Objective Data Objective Data Vital Signs: Vital Signs Temp Pulse Resp BP Pulse Ox 36.7 C 88 16 109/66 95 07/27/21 10:00 07/27/21 10:00 07/27/21 10:00 07/27/21 10:00 07/27/21 10:00 Oxygen Flow Rate (L/min) 2 Oxygen Delivery Method Room Air Weight: 78.1 kg Body Mass Index (BMI) 23.6 Intake & Output: Intake and Output for Last 24 Hours 07/25/21 07/26/21 07/27/21 23:59 23:59 23:59 Intake Total 1135.8 / 1135.8 2877.53 / 2877.53 1348.33 / 1348.33 Output Total 525 / 525 Balance 1135.8 / 885.8 2352.53 / 2352.53 1348.33 / 1348.33 Lab / Micro Data Result Diagrams: 07/27/21 06:06 07/27/21 06:06 Labs: Laboratory Results - last 24 hr 07/27/21 06:06: WBC 17.9 H, RBC 2.90 L, Hgb 7.8 L, Hct 24.8 L, MCV 85.5, MCH 26.9 L, MCHC 31.5 L, RDW Std Deviation 50.8 H, RDW Coeff of Tomas 16.3 H, Plt Count 320, MPV 10.6, Immature Gran % (Auto) 1.000 H, Neut % (Auto) 85.6 H, Lymph % (Auto) 5.9 L, [place] % (Auto) 6.4, Eos % (Auto) 0.8, Baso % (Auto) 0.3, Absolute Neuts (auto) 15.3 H, Absolute Lymphs (auto) 1.06, Nucleated RBC % 0 07/27/21 06:06: Sodium 146 H, Potassium 3.6, Chloride 120 H, Carbon Dioxide 16.0 L, Anion Gap 10, BUN 56 H, Creatinine 6.70 H, Estim Creat Clear Calc 12.64, Est GFR (MDRD) Af Amer 11 L, Est GFR (MDRD) Non-Af 9 L, BUN/Creatinine Ratio 8.4 L, Glucose 84, Calcium 8.3 L, Total Bilirubin 0.30, AST 65 H, ALT 36, Alkaline Phosphatase 96, Total Protein 5.6 L, Albumin 1.7 L, Globulin 3.9, Albumin/Globulin Ratio 0.4 L Micro: Microbiology 07/25/21 20:53 Urine, Clean Catch Urine Culture - Final Pseudomonas aeroginosa 07/25/21 20:00 Mucosa - Nasopharyngeal Influenza Types A,B Direct FA ([place]) - Final Physical Exam Const Constitutional Narrative: up in bed. afebrile. Resp normal respiratory effort, no retractions, no use of accessory muscles and clear to auscultation bilaterally Cardio regular rate, regular rhythm, S1 normal heart sound and S2 normal heart sound GI normal to inspection, nondistended, normoactive bowel sounds, soft to palpation, non-tender and non-distended Assessment & Plan Assessment/Plan (1) Sepsis: QUALIFIERS: Sepsis type: sepsis due to unspecified organism Sepsis acute organ dysfunction status: unspecified Qualified Code(s): A41.9 - Sepsis, unspecified organism (2) UTI (urinary tract infection): QUALIFIERS: Urinary tract infection type: catheter-associated UTI Indwelling urinary catheter type: indwelling urethral catheter Encounter type: initial encounter Qualified Code(s): T83.511A - Infection and inflammatory reaction due to indwelling urethral catheter, initial encounter; N39.0 - Urinary tract infection, site not specified (3) JACI (acute kidney injury): (4) Metabolic acidosis: PLAN: 1. Sepsis Present on admission qSOFA of 3 Severe sepsis ruled out Second UTI 2. UTI, catheter associated pseudomonas, change to pip/tazo (hold off FQN given JACI for now) 3. Acute kidney injury On CKD 4 Continue IV fluids Nephrology consult slightly better 4. COVID-19 Completed quarantine No additional work-up or treatment indicated at this time 5. Metabolic acidosis Secondary to JACI Worse today, change NS to LR per nephrology recommendations. 6. Depression/anxiety/behavioral disturbances Continue with aripiprazole Charges/Coding Visit Charges Inpatient E&M: 83275 Subs Hosp L2
[2021-07-27] MEDS: Hyoscyamine Sulfate 0.125 MG Tablet PO ×2 (13:26→20:48)
[2021-07-27] MEDS: Ceftriaxone 1 GM/50 ML BAG IV (20:45)
[2021-07-27] MEDS: Atorvastatin Calcium 80 MG Tablet PO (20:48)
[2021-07-27] MEDS: Gabapentin 100 MG Capsule PO (20:48)
[2021-07-27] MEDS: ARIPiprazole 10 MG Tablet PO (20:48)
[2021-07-27] MEDS: Loratadine 10 MG Tablet PO (20:49)
[2021-07-28] VITALS (7 sets, daily range): BP systolic 133–141; BP diastolic 74–87; PULSE 74–90; RESP 16–18; TEMP 36.4–36.6; O2SAT 97–98
[2021-07-28] MEDS: Lactated Ringers 1,000 ML 100 ML IV ×2 (04:47→15:16)
[2021-07-28] MEDS: Levothyroxine 50 MCG Tablet PO (05:29)
[2021-07-28] MEDS: Heparin Injection (Vial) 5,000 UNIT/ML VIAL 5000 UNIT SC ×2 (05:29→15:16)
[2021-07-28] MEDS: Hyoscyamine Sulfate 0.125 MG Tablet PO (05:29)
[2021-07-28 06:00] LABS: Absolute Lymphocyte Count 0.83 X10^3/uL (0.83-4.51); Absolute Neutrophil Count 6.8 X10^3/uL (2.0-7.7); Basophil# 0.04 X10^3/uL; Basophil% 0.5 % (0-1); Eosinophil# 0.17 X10^3/uL; Eosinophils% 1.9 % (0-5); Hematocrit 25.1 % (40-54); Lymphocyte # 0.83 X10^3/ul (0.83-4.51); Lymphocyte % 9.5 % (19-41); Mean Corp Hgb Conc 31.9 g/dL (32-36); Mean Corpuscular Hgb 27.1 pg (27.0-32.0); Mean Corpuscular Volume 85.1 fL (80-94); Mean Platelet Vol. 10.5 fl (6.2-12.0); Monocyte# 0.83 X10^3/uL; Monocyte% 9.5 % (0-10); NRBC Flagged by Analyzer 0 % (0-5); Neutrophil # 6.79 X10^3/uL (2.7-7.7); Neutrophil % 77.5 % (47-70); Platelet Count 351 K/mm3 (150-450); RBC Distribution Width CV 16.4 % (11.6-14.6); RBC Distribution Width SD 51.5 fl (35.1-43.9); Red Blood Count 2.95 M/mm3 (4.6-6.2); White Blood Count 8.8 K/mm3 (4.4-11.0)
[2021-07-28 06:51] LABS: ALB/GLOB Ratio 0.5 RATIO (0.9-2.4); AST(SGOT) 62 U/L (15-37); Alanine Aminotransfer ALT/SGPT 45 U/L (16-61); Albumin, Serum 1.9 g/dL (3.2-5.0); Alkaline Phosphatase 90 U/L (45-117); Anion Gap 11 (5-15); BUN 51 mg/dL (7-18); BUN/Creat Ratio 8.6 RATIO (10-20); Calcium,Total 8.2 mg/dL (8.5-10.1); Chloride 121 mmol/L (98-107); Creatinine, Serum 5.91 mg/dL (0.70-1.30); EST Glomerular Filtration Rate 11 mL/min (>60); Est Glom Filt Rate - Afr Amer 13 mL/min (>60); Estimated Creatinine Clearance 14.33 ml/min; Glucose 80 mg/dL (74-106); Potassium 3.7 mmol/L (3.5-5.1); Protein, Total 5.9 g/dL (6.4-8.2); Sodium Level 148 mmol/L (136-145)
--- NOTE | 2021-07-28 09:25 | CASEMGMT ---
ANURADHA faxed information to [facility]. ANURADHA also wrote on fax face sheet that patient will likely return today. Samia JONES
[2021-07-28] MEDS: Sodium Chloride 0.65% 1 SPRAY SPRAY.BTL 2 SPRAY NASAL (10:51)
[2021-07-28] MEDS: Fluticasone 0.05% 1 SPRAY NASAL.SRY 2 SPRAY NASAL (10:51)
--- NOTE | 2021-07-28 11:18 | PCM.PN.REN ---
Subjective Subjective no new complaints Objective Data Objective Data Vital Signs: Vital Signs Temp Pulse Resp BP Pulse Ox 97.8 F 87 18 133/87 H 98 07/28/21 09:54 07/28/21 09:54 07/28/21 09:54 07/28/21 09:54 07/28/21 09:54 Oxygen Flow Rate (L/min) 2 Oxygen Delivery Method Room Air Weight: 77.8 kg Body Mass Index (BMI) 23.6 Intake & Output: Intake and Output for Last 24 Hours 07/26/21 07/27/21 07/28/21 23:59 23:59 23:59 Intake Total 2877.53 / 2877.53 2381.66 / 2381.66 1000 / 1000 Output Total 525 / 525 Balance 2352.53 / 2352.53 2381.66 / 2381.66 1000 / 1000 Lab / Micro Data Result Diagrams: 07/28/21 04:44 07/28/21 04:44 Labs: Laboratory Results - last 24 hr 07/28/21 04:44: WBC 8.8, RBC 2.95 L, Hgb 8.0 L, Hct 25.1 L, MCV 85.1, MCH 27.1, MCHC 31.9 L, RDW Std Deviation 51.5 H, RDW Coeff of Tomas 16.4 H, Plt Count 351, MPV 10.5, Immature Gran % (Auto) 1.100 H, Neut % (Auto) 77.5 H, Lymph % (Auto) 9.5 L, [place] % (Auto) 9.5, Eos % (Auto) 1.9, Baso % (Auto) 0.5, Absolute Neuts (auto) 6.8, Absolute Lymphs (auto) 0.83, Nucleated RBC % 0 07/28/21 04:44: Sodium 148 H, Potassium 3.7, Chloride 121 H, Carbon Dioxide 16.0 L, Anion Gap 11, BUN 51 H, Creatinine 5.91 H, Estim Creat Clear Calc 14.33, Est GFR (MDRD) Af Amer 13 L, Est GFR (MDRD) Non-Af 11 L, BUN/Creatinine Ratio 8.6 L, Glucose 80, Calcium 8.2 L, Total Bilirubin 0.30, AST 62 H, ALT 45, Alkaline Phosphatase 90, Total Protein 5.9 L, Albumin 1.9 L, Globulin 4.0, Albumin/Globulin Ratio 0.5 L Micro: Microbiology 07/25/21 20:53 Urine, Clean Catch Urine Culture - Final Pseudomonas aeroginosa 07/25/21 20:00 Mucosa - Nasopharyngeal Influenza Types A,B Direct FA ([place]) - Final Physical Exam Narrative General: No apparent distress. The patient is alert and oriented x3. HEENT: Normocephalic, atraumatic. Mucous membrane moist. PERRLA, EOMI. Neck: Supple, no JVD. Heart: Normal S1, S2 no rubs or murmurs. Lungs: CTAB. Abdomen: Normal bowel sounds, soft, nontender, no guarding or rebound. Extremity: No clubbing, cyanosis, or edema. Neurologic: Left hemiparesis. Dysarthric. Assessment & Plan Assessment/Plan (1) JACI (acute kidney injury): PLAN: he is known to me from before. about 4 years ago he had a [place]. was in for TBI. baseline cr prior to that was not known. came off dialysis and stayed around creatinine of 3.5. I saw him in office couple times and he was lost to follow up. now in [place]. likely end stage kidney. no urgent indications for HD now. will schedule appt as outpatient and discuss about HD options. dw Dr Martinez (2) CKD (chronic kidney disease) stage 4, GFR 15-29 ml/min: (3) Metabolic acidosis: PLAN: stable (4) UTI (urinary tract infection): QUALIFIERS: Urinary tract infection type: catheter-associated UTI Indwelling urinary catheter type: indwelling urethral catheter Encounter type: initial encounter Qualified Code(s): T83.511A - Infection and inflammatory reaction due to indwelling urethral catheter, initial encounter; N39.0 - Urinary tract infection, site not specified
--- NOTE | 2021-07-28 11:37 | TREXTCAR_ITS ---
Diet 07/27/21 10:01 Diet: Regular - General Food consistency:: Pureed Liquid Consistency:: Regular/Thin Is pt able to select menu?: No Diet Comments: total feed, no straws, check for pocketing, freq. oral care Therapies Physical Therapy: Eval and Treat Occupational Therapy: Eval and Treat Speech Therapy: Eval and Treat Problem/Diagnosis (1) JACI (acute kidney injury): Status: Acute (2) CKD (chronic kidney disease) stage 4, GFR 15-29 ml/min: Status: Acute (3) Metabolic acidosis: Status: Acute (4) UTI (urinary tract infection): Status: Acute Allergies/Procedures Done in Hospital Allergies No Known Allergies Allergy (Verified 07/25/21 19:45) Type of Care/Length of Stay Estimated LOS: Convalescent Care Less Than 30 days Type of Care Needed: Skilled Rehab Potential: Fair Prognosis: Fair Additional Orders/Day of Discharge Day of Discharge: 07/28/21 Dietary and Speech Recommendations Dietitian Recommendations/Changes: As medically able, rec ANTONINA to Renal / protein restricted - consistency per PATIENT CASE COORDINATOR Monitor need for oral nutrition supplements pending po intake once established Discharge Plan Admission Admit Date/Time: 07/25/21 21:48 Primary Reason for Your Visit: Confusion Attending Provider: Jorge Alberto Martinez Primary Care Provider: Yesy Ortiz Consulting Providers: Luis Manuel Maza ; Markel Askew Discharge Orders/Prescriptions Prescriptions: New ciprofloxacin HCl 500 mg tablet 500 mg PO BID Qty: 6 RF: 0 Continued metoprolol tartrate 25 mg tablet 12.5 mg PO BID RF: 0 aspirin 81 MG tablet,chewable 81 mg PO DAILY@0800 RF: 0 fluoxetine 10 mg Tablet 10 mg PO DAILY RF: 0 levothyroxine 50 mcg Tablet 50 mcg PO DAILY RF: 0 hyoscyamine 0.15 mg Tablet 0.125 mg PO TID RF: 0 rosuvastatin [Crestor] 40 mg Tablet 40 mg PO QHS RF: 0 gabapentin 300 mg Tablet 300 mg PO QHS RF: 0 fenofibrate nanocrystallized 145 mg Tablet 145 mg PO DAILY RF: 0 aripiprazole 10 mg Tablet 10 mg PO QHS RF: 0 polyethylene glycol 3350 [Miralax] 17 gram Powder In Packet 17 g PO DAILY RF: 0 fluticasone propionate 50 mcg/actuation [place],Suspension 2 spray INTRANASAL DAILY RF: 0 Saline Nasal 0.65 % Aerosol,[place] 2 spray INTRANASAL BID RF: 0 cholecalciferol (vitamin D3) 1,250 mcg (50,000 unit) Tablet 1,250 mcg PO MOWEFR RF: 0 levocetirizine [Xyzal] 5 mg Tablet 5 mg PO QPM RF: 0 amlodipine 5 mg Tablet 5 mg PO DAILY Qty: 0 RF: 0 Ativan 0.5 mg PO/SL 4X/DAY RF: 0 Referrals / Follow Up: Yesy Ortiz [Primary Care Provider] - Disposition Disposition (needs filled in before D/C Order can be placed): Nursing Home Facility
--- NOTE | 2021-07-28 11:58 | CASEMGMT ---
ANURADHA called [facility] and no one was available in admissions. ANURADHA spoke with Kristi letting her know about discharge today. ANURADHA will let them know a time and also fax orders once completed. Samia Harrell [employer] CLERK KAREN
--- NOTE | 2021-07-28 14:13 | SP.MBSS_ITS ---
Modified Barium Swallow - Patient Information Study Date: 07/28/21 Study Time: 12:00 Direct Billable Minutes: 110 Total Minutes procedure & reportin Diagnosis: Severe sepsis (A41.9), Altered mental status (R41.82) Referring Physician: Jorge Alberto Martinez Reason for Referral: Objectively assess swallow function and risk for aspiration. Medical History: SHIRLENE HERNANDEZ, is a 61 M who is a patient at the assisted with a significant history of left-sided CVA and vascular dementia and who was admitted at the hospital on July 15 to July 21, 2021 with COVID returning because of fever. Patient daughter reported that patient has been having fever for couple of days without being able to state the exact date. Associated with patient's s ymptoms is nausea, vomiting, and malaise. Because of nausea and vomiting on the same day of presentation the assisted started patient on clear liquid diet. Patient has some productive cough. 07/26/2021 Speech therapy evaluated pt and recommended NPO sips and chips. Pt was upgraded to Puree textures / Thin liquids with TOTAL FEED to ensure use of aspiration precautions. Pt referred for MBS study due to oral holding and sensation of pain in chest during meals. Medical History Anxiety and depression Arthritis Back problem Bone fracture Brain aneurysm H/O transfusion of whole blood HTN (hypertension) Hypothyroidism Kidney disease Kidney failure Seasonal allergies Seizure Stroke Vascular dementia Vitamin D deficiency Current Diet Ordered: Puree Textures / Thin Liquids Dentition: Missing Teeth Mental Status: WNL Respiratory Status: Oxygenating on Room Air - Penetration-Aspiration Scale Penetration-Aspiration Scale: OBJECTIVE ASSESSMENT OF SWALLOW FUNCTION (QUANTITATIVE ? PER TRIAL): PENETRATION / ASPIRATION SCALE (VÁZQUEZ): 1 = does not enter airway 2 = enters airway/above vocal folds/ejected 3 = enters airway/above vocal folds/not ejected 4 = enters airway/contacts vocal folds/ejected 5 = enters airway/contacts vocal folds/not ejected 6 = enters airway/below vocal folds/ejected 7 = enters airway/below vocal folds/not ejected despite effort 8 = enters airway/below vocal folds/no effort - Penetration-Aspiration Scale Score Thin Liquid via teaspoon Result: 7= enters airways/below vocal folds/not ejected despite effort Thin Liquid via 1/2 teaspoon Result: 1= does not enter airway - Patient required cue to swallow due to oral holding. Thin Liquid via teaspoon Trial 2 Result: 1= does not enter airway Thin Liquid via small single sip from cup Result: 2= enter airway/above vocal folds/ejected Thin Liquid via small single sip from cup Trial 2 Result: 1= does not enter airway [place] Thick Liquid via small single sip from cup Result: 1= does not enter airway Honey Thick Liquid via small single sip from cup Result: 1= does not enter airway Pudding with esophageal screen Result: 1= does not enter airway 1/4 Becca Doone Cookie Result: 1= does not enter airway Thin Liquid via single sip from straw Result: 8= enters airway/below vocal folds/no effort Thin Liquid via teaspoon Trial 3 Result: 2= enter airway/above vocal folds/ejected Thin Liquid via small single sip from cup Trial 3 Result: 1= does not enter airway - Patient verbalized pain at chest level after the swallow. Upon esophageal screen, patient had retention of contrast in the mid and distal esophagus, as well as slowed emptying. [place] Thick Liquid via teaspoon Result: 1= does not enter airway [place] Thick Liquid via single sip from straw Result: 2= enter airway/above vocal folds/ejected - Oral Phase Labial Seal: Interlabial escape, no progression to anterior lip Tongue Control During Bolus Hold: Posterior escape of less than half of bolus Bolus Preparation/Mastication: Slow prolonged chewing/mashing with complete recollection Bolus Transport/Lingual Motion: Repetitive/disorganized tongue motion Oral Residue: Trace residue lining oral structures - Pharyngeal Phase Initiation of Pharyngeal Swallow: Bolus head at posterior laryngeal surgace of epiglottis Soft Palate Elevation: No bolus between soft palate and pharyngeal wall Laryngeal Elevation: Partial superior movement thyroid cart/partial apprx aryt- epig petiole Anterior Hyoid Excursion: Partial anterior movement Epiglottic Movement: Partial inversion Laryngeal Vestibule Closure at Height of Swallow: Incomplete; narrow column of air/contrast in laryngeal vestibule Pharyngeal Stripping Wave: Present - diminished Pharyngoesophageal Segment Opening: Parital distension and partial duration; parital obstruction of flow Tongue Base Retraction: Narrow column of contrast between tongue base & post. pharyngeal wall Pharyngeal Residue: Collection of residue within or on pharyngeal structures - Esophageal Phase Esophageal Clearance: Esophageal retention - Diagnosis/Impression Diagnosis: mild-moderate oropharyngeal phase dysphagia (R13.12) Impression: The oral phase is marked by deficits in prolonged mastication, delayed initiation of A-P transport, and decreased bolus control. The patient demonstrated oral holding and required cues on two trials to initiate A-P transport of bolus and the pharyngeal phase of the swallow. He had mild oral residues. The pharyngeal phase of the swallow was marked by decreased airway protection due to decreased laryngeal elevation and anterior hyoid excursion. He had delayed swallow onset. He had increased pharyngeal residue as sip size increased, likely due to deficits in tongue base retraction and pharyngeal contraction. The patient demonstrated SILENT aspiration of thin liquids via straw. He also demonstrated overt aspiration of thin liquid via tsp, with ineffective cough reflex. The patient also demonstrated laryngeal penetration of nectar liquid via straw and thin liquid via tsp and cup. He verbalized he had pain in his chest twice during the swallow study and presented with retention of bolus in his mid and distal esophagus as well as slowed esophageal motility. - Recommendations Diet: Mechanical Soft Textures - Minced and Moist Textures (IDDSI Level 5), [place]-thick Liquids Comment: Verbally cue swallow if oral holding. Check for pocketing. Compensatory Strategies: Small Bites, Small Sips, No Straws, Slow Rate, Sitting upright, Remain sitting upright for 30 minutes after PO intake Supervision: Total Feed Recommend Repeat Modified Barium Swallow: Yes - Would recommend repeat MBS study prior to diet upgrade due to presence of SILENT aspiration of thin liquids. Need for Skilled Speech Therapy Services: Yes Comment: Will recommend the patient for continued dysphagia therapy to address deficits in oropharyngeal swallow function. Would consider the patient for oropharyngeal strengthening to improve lingual laryngeal elevation, hyoid excursion, tongue base retraction, and pharyngeal retraction. The patient would benefit from thorough education regarding diet recommendations and recommended compensatory strategies. Would consider the patient for downgrade to puree textures if frequently pocketing minced and moist textures at meals. Recommended Referrals: GI Consult - Esophageal retention in mid and distal esophagus. Slowed esophageal motility. Patient reporting pain in chest level after the swallow 2X during study. Education Completed: 1. Described result of evaluation., 7. Pt requires further education on strategies & risks. - Status Active ST Patient: Active - Contact Information [facility] Speech Therapy:: Alana Sparks M.A. CCC-FIRE PREVENTION INSPECTOR Speech-Language Pathologist [facility] [address] [place] [address] [email or web address] [phone] 07/28/21 14:33
--- NOTE | 2021-07-28 14:57 | PCM.DC.SUM ---
Documented by User: Ankur DEVINE 07/28/21 15:05 Providers Date of Admission: 07/25/21 Primary Care Physician: Yesy Ortiz Consultations 07/25/21 23:09 Consult: Global Regulatory Affairs Manager / Pulmonary Medicine Routine Consulting Provider: Luis Manuel Maza Reason for Consult: Severe sepsis EMERGENT Consult: No Notified: Yes Date Notified: 07/25/21 Time Notified: 21:57 Method of Notification: Text Consult: Nephrology Routine Consulting Provider: Markel Askew Reason for Consult: jaci EMERGENT Consult: No Notified: Yes Date Notified: 07/26/21 Time Notified: 07:26 Method of Notification: Answering Service Reason For Visit: SEVERE SEPSIS Diagnosis Discharge Diagnosis (1) JACI (acute kidney injury): Status: Resolved Code(s): N17.9 - Acute kidney failure, unspecified (2) CKD (chronic kidney disease) stage 4, GFR 15-29 ml/min: Code(s): N18.4 - Chronic kidney disease, stage 4 (severe) (3) Metabolic acidosis: Status: Resolved Code(s): E87.2 - Acidosis (4) UTI (urinary tract infection): Status: Acute Code(s): N39.0 - Urinary tract infection, site not specified Qualifiers: Encounter type: initial encounter Indwelling urinary catheter type: indwelling urethral catheter Urinary tract infection type: catheter-associated UTI Qualified Code(s): T83.511A - Infection and inflammatory reaction due to indwelling urethral catheter, initial encounter; N39.0 - Urinary tract infection, site not specified Medications at Discharge Home Medications aspirin 81 mg PO DAILY@0800 05/08/17 metoprolol tartrate 25 mg tablet 12.5 mg PO BID tab 06/02/18 fenofibrate nanocrystallized 145 mg PO DAILY 07/15/21 fluoxetine 10 mg PO DAILY 07/15/21 gabapentin 300 mg PO QHS 07/15/21 hyoscyamine 0.125 mg PO TID 07/15/21 levothyroxine 50 mcg PO DAILY 07/15/21 rosuvastatin [Crestor] 40 mg PO QHS 07/15/21 Saline Nasal 2 spray INTRANASAL BID 07/16/21 aripiprazole 10 mg PO QHS 07/16/21 cholecalciferol (vitamin D3) 1,250 mcg PO MOWEFR 07/16/21 fluticasone propionate 2 spray INTRANASAL DAILY 07/16/21 levocetirizine [Xyzal] 5 mg PO QPM 07/16/21 polyethylene glycol 3350 [Miralax] 17 g PO DAILY 07/16/21 amlodipine 5 mg PO DAILY #0 tab 07/21/21 Ativan 0.5 mg PO/SL 4X/DAY 07/25/21 ciprofloxacin HCl 500 mg PO BID #6 tab 07/28/21 Hospital Course Summary of Care Provided Minutes Spent on Discharge: 20 Hospital Course: Patient is a 61-year-old male with a significant history of vascular dementia who was admitted to the hospital on 07/25/2021 for evaluation/management of severe sepsis secondary to UTI. Patient was diagnosed with a catheter associated UTI which grew Pseudomonas, patient was placed on empiric Zosyn. Patient's cultures showed sensitivity to ciprofloxacin which was provided on discharge. Admission was also noted that patient had a acute kidney injury which was superimposed on CKD stage IV, nephrology was consulted. Patient was treated with fluids and did improve, there were no indications for hemodialysis while admitted. Patient is to follow-up with primary care provider and nephrology within the next 2 weeks. Patient seen by Ankur Ray PA-C, under the supervision of Dr. Martinez. Physical Exam Narrative Patient is a 61-year-old male lying in bed, alert and orient to self. Patient is unable to provide much insight into his current condition as his verbal status is limited at baseline. Does not appear in acute distress. Const alert, oriented x3 and no apparent distress HEENT normocephalic, head/scalp atraumatic and hearing grossly normal bilaterally Eyes PERRL, EOMs intact bilaterally and conjunctivae normal Neck no lymphadenopathy, supple and no JVD Resp normal respiratory effort, no retractions, no use of accessory muscles and clear to auscultation bilaterally Cardio regular rate, regular rhythm, no murmurs and no JVD GI normal to inspection, nondistended, normoactive bowel sounds, soft to palpation and non-tender Extremity normal to inspection, full ROM and no clubbing, cyanosis or edema Skin no rashes or lesions noted, no wounds and skin turgor normal Neuro CN's II-XII intact bilaterally Psych affect normal Medical Records Data Medical Nutrition Assessment Dietitian: Malnutrition Criteria Met Start: 07/28/21 11:40 Freq: Status: Active Protocol: Document 07/28/21 11:40 RMA (Rec: 07/28/21 11:41 RMA [id number]) Nutrition Malnutrition Evidence of Malnutrition Exists Yes Malnutrition (severe): Acute Illness/Injury Evidenced By Suboptimal Energy Intake ( Moderate),Weight Loss (Severe) Intake Problem Inadequate Oral Intake Etiology related to failed nsg dysphagia screen Signs/Symptoms as evidenced by NPO status Status Resolved Problem Clinical Problem Acute Disease or Injury Related Malnutrition Etiology Severe protein/calorie malnutrition in the context of acute illness related to inadequate oral intake/ difficulty chewing and swallowing Signs/Symptoms as evidenced by ~3% wt loss x past 1-2 weeks and oral intake meeting less than 50-75% estimated nutrition needs Status Active Problem Altered Nutrient-Related Laboratory Values Etiology related to renal dysfunction Signs/Symptoms as evidenced by BUN 51, Cr 5. 91 - nephrology being consulted Status Active Problem Recommendation Dietitian Recommendations/Changes As medically able, rec ANTONINA to Renal / protein restricted - consistency per MEDICAL EDUCATION SPECIALIST Monitor need for oral nutrition supplements pending po intake once established Weight / BMI Weight Weight: 171 lb 8.314 oz Body Mass Index (BMI) 23.6 ABG / Lab / Microbiology Data Result Diagrams: 07/28/21 04:44 07/28/21 04:44 Laboratory: Laboratory Results - last 24 hr 07/28/21 04:44: WBC 8.8, RBC 2.95 L, Hgb 8.0 L, Hct 25.1 L, MCV 85.1, MCH 27.1, MCHC 31.9 L, RDW Std Deviation 51.5 H, RDW Coeff of Tomas 16.4 H, Plt Count 351, MPV 10.5, Immature Gran % (Auto) 1.100 H, Neut % (Auto) 77.5 H, Lymph % (Auto) 9.5 L, [place] % (Auto) 9.5, Eos % (Auto) 1.9, Baso % (Auto) 0.5, Absolute Neuts (auto) 6.8, Absolute Lymphs (auto) 0.83, Nucleated RBC % 0 07/28/21 04:44: Sodium 148 H, Potassium 3.7, Chloride 121 H, Carbon Dioxide 16.0 L, Anion Gap 11, BUN 51 H, Creatinine 5.91 H, Estim Creat Clear Calc 14.33, Est GFR (MDRD) Af Amer 13 L, Est GFR (MDRD) Non-Af 11 L, BUN/Creatinine Ratio 8.6 L, Glucose 80, Calcium 8.2 L, Total Bilirubin 0.30, AST 62 H, ALT 45, Alkaline Phosphatase 90, Total Protein 5.9 L, Albumin 1.9 L, Globulin 4.0, Albumin/Globulin Ratio 0.5 L Microbiology: Microbiology 07/25/21 20:11 Blood Culture (Wb) - Right Hand Blood Culture - Preliminary No growth in 48 hours. 07/25/21 19:54 Blood Culture (Wb) - Anticubital Right Blood Culture - Preliminary No growth in 48 hours. 07/25/21 20:53 Urine, Clean Catch Urine Culture - Final Pseudomonas aeroginosa 07/25/21 20:00 Mucosa - Nasopharyngeal Influenza Types A,B Direct FA ([place]) - Final Meaningful Use Info Meaningful Use Diagnoses (Choose all that apply): None applicable Discharge Plan Admission Admit Date/Time: 07/25/21 21:48 Primary Reason for Your Visit: Confusion Attending Provider: Jorge Alberto Martinez Primary Care Provider: Yesy Ortiz Consulting Providers: Luis Manuel Maza ; Markel Askew Discharge Orders/Prescriptions Prescriptions: New ciprofloxacin HCl 500 mg tablet 500 mg PO BID Qty: 6 RF: 0 Continued metoprolol tartrate 25 mg tablet 12.5 mg PO BID RF: 0 aspirin 81 MG tablet,chewable 81 mg PO DAILY@0800 RF: 0 fluoxetine 10 mg Tablet 10 mg PO DAILY RF: 0 levothyroxine 50 mcg Tablet 50 mcg PO DAILY RF: 0 hyoscyamine 0.15 mg Tablet 0.125 mg PO TID RF: 0 rosuvastatin [Crestor] 40 mg Tablet 40 mg PO QHS RF: 0 gabapentin 300 mg Tablet 300 mg PO QHS RF: 0 fenofibrate nanocrystallized 145 mg Tablet 145 mg PO DAILY RF: 0 aripiprazole 10 mg Tablet 10 mg PO QHS RF: 0 polyethylene glycol 3350 [Miralax] 17 gram Powder In Packet 17 g PO DAILY RF: 0 fluticasone propionate 50 mcg/actuation [place],Suspension 2 spray INTRANASAL DAILY RF: 0 Saline Nasal 0.65 % Aerosol,[place] 2 spray INTRANASAL BID RF: 0 cholecalciferol (vitamin D3) 1,250 mcg (50,000 unit) Tablet 1,250 mcg PO MOWEFR RF: 0 levocetirizine [Xyzal] 5 mg Tablet 5 mg PO QPM RF: 0 amlodipine 5 mg Tablet 5 mg PO DAILY Qty: 0 RF: 0 Ativan 0.5 mg PO/SL 4X/DAY RF: 0 Referrals / Follow Up: Yesy Ortiz [Primary Care Provider] - Disposition Disposition (needs filled in before D/C Order can be placed): [facility] Facility Documented by User: Dr. Jorge Alberto Martinez MD 07/29/21 08:03 Providers Date of Admission: 07/25/21 Reason For Visit: SEVERE SEPSIS Medications at Discharge Home Medications aspirin 81 mg PO DAILY@0800 05/08/17 metoprolol tartrate 25 mg tablet 12.5 mg PO BID tab 06/02/18 fenofibrate nanocrystallized 145 mg PO DAILY 07/15/21 fluoxetine 10 mg PO DAILY 07/15/21 gabapentin 300 mg PO QHS 07/15/21 hyoscyamine 0.125 mg PO TID 07/15/21 levothyroxine 50 mcg PO DAILY 07/15/21 rosuvastatin [Crestor] 40 mg PO QHS 07/15/21 Saline Nasal 2 spray INTRANASAL BID 07/16/21 aripiprazole 10 mg PO QHS 07/16/21 cholecalciferol (vitamin D3) 1,250 mcg PO MOWEFR 07/16/21 fluticasone propionate 2 spray INTRANASAL DAILY 07/16/21 levocetirizine [Xyzal] 5 mg PO QPM 07/16/21 polyethylene glycol 3350 [Miralax] 17 g PO DAILY 07/16/21 amlodipine 5 mg PO DAILY #0 tab 07/21/21 Ativan 0.5 mg PO/SL 4X/DAY 07/25/21 ciprofloxacin HCl 500 mg PO BID #6 tab 07/28/21 Hospital Course Operations None Summary of Care Provided Minutes Spent on Discharge: 40 Hospital Course: This patient was seen in conjunction with Ankur Ray, PA-C. I have independently interviewed and examined the patient and reviewed pertinent historical, laboratory, and other data. Please refer to Ankur Ray PA-C's note for details of this patient's presentation, findings, and recommendations. I have reviewed Ankur Ray PA-C's note and concur with documented findings. In brief, patient is a 61-year-old gentleman resident at an extended care facility with past medical history single for CKD stage IV, hypertension, dyslipidemia was brought to the emergency department from his ECF with suspicion for sepsis. Patient was found to have acute cystitis urine cultures grew Pseudomonas. Patient was also seen in consultation by nephrology. GENERAL: cooperative HEENT: Atraumatic; EYES; Anicteric, Normal Conjunctiva NECK; supple, normal thyroid, RESPIRATORY: Diminished to auscultation CARDIOVASCULAR: Regular S1 S2, GI: soft, normoactive bowel sounds, : No Renal angle tenderness; EXTREMITIES: No edema, no clubbing, MUSCULOSKELETAL: no muscle waisting NEURO: Awake; no lateralizing signs. SKIN: No Rash PSYCH; Flat affect Hospital course; as documented above Total time spent by myself and the advanced practice practitioner evaluating patient, reviewing labs, subsequent management decisions, discussion with patient as well as other providers 40 minutes ( 25 of which was spent by myself) ABG / Lab / Microbiology Data Result Diagrams: 07/28/21 04:44 07/28/21 04:44 Discharge Plan Admission Admit Date/Time: 07/25/21 21:48 Primary Reason for Your Visit: Confusion Attending Provider: Jorge Alberto Martinez Primary Care Provider: Yesy Ortiz Consulting Providers: Luis Manuel Maza ; Markel Askew Discharge Orders/Prescriptions Prescriptions: New ciprofloxacin HCl 500 mg tablet 500 mg PO BID Qty: 6 RF: 0 Continued metoprolol tartrate 25 mg tablet 12.5 mg PO BID RF: 0 aspirin 81 MG tablet,chewable 81 mg PO DAILY@0800 RF: 0 fluoxetine 10 mg Tablet 10 mg PO DAILY RF: 0 levothyroxine 50 mcg Tablet 50 mcg PO DAILY RF: 0 hyoscyamine 0.15 mg Tablet 0.125 mg PO TID RF: 0 rosuvastatin [Crestor] 40 mg Tablet 40 mg PO QHS RF: 0 gabapentin 300 mg Tablet 300 mg PO QHS RF: 0 fenofibrate nanocrystallized 145 mg Tablet 145 mg PO DAILY RF: 0 aripiprazole 10 mg Tablet 10 mg PO QHS RF: 0 polyethylene glycol 3350 [Miralax] 17 gram Powder In Packet 17 g PO DAILY RF: 0 fluticasone propionate 50 mcg/actuation [place],Suspension 2 spray INTRANASAL DAILY RF: 0 Saline Nasal 0.65 % Aerosol,[place] 2 spray INTRANASAL BID RF: 0 cholecalciferol (vitamin D3) 1,250 mcg (50,000 unit) Tablet 1,250 mcg PO MOWEFR RF: 0 levocetirizine [Xyzal] 5 mg Tablet 5 mg PO QPM RF: 0 amlodipine 5 mg Tablet 5 mg PO DAILY Qty: 0 RF: 0 Ativan 0.5 mg PO/SL 4X/DAY RF: 0 Referrals / Follow Up: Yesy Ortiz [Primary Care Provider] - Disposition Disposition (needs filled in before D/C Order can be placed): [facility] Facility Charges/Coding Visit Charges Inpatient E&M: 40620 [facility] Hosp Hospital Course Consultations Consultations: Consultations 07/25/21 23:09 Consult: Global Regulatory Affairs Manager / Pulmonary Medicine Routine Consulting Provider: Luis Manuel Maza Reason for Consult: Severe sepsis EMERGENT Consult: No Notified: Yes Date Notified: 07/25/21 Time Notified: 21:57 Method of Notification: Text Consult: Nephrology Routine Consulting Provider: Markel Askew Reason for Consult: jaci EMERGENT Consult: No Notified: Yes Date Notified: 07/26/21 Time Notified: 07:26 Method of Notification: Answering Service Operations None
--- NOTE | 2021-07-28 15:28 | CASEMGMT ---
ANURADHA arranged for patient to get picked up at 1830. ANURADHA faxed orders and picker/puller time to [facility]. ANURADHA also called [facility] and notified the secretary office clerk. ANURADHA updated RN and patient's daughter. Plan: d/c back to [facility] under intermediate level of care. [facility] transported via cot. Samia JONES
--- NOTE | 2021-07-28 17:42 | NURSING ---
This RN called report to Dana at [facility] and informed her that pepper picker time is scheduled for 1830 this evening.
[2021-07-29 10:15] LABS: Pathologist Review Reviewed
[2021-07-29 10:18] LABS: Pathologist Review Reviewed
== END 2021-07-28 19:15 | disposition skilled nursing facility (03) | DRG 466 ==
LOC: ED 21:40 → ICU 22:54 → PCU 07-26 13:44 → ICU 07-26 16:29
PROVIDERS: Admitting Provider Hospitalist; Emergency Provider Emergency Medicine; PCP Internal Medicine Geriatric Medicine; Visit Provider Internal Medicine
DX: T83.511A Infection and inflammatory reaction due to indwelling urethral catheter, initial encounter (principal); A41.9 Sepsis, unspecified organism; E46 Unspecified protein-calorie malnutrition; N17.9 Acute kidney failure, unspecified; U07.1 COVID-19; N18.4 Chronic kidney disease, stage 4 (severe); I69.354 Hemiplegia and hemiparesis following cerebral infarction affecting left non-dominant side; F01.50 Vascular dementia, unspecified severity, without behavioral disturbance, psychotic disturbance, mood disturbance, and anxiety; G40.909 Epilepsy, unspecified, not intractable, without status epilepticus; E87.2 Acidosis; I69.322 Dysarthria following cerebral infarction; B96.5 Pseudomonas (aeruginosa) (mallei) (pseudomallei) as the cause of diseases classified elsewhere; F41.9 Anxiety disorder, unspecified; E78.5 Hyperlipidemia, unspecified; I12.9 Hypertensive chronic kidney disease with stage 1 through stage 4 chronic kidney disease, or unspecified chronic kidney disease; N30.00 Acute cystitis without hematuria; F32.A Depression, unspecified; Z87.891 Personal history of nicotine dependence; Z79.82 Long term (current) use of aspirin; Z68.23 Body mass index [BMI] 23.0-23.9, adult
CPT/HCPCS: 36415; 71045; 74230; 80048; 80053; 81001; 83605; 85025; 85610; 85730; 87040; 87077; 87086; 87088; 87186; 87804; 92526; 92610; 92611; 93005; 97162; 97166; 97530; 97535; 97803; 99285; J7030; J7120; A4216

== ENCOUNTER 2021-07-30 01:05 | Emergency (ER) | payer MEDICAID, SELFPAY ==
[2021-07-30 01:07] VITALS: BP 128/76; PULSE 77; RESP 16; TEMP 35.9; O2SAT 95; BMI 24.9
[2021-07-30 01:46] LABS: Absolute Lymphocyte Count 1.09 X10^3/uL (0.83-4.51); Absolute Neutrophil Count 6.1 X10^3/uL (2.0-7.7); Basophil# 0.06 X10^3/uL; Basophil% 0.7 % (0-1); Eosinophil# 0.17 X10^3/uL; Hematocrit 28.7 % (40-54); Hemoglobin 8.8 g/dL (13.0-16.5); Lymphocyte # 1.09 X10^3/ul (0.83-4.51); Lymphocyte % 12.9 % (19-41); Mean Corp Hgb Conc 30.7 g/dL (32-36); Mean Corpuscular Hgb 26.7 pg (27.0-32.0); Mean Corpuscular Volume 87.2 fL (80-94); Monocyte# 0.91 X10^3/uL; Monocyte% 10.7 % (0-10); NRBC Flagged by Analyzer 0 % (0-5); Neutrophil # 6.09 X10^3/uL (2.7-7.7); Neutrophil % 71.9 % (47-70); Platelet Count 458 K/mm3 (150-450); RBC Distribution Width CV 16.7 % (11.6-14.6); RBC Distribution Width SD 53.1 fl (35.1-43.9); Red Blood Count 3.29 M/mm3 (4.6-6.2); White Blood Count 8.5 K/mm3 (4.4-11.0)
[2021-07-30 02:39] LABS: Anion Gap 8 (5-15); BUN 52 mg/dL (7-18); BUN/Creat Ratio 8.6 RATIO (10-20); Calcium,Total 8.4 mg/dL (8.5-10.1); Chloride 124 mmol/L (98-107); Creatinine, Serum 6.03 mg/dL (0.70-1.30); EST Glomerular Filtration Rate 10 mL/min (>60); Est Glom Filt Rate - Afr Amer 12 mL/min (>60); Estimated Creatinine Clearance 14.05 ml/min; Glucose 99 mg/dL (74-106); Magnesium 2.2 mg/dL (1.6-2.6); Phosphorus 4.3 mg/dL (2.5-4.9); Potassium 4.7 mmol/L (3.5-5.1); Sodium Level 152 mmol/L (136-145); Thyroid Stim Hormone (TSH) 3.59 uIU/mL (0.358-3.74)
--- NOTE | 2021-07-30 02:51 | EDS_ITS ---
HPI History of Present Illness Chief Complaint: General Illness Narrative Narrative: Patient is a 61-year-old male with past medical history of brain aneurysm and recent admission to the hospital for urosepsis. He was discharged from the hospital to the senior living and was also recently Covid positive. Reportedly the patient's had increased fatigue and after shift change this evening was sent to the hospital based on what the staff felt was depressed mental status. Upon arrival to the ER the patient is at his baseline mental status. He has no complaints. Daughter is present and states that he is at his normal/baseline and she states she is unsure why he was sent in. [facility] Medical History Anxiety and depression Aphasia Arthritis Back problem Bone fracture Brain aneurysm Chronic kidney disease, stage 4 (severe) CKD (chronic kidney disease) stage 4, GFR 15-29 ml/min Essential (primary) hypertension Foot drop, left H/O transfusion of whole blood History of hemorrhagic stroke with residual hemiparesis HTN (hypertension) Hypothyroidism Ingrown left big toenail Ingrown nail Kidney disease Kidney failure Major depressive disorder Seasonal allergies Seizure Seizure Stroke Thyroid dysfunction Tinea unguium Toe pain, left Toe pain, right Vascular dementia Vitamin D deficiency Home Medications aspirin 81 mg PO DAILY@0800 05/08/17 [History Last Taken 05/13/17] metoprolol tartrate 25 mg tablet 12.5 mg PO BID tab 06/02/18 [History Last Taken Unknown] fenofibrate nanocrystallized 145 mg PO DAILY 07/15/21 [History Last Taken Unknown] fluoxetine 10 mg PO DAILY 07/15/21 [History Last Taken Unknown] gabapentin 300 mg PO QHS 07/15/21 [History Last Taken Unknown] hyoscyamine 0.125 mg PO TID 07/15/21 [History Last Taken Unknown] levothyroxine 50 mcg PO DAILY 07/15/21 [History Last Taken Unknown] rosuvastatin [Crestor] 40 mg PO QHS 07/15/21 [History Last Taken Unknown] Saline Nasal 2 spray INTRANASAL BID 07/16/21 [History Last Taken Unknown] aripiprazole 10 mg PO QHS 07/16/21 [History Last Taken Unknown] cholecalciferol (vitamin D3) 1,250 mcg PO MOWEFR 07/16/21 [History Last Taken Unknown] fluticasone propionate 2 spray INTRANASAL DAILY 07/16/21 [History Last Taken Unknown] levocetirizine [Xyzal] 5 mg PO QPM 07/16/21 [History Last Taken Unknown] polyethylene glycol 3350 [Miralax] 17 g PO DAILY 07/16/21 [History Last Taken Unknown] amlodipine 5 mg PO DAILY #0 tab 07/21/21 [Rx Last Taken Unknown] Ativan 0.5 mg PO/SL 4X/DAY 07/25/21 [History Last Taken Unknown] ciprofloxacin HCl 500 mg PO BID #6 tab 07/28/21 [Rx Last Taken Unknown] lorazepam 0.5 mg PO TID PRN 07/30/21 [History Last Taken Unknown] Allergy/AdvReac Type Severity Reaction Status Date / Time No Known Allergies Allergy Verified 07/30/21 01:13 Family History Unknown Arthritis Breast cancer Mother Kidney stones Father Hypertension Other Colon cancer Surgical History H/O left inguinal hernia repair History of tonsillectomy and adenoidectomy S/P clamping of cerebral aneurysm Social History housing: senior living Smoking Status: Former smoker how long ago did patient quit smoking: Quit 2017 after CVA, smoked 1 ppd since teen until quit. alcohol intake: never substance use type: does not use ROS ROS ED Constitutional Constitutional ED: Denies chills or fever(s) Eyes Eyes: Denies change in vision ENT ENT ED: Denies sore throat Cardiovascular Cardiovascular: Denies chest pain Respiratory/Chest Respiratory/Chest: Denies cough or dyspnea Gastrointestinal Gastrointestinal: Denies abdominal pain or vomiting Musculoskeletal Musculoskeletal: Denies myalgias Integumentary Denies rash Neurologic Neurologic: Denies headache(s) Hematologic/Lymphatic Hematologic/Lymphatic: Denies easy bleeding or easy bruising EXAM Physical Exam Const Vital Signs: 07/30/21 01:07 07/30/21 01:14 Temperature 96.6 F L Temperature Source Temporal Pulse Rate 77 Respiratory Rate 16 Respiratory Effort Normal Respiratory Pattern Normal Blood Pressure 128/76 H Blood Pressure Mean 93 Pulse Ox 95 Oxygen Delivery Method Room Air Positive well nourished and well developed General Appearance ED: well developed HEENT Reports dry mucous membranes Mouth ED: Yes dry mucous membranes Mouth: dry mucous membranes Eyes PERRL and EOMs intact bilaterally Neck supple Resp normal respiratory effort and clear to auscultation bilaterally Cardio regular rate and regular rhythm Rate: other Other Details: Radial pulses are +2-4 bilaterally are equal and symmetric GI normal to inspection, nondistended, normoactive bowel sounds, non-tender, non- distended and no masses GI Narrative: No voluntary guarding or rigidity no pulsatile mass Auscultation: normoactive bowel sounds Palpation: soft Extremity Extremity Narrative: Patient has contracture of the left arm consistent with previous CVA but otherwise no signs of bony injury Neuro oriented x3 Neuro Narrative: Patient has chronic changes from previous neurologic event but is awake and alert at baseline mental status with no new deficit Sensorium / Orientation: alert Psych mental status grossly normal Skin no rashes or lesions noted Skin Narrative: Skin turgor is increased MDM MDM MDM Narrative Medical decision making narrative: Patient presented to the ER with stable vitals and at baseline mental status. Daughter was present as well and states that he received an x-ray recently which showed no acute findings. Therefore at this time he is he is in no respiratory distress and satting well do not feel there is a need for chest x-ray. Based on his underlying chronic medical conditions I did repeat basic laboratory findings. Patient does have chronic changes however these are stable in nature when reviewed with previous values. At this time the patient's labs are stable his vitals are stable he is at his baseline mental status. Therefore do not feel there is need for further work-up or repeat admission and patient can be discharged back to the senior living. Lab Data Attestation: I reviewed the patient's lab results. Labs: Laboratory Results - last 24 hr 07/30/21 07/30/21 01:30 01:30 WBC 8.5 RBC 3.29 L Hgb 8.8 L Hct 28.7 L MCV 87.2 MCH 26.7 L MCHC 30.7 L RDW Std Deviation 53.1 H RDW Coeff of Tomas 16.7 H Plt Count 458 H MPV 11.0 Immature Gran % (Auto) 1.800 H Neut % (Auto) 71.9 H Lymph % (Auto) 12.9 L [place] % (Auto) 10.7 H Eos % (Auto) 2.0 Baso % (Auto) 0.7 Absolute Neuts (auto) 6.1 Absolute Lymphs (auto) 1.09 Nucleated RBC % 0 Sodium 152 H Potassium 4.7 Chloride 124 H Carbon Dioxide 20.0 L Anion Gap 8 BUN 52 H Creatinine 6.03 H Estim Creat Clear Calc 14.05 Est GFR (MDRD) Af Amer 12 L Est GFR (MDRD) Non-Af 10 L BUN/Creatinine Ratio 8.6 L Glucose 99 Calcium 8.4 L Phosphorus 4.3 Magnesium 2.2 TSH 3.59 Discharge Plan Triage Chief Complaint: General Illness ED Provider: Scottie Childers Dx/Rx/DC Orders Clinical Impression: Chronic kidney disease (CKD), Chronic hypernatremia Instructions: CKD Dc, Hypernatremia Dc Prescriptions: No Action metoprolol tartrate 25 mg tablet 12.5 mg PO BID RF: 0 aspirin 81 MG tablet,chewable 81 mg PO DAILY@0800 RF: 0 fluoxetine 10 mg Tablet 10 mg PO DAILY RF: 0 levothyroxine 50 mcg Tablet 50 mcg PO DAILY RF: 0 hyoscyamine 0.15 mg Tablet 0.125 mg PO TID RF: 0 rosuvastatin [Crestor] 40 mg Tablet 40 mg PO QHS RF: 0 gabapentin 300 mg Tablet 300 mg PO QHS RF: 0 fenofibrate nanocrystallized 145 mg Tablet 145 mg PO DAILY RF: 0 aripiprazole 10 mg Tablet 10 mg PO QHS RF: 0 polyethylene glycol 3350 [Miralax] 17 gram Powder In Packet 17 g PO DAILY RF: 0 fluticasone propionate 50 mcg/actuation [place],Suspension 2 spray INTRANASAL DAILY RF: 0 Saline Nasal 0.65 % Aerosol,[place] 2 spray INTRANASAL BID RF: 0 cholecalciferol (vitamin D3) 1,250 mcg (50,000 unit) Tablet 1,250 mcg PO MOWEFR RF: 0 levocetirizine [Xyzal] 5 mg Tablet 5 mg PO QPM RF: 0 amlodipine 5 mg Tablet 5 mg PO DAILY Qty: 0 RF: 0 Ativan 0.5 mg PO/SL 4X/DAY RF: 0 ciprofloxacin HCl 500 mg tablet 500 mg PO BID Qty: 6 RF: 0 lorazepam 0.5 mg Tablet 0.5 mg PO TID PRN (Reason: Anxiety) RF: 0 Primary Care Provider: Yesy Ortiz Referrals: Yesy Ortiz [Primary Care Provider] - Disposition Disposition: Home, Self Care
[2021-07-30 04:06] VITALS: BP 116/77; PULSE 73; RESP 14; O2SAT 97
[2021-07-30 06:21] VITALS: BP 126/85; PULSE 64; RESP 14; O2SAT 98
== END 2021-07-30 06:34 | disposition home or self-care (01) ==
PROVIDERS: Emergency Provider Emergency Medicine; PCP Internal Medicine Geriatric Medicine; Visit Provider Emergency Medicine
DX: I12.9 Hypertensive chronic kidney disease with stage 1 through stage 4 chronic kidney disease, or unspecified chronic kidney disease (principal); F01.50 Vascular dementia, unspecified severity, without behavioral disturbance, psychotic disturbance, mood disturbance, and anxiety; N18.4 Chronic kidney disease, stage 4 (severe); F32.A Depression, unspecified; F41.9 Anxiety disorder, unspecified; E87.0 Hyperosmolality and hypernatremia; E03.9 Hypothyroidism, unspecified; E55.9 Vitamin D deficiency, unspecified; Z79.82 Long term (current) use of aspirin; Z79.899 Other long term (current) drug therapy; Z86.16 Personal history of COVID-19; Z86.73 Personal history of transient ischemic attack (TIA), and cerebral infarction without residual deficits; Z87.891 Personal history of nicotine dependence
CPT/HCPCS: 80048; 83735; 84100; 84443; 85025; 96360; 99285; J7040; A4216

== ENCOUNTER 2021-10-22 14:31 | Emergency (ER) | payer MEDICAID, SELFPAY ==
[2021-10-22 14:32] VITALS: BP 139/81; PULSE 64; RESP 11; TEMP 36.3; O2SAT 100; BMI 24.8
--- NOTE | 2021-10-22 15:00 | EX.ED.DYSGE1 ---
HPI History of Present Illness Chief Complaint: Abn Labs Informant: patient Narrative Narrative: Patient sent in from long-term from facility for abnormal labs apparent yesterday. Creatinine 7.5 BUN 9 sodium 150. He states he has been there for 2 weeks. He had a stroke 3 months ago unclear which hospital this time he has trouble moving his left side. Denies recent vomiting diarrhea he states he urinates frequently. He has been drinking plenty of fluids. He states he is not feeling well therefore labs were done. Reported there is cough symptoms per nursing report. Denies fevers. Reviewing records patient with history of stage IV chronic kidney disease creatinine baseline around 6 back in July. He had chronic hyponatremia sodium ranging from 140 to 152. His last lab hours are back in July. He had urosepsis back in July and was admitted treated with Cipro on discharge. Initial discussion with the patient reported he had a stroke 3 months ago. From records has history of vascular dementia, and noting he had a stroke back in November 2016 causing left-sided deficits. From review of discharge summary he had subarachnoid hemorrhage from an aneurysm post clipping leading to subsequent stroke symptoms at that time. Paperwork also reviewed from [facility] he has been there since July 24, 2019. In addition patient's blood work he had labs that were trended back in August 19, 2021 creatinine 5.3 sodium down to 141. Potassium was 5. [facility] Medical History Anxiety and depression Aphasia Arthritis Back problem Bone fracture Brain aneurysm Chronic kidney disease, stage 4 (severe) CKD (chronic kidney disease) stage 4, GFR 15-29 ml/min Essential (primary) hypertension Foot drop, left H/O transfusion of whole blood History of hemorrhagic stroke with residual hemiparesis HTN (hypertension) Hypothyroidism Ingrown left big toenail Ingrown nail Kidney disease Kidney failure Major depressive disorder Seasonal allergies Seizure Seizure Stroke Thyroid dysfunction Tinea unguium Toe pain, left Toe pain, right Vascular dementia Vitamin D deficiency Home Medications aspirin 81 mg PO DAILY@0800 05/08/17 [History Last Taken 05/13/17] metoprolol tartrate 25 mg tablet 12.5 mg PO BID tab 06/02/18 [History Last Taken Unknown] fenofibrate nanocrystallized 145 mg PO DAILY 07/15/21 [History Last Taken Unknown] fluoxetine 20 mg PO DAILY 07/15/21 [History Last Taken Unknown] gabapentin 300 mg PO QHS 07/15/21 [History Last Taken Unknown] hyoscyamine 0.125 mg PO TID 07/15/21 [History Last Taken Unknown] levothyroxine 50 mcg PO DAILY 07/15/21 [History Last Taken Unknown] rosuvastatin [Crestor] 40 mg PO QHS 07/15/21 [History Last Taken Unknown] Saline Nasal 2 spray INTRANASAL BID 07/16/21 [History Last Taken Unknown] aripiprazole 10 mg PO QHS 07/16/21 [History Last Taken Unknown] cholecalciferol (vitamin D3) 1,250 mcg PO MOWEFR 07/16/21 [History Last Taken Unknown] fluticasone propionate 2 spray INTRANASAL DAILY 07/16/21 [History Last Taken Unknown] levocetirizine [Xyzal] 5 mg PO QPM 07/16/21 [History Last Taken Unknown] polyethylene glycol 3350 [Miralax] 17 g PO DAILY 07/16/21 [History Last Taken Unknown] amlodipine 5 mg PO DAILY #0 tab 07/21/21 [Rx Last Taken Unknown] Ativan 0.5 mg PO/SL 4X/DAY 07/25/21 [History Last Taken Unknown] ciprofloxacin HCl 500 mg PO BID #6 tab 07/28/21 [Rx Last Taken Unknown] lorazepam 0.5 mg PO TID PRN 07/30/21 [History Last Taken Unknown] Allergy/AdvReac Type Severity Reaction Status Date / Time No Known Allergies Allergy Verified 07/30/21 01:13 Family History Unknown Arthritis Breast cancer Mother Kidney stones Father Hypertension Other Colon cancer Surgical History H/O left inguinal hernia repair History of tonsillectomy and adenoidectomy S/P clamping of cerebral aneurysm Social History housing: snf Smoking Status: Former smoker how long ago did patient quit smoking: Quit 2017 after CVA, smoked 1 ppd since teen until quit. alcohol intake: never substance use type: does not use ROS ROS ED Constitutional Constitutional ED: Denies chills, fever(s) or sweats Eyes Eyes: Denies change in vision ENT ENT ED: Denies dysphagia or sore throat Cardiovascular Cardiovascular: Denies chest pain, leg edema, palpitations or racing heartbeat Respiratory/Chest Respiratory/Chest: Reports cough; Denies dyspnea or dyspnea on exertion Gastrointestinal Gastrointestinal: Denies abdominal pain, diarrhea, nausea or vomiting Genitourinary Genitourinary ED: Reports urinary frequency; Denies dysuria or hematuria Musculoskeletal Musculoskeletal: Denies back pain, extremity pain or neck pain Integumentary Denies rash or wounds Neurologic Neurologic: Denies headache(s), paresthesias or weakness EXAM Physical Exam Const Vital Signs: 10/22/21 14:32 Temperature 97.4 F L Temperature Source Temporal Pulse Rate 64 Respiratory Rate 11 L Blood Pressure 139/81 H Blood Pressure Mean 100 Pulse Ox 100 Oxygen Delivery Method Room Air Positive well nourished and well developed General Appearance ED: well developed and NAD HEENT Reports moist mucous membranes normocephalic and atraumatic Eyes PERRL, EOMs intact bilaterally and conjunctivae normal General Eye ED: Yes normal appearance of both eyes Neck no lymphadenopathy and supple General: Negative for tenderness Chest Wall Chest: Negative for tenderness Resp normal respiratory effort and normal air movement Effort and Inspection: symmetric chest movement; Negative for respiratory distress Cardio regular rate, regular rhythm and no murmurs Peripheral Pulses: pulses 2+ throughout GI normal to inspection, nondistended, normoactive bowel sounds and non-tender GI Narrative: Nondistention of abdomen. Palpation: Negative for guarding or rebound tenderness present Back/Spine no CVA tenderness and no thoracic nor lumbar tenderness Extremity normal to inspection General Extremety ED: Negative for edema or tenderness General Extremity: Negative for edema Neuro oriented x3 and no sensory deficits noted Neuro Narrative: Left upper extremity contracture, weakness to the left side including left leg. Sensorium / Orientation: awake and alert Skin no rashes or lesions noted and no wounds MDM MDM MDM Narrative Medical decision making narrative: Patient currently alert and oriented x3 he has moist mucosal membranes his vital signs are stable. We will recheck labs we will give fluids and will reevaluate. Patient given IV fluids. Alert and orient x3. Sodium is 145 normal range. Creatinine 7.35 potassium 4.9. Chest x-ray 1 view reviewed by myself read by radiology some peribronchial cuffing however there is no infiltrates. I did discuss with hospitalist Dr. Solorio, who knows patient well from previous admission and he is declining dialysis in the past. He makes his own decisions. He evaluated the patient in the ED he continues to decline dialysis. He spoke with patient's daughter along with drop wire aligner Dr. Dale stating patient's wishes. He is talked with the facility discussed with nursing proof machine operator supervisor for possible hospice evaluation back to the facility for future management. He is currently DNR [facility]. Plan is to discharge patient back to nursing facility for continued management. Lab Data Attestation: I reviewed the patient's lab results. Labs: Laboratory Results - last 24 hr 10/22/21 10/22/21 10/22/21 14:05 14:05 15:38 WBC 7.8 RBC 3.81 L Hgb 10.0 L Hct 32.6 L MCV 85.6 MCH 26.2 L MCHC 30.7 L RDW Std Deviation 53.1 H RDW Coeff of Tomas 17.2 H Plt Count 308 MPV 10.8 Immature Gran % (Auto) 0.500 Neut % (Auto) 67.9 Lymph % (Auto) 19.0 [place] % (Auto) 8.9 Eos % (Auto) 2.8 Baso % (Auto) 0.9 Absolute Neuts (auto) 5.3 Absolute Lymphs (auto) 1.48 Nucleated RBC % 0 Sodium 145 Potassium 4.9 Chloride 115 H Carbon Dioxide 25.0 Anion Gap 5 BUN 70 H Creatinine 7.35 H Estim Creat Clear Calc 11.53 Est GFR (MDRD) Af Amer 10 L Est GFR (MDRD) Non-Af 8 L BUN/Creatinine Ratio 9.5 L Glucose 113 H Calcium 8.5 Urine Color Yellow Urine Clarity Clear Urine pH 7.0 Ur Specific [place] 1.010 Urine Protein 100 H Urine Glucose (UA) 50 H Urine Ketones Negative Urine Occult Blood 50 H Urine Nitrite Negative Urine Bilirubin Negative Urine Urobilinogen Normal Ur Leukocyte Esterase 500 H Urine RBC 0-5 SEEN Urine WBC 0-5 SEEN Ur Squamous Epith Cells 0 SEEN Urine Bacteria 0 SEEN Urine Mucus 0 SEEN Radiography Diagnostic Testing: Clinical Impression(s) from Imaging Studies Chest X-Ray 10/22/21 15:25 IMPRESSION: Mild peribronchial cuffing, would recommend clinical correlation for acute bronchitis or airway disease. Electronically Signed: Abhay Guerrero MD at 15:39 EDT , Discharge Plan Triage Chief Complaint: Abn Labs ED Provider: Lawson Mckeon Dx/Rx/DC Orders Clinical Impression: Acute on chronic kidney failure, History of cerebrovascular accident Instructions: CKD Dc Prescriptions: No Action metoprolol tartrate 25 mg tablet 12.5 mg PO BID RF: 0 aspirin 81 MG tablet,chewable 81 mg PO DAILY@0800 RF: 0 fluoxetine 10 mg Tablet 20 mg PO DAILY RF: 0 levothyroxine 50 mcg Tablet 50 mcg PO DAILY RF: 0 hyoscyamine 0.15 mg Tablet 0.125 mg PO TID RF: 0 rosuvastatin [Crestor] 40 mg Tablet 40 mg PO QHS RF: 0 gabapentin 300 mg Tablet 300 mg PO QHS RF: 0 fenofibrate nanocrystallized 145 mg Tablet 145 mg PO DAILY RF: 0 aripiprazole 10 mg Tablet 10 mg PO QHS RF: 0 polyethylene glycol 3350 [Miralax] 17 gram Powder In Packet 17 g PO DAILY RF: 0 fluticasone propionate 50 mcg/actuation [place],Suspension 2 spray INTRANASAL DAILY RF: 0 Saline Nasal 0.65 % Aerosol,[place] 2 spray INTRANASAL BID RF: 0 cholecalciferol (vitamin D3) 1,250 mcg (50,000 unit) Tablet 1,250 mcg PO MOWEFR RF: 0 levocetirizine [Xyzal] 5 mg Tablet 5 mg PO QPM RF: 0 amlodipine 5 mg Tablet 5 mg PO DAILY Qty: 0 RF: 0 Ativan 0.5 mg PO/SL 4X/DAY RF: 0 ciprofloxacin HCl 500 mg tablet 500 mg PO BID Qty: 6 RF: 0 lorazepam 0.5 mg Tablet 0.5 mg PO TID PRN (Reason: Anxiety) RF: 0 Primary Care Provider: Yesy Ortiz Referrals: Yesy Ortiz [Primary Care Provider] - 2 Days Activity Restrictions/Additional Instructions: Recheck creatinine 7.3. Normal potassium. Sodium 145. Urine noted leukocytes however no other findings urine culture sent and pending. Patient does not want dialysis with discussion with him, reporting to his daughter and along with his drop wire aligner Dr. Dale. He will likely benefit from hospice evaluation as an outpatient for future continued management. Disposition Disposition: Custodial Facility Discharge Location: [facility] Discharge Date/Time: 10/22/21 17:01
[2021-10-22 15:12] LABS: Absolute Lymphocyte Count 1.48 X10^3/uL (0.83-4.51); Absolute Neutrophil Count 5.3 X10^3/uL (2.0-7.7); Basophil# 0.07 X10^3/uL; Basophil% 0.9 % (0-1); Eosinophil# 0.22 X10^3/uL; Eosinophils% 2.8 % (0-5); Hematocrit 32.6 % (40-54); Lymphocyte # 1.48 X10^3/ul (0.83-4.51); Mean Corp Hgb Conc 30.7 g/dL (32-36); Mean Corpuscular Hgb 26.2 pg (27.0-32.0); Mean Corpuscular Volume 85.6 fL (80-94); Mean Platelet Vol. 10.8 fl (6.2-12.0); Monocyte# 0.69 X10^3/uL; Monocyte% 8.9 % (0-10); NRBC Flagged by Analyzer 0 % (0-5); Neutrophil # 5.27 X10^3/uL (2.7-7.7); Neutrophil % 67.9 % (47-70); Platelet Count 308 K/mm3 (150-450); RBC Distribution Width CV 17.2 % (11.6-14.6); RBC Distribution Width SD 53.1 fl (35.1-43.9); Red Blood Count 3.81 M/mm3 (4.6-6.2); White Blood Count 7.8 K/mm3 (4.4-11.0)
[2021-10-22] MEDS: 0.9% Normal Saline 1,000 ML 1000 ML IV (15:15)
--- NOTE | 2021-10-22 15:25 | RAD_ITS ---
INDICATION: cough EXAMINATION/TECHNIQUE: X-RAY - XR Chest 1 View COMPARISON: 07/25/2021. FINDINGS: LINES/DEVICES: None. LUNGS: Mild peribronchial cuffing bilateral hilar prominence seen that demonstrates no significant change in comparison to the prior study. No consolidation, edema or effusion. No pneumothorax. MEDIASTINUM AND CARDIOVASCULAR STRUCTURES: Cardiac silhouette not enlarged. Central airways and mediastinal contour are unremarkable. BONES AND SOFT TISSUES: Unremarkable. RAD/Chest 1 View (Portable) IMPRESSION: Mild peribronchial cuffing, would recommend clinical correlation for acute bronchitis or airway disease. Electronically Signed: Abhay Guerrero MD at 15:39 EDT ,
[2021-10-22 15:34] LABS: Anion Gap 5 (5-15); BUN 70 mg/dL (7-18); BUN/Creat Ratio 9.5 RATIO (10-20); Calcium,Total 8.5 mg/dL (8.5-10.1); Chloride 115 mmol/L (98-107); Creatinine, Serum 7.35 mg/dL (0.70-1.30); EST Glomerular Filtration Rate 8 mL/min (>60); Est Glom Filt Rate - Afr Amer 10 mL/min (>60); Estimated Creatinine Clearance 11.53 ml/min; Glucose 113 mg/dL (74-106); Potassium 4.9 mmol/L (3.5-5.1); Sodium Level 145 mmol/L (136-145)
[2021-10-22 15:43] LABS: Bacteria 0 SEEN /hpf (None Seen); Mucous, Urine 0 SEEN /hpf (<or=2+); Squamous Epithelial Cells - UA 0 SEEN /hpf (0-5)
[2021-10-22 16:11] LABS: Color, Urine Yellow (Yellow); Glucose, Dipstick 50 mg/dl (Normal); Ketone-Dipstick Negative (Negative); Leukocyte Esterase-Dipstick 500 /ul (Negative); Nitrite-Dipstick Negative (Negative); Occult Blood-Urine 50 /ul (Negative); Protein-Dipstick 100 mg/dl (Negative); Urine Bilirubin Dipstick Negative (Negative); Urine Clarity Clear (Clear); Urine Urobilinogen Normal (Normal)
[2021-10-22 16:28] LABS: Red Blood Cells-Urine 0-5 SEEN /hpf (0-5); White Blood Cells 0-5 SEEN /hpf (0-5)
== END 2021-10-22 17:01 | disposition skilled nursing facility (03) ==
PROVIDERS: Emergency Provider Emergency Medicine; PCP Internal Medicine Geriatric Medicine; Visit Provider Emergency Medicine
DX: N17.9 Acute kidney failure, unspecified (principal); I69.359 Hemiplegia and hemiparesis following cerebral infarction affecting unspecified side; N18.4 Chronic kidney disease, stage 4 (severe); I12.9 Hypertensive chronic kidney disease with stage 1 through stage 4 chronic kidney disease, or unspecified chronic kidney disease; Z87.891 Personal history of nicotine dependence; Z79.82 Long term (current) use of aspirin; Z79.899 Other long term (current) drug therapy; Z66 Do not resuscitate
CPT/HCPCS: 71045; 80048; 81001; 85025; 87077; 87086; 87088; 87186; 87811; 96360; 99285; J7030

== ENCOUNTER 2023-11-16 18:35 | Inpatient (IN) | payer MEDICAID, SELFPAY ==
[2023-11-16] VITALS (7 sets, daily range): BP systolic 79–113; BP diastolic 35–56; PULSE 63–77; RESP 12–16; TEMP 35.9–36.8; O2SAT 95–98; BMI 23.3
--- NOTE | 2023-11-16 19:01 | EX.ED.DYSGE1 ---
HPI History of Present Illness Chief Complaint: Abn Labs Informant: patient and family (Daughters at bedside.) Onset/Context/Timing Onset: Weeks Context: Gradual Onset Narrative Narrative: 63-year-old male history of chronic kidney disease stage IV prior stroke and history of seizures. He is DNR Comfort Care arrest. Patient is currently a resident at [facility] and has been the last 2+ years. He is having worsening kidney function. He understands this. He does not want dialysis. They sent him in today for evaluation. Daughters are at bedside. [facility] Medical History Major depressive disorder Chronic kidney disease, stage 4 (severe) Vascular dementia Hypothyroidism Thyroid dysfunction Brain aneurysm Vitamin D deficiency Stroke Seizure Kidney failure Kidney disease HTN (hypertension) H/O transfusion of whole blood Bone fracture Back problem Arthritis Anxiety and depression Seasonal allergies Ingrown nail Foot drop, left Ingrown left big toenail Toe pain, left Toe pain, right Tinea unguium Essential (primary) hypertension CKD (chronic kidney disease) stage 4, GFR 15-29 ml/min History of hemorrhagic stroke with residual hemiparesis Seizure Aphasia Home Medications ?Medication ?Instructions ?Recorded ?Last Taken ?Type aspirin 81 mg chewable tablet 81 mg PO DAILY@0800 heart health 05/08/17 05/13/17 History metoprolol tartrate 25 mg tablet 12.5 mg PO BID blood pressure 06/02/18 Unknown History fenofibrate nanocrystallized 145 145 mg PO DAILY elevated 07/15/21 Unknown History mg tablet triglycerides fluoxetine 10 mg tablet 20 mg PO DAILY depression 07/15/21 Unknown History gabapentin 300 mg tablet 300 mg PO QHS neurontin 07/15/21 Unknown History levothyroxine 50 mcg tablet 50 mcg PO DAILY Check with primary 07/15/21 Unknown History doctor rosuvastatin 40 mg tablet (Crestor) 40 mg PO QHS cholesterol 07/15/21 Unknown History aripiprazole 10 mg tablet 10 mg PO QHS vasc dementia, 07/16/21 Unknown History conduct disorder cholecalciferol (vitamin D3) 1,250 1,250 mcg PO MOWEFR vit d 07/16/21 Unknown History mcg (50,000 unit) tablet replacement fluticasone propionate 50 2 spray intranasal DAILY allergy 07/16/21 Unknown History mcg/actuation nasal spray,suspension polyethylene glycol 3350 17 gram 17 g PO DAILY constipation 07/16/21 Unknown History oral powder packet (Miralax) sodium chloride 0.65 % nasal spray 2 spray intranasal BID nose 07/16/21 Unknown History aerosol (Saline Nasal) Ativan 0.5 mg PO/SL 4X/DAY 07/25/21 Unknown History lorazepam 0.5 mg tablet See Rx Instructions PO Q6H Anxiety 07/30/21 Unknown History aripiprazole 15 mg tablet 15 mg PO DAILY 11/16/23 Unknown History ascorbic acid (vitamin C) 500 mg 500 mg PO BID 11/16/23 Unknown History chewable tablet (Acerola C) calcium carbonate (Antacid 200 mg PO .ac 11/16/23 Unknown History (calcium carbonate)) cholecalciferol (vitamin D3) 25 1,000 unit PO QDAY 11/16/23 Unknown History mcg (1,000 unit) capsule cimetidine 200 mg tablet (Tagamet 400 mg PO BID 11/16/23 Unknown History HB) cyanocobalamin (vitamin B-12) 500 See Rx Instructions PO .COMPLEX 11/16/23 Unknown History mcg tablet (B-12 DOTS) ferrous sulfate 325 mg (65 mg 325 mg PO BID 11/16/23 Unknown History iron) tablet (FeroSul) fexofenadine 180 mg tablet 180 mg PO DAILY 11/16/23 Unknown History fluoxetine 40 mg capsule 40 mg PO DAILY 11/16/23 Unknown History sodium bicarbonate 650 mg tablet 650 mg PO BID 11/16/23 Unknown History Allergy/AdvReac Type Severity Reaction Status Date / Time No Known Allergies Allergy Verified 07/30/21 01:13 Family History Unknown Arthritis Breast cancer Mother Kidney stones Father Hypertension Other Colon cancer Surgical History S/P clamping of cerebral aneurysm H/O left inguinal hernia repair History of tonsillectomy and adenoidectomy Social History housing: [facility] Smoking Status: Former smoker how long ago did patient quit smoking: Quit 2017 after CVA, smoked 1 ppd since teen until quit. alcohol intake: never substance use type: does not use ROS ROS ED ROS Narrative Denies recent illness other than sinusitis for which she was on antibiotics. Review of Systems ROS Unobtainable: Denies due to encephalopathy Eyes Eyes: Reports none ENT ENT ED: Reports none and other Details: Status post sinusitis was on antibiotics. Cardiovascular Cardiovascular: Reports none Respiratory/Chest Respiratory/Chest: Reports none Gastrointestinal Gastrointestinal: Reports none Genitourinary Genitourinary ED: Reports decreased urination Musculoskeletal Musculoskeletal: Reports none Integumentary Reports none Neurologic Neurologic: Reports none Psychiatric Psychiatric: Reports depression Endocrine Endocrinology: Reports none Hematologic/Lymphatic Hematologic/Lymphatic: Reports none Allergic/Immunologic Allergic/Immunologic ED: Reports none EXAM Physical Exam Narrative Exam Narrative: 63-year-old male sitting upright in bed. Initial blood pressure 96/35. Pulse ox 97% on room air no hypoxia. He is in no distress. Daughter is at bedside. HEENT exam unremarkable. Moist mucous membranes. He does have slightly decreased speech from prior stroke. Neck nontender. Lungs clear. Heart regular rhythm no murmur. Chest wall and ribs nontender. Abdomen soft nontender. Extremities he has generalized weakness. No deformity. Calves are nontender without edema. Neurologically is awake and alert. Prior stroke. With slightly slurred speech. And weakness in his extremities. Const Vital Signs: 11/16/23 18:37 11/16/23 19:35 11/16/23 19:49 Temperature 98.1 F 96.6 F L Temperature Source Temporal Temporal Pulse Rate 77 65 Respiratory Rate 16 13 Respiratory Effort Short of Breath Respiratory Pattern Tachypnea Blood Pressure 96/35 L 79/53 L Blood Pressure Mean 55 61 Pulse Ox 97 96 Oxygen Delivery Method Room Air Room Air 11/16/23 20:00 11/16/23 20:35 11/16/23 21:00 Temperature 97.0 F L 97.6 F L Temperature Source Temporal Temporal Pulse Rate 63 68 64 Respiratory Rate 12 13 12 Respiratory Effort Respiratory Pattern Blood Pressure 88/54 L 108/56 L 92/52 L Blood Pressure Mean 65 73 65 Pulse Ox 96 96 95 Oxygen Delivery Method Room Air Room Air Room Air 11/16/23 22:00 11/16/23 22:00 Temperature 98.2 F Temperature Source Temporal Pulse Rate 67 66 Respiratory Rate 14 12 Respiratory Effort Respiratory Pattern Blood Pressure 96/47 L 96/47 L Blood Pressure Mean 63 63 Pulse Ox 98 96 Oxygen Delivery Method Room Air Room Air Positive well nourished, well developed, alert, oriented x3, no apparent distress and average body habitus; Negative for cachectic General Appearance ED: well developed; Negative for cachectic Nutritional Appearance: Negative for cachectic HEENT Reports normocephalic and head/scalp atraumatic External Ear: external ears normal Mouth ED: Yes oral and palatal mucosa normal Mouth: oral and palatal mucosa normal Eyes PERRL, EOMs intact bilaterally, conjunctivae normal and no scleral icterus General Eye ED: Yes normal appearance of both eyes Neck full ROM, No nuchal rigidity, no lymphadenopathy, supple, no meningeal signs, no JVD, No thyroid normal and No nodes Chest Wall inspection of chest normal and palpation of chest normal Resp normal respiratory effort, normal air movement, no retractions, no use of accessory muscles and clear to auscultation bilaterally Cardio regular rate, regular rhythm, S1 normal heart sound, S2 normal heart sound, no murmurs, no rub, no gallops and no clicks GI normal to inspection, nondistended, normoactive bowel sounds, soft to palpation, non-tender, non-distended, no masses and no bruits Back/Spine no CVA tenderness and no thoracic nor lumbar tenderness Extremity no joint enlargement, no clubbing, cyanosis or edema, no calf tenderness and no pedal edema Extremity Narrative: Generalized weakness. Neuro CN's II-XII intact bilaterally, moves all extremities and No no focal motor deficits Sensorium / Orientation: awake, alert, oriented to person and oriented to place Psych mental status grossly normal, thought process normal, cooperative, affect normal and speech normal Appearance: grossly normal Attitude: calm, engaged, No paranoid, No withdrawn and No bizarre Activity / Motor Behavior: appropriate eye contact Speech: slurred and other Prior stroke Skin no rashes or lesions noted and no wounds Lesions: no lesions Rashes: no rashes MDM MDM MDM Narrative Medical decision making narrative: 63-year-old male prior stroke. Chronic kidney disease. Sent in from a [facility] due to worsening kidney function. He is DNR. He is awake alert and he does not want dialysis. Screening labs are being obtained an EKG. I have already spoken to his daughter is at bedside. I will be contacting the [facility]. Repeat exam unchanged at 10:20 PM. Lengthy discussion with the patient and his daughters. They are deciding if he was to be admitted for dialysis and possible blood transfusion or if he was go back to the [facility]. He understands that if he does not start dialysis this is terminal and he will due to the complications of kidney failure. Patient and daughter decided he would try dialysis. He will be admitted. I have written for type and cross for 2 units of blood. Those will be transfused when available. I spoke to the hospitalist. The patient will be admitted. Hospitalist will be down evaluate the patient. Patient has received a liter of normal saline his pressure is now over 100. Lab Data Attestation: I reviewed the patient's lab results. Lab results narrative: CBC shows a white count 3.1. H&H of 5.4 and 18. Platelet count 257. Electrolytes show a potassium of 3.5. Gap of 11. BUN of 122 and creatinine 11.8. Labs: Laboratory Results - last 24 hr 11/16/23 19:20 WBC 3.1 L RBC 1.96 L Hgb 5.4 L* Hct 18.3 L MCV 93.4 MCH 27.6 MCHC 29.5 L RDW Std Deviation 69.2 H RDW Coeff of Tomas 21.0 H Plt Count 257 MPV 12.1 H Immature Gran % (Auto) 0.600 Neut % (Auto) 68.9 Lymph % (Auto) 21.5 Garfield % (Auto) 6.1 Eos % (Auto) 2.3 Baso % (Auto) 0.6 Absolute Neuts (auto) 2.1 Absolute Lymphs (auto) 0.67 L Nucleated RBC % 0.6 Differential Comment SCANNED Diff Path Review May foll Polychromasia RARE Hypochromasia 2+ Anisocytosis 2+ Sodium 147 H Potassium 3.5 Chloride 116 H Carbon Dioxide 20.0 L Anion Gap 11 BUN 122 H* Creatinine 11.80 H* Estim Creat Clear Calc 6.79 Est GFR (MDRD) Af Amer 6 L Est GFR (MDRD) Non-Af 5 L BUN/Creatinine Ratio 10.3 Glucose 185 H Calcium 8.5 Rhythm Strip Rhythm Strip: Sinus Rhythm Rate: 69 Ectopy: None EKG Initial EKG: Attestation: I personally reviewed and interpreted this EKG as follows: Interpretation: Sinus Rhythm and No Acute Injury Pattern Comments: Normal sinus rhythm rate of 69. No acute signs of AK, ischemia or dysrhythmia. Critical Care Time Critical Care Time: Yes Critical care time (excluding procedures): 30-74 minutes, Including time spent:, Discussing w/Patient &/or Family/[employer]ure [employer] Manager, Discussing w/Consultants, Arranging Admission or Transfer, Performing Direct Patient Care at Bedside and - (40 minutes) Discharge Plan Dx/Rx/DC Orders Clinical Impression: Acute kidney failure, unspecified, Anemia, History of stroke, History of hemiparesis Disposition Disposition: Acute Care [facility]
[2023-11-16 19:39] LABS: Absolute Lymphocyte Count 0.67 X10^3/uL (0.83-4.51); Absolute Neutrophil Count 2.1 X10^3/uL (2.0-7.7); Basophil# 0.02 X10^3/uL; Basophil% 0.6 % (0-1); Eosinophil# 0.07 X10^3/uL; Eosinophils% 2.3 % (0-5); Hematocrit 18.3 % (40-54); Lymphocyte # 0.67 X10^3/ul (0.83-4.51); Lymphocyte % 21.5 % (19-41); Mean Corp Hgb Conc 29.5 g/dL (32-36); Mean Corpuscular Hgb 27.6 pg (27.0-32.0); Mean Corpuscular Volume 93.4 fL (80-94); Mean Platelet Vol. 12.1 fl (6.2-12.0); Monocyte# 0.19 X10^3/uL; Monocyte% 6.1 % (0-10); NRBC Flagged by Analyzer 0.6 % (0-5); Neutrophil # 2.14 X10^3/uL (2.7-7.7); Neutrophil % 68.9 % (47-70); POSITIVE COUNT YES; POSITIVE MORPHOLOGY YES; Platelet Count 257 K/mm3 (150-450); RBC Distribution Width SD 69.2 fl (35.1-43.9); Red Blood Count 1.96 M/mm3 (4.6-6.2); White Blood Count 3.1 K/mm3 (4.4-11.0)
[2023-11-16] MEDS: 0.9% Normal Saline (1000mL) 1,000 ML 999 ML IV (20:02)
[2023-11-16 20:11] LABS: Anion Gap 11 (5-15); BUN 122 mg/dL (7-18); BUN/Creat Ratio 10.3 RATIO (10-20); Calcium,Total 8.5 mg/dL (8.5-10.1); Chloride 116 mmol/L (98-107); EST Glomerular Filtration Rate 5 mL/min (>60); Est Glom Filt Rate - Afr Amer 6 mL/min (>60); Estimated Creatinine Clearance 6.79 ml/min; Glucose 185 mg/dL (74-106); Potassium 3.5 mmol/L (3.5-5.1); Sodium Level 147 mmol/L (136-145)
[2023-11-16 20:26] LABS: Differential Indicated SCAN CRITERIA MET; Hemoglobin 5.4 g/dL (13.0-16.5)
[2023-11-16 20:42] LABS: Differential Comment SCANNED
[2023-11-16 20:43] LABS: Anisocytosis 2+; Hypochromasia 2+; Polychromasia RARE
[2023-11-17] VITALS (14 sets, daily range): BP systolic 105–158; BP diastolic 44–110; PULSE 58–76; RESP 11–16; TEMP 36.1–36.8; O2SAT 93–97; BMI 21.4
--- NOTE | 2023-11-17 00:38 | HP.PCM.HOS_ITS ---
HPI - General General Date of Admission: 11/16/23 Date of Service: 11/17/23 Chief Complaint: Abnormal labs HPI Narrative SHIRLENE HERNANDEZ, is a 63 M who presents for abnormal labs. [facility] for [facility] labs. Sent to the emergency room and was noted that his hemoglobin was 5.4. There is no history of reported melena nor hematochezia. Patient has had history of anemia in the past and has had iron transfusions in the past. Patient was ordered 2 units of prior blood cells in the emergency room. Additionally, his creatinine went up to 11.8. Back in October was 7.35. Patient did receive IV fluids and patient's daughter is there states that he does look better since receiving IV fluids. They and the patient are open to dialysis if he would need that. Patient previously had dialysis when he had a stroke he was only on that for a few days and then was taken off. [facility] Medical History Major depressive disorder Chronic kidney disease, stage 4 (severe) Vascular dementia Hypothyroidism Thyroid dysfunction Brain aneurysm Vitamin D deficiency Stroke Seizure Kidney failure Kidney disease HTN (hypertension) H/O transfusion of whole blood Bone fracture Back problem Arthritis Anxiety and depression Seasonal allergies Ingrown nail Foot drop, left Ingrown left big toenail Toe pain, left Toe pain, right Tinea unguium Essential (primary) hypertension CKD (chronic kidney disease) stage 4, GFR 15-29 ml/min History of hemorrhagic stroke with residual hemiparesis Seizure Aphasia Home Medications ?Medication ?Instructions ?Recorded ?Last Taken ?Type aspirin 81 mg chewable tablet 81 mg PO DAILY@0800 heart health 05/08/17 05/13/17 History metoprolol tartrate 25 mg tablet 12.5 mg PO BID blood pressure 06/02/18 Unknown History fenofibrate nanocrystallized 145 145 mg PO DAILY elevated 07/15/21 Unknown History mg tablet triglycerides fluoxetine 10 mg tablet 20 mg PO DAILY depression 07/15/21 Unknown History gabapentin 300 mg tablet 300 mg PO QHS neurontin 07/15/21 Unknown History levothyroxine 50 mcg tablet 50 mcg PO DAILY Check with primary 07/15/21 Unknown History doctor rosuvastatin 40 mg tablet (Crestor) 40 mg PO QHS cholesterol 07/15/21 Unknown History aripiprazole 10 mg tablet 10 mg PO QHS vasc dementia, 07/16/21 Unknown History conduct disorder cholecalciferol (vitamin D3) 1,250 1,250 mcg PO MOWEFR vit d 07/16/21 Unknown History mcg (50,000 unit) tablet replacement fluticasone propionate 50 2 spray intranasal DAILY allergy 07/16/21 Unknown History mcg/actuation nasal spray,suspension polyethylene glycol 3350 17 gram 17 g PO DAILY constipation 07/16/21 Unknown History oral powder packet (Miralax) sodium chloride 0.65 % nasal spray 2 spray intranasal BID nose 07/16/21 Unknown History aerosol (Saline Nasal) Ativan 0.5 mg PO/SL 4X/DAY 07/25/21 Unknown History lorazepam 0.5 mg tablet See Rx Instructions PO Q6H Anxiety 07/30/21 Unknown History aripiprazole 15 mg tablet 15 mg PO DAILY 11/16/23 Unknown History ascorbic acid (vitamin C) 500 mg 500 mg PO BID 11/16/23 Unknown History chewable tablet (Acerola C) calcium carbonate (Antacid 200 mg PO .ac 11/16/23 Unknown History (calcium carbonate)) cholecalciferol (vitamin D3) 25 1,000 unit PO QDAY 11/16/23 Unknown History mcg (1,000 unit) capsule cimetidine 200 mg tablet (Tagamet 400 mg PO BID 11/16/23 Unknown History HB) cyanocobalamin (vitamin B-12) 500 See Rx Instructions PO .COMPLEX 11/16/23 Unknown History mcg tablet (B-12 DOTS) ferrous sulfate 325 mg (65 mg 325 mg PO BID 11/16/23 Unknown History iron) tablet (FeroSul) fexofenadine 180 mg tablet 180 mg PO DAILY 11/16/23 Unknown History fluoxetine 40 mg capsule 40 mg PO DAILY 11/16/23 Unknown History sodium bicarbonate 650 mg tablet 650 mg PO BID 11/16/23 Unknown History Allergy/AdvReac Type Severity Reaction Status Date / Time No Known Allergies Allergy Verified 07/30/21 01:13 Family History Unknown Arthritis Breast cancer Mother Kidney stones Father Hypertension Other Colon cancer Surgical History S/P clamping of cerebral aneurysm H/O left inguinal hernia repair History of tonsillectomy and adenoidectomy Social History housing: [facility] Smoking Status: Former smoker how long ago did patient quit smoking: Quit 2017 after CVA, smoked 1 ppd since teen until quit. alcohol intake: never substance use type: does not use ROS ROS Narrative Left-sided hemiparesis. Chews his tongue chronically. All review of systems were negative except as mentioned above in the history of present illness and the other review of systems. Vital Signs Vital Signs Vital Signs: 11/16/23 18:37 11/16/23 19:35 11/16/23 19:49 Temperature 36.7 C 35.9 C L Temperature Source Temporal Temporal Pulse Rate 77 65 Respiratory Rate 16 13 Respiratory Effort Short of Breath Respiratory Pattern Tachypnea Blood Pressure 96/35 L 79/53 L Blood Pressure Mean 55 61 Pulse Ox 97 96 Oxygen Delivery Method Room Air Room Air 11/16/23 20:00 11/16/23 20:35 11/16/23 21:00 Temperature 36.1 C L 36.4 C L Temperature Source Temporal Temporal Pulse Rate 63 68 64 Respiratory Rate 12 13 12 Respiratory Effort Respiratory Pattern Blood Pressure 88/54 L 108/56 L 92/52 L Blood Pressure Mean 65 73 65 Pulse Ox 96 96 95 Oxygen Delivery Method Room Air Room Air Room Air 11/16/23 22:00 11/16/23 22:00 11/16/23 23:03 Temperature 36.8 C 36.7 C Temperature Source Temporal Pulse Rate 67 66 71 Respiratory Rate 14 12 14 Respiratory Effort Respiratory Pattern Blood Pressure 96/47 L 96/47 L 113/54 L Blood Pressure Mean 63 63 73 Pulse Ox 98 96 96 Oxygen Delivery Method Room Air Room Air 11/17/23 00:00 Temperature Temperature Source Pulse Rate 72 Respiratory Rate 12 Respiratory Effort Respiratory Pattern Blood Pressure 117/44 L Blood Pressure Mean 68 Pulse Ox 97 Oxygen Delivery Method Room Air Weight Weight: 74 kg Body Mass Index (BMI) 23.3 Physical Exam Const alert and no apparent distress Constitutional Narrative: Pleasantly confused. Afebrile. Nontoxic. HEENT normocephalic and head/scalp atraumatic Eyes PERRL and EOMs intact bilaterally Neck no lymphadenopathy Resp normal respiratory effort, no retractions, no use of accessory muscles and clear to auscultation bilaterally Cardio regular rate, regular rhythm, S1 normal heart sound and S2 normal heart sound GI normal to inspection, nondistended, normoactive bowel sounds, soft to palpation, non-tender and non-distended Extremity normal to inspection Extremity Narrative: Plantar contraction on the left Neuro Neuro Narrative: Oriented to self and place. Month was December and year was January. Dense hemiparesis on his left. Sensorium / Orientation: awake and alert Psych affect normal Results Lab / Micro Data Attestation: I reviewed the patient's lab results. 11/16/23 19:20 11/16/23 19:20 Labs: Laboratory Results - last 24 hr 11/16/23 19:20: WBC 3.1 L, RBC 1.96 L, Hgb 5.4 L*, Hct 18.3 L, MCV 93.4, MCH 27.6, MCHC 29.5 L, RDW Std Deviation 69.2 H, RDW Coeff of Tomas 21.0 H, Plt Count 257, MPV 12.1 H, Immature Gran % (Auto) 0.600, Neut % (Auto) 68.9, Lymph % (Auto) 21.5, [place] % (Auto) 6.1, Eos % (Auto) 2.3, Baso % (Auto) 0.6, Absolute Neuts (auto) 2.1, Absolute Lymphs (auto) 0.67 L, Nucleated RBC % 0.6, Differential Comment SCANNED, Diff Path Review November, Polychromasia RARE, Hypochromasia 2+, Anisocytosis 2+, Sodium 147 H, Potassium 3.5, Chloride 116 H, Carbon Dioxide 20.0 L, Anion Gap 11, BUN 122 H*, Creatinine 11.80 H*, Estim Creat Clear Calc 6.79, Est GFR (MDRD) Af Amer 6 L, Est GFR (MDRD) Non-Af 5 L, BUN/Creatinine Ratio 10.3, Glucose 185 H, Calcium 8.5 11/16/23 22:52: Antibody Screen NEGATIVE, Crossmatch See Detail Rhythm Strip Rhythm Strip: Sinus Rhythm Rate: 69 Ectopy: None Assessment & Plan Assessment/Plan (1) Acute kidney failure, unspecified: (2) Anemia: PLAN: Plan Acute kidney injury on chronic kidney disease stage V * Patient appears pretty well despite that. Is no clear evidence of any uremia and patient is not hyperkalemic. * Will continue with IV fluids and reevaluate * Daughters are open to the patient going on dialysis. With his worsening kidney failure overall, I suspect he probably will require that but will defer to nephrology. * Check urine studies, check renal ultrasound Anemia * I suspect anemia of chronic disease * Check iron studies, B12, folate and TSH. Check hemoccult * Patient ordered 2 units of prior blood cells in the emergency room. * Hold aspirin Leukopenia * Unclear significance * Monitor Chronic conditions * Depression/anxiety/behavioral disturbances: Continue with aripiprazole, fluoxetine * Hypothyroidism: Continue levothyroxine. Check TSH. * History of stroke: Holding aspirin. Patient has dense left-sided hemiparesis since his stroke. VTE prophylaxis: SCDs. Chemical prophylaxis contraindicated in light of the anemia. CODE STATUS: Addressed with the patient's daughters at bedside. Patient is DNR Comfort Care arrest no intubation. Charges/Coding Visit Charges Inpatient E&M: 90004 Init Hosp L3
--- NOTE | 2023-11-17 00:48 | US_ITS ---
STUDY: RENAL ULTRASOUND - COMPLETE REASON FOR EXAM: Male, 63 years old. JACI TECHNIQUE: Ultrasound evaluation of the kidneys was performed with real-time and static funes-scale imaging. COMPARISON: Comparison is made with prior study dated July 16, 2021. FINDINGS: RIGHT KIDNEY: Normal location of the right kidney, which is normal in size. The right kidney measures 10.4 cm x 4.2 cm x 5 cm. There is a normal cortex of the right kidney. The renal cortex measures 1 cm. Small cysts are seen. The largest is in the lower pole and measures 2.8 cm x 3 cm x 3.4 cm. There are no right renal calculi. There is no right hydronephrosis. DISTAL RIGHT URETER: There is non-visualization of the distal right ureter. There is no demonstrated right ureterovesical junction calculus. There is no demonstrated right ureteral jet. LEFT KIDNEY: with mild renal atrophy. The left kidney measures 7.8 cm x 3.5 cm x 4.6 cm. There is diffuse thinning of the renal cortex. The renal cortex measures 0.7 cm. 8 mm x 10 mm x 6 mm cyst in the lower pole of the left kidney. There are no left renal calculi. There is no left hydronephrosis. DISTAL LEFT URETER: There is non-visualization of the distal left ureter. There is no demonstrated left ureterovesical junction calculus. There is no demonstrated left ureteral jet. BLADDER: The distended urinary bladder has a volume of 92 ml. There is a normal wall thickness of the distended urinary bladder. There is no demonstrated mass within the urinary bladder. There are no demonstrated bladder calculi. US/Kidney and Bladder IMPRESSION: Mild degree of left renal atrophy. Bilateral renal cysts more prominent in the right kidney. Electronically Signed: Bloivar Olvera MD at 13:01 EDT ,
[2023-11-17 05:41] LABS: Urine Sodium 56 mmol/L (Not Establ.)
[2023-11-17] MEDS: Levothyroxine 50 MCG Tablet PO (06:11)
[2023-11-17] MEDS: Calcium Carbonate 500 MG Tablet 200 MG PO ×3 (06:15→18:49)
[2023-11-17] MEDS: 0.45% Normal Saline 1,000 ML 150 ML IV (06:15)
--- NOTE | 2023-11-17 09:50 | CASEMGMT ---
ANURADHA noted patient is from [facility]. ANURADHA called patient's daughter Lupe and the plan is for patient to return to [facility] at discharge. Samia JONES
--- NOTE | 2023-11-17 10:01 | CASEMGMT ---
Discharge Planning Updates sent via [facility] to Haydee Figueroa. Charley Watts DC Planning Asst.
--- NOTE | 2023-11-17 10:20 | PN.HOSP_ITS ---
Reason for Visit Reason for Visit: Diagnoses Anemia, unspecified (11/17/23) Acute kidney failure, unspecified (11/17/23) Objective Data Objective Data Vital Signs: Vital Signs Temp Pulse Resp BP Pulse Ox O2 Del Method 97.8 F 69 13 158/110 H 97 Room Air 11/17/23 07:00 11/17/23 07:00 11/17/23 07:00 11/17/23 07:00 11/17/23 07:00 11/17/23 07:00 Oxygen Delivery Method Room Air Weight: 149 lb 0.52 oz Body Mass Index (BMI) 21.4 Intake & Output: Intake and Output for Last 24 Hours 11/15/23 11/16/23 11/17/23 23:59 23:59 23:59 Intake Total 1014.5 / 1014.5 Output Total 250 / 250 Balance 764.5 / 764.5 Lab / Micro Data 11/17/23 11:19 11/17/23 11:19 Labs: Laboratory Results - last 24 hr 11/16/23 19:20: WBC 3.1 L, RBC 1.96 L, Hgb 5.4 L*, Hct 18.3 L, MCV 93.4, MCH 27.6, MCHC 29.5 L, RDW Std Deviation 69.2 H, RDW Coeff of Tomas 21.0 H, Plt Count 257, MPV 12.1 H, Immature Gran % (Auto) 0.600, Neut % (Auto) 68.9, Lymph % (Auto) 21.5, [place] % (Auto) 6.1, Eos % (Auto) 2.3, Baso % (Auto) 0.6, Absolute Neuts (auto) 2.1, Absolute Lymphs (auto) 0.67 L, Nucleated RBC % 0.6, Differential Comment SCANNED, Diff Path Review May foll, Polychromasia RARE, Hypochromasia 2+, Anisocytosis 2+, Sodium 147 H, Potassium 3.5, Chloride 116 H, Carbon Dioxide 20.0 L, Anion Gap 11, BUN 122 H*, Creatinine 11.80 H*, Estim Creat Clear Calc 6.79, Est GFR (MDRD) Af Amer 6 L, Est GFR (MDRD) Non-Af 5 L, BUN/Creatinine Ratio 10.3, Glucose 185 H, Calcium 8.5 11/16/23 22:52: Blood Type A NEGATIVE, Antibody Screen NEGATIVE, Crossmatch See Detail 11/17/23 05:00: Ur Random Sodium 56, Urine Creatinine 58.50 Rhythm Strip Rhythm Strip: Sinus Rhythm Rate: 69 Ectopy: None Physical Exam Narrative Seen and examined. Patient is [facility]. 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 Had episodes of JACI in the past that required temporary dialysis over 3 to 4 years ago. Discussed with the cotton jammer. Family decided for starting hemodialysis Physical exam General: Alert, Oriented x3, Cooperative HEENT: Atraumatic, PERRLA, EOMI, Normocephalic Oral: Oral mucosa dry. No Gingival or Mucosal Lesions/ Ulcerations Neck: Supple, No JVD, Negative Carotid Bruits Chest wall/Lungs: Air entry diminished in bilateral lung bases. No crepitation/rhonchi Cardiovascular: Regular rate, Regular Rhythm, Normal S1, Normal S2, No M/G/R Abdomen: Bowel Sounds Present, Soft, Non Tender, Non-Distended. Had PD catheter. : No dysuria. No renal angle tenderness. No suprapubic tenderness. Extremities: No edema, Capillary Refill Less than 3 Seconds Skin: No rashes, No breakdown Musculoskeletal: No Tenderness to Palpation of Joints or Extremities. Left- sided hemiplegia, contractures. Right-sided weakness. ROM restricted Neurological: Cranial nerves II-XII grossly intact, DTR 2+/4. 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 Psych/Mental Status: Flat affect, intermittent agitation. Vascular dementia Assessment & Plan Assessment/Plan (1) Acute kidney failure, unspecified: (2) Anemia: PLAN: Plan 63-year-old gentleman being admitted for abnormal labs sent from [facility], hemoglobin 5.4. History of chronic anemia with iron infusion in the past. His creatinine was found 11.8. Patient was on temporary dialysis in the past when he had a stroke CKD stage V/ESRD for last 3 years: BUN 120, creatinine 11. Patient is euvolemic. Dietetics Teacher discussed with the family, patient's daughter Lupe like to proceed with dialysis. Patient gets extremely agitated on the floor. Surgeon consulted from cotton jammer for dialysis catheter, tunneled Alysis catheter insertion tomorrow. N.p.o. past midnight. Kidney ultrasound shows mild degree of left renal atrophy. Bilateral renal cysts prominent in right kidney. Acute anemia with history of chronic anemia most likely due to end-stage renal disease: Iron study shows iron saturation 48% serum iron high, ferritin 80 consistent with anemia due to ESRD/CKD. Folate normal. B12 pending. TSH normal. Patient had 2 units of PRBC transfusion. Posttransfusion hemoglobin increased to 8.4. * Hold aspirin Leukopenia * Unclear significance * Monitor Chronic conditions * Depression/anxiety/behavioral disturbances: Continue with aripiprazole, fluoxetine * Hypothyroidism: Continue levothyroxine. Check TSH. * History of stroke: Holding aspirin. Patient has dense left-sided hemiparesis since his stroke. VTE prophylaxis: SCDs. Chemical prophylaxis contraindicated in light of the anemia. CODE STATUS: Addressed with the patient's daughters at bedside. Patient is DNR Comfort Care arrest no intubation. Laboratory Results 11/16/23 19:20: WBC 3.1 L, RBC 1.96 L, Hgb 5.4 L*, Hct 18.3 L, MCV 93.4, MCH 27.6, MCHC 29.5 L, RDW Std Deviation 69.2 H, RDW Coeff of Tomas 21.0 H, Plt Count 257, MPV 12.1 H, Immature Gran % (Auto) 0.600, Neut % (Auto) 68.9, Lymph % (Auto) 21.5, [place] % (Auto) 6.1, Eos % (Auto) 2.3, Baso % (Auto) 0.6, Absolute Neuts (auto) 2.1, Absolute Lymphs (auto) 0.67 L, Nucleated RBC % 0.6, Differential Comment SCANNED, Diff Path Review May foll, Polychromasia RARE, Hypochromasia 2+, Anisocytosis 2+, Sodium 147 H, Potassium 3.5, Chloride 116 H, Carbon Dioxide 20.0 L, Anion Gap 11, BUN 122 H*, Creatinine 11.80 H*, Estim Creat Clear Calc 6.79, Est GFR (MDRD) Af Amer 6 L, Est GFR (MDRD) Non-Af 5 L, BUN/Creatinine Ratio 10.3, Glucose 185 H, Calcium 8.5 11/16/23 22:52: Blood Type A NEGATIVE, Antibody Screen NEGATIVE, Crossmatch See Detail 11/17/23 05:00: Ur Random Sodium 56, Urine Creatinine 58.50 11/17/23 11:19: WBC 5.8, RBC 2.97 L, Hgb 8.4 L, Hct 26.5 L, MCV 89.2, MCH 28.3, MCHC 31.7 L D, RDW Std Deviation 58.9 H, RDW Coeff of Tomas 19.2 H, Plt Count 248, MPV 11.5, Immature Gran % (Auto) 0.700, Neut % (Auto) 66.8, Lymph % (Auto) 16.2 L, [place] % (Auto) 13.7 H, Eos % (Auto) 2.1, Baso % (Auto) 0.5, Absolute Neuts (auto) 3.9, Absolute Lymphs (auto) 0.94, Nucleated RBC % 0.3, PT 15.7 H, INR 1.3, Sodium 148 H, Potassium 3.7, Chloride 121 H, Carbon Dioxide 18.0 L, Anion Gap 9, BUN 112 H*, Creatinine 11.20 H*, Estim Creat Clear Calc 6.62, Est GFR (MDRD) Af Amer 6 L, Est GFR (MDRD) Non-Af 5 L, BUN/Creatinine Ratio 10.0, G lucose 118 H, Calcium 8.1 L, Iron 179 H, TIBC 373, Iron Saturation 48.0, Ferritin 80, Total Bilirubin 0.30, AST 18, ALT 23, Alkaline Phosphatase 50, T otal Protein 6.2 L, Albumin 3.1 L, Globulin 3.1, Albumin/Globulin Ratio 1.0, Vitamin B12 Pending, Folate 5.40, TSH 1.08 Clinical Impression(s) from Imaging Studies Renal Ultrasound 11/17/23 00:48 IMPRESSION: Mild degree of left renal atrophy. Bilateral renal cysts more prominent in the right kidney. Electronically Signed: Bolivar Olvera MD at 13:01 EDT , Charges/Coding Visit Charges Inpatient E&M: 30573 Subs Hosp L2
[2023-11-17] MEDS: Ferrous Sulfate 325 MG Tablet PO (10:37)
[2023-11-17] MEDS: ARIPiprazole 5 MG Tablet 15 MG PO (10:38)
[2023-11-17] MEDS: Fluticasone 0.05% 1 SPRAY NASAL.SRY 2 SPRAY NASAL (10:38)
[2023-11-17] MEDS: Loratadine 10 MG Tablet PO (10:38)
[2023-11-17] MEDS: Metoprolol Tartrate 25 MG Tablet 12.5 MG PO (10:39)
[2023-11-17] MEDS: Sodium Chloride 0.65% 1 SPRAY SPRAY.BTL 2 SPRAY NASAL ×2 (10:42→21:32)
[2023-11-17] MEDS: Cholecalciferol (VIT D3) 25 MCG TABLET (1,000 UNITS) PO (10:45)
[2023-11-17] MEDS: Ascorbic Acid 500 MG Tablet PO ×2 (10:45→21:32)
[2023-11-17] MEDS: Cyanocobalamin 500 MCG Tablet PO (10:45)
[2023-11-17] MEDS: Famotidine 20 MG Tablet PO (10:45)
[2023-11-17] MEDS: Fluoxetine HCl 40 MG CAPSULE PO (10:45)
[2023-11-17] MEDS: Sodium Bicarbonate 650 MG Tablet PO ×2 (10:45→21:32)
[2023-11-17] MEDS: Fenofibrate 145 MG Tablet PO (10:45)
--- NOTE | 2023-11-17 10:50 | EX.PCM.CON.S ---
Assessment & Plan Assessment/Plan (1) Acute kidney failure, unspecified: (2) History of stroke: (3) History of hemiparesis: PLAN: Plan Discussed with patient we will plan for placement of tunneled dialysis catheter tomorrow. Described the procedure with the patient including risk not limited to bleeding, infection, and anesthesia patient no further question this time. Bev Sands M.D. Pager: [phone] [facility] [address] [place] [address], Outpatient [place], [address] [place] [address] Office: [phone] HPI Consult Data Date of Consult: 11/17/23 HPI Narrative HPI Narrative: SHIRLENE HERNANDEZ, is a 63 M who admitted with acute renal failure. Patient also has a history of a stroke and hemiparesis and may have had dialysis line at the time of the stroke. Patient's current creatinine is 11.8 requested tunneled dialysis catheter per nephrology okay to do tomorrow. Patient was also noted to have a hemoglobin of 5.4 on admission normally 7-8 from previous labs. Patient is agreeable to have dialysis catheter placed. [facility] Medical History (Updated 11/17/23 @ 01:03 by Lamar Holcomb) Anxiety Former smoker Seizures Major depressive disorder Chronic kidney disease, stage 4 (severe) Vascular dementia Hypothyroidism Thyroid dysfunction Brain aneurysm Vitamin D deficiency Stroke Seizure Kidney failure Kidney disease HTN (hypertension) H/O transfusion of whole blood Bone fracture Back problem Arthritis Anxiety and depression Seasonal allergies Ingrown nail Foot drop, left Ingrown left big toenail Toe pain, left Toe pain, right Tinea unguium Essential (primary) hypertension CKD (chronic kidney disease) stage 4, GFR 15-29 ml/min History of hemorrhagic stroke with residual hemiparesis Seizure Aphasia Home Medications ?Medication ?Instructions ?Recorded ?Last Taken ?Type aspirin 81 mg chewable tablet 81 mg PO DAILY@0800 heart health 05/08/17 05/13/17 History metoprolol tartrate 25 mg tablet 12.5 mg PO BID blood pressure 06/02/18 Unknown History fenofibrate nanocrystallized 145 145 mg PO DAILY elevated 07/15/21 Unknown History mg tablet triglycerides fluoxetine 10 mg tablet 20 mg PO DAILY depression 07/15/21 Unknown History gabapentin 300 mg tablet 300 mg PO QHS neurontin 07/15/21 Unknown History levothyroxine 50 mcg tablet 50 mcg PO DAILY Check with primary 07/15/21 Unknown History doctor rosuvastatin 40 mg tablet (Crestor) 40 mg PO QHS cholesterol 07/15/21 Unknown History aripiprazole 10 mg tablet 10 mg PO QHS vasc dementia, 07/16/21 Unknown History conduct disorder cholecalciferol (vitamin D3) 1,250 1,250 mcg PO MOWEFR vit d 07/16/21 Unknown History mcg (50,000 unit) tablet replacement fluticasone propionate 50 2 spray intranasal DAILY allergy 07/16/21 Unknown History mcg/actuation nasal spray,suspension polyethylene glycol 3350 17 gram 17 g PO DAILY constipation 07/16/21 Unknown History oral powder packet (Miralax) sodium chloride 0.65 % nasal spray 2 spray intranasal BID nose 07/16/21 Unknown History aerosol (Saline Nasal) Ativan 0.5 mg PO/SL 4X/DAY 07/25/21 Unknown History lorazepam 0.5 mg tablet See Rx Instructions PO Q6H Anxiety 07/30/21 Unknown History aripiprazole 15 mg tablet 15 mg PO DAILY 11/16/23 Unknown History ascorbic acid (vitamin C) 500 mg 500 mg PO BID 11/16/23 Unknown History chewable tablet (Acerola C) calcium carbonate (Antacid 200 mg PO .ac 11/16/23 Unknown History (calcium carbonate)) cholecalciferol (vitamin D3) 25 1,000 unit PO QDAY 11/16/23 Unknown History mcg (1,000 unit) capsule cimetidine 200 mg tablet (Tagamet 400 mg PO BID 11/16/23 Unknown History HB) cyanocobalamin (vitamin B-12) 500 See Rx Instructions PO .COMPLEX 11/16/23 Unknown History mcg tablet (B-12 DOTS) ferrous sulfate 325 mg (65 mg 325 mg PO BID 11/16/23 Unknown History iron) tablet (FeroSul) fexofenadine 180 mg tablet 180 mg PO DAILY 11/16/23 Unknown History fluoxetine 40 mg capsule 40 mg PO DAILY 11/16/23 Unknown History sodium bicarbonate 650 mg tablet 650 mg PO BID 11/16/23 Unknown History Allergy/AdvReac Type Severity Reaction Status Date / Time No Known Allergies Allergy Verified 07/30/21 01:13 Family History Unknown Arthritis Breast cancer Mother Kidney stones Father Hypertension Other Colon cancer Surgical History S/P clamping of cerebral aneurysm H/O left inguinal hernia repair History of tonsillectomy and adenoidectomy Social History housing: [facility] Smoking Status: Former smoker how long ago did patient quit smoking: Quit 2017 after CVA, smoked 1 ppd since teen until quit. alcohol intake: never substance use type: does not use ROS Constitutional Constitutional: Denies anorexia ENT HEENT: Denies dysphagia Cardiovascular Cardiovascular: Denies chest pain Respiratory/Chest Respiratory/Chest: Denies productive cough Gastrointestinal Gastrointestinal: Denies abdominal pain, nausea or vomiting Genitourinary Genitourinary: Denies flank pain Musculoskeletal Musculoskeletal: Denies joint swelling Integumentary Integumentary: Denies jaundice Neurologic Neurologic: Reports weakness Hematologic/Lymphatic Hematologic/Lymphatic: Denies easy bleeding Physical Exam Const alert and no apparent distress General Appearance: cooperative Nutritional Appearance: underweight HEENT normocephalic Neck supple Chest Chest Narrative: Palpation of bilateral upper chest normal Resp normal respiratory effort Cardio Rate: regular rate GI soft to palpation; Negative for non-tender Extremity Extremity Narrative: left hemiparesis upper (contracted) and lower extremities Skin no rashes or lesions noted Neuro Neuro Narrative: hx of stroke and left hemiparesis upper and lower ext Psych Mood & Affect: flat affect Lab / Micro Data 11/16/23 19:20 11/16/23 19:20 Labs: Laboratory Results - last 24 hr 11/16/23 19:20: WBC 3.1 L, RBC 1.96 L, Hgb 5.4 L*, Hct 18.3 L, MCV 93.4, MCH 27.6, MCHC 29.5 L, RDW Std Deviation 69.2 H, RDW Coeff of Tomas 21.0 H, Plt Count 257, MPV 12.1 H, Immature Gran % (Auto) 0.600, Neut % (Auto) 68.9, Lymph % (Auto) 21.5, [place] % (Auto) 6.1, Eos % (Auto) 2.3, Baso % (Auto) 0.6, Absolute Neuts (auto) 2.1, Absolute Lymphs (auto) 0.67 L, Nucleated RBC % 0.6, Differential Comment SCANNED, Diff Path Review May foll, Polychromasia RARE, Hypochromasia 2+, Anisocytosis 2+, Sodium 147 H, Potassium 3.5, Chloride 116 H, Carbon Dioxide 20.0 L, Anion Gap 11, BUN 122 H*, Creatinine 11.80 H*, Estim Creat Clear Calc 6.79, Est GFR (MDRD) Af Amer 6 L, Est GFR (MDRD) Non-Af 5 L, BUN/Creatinine Ratio 10.3, Glucose 185 H, Calcium 8.5 11/16/23 22:52: Blood Type A NEGATIVE, Antibody Screen NEGATIVE, Crossmatch See Detail 11/17/23 05:00: Ur Random Sodium 56, Urine Creatinine 58.50 Rhythm Strip Rhythm Strip: Sinus Rhythm Rate: 69 Ectopy: None Charges/Coding Visit Charges Inpatient E&M: 96716 Init Hosp L3
[2023-11-17 11:35] LABS: Absolute Lymphocyte Count 0.94 X10^3/uL (0.83-4.51); Absolute Neutrophil Count 3.9 X10^3/uL (2.0-7.7); Basophil# 0.03 X10^3/uL; Basophil% 0.5 % (0-1); Eosinophil# 0.12 X10^3/uL; Eosinophils% 2.1 % (0-5); Hematocrit 26.5 % (40-54); Hemoglobin 8.4 g/dL (13.0-16.5); Lymphocyte # 0.94 X10^3/ul (0.83-4.51); Lymphocyte % 16.2 % (19-41); Mean Corp Hgb Conc 31.7 g/dL (32-36); Mean Corpuscular Hgb 28.3 pg (27.0-32.0); Mean Corpuscular Volume 89.2 fL (80-94); Mean Platelet Vol. 11.5 fl (6.2-12.0); Monocyte% 13.7 % (0-10); NRBC Flagged by Analyzer 0.3 % (0-5); Neutrophil # 3.89 X10^3/uL (2.7-7.7); Neutrophil % 66.8 % (47-70); Platelet Count 248 K/mm3 (150-450); RBC Distribution Width CV 19.2 % (11.6-14.6); RBC Distribution Width SD 58.9 fl (35.1-43.9); Red Blood Count 2.97 M/mm3 (4.6-6.2); White Blood Count 5.8 K/mm3 (4.4-11.0)
[2023-11-17 11:45] LABS: International Normalized Ratio 1.3; Prothrombin Time (Protime)PT. 15.7 SECONDS (11.7-14.9)
[2023-11-17 12:23] LABS: AST(SGOT) 18 U/L (15-37); Alanine Aminotransfer ALT/SGPT 23 U/L (16-61); Albumin, Serum 3.1 g/dL (3.2-5.0); Alkaline Phosphatase 50 U/L (45-117); Anion Gap 9 (5-15); BUN 112 mg/dL (7-18); Calcium,Total 8.1 mg/dL (8.5-10.1); Chloride 121 mmol/L (98-107); EST Glomerular Filtration Rate 5 mL/min (>60); Est Glom Filt Rate - Afr Amer 6 mL/min (>60); Estimated Creatinine Clearance 6.62 ml/min; Ferritin 80 ng/mL (26-388); Globulin 3.1 g/dL (2.2-4.2); Glucose 118 mg/dL (74-106); Iron 179 ug/dL (65-175); Iron Binding Capacity,Total 373 ug/dL (250-450); Potassium 3.7 mmol/L (3.5-5.1); Protein, Total 6.2 g/dL (6.4-8.2); Sodium Level 148 mmol/L (136-145); Thyroid Stim Hormone (TSH) 1.08 uIU/mL (0.358-3.74)
--- NOTE | 2023-11-17 13:59 | PCM.CONS.R ---
Assessment & Plan Assessment/Plan (1) ESRD (end stage renal disease): PLAN: He has had CKD stage V for at least 3 years that I know of. I am actually surprised that he has been able to survive this long without dialysis. Severe muscle loss. BUN 120, creatinine 11. Most likely significantly uremic. I am not sure if he understands the implications of dialysis but as per my discussion with daughter Lpue, they would like to proceed with dialysis since that is what he told them yesterday. As per my discussion with the floor staff, he was extremely agitated this morning. I explained to Lupe that there is a risk of him pulling the catheter out hence we may have to use medications or restraints to avoid that. She tells me that he was getting At[facility] at the [facility] for the agitation. Explained dialysis briefly including port placement etc. All questions answered. Discussed with surgical attending. Dialysis catheter hopefully tomorrow. We will do an extremely slow start dialysis. Anemia. Likely part of ESRD. Will need MAURI with dialysis. HPI Consult Data Date of Consult: 11/17/23 HPI Narrative Reason for Consultation: Renal failure HPI Narrative: SHIRLENE HERNANDEZ, is a 63 M who presents To the hospital with severe anemia. Nephrology on consultation in view of renal failure. He is well-known to me from previous office visits. 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 He did not have much of her medical history prior to that. During the admission he required dialysis temporarily and eventually came off dialysis. He was left with significant residual CKD. CKD stage V at baseline for at least 3 to 4 years. He was last seen in our office about 2 years ago. At that time we discussed about dialysis and he declined to have dialysis. He was advised to follow-up with hospice in case he gets symptomatic. He has been a resident of [facility] for the last several years it seems. Routine lab work was drawn which showed a significantly low hemoglobin at 5.4 hence he was sent in. It seems he told the attending physician that he is willing to get dialysis at this time. Currently he is alert, awake. I am not sure if he is completely oriented. He does answer to basic questions yes or no. I have called and spoke to his daughters who I know from before. As usual they got quite emotional while discussing the topic of dialysis. It seems at this point they would like to proceed with dialysis since he explicitly said he would like to do it yesterday. [facility] Medical History (Updated 11/17/23 @ 14:[address] Feng Wood MD) Anxiety Former smoker Seizures Major depressive disorder Chronic kidney disease, stage 4 (severe) Vascular dementia Hypothyroidism Thyroid dysfunction Brain aneurysm Vitamin D deficiency Stroke Seizure Kidney failure Kidney disease HTN (hypertension) H/O transfusion of whole blood Bone fracture Back problem Arthritis Anxiety and depression Seasonal allergies Ingrown nail Foot drop, left Ingrown left big toenail Toe pain, left Toe pain, right Tinea unguium Essential (primary) hypertension CKD (chronic kidney disease) stage 4, GFR 15-29 ml/min History of hemorrhagic stroke with residual hemiparesis Seizure Aphasia Home Medications ?Medication ?Instructions ?Recorded ?Last Taken ?Type aspirin 81 mg chewable tablet 81 mg PO DAILY@0800 heart health 05/08/17 05/13/17 History metoprolol tartrate 25 mg tablet 12.5 mg PO BID blood pressure 06/02/18 Unknown History fenofibrate nanocrystallized 145 145 mg PO DAILY elevated 07/15/21 Unknown History mg tablet triglycerides fluoxetine 10 mg tablet 20 mg PO DAILY depression 07/15/21 Unknown History gabapentin 300 mg tablet 300 mg PO QHS neurontin 07/15/21 Unknown History levothyroxine 50 mcg tablet 50 mcg PO DAILY Check with primary 07/15/21 Unknown History doctor rosuvastatin 40 mg tablet (Crestor) 40 mg PO QHS cholesterol 07/15/21 Unknown History aripiprazole 10 mg tablet 10 mg PO QHS vasc dementia, 07/16/21 Unknown History conduct disorder cholecalciferol (vitamin D3) 1,250 1,250 mcg PO MOWEFR vit d 07/16/21 Unknown History mcg (50,000 unit) tablet replacement fluticasone propionate 50 2 spray intranasal DAILY allergy 07/16/21 Unknown History mcg/actuation nasal spray,suspension polyethylene glycol 3350 17 gram 17 g PO DAILY constipation 07/16/21 Unknown History oral powder packet (Miralax) sodium chloride 0.65 % nasal spray 2 spray intranasal BID nose 07/16/21 Unknown History aerosol (Saline Nasal) Ativan 0.5 mg PO/SL 4X/DAY 07/25/21 Unknown History lorazepam 0.5 mg tablet See Rx Instructions PO Q6H Anxiety 07/30/21 Unknown History aripiprazole 15 mg tablet 15 mg PO DAILY 11/16/23 Unknown History ascorbic acid (vitamin C) 500 mg 500 mg PO BID 11/16/23 Unknown History chewable tablet (Acerola C) calcium carbonate (Antacid 200 mg PO .ac 11/16/23 Unknown History (calcium carbonate)) cholecalciferol (vitamin D3) 25 1,000 unit PO QDAY 11/16/23 Unknown History mcg (1,000 unit) capsule cimetidine 200 mg tablet (Tagamet 400 mg PO BID 11/16/23 Unknown History HB) cyanocobalamin (vitamin B-12) 500 See Rx Instructions PO .COMPLEX 11/16/23 Unknown History mcg tablet (B-12 DOTS) ferrous sulfate 325 mg (65 mg 325 mg PO BID 11/16/23 Unknown History iron) tablet (FeroSul) fexofenadine 180 mg tablet 180 mg PO DAILY 11/16/23 Unknown History fluoxetine 40 mg capsule 40 mg PO DAILY 11/16/23 Unknown History sodium bicarbonate 650 mg tablet 650 mg PO BID 11/16/23 Unknown History Allergy/AdvReac Type Severity Reaction Status Date / Time No Known Allergies Allergy Verified 07/30/21 01:13 Family History Unknown Arthritis Breast cancer Mother Kidney stones Father Hypertension Other Colon cancer Surgical History S/P clamping of cerebral aneurysm H/O left inguinal hernia repair History of tonsillectomy and adenoidectomy Social History housing: [facility] Smoking Status: Former smoker how long ago did patient quit smoking: Quit 2017 after CVA, smoked 1 ppd since teen until quit. alcohol intake: never substance use type: does not use ROS ROS Narrative Negative except above Physical Exam Narrative Alert awake no obvious distress no pallor no icterus no JVD s1s2 no murmurs lungs clear abdomen soft no organomegaly no edema no cyanosis Lab / Micro Data 11/17/23 11:19 11/17/23 11:19 Labs: Laboratory Results - last 24 hr 11/16/23 19:20: WBC 3.1 L, RBC 1.96 L, Hgb 5.4 L*, Hct 18.3 L, MCV 93.4, MCH 27.6, MCHC 29.5 L, RDW Std Deviation 69.2 H, RDW Coeff of Tomas 21.0 H, Plt Count 257, MPV 12.1 H, Immature Gran % (Auto) 0.600, Neut % (Auto) 68.9, Lymph % (Auto) 21.5, [place] % (Auto) 6.1, Eos % (Auto) 2.3, Baso % (Auto) 0.6, Absolute Neuts (auto) 2.1, Absolute Lymphs (auto) 0.67 L, Nucleated RBC % 0.6, Differential Comment SCANNED, Diff Path Review November, Polychromasia RARE, Hypochromasia 2+, Anisocytosis 2+, Sodium 147 H, Potassium 3.5, Chloride 116 H, Carbon Dioxide 20.0 L, Anion Gap 11, BUN 122 H*, Creatinine 11.80 H*, Estim Creat Clear Calc 6.79, Est GFR (MDRD) Af Amer 6 L, Est GFR (MDRD) Non-Af 5 L, BUN/Creatinine Ratio 10.3, Glucose 185 H, Calcium 8.5 11/16/23 22:52: Blood Type A NEGATIVE, Antibody Screen NEGATIVE, Crossmatch See Detail 11/17/23 05:00: Ur Random Sodium 56, Urine Creatinine 58.50 11/17/23 11:19: WBC 5.8, RBC 2.97 L, Hgb 8.4 L, Hct 26.5 L, MCV 89.2, MCH 28.3, MCHC 31.7 L D, RDW Std Deviation 58.9 H, RDW Coeff of Tomas 19.2 H, Plt Count 248, MPV 11.5, Immature Gran % (Auto) 0.700, Neut % (Auto) 66.8, Lymph % (Auto) 16.2 L, [place] % (Auto) 13.7 H, Eos % (Auto) 2.1, Baso % (Auto) 0.5, Absolute Neuts (auto) 3.9, Absolute Lymphs (auto) 0.94, Nucleated RBC % 0.3, PT 15.7 H, INR 1.3, Sodium 148 H, Potassium 3.7, Chloride 121 H, Carbon Dioxide 18.0 L, Anion Gap 9, BUN 112 H*, Creatinine 11.20 H*, Estim Creat Clear Calc 6.62, Est GFR (MDRD) Af Amer 6 L, Est GFR (MDRD) Non-Af 5 L, BUN/Creatinine Ratio 10.0, Glucose 118 H, Calcium 8.1 L, Iron 179 H, TIBC 373, Iron Saturation 48.0, Ferritin 80, Total Bilirubin 0.30, AST 18, ALT 23, Alkaline Phosphatase 50, Total Protein 6.2 L, Albumin 3.1 L, Globulin 3.1, Albumin/Globulin Ratio 1.0, Folate 5.40, TSH 1.08 Rhythm Strip Rhythm Strip: Sinus Rhythm Rate: 69 Ectopy: None Imaging Radiology Impression Renal Ultrasound 11/17/23 00:48 IMPRESSION: Mild degree of left renal atrophy. Bilateral renal cysts more prominent in the right kidney. Electronically Signed: Bolivar Olvera MD at 13:01 EDT ,
--- NOTE | 2023-11-17 16:07 | CHAPLAIN ---
Type of Pastoral Visit _x__ Initial Visit ___ Follow-up Visit ___ On-call Visit ___ General Patient Visit ___ Spiritual Assessment ___ Family Conference ___ Bereavement ___ Rapid Response ___ Code Blue ___ Other (describe below) Pastoral Care Referral From _x__ Patient ___ Family ___ Nurse ___ Physician ___ Geological Manager ___ Dental Hygiene Teacher ___ Other (describe below) Sacrament/Intervention ___ Active listening ___ Anointing ___ Mosque ___ Bereavement ___ Communion ___ Reta exploration ___ ___ Life review ___ Prayer ___ Reconciliation ___ Sacrament of Sick _x__ Supportive presence ___ Wedding ___ Other (describe below) Pastoral Comments entered room shortly after patient had therapy; attempted to engage pt in conversation and responses but that was slow and difficult; pt did make some comments that were appropriate but also did not seem to grasp simple explanations or statements; pt was holding on to phone but no one was on the line; pt arm was bent and the IV was occluded and thus beeping; tried to get pt to straighten arm and explain that phone was able to work due to his grasp on it; pt did not appear to understand; sat at bedside for a brief time to offer presence but pt wanted beeping to stop which he thought was coming from the phone; offered to get his nurse for assistance and patient said yes do that'; explained situation to the RN and evidently this scenario has been consistent throughout the shift;
[2023-11-17 17:21] LABS: Vitamin B12 1251 pg/mL (211-911)
[2023-11-17] MEDS: 0.9% Saline Lock 10 ML Syringe IV (20:09)
[2023-11-17] MEDS: Ondansetron 4 MG/2 ML Vial IV (20:09)
[2023-11-17] MEDS: Gabapentin 300 MG Capsule PO (21:32)
[2023-11-17] MEDS: Atorvastatin Calcium 80 MG Tablet PO (21:32)
[2023-11-18] VITALS (14 sets, daily range): BP systolic 46–158; BP diastolic 54–110; PULSE 63–75; RESP 13–18; TEMP 36.1–36.4; O2SAT 92–98; BMI 21.3
--- NOTE | 2023-11-18 05:55 | EKG12_ITS ---
Test Reason : AM EKG Blood Pressure : / mmHG Vent. Rate : 066 BPM Atrial Rate : 066 BPM P-R Int : 164 ms QRS Dur : 096 ms QT Int : 476 ms P-R-T Axes : 046 006 027 degrees QTc Int : 499 ms Normal sinus rhythm Prolonged QT Abnormal ECG When compared with ECG of 16-NOV-2023 19:03, MANUAL COMPARISON REQUIRED, DATA IS UNCONFIRMED Confirmed by Viktor Trejo ([id number]), story editor HERMAN RAMÍREZ ([id number]) on 11/22/2023 12:56:25 PM Referred By: JESSE Confirmed By:Viktor Trejo
[2023-11-18 06:47] LABS: Absolute Lymphocyte Count 0.82 X10^3/uL (0.83-4.51); Absolute Neutrophil Count 4.5 X10^3/uL (2.0-7.7); Basophil# 0.03 X10^3/uL; Basophil% 0.5 % (0-1); Eosinophil# 0.16 X10^3/uL; Eosinophils% 2.5 % (0-5); Hematocrit 25.5 % (40-54); Hemoglobin 8.1 g/dL (13.0-16.5); Lymphocyte # 0.82 X10^3/ul (0.83-4.51); Lymphocyte % 12.9 % (19-41); Mean Corp Hgb Conc 31.8 g/dL (32-36); Mean Corpuscular Hgb 28.2 pg (27.0-32.0); Mean Corpuscular Volume 88.9 fL (80-94); Mean Platelet Vol. 11.3 fl (6.2-12.0); Monocyte# 0.78 X10^3/uL; Monocyte% 12.3 % (0-10); NRBC Flagged by Analyzer 0 % (0-5); Platelet Count 237 K/mm3 (150-450); RBC Distribution Width CV 19.3 % (11.6-14.6); RBC Distribution Width SD 61.7 fl (35.1-43.9); Red Blood Count 2.87 M/mm3 (4.6-6.2); White Blood Count 6.3 K/mm3 (4.4-11.0)
[2023-11-18 06:56] LABS: International Normalized Ratio 1.2; Prothrombin Time (Protime)PT. 15.4 SECONDS (11.7-14.9)
[2023-11-18 07:43] LABS: Anion Gap 9 (5-15); BUN 101 mg/dL (7-18); Calcium,Total 8.1 mg/dL (8.5-10.1); Chloride 115 mmol/L (98-107); EST Glomerular Filtration Rate 6 mL/min (>60); Est Glom Filt Rate - Afr Amer 7 mL/min (>60); Estimated Creatinine Clearance 7.34 ml/min; Glucose 97 mg/dL (74-106); Potassium 3.7 mmol/L (3.5-5.1); Sodium Level 141 mmol/L (136-145)
--- NOTE | 2023-11-18 09:57 | CASEMGMT ---
Discharge Planning Updates sent to [facility] via [facility]. Charley Watts DC Planning Asst.
[2023-11-18 10:13] LABS: Pathologist Review Reviewed
[2023-11-18] MEDS: 0.9% Normal Saline (500mL Bag) 500 ML 15 ML IV (10:44)
[2023-11-18] MEDS: Bupivacaine Mpf 0.5% 30 ML VIAL (11:37)
[2023-11-18] MEDS: Cefazolin 2 GM in 0.9% Normal Saline (100mL Bag) 100 ML IV (11:37)
[2023-11-18] MEDS: Lidocaine 1% /Epi 1:100 (20ml) 20 ML Vial (11:37)
[2023-11-18] MEDS: Heparin 10,000 UNITS/10 ML Vial 10000 UNITS (12:02)
--- NOTE | 2023-11-18 12:05 | RAD_ITS ---
STUDY: X-RAY CHEST REASON FOR EXAM: Male, 63 years old. DIALYSIS CATHETER -- PORTABLE PACU TECHNIQUE: Single AP portable view of the chest. COMPARISON: Comparison is made with prior study dated October 22, 2021. FINDINGS: A right-sided dialysis catheter is been placed with tip at the junction of the superior vena cava and right atrium. EKG electrodes are seen. The lungs are clear and expanded. There is no demonstrated pleural abnormality. Normal size heart. Normal mediastinum and riky. Normal visualized pulmonary arteries. There is atherosclerotic tortuosity of the aortic arch and descending thoracic aorta. Normal visualized thoracic spine. Normal visualized ribs, clavicles, and shoulders. There is no demonstrated abnormality of the visualized soft tissue structures of the upper abdomen. RAD/Chest 1 View (Portable) IMPRESSION: The tip of the right dialysis catheter is at the junction of the superior vena cava and right atrium. Electronically Signed: Bolivar Olvera MD at 12:41 EDT ,
--- NOTE | 2023-11-18 12:06 | PCM.OPRPT ---
Report of Operation Date of Procedure: 11/18/23 Pre-Operative Diagnosis: Acute renal failure Post-Operative Diagnosis: Same Surgery/Procedure Performed:: Placement of right IJ tunneled dialysis catheter Surgeon: Bev Sands Type of Anesthesia: Local MAC Anesthesiologist: Efrain Cueto Special Medications: Ancef 2 g IV x 1 Estimated Blood Loss (mL): < 10 cc Description of Procedure: After informed consent was given, the patient was brought to the operating room and placed in the supine position. Appropriate time out protocol was followed. He was then given IV conscious sedation for anesthesia. The patient's right upper chest and neck were then prepped with a surgical skin preparation and sterile surgical drapes were placed. After proper landmarks were ascertained, the skin at the upper right chest area was then infiltrated with 1:1 mixture of 1% lidocaine with epinephrine and 0.5% maricaine. A needle trocar was then inserted into the right internal jugular vein with ultrasound guidance-multiple vessels were viewed with u/s and the right IJ was chosen-- and there was good aspiration of venous blood. A wire was then threaded into the needle trocar and this was visualized under fluoroscopy to ensure that the wire was in the superior vena cava. Once this was done, then the needle trocar was removed. A small incision was made with an 11 blade knife at the wire entrance site. The dilator x2 with the introducer sheath attached was then placed over the wire into the right internal jugular vein via the Seldinger technique and this was visualized under fluoroscopy. Next the introducer and sheath were in proper position as visualized by fluoroscopy. The location of the cuffed was estimated on the skin, an incision was made with a 15 blade scalpel. The 14.5 Fr x 19 cm Palindrome dual lumen (Lot [id number] reference [id number]) was tunneled from the chest incision to the right neck incision. The sheath was removed. The catheter was placed through the introducer and was positioned with its tip at the junction of the superior vena cava and the right atrium as visualized under fluoroscopy. The cuff of the catheter was in the subcutaneous tissue. The catheter flushed and alba well with saline. Catheter was also flushed with 1.6 cc of 1-10,000 of heparin. Hemostasis was assured. Silver dressing was placed at the catheter exit site. Catheter was sutured with 3-0 nylon sutures. The neck incision was sutured with interrupted 3-0 Vicryl interrupted sutures x2 and Steri-Strips were placed. A large OpSite was placed over the catheter site and a small OpSite over the neck incision. The patient tolerated the procedure well. Grafts/Implants Used: 14.5 Fr x 19 cm Palindrome dual lumen (Lot [id number] reference [id number] Complications none
[2023-11-18] MEDS: 0.9% Normal Saline 1,000 ML IV.SOLN. 1000 ML OPERA.SITE (13:28)
--- NOTE | 2023-11-18 13:28 | PN.HOSP_ITS ---
Reason for Visit Reason for Visit: Diagnoses Anemia, unspecified (11/17/23) Acute kidney failure, unspecified (11/17/23) End stage renal disease (11/17/23) Personal history of other diseases of the nervous system and sense organs (11/17/23) Personal history of transient ischemic attack (TIA), and cerebral infarction without residual deficits (11/17/23) Objective Data Objective Data Vital Signs: Vital Signs Temp Pulse Resp BP Pulse Ox O2 Del Method 97 F L 74 14 104/67 97 Room Air 11/18/23 12:40 11/18/23 13:00 11/18/23 13:00 11/18/23 13:00 11/18/23 13:00 11/18/23 13:00 Oxygen Delivery Method Room Air Weight: 149 lb 0.52 oz Body Mass Index (BMI) 21.3 Intake & Output: Intake and Output for Last 24 Hours 11/16/23 11/17/23 11/18/23 23:59 23:59 23:59 Intake Total 2002.0 / 2002.0 110 / 110 Output Total 550 / 550 2150 / 2150 Balance 1452.0 / 1452.0 -2040 / -2040 Lab / Micro Data 11/18/23 05:50 11/18/23 05:50 Labs: Laboratory Results - last 24 hr 11/16/23 19:20: Diff Path Review Reviewed 11/17/23 11:19: Vitamin B12 1251 H 11/18/23 05:50: WBC 6.3, RBC 2.87 L, Hgb 8.1 L, Hct 25.5 L, MCV 88.9, MCH 28.2, MCHC 31.8 L, RDW Std Deviation 61.7 H, RDW Coeff of Tomas 19.3 H, Plt Count 237, MPV 11.3, Immature Gran % (Auto) 0.800, Neut % (Auto) 71.0 H, Lymph % (Auto) 12.9 L, [place] % (Auto) 12.3 H, Eos % (Auto) 2.5, Baso % (Auto) 0.5, Absolute Neuts (auto) 4.5, Absolute Lymphs (auto) 0.82 L, Nucleated RBC % 0, PT 15.4 H, INR 1.2, APTT 39.0 H, Sodium 141, Potassium 3.7, Chloride 115 H, Carbon Dioxide 17.0 L, Anion Gap 9, BUN 101 H*, Creatinine 10.10 H*, Estim Creat Clear Calc 7.34, Est GFR (MDRD) Af Amer 7 L, Est GFR (MDRD) Non-Af 6 L, BUN/Creatinine Ratio 10.0, Glucose 97, Calcium 8.1 L Radiography Diagnostic Testing: Radiology Impression Chest X-Ray 11/18/23 12:05 IMPRESSION: The tip of the right dialysis catheter is at the junction of the superior vena cava and right atrium. Electronically Signed: Bolivar Olvera MD at 12:41 EDT , Rhythm Strip Rhythm Strip: Sinus Rhythm Rate: 69 Ectopy: None Physical Exam Narrative Seen and examined. No acute change in clinical status. Plan for temporary dialysis catheter Patient is senior living resident. 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 Had episodes of JACI in the past that required temporary dialysis over 3 to 4 years ago. Discussed with the beet end supervisor. Family decided for starting hemodialysis Physical exam General: Alert, Oriented x3, Cooperative HEENT: Atraumatic, PERRLA, EOMI, Normocephalic Oral: Oral mucosa dry. No Gingival or Mucosal Lesions/ Ulcerations Neck: Supple, No JVD, Negative Carotid Bruits Chest wall/Lungs: Air entry diminished in bilateral lung bases. No crepitation/rhonchi Cardiovascular: Regular rate, Regular Rhythm, Normal S1, Normal S2, No M/G/R Abdomen: Bowel Sounds Present, Soft, Non Tender, Non-Distended. Was confirmed patient did not have peritoneal dialysis catheter : No dysuria. No renal angle tenderness. No suprapubic tenderness. Extremities: No edema, Capillary Refill Less than 3 Seconds Skin: No rashes, No breakdown Musculoskeletal: No Tenderness to Palpation of Joints or Extremities. Left- sided hemiplegia, contractures. Right-sided weakness. ROM restricted Neurological: Cranial nerves II-XII grossly intact, DTR 2+/4. 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 Psych/Mental Status: Flat affect, intermittent agitation. Vascular dementia Assessment & Plan Assessment/Plan (1) Acute kidney failure, unspecified: (2) Anemia: PLAN: Plan 63-year-old gentleman being admitted for abnormal labs sent from senior living, hemoglobin 5.4. History of chronic anemia with iron infusion in the past. His creatinine was found 11.8. Patient was on temporary dialysis in the past when he had a stroke 1. CKD stage V/ESRD for last 3 years: BUN 120, creatinine 11. Patient is euvolemic. Customs Collector discussed with the family, patient's daughter Lupe like to proceed with dialysis. Patient gets extremely agitated on the floor. Surgeon consulted from beet end supervisor for dialysis catheter, tunneled Alysis catheter insertion tomorrow. N.p.o. past midnight. Kidney ultrasound shows mild degree of left renal atrophy. Bilateral renal cysts prominent in right kidney. 11/17: Patient had right IJ tunneled dialysis catheter. 2. Acute anemia with history of chronic anemia most likely due to end-stage renal disease: Iron study shows iron saturation 48% serum iron high, ferritin 80 consistent with anemia due to ESRD/CKD. Folate normal. B12 pending. TSH normal. Patient had 2 units of PRBC transfusion. Posttransfusion hemoglobin increased to 8.4. * Hold aspirin * 11/17: H&H 8.1/25%. Platelet count 237,000. 3. Leukopenia * Unclear significance * Monitor 11/17: WBC count normal. Chronic conditions * Depression/anxiety/behavioral disturbances: Continue with aripiprazole, fluoxetine * Hypothyroidism: Continue levothyroxine. Check TSH. * History of stroke: Holding aspirin. Patient has dense left-sided hemiparesis since his stroke. VTE prophylaxis: SCDs. Chemical prophylaxis contraindicated in light of the anemia. CODE STATUS: Addressed with the patient's daughters at bedside. Patient is DNR Comfort Care arrest no intubation. Clinical Impression(s) from Imaging Studies Renal Ultrasound 11/17/23 00:48 IMPRESSION: Mild degree of left renal atrophy. Bilateral renal cysts more prominent in the right kidney. Electronically Signed: Bolivar Olvera MD at 13:01 EDT , Charges/Coding Visit Charges Inpatient E&M: 83659 Subs Hosp L2
[2023-11-18] MEDS: 0.9% Saline Lock 10 ML Syringe IV ×2 (13:29→14:50)
[2023-11-18] MEDS: PureFlow B 2K Dialysis Soln 1 BAG 6 BAG PF (13:29)
[2023-11-18] MEDS: Heparin 10,000 UNITS/10 ML Vial IV (14:51)
[2023-11-18] MEDS: Sodium Chloride 0.65% 1 SPRAY SPRAY.BTL 2 SPRAY NASAL ×2 (15:30→23:26)
[2023-11-18] MEDS: Fluticasone 0.05% 1 SPRAY NASAL.SRY 2 SPRAY NASAL (15:31)
[2023-11-18] MEDS: ARIPiprazole 5 MG Tablet 15 MG PO (15:31)
[2023-11-18] MEDS: Fenofibrate 145 MG Tablet PO (15:33)
[2023-11-18] MEDS: Loratadine 10 MG Tablet PO (15:34)
[2023-11-18] MEDS: Cholecalciferol (VIT D3) 25 MCG TABLET (1,000 UNITS) PO (15:34)
[2023-11-18] MEDS: Sodium Bicarbonate 650 MG Tablet PO ×2 (15:34→23:25)
[2023-11-18] MEDS: Ascorbic Acid 500 MG Tablet PO ×2 (15:34→23:25)
[2023-11-18] MEDS: Pantoprazole Sodium 40 MG Tablet PO (15:35)
[2023-11-18] MEDS: Metoprolol Tartrate 25 MG Tablet 12.5 MG PO ×2 (15:35→23:25)
[2023-11-18] MEDS: Fluoxetine HCl 40 MG CAPSULE PO (15:35)
[2023-11-18] MEDS: Calcium Carbonate 500 MG Tablet 200 MG PO (15:51)
--- NOTE | 2023-11-18 16:06 | PCM.PN.REN ---
Subjective Subjective no new events Objective Data Objective Data Vital Signs: Vital Signs Temp Pulse Resp BP Pulse Ox O2 Del Method 97.5 F L 66 18 130/76 H 95 Room Air 11/18/23 15:20 11/18/23 15:35 11/18/23 15:20 11/18/23 15:35 11/18/23 15:20 11/18/23 15:23 Oxygen Delivery Method Room Air Weight: 67.6 kg Body Mass Index (BMI) 21.3 Intake & Output: Intake and Output for Last 24 Hours 11/16/23 11/17/23 11/18/23 23:59 23:59 23:59 Intake Total 2002.0 / 2002.0 110 / 110 Output Total 550 / 550 2150 / 2150 Balance 1452.0 / 1452.0 -2040 / -2039 Lab / Micro Data 11/18/23 05:50 11/18/23 05:50 Labs: Laboratory Results - last 24 hr 11/16/23 19:20: Diff Path Review Reviewed 11/17/23 11:19: Vitamin B12 1251 H 11/18/23 05:50: WBC 6.3, RBC 2.87 L, Hgb 8.1 L, Hct 25.5 L, MCV 88.9, MCH 28.2, MCHC 31.8 L, RDW Std Deviation 61.7 H, RDW Coeff of Tomas 19.3 H, Plt Count 237, MPV 11.3, Immature Gran % (Auto) 0.800, Neut % (Auto) 71.0 H, Lymph % (Auto) 12.9 L, Stanley % (Auto) 12.3 H, Eos % (Auto) 2.5, Baso % (Auto) 0.5, Absolute Neuts (auto) 4.5, Absolute Lymphs (auto) 0.82 L, Nucleated RBC % 0, PT 15.4 H, INR 1.2, APTT 39.0 H, Sodium 141, Potassium 3.7, Chloride 115 H, Carbon Dioxide 17.0 L, Anion Gap 9, BUN 101 H*, Creatinine 10.10 H*, Estim Creat Clear Calc 7.34, Est GFR (MDRD) Af Amer 7 L, Est GFR (MDRD) Non-Af 6 L, BUN/Creatinine Ratio 10.0, Glucose 97, Calcium 8.1 L Radiography Diagnostic Testing: Radiology Impression Chest X-Ray 11/18/23 12:05 IMPRESSION: The tip of the right dialysis catheter is at the junction of the superior vena cava and right atrium. Electronically Signed: Bolivar Olvera MD at 12:41 EDT , Rhythm Strip Rhythm Strip: Sinus Rhythm Rate: 69 Ectopy: None Physical Exam Narrative Alert awake no obvious distress no pallor no icterus no JVD s1s2 no murmurs lungs clear abdomen soft no organomegaly no edema no cyanosis Assessment & Plan Assessment/Plan (1) ESRD (end stage renal disease): PLAN: He has had CKD stage V for at least 3 years that I know of. I am actually surprised that he has been able to survive this long without dialysis. Severe muscle loss. BUN 120, creatinine 11. Most likely significantly uremic. HD start today after catheter placement Acidosis. should improve with HD. Anemia. Likely part of ESRD. Will need [facility] with dialysis.
--- NOTE | 2023-11-18 16:11 | CASEMGMT ---
HUGO PETERS received call from Natalya at [facility] stating that Haydee Quezada was requesting chair time for patient. HUGO PETERS updated Natalya that referral was being made today. HUGO PETERS udpated by NICOLE Yadav nurse to start referral. Referral sent through [facility].
[2023-11-18] MEDS: Atorvastatin Calcium 80 MG Tablet PO (23:25)
[2023-11-18] MEDS: Gabapentin 300 MG Capsule PO (23:31)
[2023-11-19] VITALS (11 sets, daily range): BP systolic 65–137; BP diastolic 70–87; PULSE 61–94; RESP 13–18; TEMP 36.1–36.7; O2SAT 94–99; BMI 21.3
[2023-11-19] MEDS: Levothyroxine 50 MCG Tablet PO (06:04)
[2023-11-19] MEDS: Calcium Carbonate 500 MG Tablet 200 MG PO ×3 (06:07→17:09)
[2023-11-19 06:32] LABS: Absolute Lymphocyte Count 0.93 X10^3/uL (0.83-4.51); Absolute Neutrophil Count 4.4 X10^3/uL (2.0-7.7); Basophil# 0.04 X10^3/uL; Basophil% 0.6 % (0-1); Eosinophil# 0.15 X10^3/uL; Eosinophils% 2.3 % (0-5); Hematocrit 26.6 % (40-54); Hemoglobin 8.5 g/dL (13.0-16.5); Lymphocyte # 0.93 X10^3/ul (0.83-4.51); Lymphocyte % 14.4 % (19-41); Mean Corpuscular Hgb 28.4 pg (27.0-32.0); Mean Platelet Vol. 11.9 fl (6.2-12.0); Monocyte# 0.96 X10^3/uL; Monocyte% 14.8 % (0-10); NRBC Flagged by Analyzer 0 % (0-5); Neutrophil # 4.36 X10^3/uL (2.7-7.7); Neutrophil % 67.4 % (47-70); Platelet Count 252 K/mm3 (150-450); RBC Distribution Width CV 19.7 % (11.6-14.6); RBC Distribution Width SD 62.2 fl (35.1-43.9); Red Blood Count 2.99 M/mm3 (4.6-6.2); White Blood Count 6.5 K/mm3 (4.4-11.0)
[2023-11-19 07:13] LABS: Anion Gap 9 (5-15); BUN 75 mg/dL (7-18); BUN/Creat Ratio 9.1 RATIO (10-20); Calcium,Total 9.3 mg/dL (8.5-10.1); Chloride 118 mmol/L (98-107); Creatinine, Serum 8.23 mg/dL (0.70-1.30); EST Glomerular Filtration Rate 7 mL/min (>60); Est Glom Filt Rate - Afr Amer 9 mL/min (>60); Estimated Creatinine Clearance 9.01 ml/min; Glucose 97 mg/dL (74-106); Potassium 3.6 mmol/L (3.5-5.1); Sodium Level 147 mmol/L (136-145)
[2023-11-19] MEDS: Fluticasone 0.05% 1 SPRAY NASAL.SRY 2 SPRAY NASAL (08:39)
[2023-11-19] MEDS: Sodium Chloride 0.65% 1 SPRAY SPRAY.BTL 2 SPRAY NASAL ×2 (08:40→20:50)
[2023-11-19] MEDS: Senna/Docusate Sodium 1 Tablet 2 TABLET PO ×2 (10:20→20:49)
[2023-11-19] MEDS: Metoprolol Tartrate 25 MG Tablet 12.5 MG PO ×2 (10:21→20:49)
[2023-11-19] MEDS: Cyanocobalamin 500 MCG Tablet PO (10:21)
[2023-11-19] MEDS: Polyethylene Glycol 3350 17 GM PACKET PO ×2 (10:21→20:50)
[2023-11-19] MEDS: Pantoprazole Sodium 40 MG Tablet PO (10:21)
[2023-11-19 10:30] LABS: Hepatitis B Surface Antigen Non-Reactive (Nonreactive)
--- NOTE | 2023-11-19 10:47 | PN.RENAL_ITS ---
Subjective Subjective Sitting in chair eating breakfast. No overnight events. Will undergo second hemodialysis session today. Objective Data Objective Data Vital Signs: Vital Signs Temp Pulse Resp BP Pulse Ox O2 Del Method 98.1 F 62 18 136/76 H 99 Room Air 11/19/23 09:05 11/19/23 10:21 11/19/23 09:05 11/19/23 10:21 11/19/23 09:05 11/19/23 09:05 Oxygen Delivery Method Room Air Weight: 67.6 kg Body Mass Index (BMI) 21.3 Intake & Output: Intake and Output for Last 24 Hours 11/17/23 11/18/23 11/19/23 23:59 23:59 23:59 Intake Total 2002.0 / 2002.0 714 / 834 180 / 180 Output Total 550 / 550 2650 / 2950 800 / 800 Balance 1452.0 / 1452.0 -1936 / -2116 -620 / -620 Lab / Micro Data 11/19/23 05:53 11/19/23 05:53 Labs: Laboratory Results - last 24 hr 11/19/23 05:53: WBC 6.5, RBC 2.99 L, Hgb 8.5 L, Hct 26.6 L, MCV 89.0, MCH 28.4, MCHC 32.0, RDW Std Deviation 62.2 H, RDW Coeff of Tomas 19.7 H, Plt Count 252, MPV 11.9, Immature Gran % (Auto) 0.500, Neut % (Auto) 67.4, Lymph % (Auto) 14.4 L, M jenny % (Auto) 14.8 H, Eos % (Auto) 2.3, Baso % (Auto) 0.6, Absolute Neuts (auto) 4.4, Absolute Lymphs (auto) 0.93, Nucleated RBC % 0, Sodium 147 H, Potassium 3.6, Chloride 118 H, Carbon Dioxide 20.0 L, Anion Gap 9, BUN 75 H, Creatinine 8.23 H*, Estim Creat Clear Calc 9.01, Est GFR (MDRD) Af Amer 9 L, Est GFR (MDRD) Non-Af 7 L, BUN/Creatinine Ratio 9.1 L, Glucose 97, Calcium 9.3, Hep Bs Antigen Non-Reactive Radiography Diagnostic Testing: Radiology Impression Chest X-Ray 11/18/23 12:05 IMPRESSION: The tip of the right dialysis catheter is at the junction of the superior vena cava and right atrium. Electronically Signed: Bolivar Olvera MD at 12:41 EDT , Rhythm Strip Rhythm Strip: Sinus Rhythm Rate: 69 Ectopy: None Physical Exam Narrative Alert and oriented, no apparent distress no obvious distress s1s2 lungs clear abdomen soft no edema Pure wick with good amount of clear yellow urine in canister Tunneled HD catheter right chest dressing clean, dry and intact Assessment & Plan Assessment/Plan (1) ESRD (end stage renal disease): PLAN: History of CKD stage V for more than 3 years, now ESRD. Patient had tunneled dialysis catheter placed and first HD session 11/17 over 2 hours, low blood flow rate with no fluid removal. Will plan for second dialysis session today over 2 hours, low blood flow rate with no fluid removal. Patient will need outpatient hemodialysis arrangements. Discussed this with discharge planning team. Patient currently resides at [facility]. Tentative dialysis schedule TTS. [facility] may not be able to arrange transportation (patient is dot) therefore patient may need different ECF. Discussed possibility of [facility] with in-house dialysis. Acidosis. Improved with dialysis. Anemia. Likely part of ESRD. Will need [facility] with dialysis. HTN. Bps acceptable on metoprolol. Recommend holding dose mornings of dialysis. Once outpatient dialysis is arranged patient can be discharged per renal standpoint after cleared by primary team. He is ESRD.
[2023-11-19] MEDS: 0.9% Normal Saline 1,000 ML IV.SOLN. 1000 ML OPERA.SITE (11:30)
[2023-11-19] MEDS: 0.9% Saline Lock 10 ML Syringe IV ×2 (11:33→12:58)
[2023-11-19] MEDS: PureFlow B 2K Dialysis Soln 1 BAG 6 BAG PF (11:33)
--- NOTE | 2023-11-19 11:45 | PN.SURG_ITS ---
Subjective Subjective No issues with dialysis yesterday?catheter worked well. Objective Data Objective Data Vital Signs: Vital Signs Temp Pulse Resp BP Pulse Ox O2 Del Method 98.1 F 62 14 137/77 H 98 Room Air 11/19/23 09:05 11/19/23 11:40 11/19/23 11:40 11/19/23 11:40 11/19/23 11:10 11/19/23 11:40 Oxygen Delivery Method Room Air Weight: 149 lb 0.52 oz Body Mass Index (BMI) 21.3 Intake & Output: Intake and Output for Last 24 Hours 11/17/23 11/18/23 11/19/23 23:59 23:59 23:59 Intake Total 2002.0 / 2002.0 714 / 834 180 / 180 Output Total 550 / 550 2650 / 2950 800 / 800 Balance 1452.0 / 1452.0 -1936 / -2116 -620 / -620 Lab / Micro Data 11/19/23 05:53 11/19/23 05:53 Labs: Laboratory Results - last 24 hr 11/19/23 05:53: WBC 6.5, RBC 2.99 L, Hgb 8.5 L, Hct 26.6 L, MCV 89.0, MCH 28.4, MCHC 32.0, RDW Std Deviation 62.2 H, RDW Coeff of Tomas 19.7 H, Plt Count 252, MPV 11.9, Immature Gran % (Auto) 0.500, Neut % (Auto) 67.4, Lymph % (Auto) 14.4 L, M jenny % (Auto) 14.8 H, Eos % (Auto) 2.3, Baso % (Auto) 0.6, Absolute Neuts (auto) 4.4, Absolute Lymphs (auto) 0.93, Nucleated RBC % 0, Sodium 147 H, Potassium 3.6, Chloride 118 H, Carbon Dioxide 20.0 L, Anion Gap 9, BUN 75 H, Creatinine 8.23 H*, Estim Creat Clear Calc 9.01, Est GFR (MDRD) Af Amer 9 L, Est GFR (MDRD) Non-Af 7 L, BUN/Creatinine Ratio 9.1 L, Glucose 97, Calcium 9.3, Hep Bs Antigen Non-Reactive Radiography Diagnostic Testing: Radiology Impression Chest X-Ray 05/16/24 12:05 IMPRESSION: The tip of the right dialysis catheter is at the junction of the superior vena cava and right atrium. Electronically Signed: Bolivar Olvera MD at 12:41 EDT , Rhythm Strip Rhythm Strip: Sinus Rhythm Rate: 69 Ectopy: None Physical Exam Narrative Right IJ tunneled dialysis catheter in place and covered with Farhan wrap to prevent any accidental pulling of the catheter by the patient. Const no apparent distress Assessment & Plan Assessment/Plan (1) Acute kidney failure, unspecified: (2) History of stroke: (3) History of hemiparesis: PLAN: Plan Patient's dialysis catheter worked well no issues. Will sign off call with questions. Bev Sands M.D. Pager: [phone] [facility] [address] [place] [address], Outpatient [place], [address] [place] [address] Office: [phone] Charges/Coding Visit Charges Inpatient E&M: 04065 Subs Hosp L2
[2023-11-19] MEDS: Epoetin Alfa epbx 10,000 UNIT/ML 20000 UNIT SC (12:18)
[2023-11-19] MEDS: Heparin 10,000 UNITS/10 ML Vial IV (12:59)
[2023-11-19] MEDS: Fluoxetine HCl 40 MG CAPSULE PO (13:38)
[2023-11-19] MEDS: Ascorbic Acid 500 MG Tablet PO ×2 (13:38→20:48)
[2023-11-19] MEDS: ARIPiprazole 5 MG Tablet 15 MG PO (13:38)
[2023-11-19] MEDS: Cholecalciferol (VIT D3) 25 MCG TABLET (1,000 UNITS) PO (13:38)
--- NOTE | 2023-11-19 13:49 | CASEMGMT ---
ANURADHA sent Haydee Figueroa a copy of the dialysis treatment schedule so Haydee Figueroa can work on transportation. Samia Harrell IRRIGATION SUPERVISOR HOUSING SPECIALIST
--- NOTE | 2023-11-19 14:29 | CASEMGMT ---
Haydee Figueroa responded back to SW via [facility] asking if [facility] can check with [facility] on dialysis times. will ask RN LORRAINE. Samia Harrell RESTAURANT DELIVERY DRIVER KAREN
--- NOTE | 2023-11-19 15:01 | CASEMGMT ---
HUGO PETERS updated by ANURADHA that [facility] requesting HD referral be sent to [facility] to see if they have a better schedule to setup transport. HUGO PETERS sent referral to [facility]
--- NOTE | 2023-11-19 15:28 | PN.HOSP_ITS ---
Reason for Visit Reason for Visit: Diagnoses Anemia, unspecified (11/17/23) Acute kidney failure, unspecified (11/17/23) End stage renal disease (11/17/23) Personal history of other diseases of the nervous system and sense organs (11/17/23) Personal history of transient ischemic attack (TIA), and cerebral infarction without residual deficits (11/17/23) Objective Data Objective Data Vital Signs: Vital Signs Temp Pulse Resp BP Pulse Ox O2 Del Method O2 Flow Rate 98.1 F 94 13 118/87 H 99 Room Air 99 11/19/23 09:05 11/19/23 13:11 11/19/23 13:11 11/19/23 13:11 11/19/23 13:11 11/19/23 13:50 11/19/23 13:11 Oxygen Flow Rate (L/min) 99 Oxygen Delivery Method Room Air Weight: 148 lb 12.992 oz Body Mass Index (BMI) 21.3 Intake & Output: Intake and Output for Last 24 Hours 11/17/23 11/18/23 11/19/23 23:59 23:59 23:59 Intake Total 2002.0 / 2002.0 714 / 834 420 / 420 Output Total 550 / 550 2650 / 2950 1050 / 1050 Balance 1452.0 / 1452.0 -1936 / -2116 -630 / -630 Lab / Micro Data 11/19/23 05:53 11/19/23 05:53 Labs: Laboratory Results - last 24 hr 11/19/23 05:53: WBC 6.5, RBC 2.99 L, Hgb 8.5 L, Hct 26.6 L, MCV 89.0, MCH 28.4, MCHC 32.0, RDW Std Deviation 62.2 H, RDW Coeff of Tomas 19.7 H, Plt Count 252, MPV 11.9, Immature Gran % (Auto) 0.500, Neut % (Auto) 67.4, Lymph % (Auto) 14.4 L, M jenny % (Auto) 14.8 H, Eos % (Auto) 2.3, Baso % (Auto) 0.6, Absolute Neuts (auto) 4.4, Absolute Lymphs (auto) 0.93, Nucleated RBC % 0, Sodium 147 H, Potassium 3.6, Chloride 118 H, Carbon Dioxide 20.0 L, Anion Gap 9, BUN 75 H, Creatinine 8.23 H*, Estim Creat Clear Calc 9.01, Est GFR (MDRD) Af Amer 9 L, Est GFR (MDRD) Non-Af 7 L, BUN/Creatinine Ratio 9.1 L, Glucose 97, Calcium 9.3, Hep Bs Antigen Non-Reactive Rhythm Strip Rhythm Strip: Sinus Rhythm Rate: 69 Ectopy: None Physical Exam Narrative Seen and examined. No acute change in clinical status. Patient has right-sided permacath started on dialysis 11/18/2023. Patient is long term resident. 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 Had episodes of JACI in the past that required temporary dialysis over 3 to 4 years ago. Physical exam General: Alert, Oriented x3, Cooperative HEENT: Atraumatic, PERRLA, EOMI, Normocephalic Oral: Oral mucosa dry. No Gingival or Mucosal Lesions/ Ulcerations Neck: Supple, No JVD, Negative Carotid Bruits Chest wall/Lungs: Air entry diminished in bilateral lung bases. No crepitation/rhonchi Cardiovascular: Regular rate, Regular Rhythm, Normal S1, Normal S2, No M/G/R Abdomen: Bowel Sounds Present, Soft, Non Tender, Non-Distended. No PD catheter : No dysuria. No renal angle tenderness. No suprapubic tenderness. Extremities: No edema, Capillary Refill Less than 3 Seconds Skin: No rashes, No breakdown Musculoskeletal: No Tenderness to Palpation of Joints or Extremities. Left- sided hemiplegia, contractures. Right-sided weakness. ROM restricted Neurological: Cranial nerves II-XII grossly intact, DTR 2+/4. 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 Psych/Mental Status: Flat affect, intermittent agitation. Vascular dementia Assessment & Plan Assessment/Plan (1) Acute kidney failure, unspecified: (2) Anemia: PLAN: Plan 63-year-old gentleman being admitted for abnormal labs sent from long term, hemoglobin 5.4. History of chronic anemia with iron infusion in the past. His creatinine was found 11.8. Patient was on temporary dialysis in the past when he had a stroke 1. CKD stage V/ESRD for last 3 years: BUN 120, creatinine 11. Patient is euvolemic. Manufacturing Operations Manager discussed with the family, patient's daughter Lupe like to proceed with dialysis. Patient gets extremely agitated on the floor. Surgeon consulted from criminology teacher for dialysis catheter, tunneled Alysis catheter insertion tomorrow. N.p.o. past midnight. Kidney ultrasound shows mild degree of left renal atrophy. Bilateral renal cysts prominent in right kidney. 11/17: Patient had right IJ tunneled dialysis catheter. 11/18: Second hemodialysis session today. First was yesterday. 2. Acute anemia with history of chronic anemia most likely due to end-stage renal disease: Iron study shows iron saturation 48% serum iron high, ferritin 80 consistent with anemia due to ESRD/CKD. Folate normal. B12 pending. TSH normal. Patient had 2 units of PRBC transfusion. Posttransfusion hemoglobin increased to 8.4. * Hold aspirin * 11/17: H&H 8.1/25%. Platelet count 237,000. 11/18 H&H 8.5/26%. Platelet count normal. 3. Leukopenia * Unclear significance * Monitor 11/17: WBC count normal. Chronic conditions * Depression/anxiety/behavioral disturbances: Continue with aripiprazole, fluoxetine * Hypothyroidism: Continue levothyroxine. Check TSH. * History of stroke: Holding aspirin. Patient has dense left-sided hemiparesis since his stroke. VTE prophylaxis: SCDs. Chemical prophylaxis contraindicated in light of the anemia. CODE STATUS: Addressed with the patient's daughters at bedside. Patient is DNR Comfort Care arrest no intubation. Clinical Impression(s) from Imaging Studies Renal Ultrasound 11/17/23 00:48 IMPRESSION: Mild degree of left renal atrophy. Bilateral renal cysts more prominent in the right kidney. Electronically Signed: Bolivar Olvera MD at 13:01 EDT , Charges/Coding Visit Charges Inpatient E&M: 60395 Subs Hosp L2
[2023-11-19] MEDS: Atorvastatin Calcium 80 MG Tablet PO (20:49)
[2023-11-19] MEDS: 0.9% Normal Saline (500mL Bag) 500 ML 15 ML IV (20:57)
[2023-11-19] MEDS: Gabapentin 300 MG Capsule PO (20:57)
[2023-11-20 02:42] VITALS: BP 121/85; PULSE 72; RESP 16; TEMP 36.3; O2SAT 97
[2023-11-20] MEDS: Levothyroxine 50 MCG Tablet PO (06:01)
[2023-11-20] MEDS: Calcium Carbonate 500 MG Tablet 200 MG PO ×3 (06:02→17:35)
[2023-11-20 08:02] VITALS: BP 140/86; PULSE 74; RESP 12; TEMP 36.6; O2SAT 97
[2023-11-20] MEDS: Aspirin 81 MG TAB.CHEW PO (08:05)
[2023-11-20] MEDS: ARIPiprazole 5 MG Tablet 15 MG PO (08:05)
[2023-11-20] MEDS: Ascorbic Acid 500 MG Tablet PO ×2 (08:06→21:06)
[2023-11-20] MEDS: Fluoxetine HCl 40 MG CAPSULE PO (08:06)
[2023-11-20] MEDS: Loratadine 10 MG Tablet PO (08:07)
[2023-11-20] MEDS: Senna/Docusate Sodium 1 Tablet 2 TABLET PO ×2 (08:07→21:05)
[2023-11-20] MEDS: Pantoprazole Sodium 40 MG Tablet PO (08:07)
[2023-11-20] MEDS: Cholecalciferol (VIT D3) 25 MCG TABLET (1,000 UNITS) PO (08:07)
[2023-11-20 08:08] VITALS: PULSE 74
[2023-11-20] MEDS: Metoprolol Tartrate 25 MG Tablet 12.5 MG PO ×2 (08:08→21:05)
[2023-11-20] MEDS: Sodium Chloride 0.65% 1 SPRAY SPRAY.BTL 2 SPRAY NASAL ×2 (08:08→21:06)
[2023-11-20] MEDS: Fluticasone 0.05% 1 SPRAY NASAL.SRY 2 SPRAY NASAL (08:08)
[2023-11-20] MEDS: Polyethylene Glycol 3350 17 GM PACKET PO ×2 (08:09→21:05)
[2023-11-20 14:40] VITALS: BP 124/84; PULSE 71; RESP 14; TEMP 36.5; O2SAT 98
--- NOTE | 2023-11-20 14:53 | PCM.PN.HOSP ---
Reason for Visit Reason for Visit: Diagnoses Anemia, unspecified (11/17/23) Acute kidney failure, unspecified (11/17/23) End stage renal disease (11/17/23) Personal history of other diseases of the nervous system and sense organs (11/17/23) Personal history of transient ischemic attack (TIA), and cerebral infarction without residual deficits (11/17/23) Objective Data Objective Data Vital Signs: Vital Signs Temp Pulse Resp BP Pulse Ox O2 Del Method O2 Flow Rate 97.7 F L 71 14 124/84 H 98 Room Air 99 11/20/23 14:40 11/20/23 14:40 11/20/23 14:40 11/20/23 14:40 11/20/23 14:40 11/20/23 14:40 11/19/23 13:11 Oxygen Flow Rate (L/min) 99 Oxygen Delivery Method Room Air Weight: 148 lb 12.992 oz Body Mass Index (BMI) 21.3 Intake & Output: Intake and Output for Last 24 Hours 11/18/23 11/19/23 11/20/23 23:59 23:59 23:59 Intake Total 714 / 834 660 / 900 480 / 480 Output Total 2650 / 2950 1350 / 2050 1200 / 1200 Balance -1936 / -2116 -690 / -1150 -720 / -720 Lab / Micro Data 11/19/23 05:53 11/19/23 05:53 Micro: Microbiology 11/18/23 12:47 Stool Stool Occult Blood (CORETTA) - Final Rhythm Strip Rhythm Strip: Sinus Rhythm Rate: 69 Ectopy: None Physical Exam Narrative Seen and examined. No acute change in clinical status. Patient has right-sided permacath started on dialysis 11/18/2023. Stool for occult blood positive.Low hemoglobin. Patient is custodial resident. 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 Had episodes of JACI in the past that required temporary dialysis over 3 to 4 years ago. Physical exam General: Alert, Oriented x3, Cooperative HEENT: Atraumatic, PERRLA, EOMI, Normocephalic Oral: Oral mucosa dry. No Gingival or Mucosal Lesions/ Ulcerations Neck: Supple, No JVD, Negative Carotid Bruits Chest wall/Lungs: Air entry diminished in bilateral lung bases. No crepitation/rhonchi Cardiovascular: Regular rate, Regular Rhythm, Normal S1, Normal S2, No M/G/R Abdomen: Bowel Sounds Present, Soft, Non Tender, Non-Distended. No PD catheter : No dysuria. No renal angle tenderness. No suprapubic tenderness. Extremities: No edema, Capillary Refill Less than 3 Seconds Skin: No rashes, No breakdown Musculoskeletal: No Tenderness to Palpation of Joints or Extremities. Left-sided hemiplegia, contractures. Right-sided weakness. ROM restricted Neurological: Cranial nerves II-XII grossly intact, DTR 2+/4. 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 Psych/Mental Status: Flat affect, intermittent agitation. Vascular dementia Assessment & Plan Assessment/Plan (1) Acute kidney failure, unspecified: (2) Anemia: PLAN: Plan 63-year-old gentleman being admitted for abnormal labs sent from custodial, hemoglobin 5.4. History of chronic anemia with iron infusion in the past. His creatinine was found 11.8. Patient was on temporary dialysis in the past when he had a stroke 1. CKD stage V/ESRD for last 3 years: BUN 120, creatinine 11. Patient is euvolemic. Assistant Corporate Controller discussed with the family, patient's daughter Lupe like to proceed with dialysis. Patient gets extremely agitated on the floor. Surgeon consulted from seed laboratory technician for dialysis catheter, tunneled Alysis catheter insertion tomorrow. N.p.o. past midnight. Kidney ultrasound shows mild degree of left renal atrophy. Bilateral renal cysts prominent in right kidney. 11/17: Patient had right IJ tunneled dialysis catheter. 11/18: Second hemodialysis session today. First was yesterday. 11/19: Dialysis as per seed laboratory technician recommendation. 2. Acute anemia with history of chronic anemia most likely due to end-stage renal disease: Iron study shows iron saturation 48% serum iron high, ferritin 80 consistent with anemia due to ESRD/CKD. Folate normal. B12 pending. TSH normal. Patient had 2 units of PRBC transfusion. Posttransfusion hemoglobin increased to 8.4. Hold aspirin 11/17: H&H 8.1/25%. Platelet count 237,000. 11/18 H&H 8.5/26%. Platelet count normal. 11/19: Stool for occult blood positive. follow CBC. Blood pressure normal. 3. Leukopenia Unclear significance Monitor 11/17: WBC count normal. Chronic conditions Depression/anxiety/behavioral disturbances: Continue with aripiprazole, fluoxetine Hypothyroidism: Continue levothyroxine. Check TSH. History of stroke: Holding aspirin. Patient has dense left-sided hemiparesis since his stroke. VTE prophylaxis: SCDs. Chemical prophylaxis contraindicated in light of the anemia. CODE STATUS: Addressed with the patient's daughters at bedside. Patient is DNR Comfort Care arrest no intubation. Clinical Impression(s) from Imaging Studies Renal Ultrasound 11/17/23 00:48 IMPRESSION: Mild degree of left renal atrophy. Bilateral renal cysts more prominent in the right kidney. Electronically Signed: Bolivar Olvera MD at 13:01 EDT , Charges/Coding Visit Charges Inpatient E&M: 24007 Subs Hosp L2
[2023-11-20 16:28] LABS: Absolute Lymphocyte Count 1.16 X10^3/uL (0.83-4.51); Absolute Neutrophil Count 2.8 X10^3/uL (2.0-7.7); Basophil# 0.05 X10^3/uL; Basophil% 0.9 % (0-1); Eosinophil# 0.19 X10^3/uL; Eosinophils% 3.6 % (0-5); Hematocrit 27.9 % (40-54); Hemoglobin 8.7 g/dL (13.0-16.5); Lymphocyte # 1.16 X10^3/ul (0.83-4.51); Lymphocyte % 21.9 % (19-41); Mean Corp Hgb Conc 31.2 g/dL (32-36); Mean Corpuscular Hgb 28.2 pg (27.0-32.0); Mean Corpuscular Volume 90.6 fL (80-94); Mean Platelet Vol. 11.3 fl (6.2-12.0); Monocyte# 1.03 X10^3/uL; Monocyte% 19.4 % (0-10); NRBC Flagged by Analyzer 0 % (0-5); Neutrophil # 2.78 X10^3/uL (2.7-7.7); Neutrophil % 52.5 % (47-70); POSITIVE MORPHOLOGY YES; Platelet Count 241 K/mm3 (150-450); RBC Distribution Width CV 19.8 % (11.6-14.6); RBC Distribution Width SD 65.2 fl (35.1-43.9); Red Blood Count 3.08 M/mm3 (4.6-6.2); White Blood Count 5.3 K/mm3 (4.4-11.0)
[2023-11-20 16:35] LABS: Differential Indicated SCAN CRITERIA MET
[2023-11-20 16:50] LABS: Anion Gap 8 (5-15); BUN 65 mg/dL (7-18); BUN/Creat Ratio 8.2 RATIO (10-20); Calcium,Total 8.5 mg/dL (8.5-10.1); Chloride 114 mmol/L (98-107); Creatinine, Serum 7.92 mg/dL (0.70-1.30); EST Glomerular Filtration Rate 7 mL/min (>60); Est Glom Filt Rate - Afr Amer 9 mL/min (>60); Estimated Creatinine Clearance 9.35 ml/min; Glucose 102 mg/dL (74-106); Potassium 3.9 mmol/L (3.5-5.1); Sodium Level 143 mmol/L (136-145)
[2023-11-20 17:43] LABS: Anisocytosis 2+; Differential Comment SCANNED; Macrocytosis 1+; Microcytosis 1+
[2023-11-20 20:55] VITALS: BP 120/67; PULSE 86; RESP 18; TEMP 36.8; O2SAT 96
[2023-11-20 21:05] VITALS: BP 120/67; PULSE 86
[2023-11-20] MEDS: Atorvastatin Calcium 80 MG Tablet PO (21:05)
[2023-11-20] MEDS: Gabapentin 300 MG Capsule PO (21:06)
[2023-11-20] MEDS: LORazepam 0.5 MG Tablet PO (22:58)
[2023-11-21 03:00] VITALS: BP 112/70; PULSE 72; RESP 18; TEMP 36.7; O2SAT 95
[2023-11-21] MEDS: Calcium Carbonate 500 MG Tablet 200 MG PO ×2 (05:46→17:14)
[2023-11-21] MEDS: Levothyroxine 50 MCG Tablet PO (05:46)
[2023-11-21 07:19] LABS: Absolute Neutrophil Count 2.7 X10^3/uL (2.0-7.7); Basophil# 0.07 X10^3/uL; Basophil% 1.2 % (0-1); Eosinophil# 0.24 X10^3/uL; Eosinophils% 4.1 % (0-5); Hematocrit 26.9 % (40-54); Hemoglobin 8.2 g/dL (13.0-16.5); Lymphocyte % 29.1 % (19-41); Mean Corp Hgb Conc 30.5 g/dL (32-36); Mean Corpuscular Hgb 27.9 pg (27.0-32.0); Mean Corpuscular Volume 91.5 fL (80-94); Mean Platelet Vol. 11.2 fl (6.2-12.0); Monocyte# 1.09 X10^3/uL; Monocyte% 18.6 % (0-10); NRBC Flagged by Analyzer 0.3 % (0-5); Neutrophil # 2.65 X10^3/uL (2.7-7.7); Neutrophil % 45.3 % (47-70); Platelet Count 236 K/mm3 (150-450); RBC Distribution Width CV 18.9 % (11.6-14.6); Red Blood Count 2.94 M/mm3 (4.6-6.2); White Blood Count 5.9 K/mm3 (4.4-11.0)
[2023-11-21 07:46] LABS: Anion Gap 7 (5-15); BUN 70 mg/dL (7-18); BUN/Creat Ratio 8.4 RATIO (10-20); Calcium,Total 8.9 mg/dL (8.5-10.1); Chloride 116 mmol/L (98-107); Creatinine, Serum 8.33 mg/dL (0.70-1.30); EST Glomerular Filtration Rate 7 mL/min (>60); Est Glom Filt Rate - Afr Amer 8 mL/min (>60); Estimated Creatinine Clearance 8.89 ml/min; Glucose 94 mg/dL (74-106); Potassium 3.9 mmol/L (3.5-5.1); Sodium Level 146 mmol/L (136-145)
[2023-11-21 08:31] VITALS: BP 111/85; PULSE 69; RESP 16; TEMP 36.8; O2SAT 95
[2023-11-21] MEDS: Fluticasone 0.05% 1 SPRAY NASAL.SRY 2 SPRAY NASAL (08:35)
[2023-11-21] MEDS: Pantoprazole Sodium 40 MG Tablet PO (08:35)
[2023-11-21] MEDS: Ascorbic Acid 500 MG Tablet PO ×2 (08:36→21:17)
[2023-11-21] MEDS: Fluoxetine HCl 40 MG CAPSULE PO (08:36)
[2023-11-21] MEDS: Senna/Docusate Sodium 1 Tablet 2 TABLET PO ×2 (08:36→21:17)
[2023-11-21] MEDS: ARIPiprazole 5 MG Tablet 15 MG PO (08:36)
[2023-11-21] MEDS: Aspirin 81 MG TAB.CHEW PO (08:37)
[2023-11-21] MEDS: Polyethylene Glycol 3350 17 GM PACKET PO ×2 (08:37→21:22)
[2023-11-21 08:38] VITALS: PULSE 69
[2023-11-21] MEDS: Metoprolol Tartrate 25 MG Tablet 12.5 MG PO ×3 (08:38→21:16)
[2023-11-21] MEDS: Cholecalciferol (VIT D3) 25 MCG TABLET (1,000 UNITS) PO (08:39)
[2023-11-21] MEDS: Sodium Chloride 0.65% 1 SPRAY SPRAY.BTL 2 SPRAY NASAL ×2 (08:39→21:24)
--- NOTE | 2023-11-21 12:49 | PN.HOSP_ITS ---
Reason for Visit Reason for Visit: Diagnoses Anemia, unspecified (11/17/23) Acute kidney failure, unspecified (11/17/23) End stage renal disease (11/17/23) Personal history of other diseases of the nervous system and sense organs (11/17/23) Personal history of transient ischemic attack (TIA), and cerebral infarction without residual deficits (11/17/23) Objective Data Objective Data Vital Signs: Vital Signs Temp Pulse Resp BP Pulse Ox O2 Del Method O2 Flow Rate 98.3 F 69 16 111/85 H 95 Room Air 99 11/21/23 08:31 11/21/23 08:38 11/21/23 08:31 11/21/23 08:31 11/21/23 08:31 11/21/23 09:10 11/19/23 13:11 Oxygen Flow Rate (L/min) 99 Oxygen Delivery Method Room Air Weight: 148 lb 12.992 oz Body Mass Index (BMI) 21.3 Intake & Output: Intake and Output for Last 24 Hours 11/19/23 11/20/23 11/21/23 23:59 23:59 23:59 Intake Total 660 / 900 955.75 / 1435.75 600 / 600 Output Total 1350 / 2050 1700 / 2050 1000 / 1000 Balance -690 / -1150 -744.25 / -614.25 -400 / -400 Lab / Micro Data 11/21/23 06:35 11/21/23 06:35 Labs: Laboratory Results - last 24 hr 11/20/23 16:04: WBC 5.3, RBC 3.08 L, Hgb 8.7 L, Hct 27.9 L, MCV 90.6, MCH 28.2, MCHC 31.2 L, RDW Std Deviation 65.2 H, RDW Coeff of Tomas 19.8 H, Plt Count 241, MPV 11.3, Immature Gran % (Auto) 1.700 H, Neut % (Auto) 52.5, Lymph % (Auto) 21.9, [place] % (Auto) 19.4 H, Eos % (Auto) 3.6, Baso % (Auto) 0.9, Absolute Neuts (auto) 2.8, Absolute Lymphs (auto) 1.16, Nucleated RBC % 0, Differential Comment SCANNED, Anisocytosis 2+, Microcytosis 1+, Macrocytosis 1+, Sodium 143, Potassium 3.9, Chloride 114 H, Carbon Dioxide 21.0, Anion Gap 8, BUN 65 H, C reatinine 7.92 H*, Estim Creat Clear Calc 9.35, Est GFR (MDRD) Af Amer 9 L, Est GFR (MDRD) Non-Af 7 L, BUN/Creatinine Ratio 8.2 L, Glucose 102, Calcium 8.5 11/21/23 06:35: WBC 5.9, RBC 2.94 L, Hgb 8.2 L, Hct 26.9 L, MCV 91.5, MCH 27.9, MCHC 30.5 L, RDW Std Deviation 63.0 H, RDW Coeff of Tomas 18.9 H, Plt Count 236, MPV 11.2, Immature Gran % (Auto) 1.700 H, Neut % (Auto) 45.3 L, Lymph % (Auto) 29.1, [place] % (Auto) 18.6 H, Eos % (Auto) 4.1, Baso % (Auto) 1.2 H, Absolute Neuts (auto) 2.7, Absolute Lymphs (auto) 1.70, Nucleated RBC % 0.3, Sodium 146 H , Potassium 3.9, Chloride 116 H, Carbon Dioxide 23.0, Anion Gap 7, BUN 70 H, C reatinine 8.33 H*, Estim Creat Clear Calc 8.89, Est GFR (MDRD) Af Amer 8 L, Est GFR (MDRD) Non-Af 7 L, BUN/Creatinine Ratio 8.4 L, Glucose 94, Calcium 8.9 Micro: Microbiology 11/18/23 12:47 Stool Stool Occult Blood (CORETTA) - Final Rhythm Strip Rhythm Strip: Sinus Rhythm Rate: 69 Ectopy: None Physical Exam Narrative Seen and examined. No acute change in clinical status. Patient has right-sided permacath started on dialysis 11/18/2023. Stool for occult blood positive.Low hemoglobin. Patient is [facility]. 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 Had episodes of JACI in the past that required temporary dialysis over 3 to 4 years ago. Physical exam General: Alert, Oriented x3, Cooperative HEENT: Atraumatic, PERRLA, EOMI, Normocephalic Oral: Oral mucosa dry. No Gingival or Mucosal Lesions/ Ulcerations Neck: Supple, No JVD, Negative Carotid Bruits Chest wall/Lungs: Air entry diminished in bilateral lung bases. No crepitation/rhonchi Cardiovascular: Regular rate, Regular Rhythm, Normal S1, Normal S2, No M/G/R Abdomen: Bowel Sounds Present, Soft, Non Tender, Non-Distended. No PD catheter : No dysuria. No renal angle tenderness. No suprapubic tenderness. Extremities: No edema, Capillary Refill Less than 3 Seconds Skin: No rashes, No breakdown Musculoskeletal: No Tenderness to Palpation of Joints or Extremities. Left- sided hemiplegia, contractures. Right-sided weakness. ROM restricted Neurological: Cranial nerves II-XII grossly intact, DTR 2+/4. 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 Psych/Mental Status: Flat affect, intermittent agitation. Vascular dementia Assessment & Plan Assessment/Plan (1) Acute kidney failure, unspecified: (2) Anemia: PLAN: Plan 63-year-old gentleman being admitted for abnormal labs sent from [facility], hemoglobin 5.4. History of chronic anemia with iron infusion in the past. His creatinine was found 11.8. Patient was on temporary dialysis in the past when he had a stroke 1. CKD stage V/ESRD for last 3 years: BUN 120, creatinine 11. Patient is euvolemic. Dispatcher Refinery discussed with the family, patient's daughter Lupe like to proceed with dialysis. Patient gets extremely agitated on the floor. Surgeon consulted from district operations manager for dialysis catheter, tunneled Alysis catheter insertion tomorrow. N.p.o. past midnight. Kidney ultrasound shows mild degree of left renal atrophy. Bilateral renal cysts prominent in right kidney. 11/17: Patient had right IJ tunneled dialysis catheter. 11/18: Second hemodialysis session today. First was yesterday. 11/19: Dialysis as per district operations manager recommendation. 11/20: No acute change. 2. Acute anemia with history of chronic anemia most likely due to end-stage renal disease: Iron study shows iron saturation 48% serum iron high, ferritin 80 consistent with anemia due to ESRD/CKD. Folate normal. B12 pending. TSH normal. Patient had 2 units of PRBC transfusion. Posttransfusion hemoglobin increased to 8.4. * Hold aspirin * 11/17: H&H 8.1/25%. Platelet count 237,000. 11/18 H&H 8.5/26%. Platelet count normal. 11/19: Stool for occult blood positive. follow CBC. Blood pressure normal. 11/20: On PPI. GI consulted. Possible EGD tomorrow AM. 3. Leukopenia * Unclear significance * Monitor 11/17: WBC count normal. Chronic conditions * Depression/anxiety/behavioral disturbances: Continue with aripiprazole, fluoxetine * Hypothyroidism: Continue levothyroxine. Check TSH. * History of stroke: Holding aspirin. Patient has dense left-sided hemiparesis since his stroke. VTE prophylaxis: SCDs. Chemical prophylaxis contraindicated in light of the anemia. CODE STATUS: Addressed with the patient's daughters at bedside. Patient is DNR Comfort Care arrest no intubation. Discharge plan will need counter caser input regarding outpatient dialysis arrangement. Clinical Impression(s) from Imaging Studies Renal Ultrasound 11/17/23 00:48 IMPRESSION: Mild degree of left renal atrophy. Bilateral renal cysts more prominent in the right kidney. Electronically Signed: Bolivar Olvera MD at 13:01 EDT , Charges/Coding Visit Charges Inpatient E&M: 53247 Subs Hosp L2
[2023-11-21 14:26] VITALS: BP 118/70; PULSE 71; RESP 12; TEMP 36.2; O2SAT 97
[2023-11-21 21:16] VITALS: PULSE 74
[2023-11-21] MEDS: Gabapentin 300 MG Capsule PO (21:22)
[2023-11-21 21:27] VITALS: BP 132/86; PULSE 78; RESP 16; TEMP 36.3; O2SAT 94
[2023-11-21] MEDS: Atorvastatin Calcium 80 MG Tablet PO (22:27)
[2023-11-22] VITALS (12 sets, daily range): BP systolic 66–150; BP diastolic 60–83; PULSE 52–68; RESP 13–18; TEMP 36.3–36.7; O2SAT 94–99; BMI 21.3
[2023-11-22] MEDS: Calcium Carbonate 500 MG Tablet 200 MG PO ×3 (05:35→15:39)
[2023-11-22] MEDS: Levothyroxine 50 MCG Tablet PO (05:36)
[2023-11-22 06:51] LABS: Absolute Lymphocyte Count 1.26 X10^3/uL (0.83-4.51); Absolute Neutrophil Count 3.5 X10^3/uL (2.0-7.7); Basophil# 0.04 X10^3/uL; Basophil% 0.7 % (0-1); Eosinophil# 0.22 X10^3/uL; Eosinophils% 3.7 % (0-5); Hematocrit 28.1 % (40-54); Hemoglobin 8.4 g/dL (13.0-16.5); Lymphocyte # 1.26 X10^3/ul (0.83-4.51); Mean Corp Hgb Conc 29.9 g/dL (32-36); Mean Corpuscular Hgb 27.5 pg (27.0-32.0); Mean Corpuscular Volume 92.1 fL (80-94); Mean Platelet Vol. 10.6 fl (6.2-12.0); Monocyte# 0.89 X10^3/uL; Monocyte% 14.8 % (0-10); NRBC Flagged by Analyzer 0 % (0-5); Neutrophil # 3.53 X10^3/uL (2.7-7.7); Neutrophil % 58.8 % (47-70); Platelet Count 255 K/mm3 (150-450); RBC Distribution Width CV 19.2 % (11.6-14.6); RBC Distribution Width SD 64.5 fl (35.1-43.9); Red Blood Count 3.05 M/mm3 (4.6-6.2)
[2023-11-22 07:16] LABS: Anion Gap 8 (5-15); BUN 73 mg/dL (7-18); BUN/Creat Ratio 8.3 RATIO (10-20); Chloride 115 mmol/L (98-107); EST Glomerular Filtration Rate 7 mL/min (>60); Est Glom Filt Rate - Afr Amer 8 mL/min (>60); Estimated Creatinine Clearance 8.42 ml/min; Glucose 100 mg/dL (74-106); Potassium 4.1 mmol/L (3.5-5.1); Sodium Level 146 mmol/L (136-145)
--- NOTE | 2023-11-22 09:50 | CASEMGMT ---
HUGO PETERS called [facility] to inquire about HD setup. Per Jeremiah at [facility], referral was rejected by [facility] and was advised to call [facility]. HUGO PETERS called [facility] and facility maintenance mechanic stated she would look into why the Quality Control Manager rejected the referral and would call this CM back. LORRAINE will continue to work on outpatient HD setup.
--- NOTE | 2023-11-22 10:44 | CASEMGMT ---
Discharge Planning Updates sent to [facility] via [facility]. Charley Watts DC Planning Asst.
[2023-11-22] MEDS: 0.9% Normal Saline 1,000 ML IV.SOLN. 1000 ML OPERA.SITE (10:54)
[2023-11-22] MEDS: 0.9% Saline Lock 10 ML Syringe IV ×2 (10:55→12:29)
--- NOTE | 2023-11-22 12:12 | PCM.PN.REN ---
Subjective Subjective Patient is receiving hemodialysis. Tolerating treatment well. No overnight events. Objective Data Objective Data Vital Signs: Vital Signs Temp Pulse Resp BP Pulse Ox O2 Del Method O2 Flow Rate 97.4 F L 56 L 13 128/69 H 96 Room Air 99 11/22/23 09:20 11/22/23 12:02 11/22/23 12:02 11/22/23 12:02 11/22/23 10:48 11/22/23 12:02 11/19/23 13:11 Oxygen Flow Rate (L/min) 99 Oxygen Delivery Method Room Air Weight: 67.5 kg Body Mass Index (BMI) 21.3 Intake & Output: Intake and Output for Last 24 Hours 11/20/23 11/21/23 11/22/23 23:59 23:59 23:59 Intake Total 955.75 / 1435.75 1140 / 1140 600 / 600 Output Total 1700 / 2050 1600 / 1600 750 / 750 Balance -744.25 / -614.25 -460 / -460 -150 / -150 Lab / Micro Data 11/22/23 06:20 11/22/23 06:20 Labs: Laboratory Results - last 24 hr 11/22/23 06:20: WBC 6.0, RBC 3.05 L, Hgb 8.4 L, Hct 28.1 L, MCV 92.1, MCH 27.5, MCHC 29.9 L, RDW Std Deviation 64.5 H, RDW Coeff of Tomas 19.2 H, Plt Count 255, MPV 10.6, Immature Gran % (Auto) 1.000 H, Neut % (Auto) 58.8, Lymph % (Auto) 21.0, [place] % (Auto) 14.8 H, Eos % (Auto) 3.7, Baso % (Auto) 0.7, Absolute Neuts (auto) 3.5, Absolute Lymphs (auto) 1.26, Nucleated RBC % 0, Sodium 146 H, Potassium 4.1, Chloride 115 H, Carbon Dioxide 23.0, Anion Gap 8, BUN 73 H, Creatinine 8.80 H*, Estim Creat Clear Calc 8.42, Est GFR (MDRD) Af Amer 8 L, Est GFR (MDRD) Non-Af 7 L, BUN/Creatinine Ratio 8.3 L, Glucose 100, Calcium 9.0 Micro: Microbiology 11/18/23 12:47 Stool Stool Occult Blood (CORETTA) - Final Rhythm Strip Rhythm Strip: Sinus Rhythm Rate: 69 Ectopy: None Physical Exam Narrative Alert and oriented, no apparent distress no obvious distress [id number] RRR lungs clear abdomen soft no edema Tunneled HD catheter right chest accessed for hemodialysis Assessment & Plan Assessment/Plan (1) ESRD (end stage renal disease): PLAN: History of CKD stage V for more than 3 years, now ESRD. Patient had tunneled dialysis catheter placed and first HD session 11/17 over 2 hours, low blood flow rate with no fluid removal. Patient to dialyze today over 2.5 hours with no fluid removal, low blood flow rate. Today is patient's third hemodialysis session. Patient will need outpatient hemodialysis arrangements, discussed this with discharge planning team. Patient currently resides at [facility] (has been there at least last 4 years). Tentative dialysis schedule TTS at [facility]. [facility] may not be able to arrange transportation (patient is dot) therefore patient may need different ECF. Discussed possibility of [facility] with in-house dialysis. Acidosis. Improved with dialysis. Anemia. Likely part of ESRD. Patient received MAURI with dialysis today. He will also receive MAURI at outpatient chronic hemodialysis center along with iron. HTN. Bps acceptable on metoprolol. Recommend holding dose mornings of dialysis. Once outpatient dialysis is arranged patient can be discharged per renal standpoint after cleared by primary team. He is ESRD.
[2023-11-22] MEDS: Epoetin Alfa epbx 10,000 UNIT/ML 20000 UNIT IV (12:16)
[2023-11-22] MEDS: Heparin 10,000 UNITS/10 ML Vial IV (12:30)
[2023-11-22] MEDS: Cholecalciferol (VIT D3) 25 MCG TABLET (1,000 UNITS) PO (12:51)
[2023-11-22] MEDS: ARIPiprazole 5 MG Tablet 15 MG PO (12:51)
[2023-11-22] MEDS: Aspirin 81 MG TAB.CHEW PO (12:52)
[2023-11-22] MEDS: Fluticasone 0.05% 1 SPRAY NASAL.SRY 2 SPRAY NASAL (12:52)
[2023-11-22] MEDS: Loratadine 10 MG Tablet PO (12:52)
[2023-11-22] MEDS: Pantoprazole Sodium 40 MG Tablet PO (12:52)
[2023-11-22] MEDS: Cyanocobalamin 500 MCG Tablet PO (12:52)
[2023-11-22] MEDS: Fluoxetine HCl 40 MG CAPSULE PO (12:52)
[2023-11-22] MEDS: Sodium Chloride 0.65% 1 SPRAY SPRAY.BTL 2 SPRAY NASAL ×2 (12:53→21:57)
[2023-11-22] MEDS: Ascorbic Acid 500 MG Tablet PO ×2 (12:54→21:57)
--- NOTE | 2023-11-22 14:41 | PCM.PN.HOSP ---
Reason for Visit Reason for Visit: Abn Lab Subjective Subjective Mr. Diego is a 63-year-old white male who resides at [facility] and presented from the local nursing facility due to abnormal labs on 11/16/2023 to the emergency department at [facility]. His hemoglobin on presentation was noted to be 5.4. There is no reported history of melena or hematochezia. Patient has known history of anemia in the past with previous iron transfusions and was ordered 2 units of packed red blood cells in the emergency department. Additionally, his creatinine was noted to be elevated at 11.8 with previous being 7.35. He did receive IV fluids in the emergency department and his daughter noted that he did look like he was improved since receiving IV fluids. Dialysis was discussed as a possibility at the time of presentation and patient and family were open to this idea if need be. He previously did require dialysis when he had a stroke previously but was only dialysis dependent for a few days. Vital signs on presentation showed temperature of 36.7, heart rate 77, respiratory 16, initial blood pressure was 96/35 with repeat of 79/53 and pulse ox was 97% on room air. His initial CBC showed leukopenia with a white count of 3.1 and anemia with a hemoglobin of 5.4 with a normal MCV. Platelet count was normal. His chemistry panel showed elevated sodium at 147, elevated chloride at 116, serum bicarb of 20 with a BUN of 122 and a creatinine of 11.8. Glucose was 185. Iron studies were obtained and not consistent with iron deficiency. Liver functions were normal. Vitamin B12 and folate were both normal. TSH was unremarkable. After 2 units of packed red blood cells were given his hemoglobin improved from 5.4-8.4. Recent baseline hemoglobin is unknown. Despite markedly low hemoglobin at the time of presentation his hemoglobin has stabilized. He is not on any chronic anticoagulation at baseline other than daily aspirin for his previous stroke and this has been restarted as of 11/20/2023. He was admitted to the telemetry floor and consultation to nephrology was placed. Nephrology evaluated the patient and felt he was appropriate for initiation of dialysis and was actually surprised that he had made it without dialysis for as long as he had. General surgery was consulted and a tunneled dialysis catheter was placed on 11/18/2023. Dialysis was initiated on 11/18/2023 and he has been tolerating this well thus far. Stool guaiac was obtained and found to be positive so a consultation to GI was placed and EGD is pending at this time. Patient has no complaints at this time. He is tolerating dialysis well without any issues. Case management is currently working on setting up dialysis as an outpatient from his ECF and once we obtain scopes to rule out acute blood loss or treat acute blood loss he should be able to return to his previous living arrangements with ongoing outpatient dialysis. This was discussed with him and he voiced understanding. Objective Data Objective Data Vital Signs: Vital Signs Temp Pulse Resp BP Pulse Ox O2 Del Method O2 Flow Rate 97.6 F L 58 L 13 115/75 97 Room Air 99 11/22/23 13:22 11/22/23 13:22 11/22/23 13:22 11/22/23 13:22 11/22/23 13:22 11/22/23 13:11/19/23 13:11 Oxygen Flow Rate (L/min) 99 Oxygen Delivery Method Room Air Weight: 67.5 kg Body Mass Index (BMI) 21.3 Intake & Output: Intake and Output for Last 24 Hours 11/20/23 11/21/23 11/22/23 23:59 23:59 23:59 Intake Total 955.75 / 1435.75 1140 / 1140 600 / 600 Output Total 1700 / 2050 1600 / 1600 750 / 750 Balance -744.25 / -614.25 -460 / -460 -150 / -150 Lab / Micro Data 11/22/23 06:20 11/22/23 06:20 Labs: Laboratory Results - last 24 hr 11/22/23 06:20: WBC 6.0, RBC 3.05 L, Hgb 8.4 L, Hct 28.1 L, MCV 92.1, MCH 27.5, MCHC 29.9 L, RDW Std Deviation 64.5 H, RDW Coeff of Tomas 19.2 H, Plt Count 255, MPV 10.6, Immature Gran % (Auto) 1.000 H, Neut % (Auto) 58.8, Lymph % (Auto) 21.0, [place] % (Auto) 14.8 H, Eos % (Auto) 3.7, Baso % (Auto) 0.7, Absolute Neuts (auto) 3.5, Absolute Lymphs (auto) 1.26, Nucleated RBC % 0, Sodium 146 H, Potassium 4.1, Chloride 115 H, Carbon Dioxide 23.0, Anion Gap 8, BUN 73 H, Creatinine 8.80 H*, Estim Creat Clear Calc 8.42, Est GFR (MDRD) Af Amer 8 L, Est GFR (MDRD) Non-Af 7 L, BUN/Creatinine Ratio 8.3 L, Glucose 100, Calcium 9.0 Micro: Microbiology 11/18/23 12:47 Stool Stool Occult Blood (CORET[place]) - Final Rhythm Strip Rhythm Strip: Sinus Rhythm Rate: 69 Ectopy: None Physical Exam Const alert and no apparent distress; Negative for healthy appearing or well nourished Constitutional Narrative: Upper middle-aged white male, thin, currently on dialysis with dialysis nurse at bedside, watching television, appears comfortable, does not appear toxic HEENT head/scalp atraumatic and moist oral mucous membranes HEENT Narrative: Dentition is poor, Mallampati is 2-3, no thrush Head and Scalp: normocephalic Resp normal respiratory effort, no retractions, no use of accessory muscles and clear to auscultation bilaterally Resp Narrative: Diminished at bases bilaterally but clear Auscultation: Negative for rales, rhonchi or wheezes Cardio regular rate, regular rhythm, S1 normal heart sound, S2 normal heart sound, no murmurs, no rub, no gallops and no clicks GI normal to inspection, nondistended, normoactive bowel sounds, soft to palpation and non-tender Extremity no clubbing, cyanosis or edema Extremity Narrative: Decreased lean muscle mass Skin Skin Narrative: Tunneled catheter in right side of chest-dressing intact and clean and dry Neuro No moves all extremities and No no focal motor deficits Neuro Narrative: Dense left sided hemiparesis with contractures noted in left upper and lower extremities Speech: speech normal Psych affect normal Psych Narrative: Interacts appropriately, eye contact is good, currently no behavioral issues Assessment & Plan Assessment/Plan (1) ESRD (end stage renal disease): (2) Anemia: PLAN: Plan End-stage renal disease -Serum creatinine is markedly elevated at greater than 11 on presentation -Patient has longstanding history of renal issues -Dialysis catheter placed on 11/18/2023 -Dialysis initiated on 11/18/2023 and patient tolerating well thus far -Plan is for ongoing outpatient dialysis from his ECF after arrangements can be made -Case management is currently working on this Acute on chronic anemia -Current baseline is unclear -Iron studies are not consistent with iron deficiency -Highly suspect his overall anemia is most significantly related to his baseline renal dysfunction -EPO has been given with dialysis -Was given 2 units packed red blood cells on admission and hemoglobin has stabilized since that point in time -Stool occult was positive for blood and GI has been consulted -Plan for EGD tomorrow -With stable hemoglobin we will continue aspirin -Continue PPI -Continue home iron supplementation -Hold chemoprophylaxis for DVT at this time Leukopenia -White count 3.1 on admission but now has normalized -Monitor periodically HTN/HPL -Continue home metoprolol -Continue home rosuvastatin -Continue home fenofibrate History of stroke -Patient has vascular dementia as a result -Continue aspirin -Continue treatment for modifiable secondary risk factors -Baseline patient has dense left hemiparesis and contractures -PT/OT following Hypothyroidism -Continue home levothyroxine -TSH is within normal limits Dementia with behavioral services -Continue home aripiprazole -Continue home Ativan -Continue home cimetidine Depression/anxiety -Continue home fluoxetine -Continue home Ativan Seasonal allergies -Continue fexofenadine -Continue home nasal spray DVT prophylaxis -Chemoprophylaxis contraindicated due to positive stool guaiac and anemia -Continue SCDs CODE STATUS -DNR CCA with no intubation Charges/Coding Visit Charges Inpatient E&M: 81251 Subs Hosp L2
--- NOTE | 2023-11-22 16:21 | CON.PCM.GI_ITS ---
HPI Consult Data Date of Consult: 11/22/23 HPI Narrative Reason for Consultation: Anemia HPI Narrative: SHIRLENE HERNANDEZ, is a 63 M who presents for abnormal labs. Patient was sent from his skilled nursing for abnormal labs. Sent to the emergency room and was noted that his hemoglobin was 5.4. There is no history of reported melena nor hematochezia. Patient has had history of anemia in the past and has had iron transfusions in the past. Patient was ordered 2 units of prior blood cells in the emergency room. Additionally, his creatinine went up to 11.8. Back in October was 7.35. Patient did receive IV fluids and patient's daughter is there states that he does look better since receiving IV fluids. They and the patient are open to dialysis if he would need that. Patient previously had dialysis when he had a stroke he was only on that for a few days and then was taken off. Acute anemia with history of chronic anemia most likely due to end-stage renal disease: Iron study shows iron saturation 48% serum iron high, ferritin 80 consistent with anemia due to ESRD/CKD. Folate normal. B12 pending. TSH normal. Patient had 2 units of PRBC transfusion. Posttransfusion hemoglobin increased to 8.4. History of chronic anemia with iron infusion in the past. His creatinine was found 11.8. Patient was on temporary dialysis in the past when he had a stroke [facility] Medical History Anxiety Former smoker Seizures Major depressive disorder Chronic kidney disease, stage 4 (severe) Vascular dementia Hypothyroidism Thyroid dysfunction Brain aneurysm Vitamin D deficiency Stroke Seizure Kidney failure Kidney disease HTN (hypertension) H/O transfusion of whole blood Bone fracture Back problem Arthritis Anxiety and depression Seasonal allergies Ingrown nail Foot drop, left Ingrown left big toenail Toe pain, left Toe pain, right Tinea unguium Essential (primary) hypertension CKD (chronic kidney disease) stage 4, GFR 15-29 ml/min History of hemorrhagic stroke with residual hemiparesis Seizure Aphasia Home Medications ?Medication ?Instructions ?Recorded ?Last Taken ?Type aspirin 81 mg chewable tablet 81 mg PO DAILY@0800 heart health 05/08/17 05/13/17 History metoprolol tartrate 25 mg tablet 12.5 mg PO BID blood pressure 06/02/18 Unknown History fenofibrate nanocrystallized 145 145 mg PO DAILY elevated 07/15/21 Unknown History mg tablet triglycerides fluoxetine 10 mg tablet 20 mg PO DAILY depression 07/15/21 Unknown History gabapentin 300 mg tablet 300 mg PO QHS neurontin 07/15/21 Unknown History levothyroxine 50 mcg tablet 50 mcg PO DAILY Check with primary 07/15/21 Unknown History doctor rosuvastatin 40 mg tablet (Crestor) 40 mg PO QHS cholesterol 07/15/21 Unknown History aripiprazole 10 mg tablet 10 mg PO QHS vasc dementia, 07/16/21 Unknown History conduct disorder cholecalciferol (vitamin D3) 1,250 1,250 mcg PO MOWEFR vit d 07/16/21 Unknown History mcg (50,000 unit) tablet replacement fluticasone propionate 50 2 spray intranasal DAILY allergy 07/16/21 Unknown History mcg/actuation nasal spray,suspension polyethylene glycol 3350 17 gram 17 g PO DAILY constipation 07/16/21 Unknown History oral powder packet (Miralax) sodium chloride 0.65 % nasal spray 2 spray intranasal BID nose 07/16/21 Unknown History aerosol (Saline Nasal) Ativan 0.5 mg PO/SL 4X/DAY 07/25/21 Unknown History lorazepam 0.5 mg tablet See Rx Instructions PO Q6H Anxiety 07/30/21 Unknown History aripiprazole 15 mg tablet 15 mg PO DAILY 11/16/23 Unknown History ascorbic acid (vitamin C) 500 mg 500 mg PO BID 11/16/23 Unknown History chewable tablet (Acerola C) calcium carbonate (Antacid 200 mg PO .ac 11/16/23 Unknown History (calcium carbonate)) cholecalciferol (vitamin D3) 25 1,000 unit PO QDAY 11/16/23 Unknown History mcg (1,000 unit) capsule cimetidine 200 mg tablet (Tagamet 400 mg PO BID 11/16/23 Unknown History HB) cyanocobalamin (vitamin B-12) 500 See Rx Instructions PO .COMPLEX 11/16/23 Unknown History mcg tablet (B-12 DOTS) ferrous sulfate 325 mg (65 mg 325 mg PO BID 11/16/23 Unknown History iron) tablet (FeroSul) fexofenadine 180 mg tablet 180 mg PO DAILY 11/16/23 Unknown History fluoxetine 40 mg capsule 40 mg PO DAILY 11/16/23 Unknown History sodium bicarbonate 650 mg tablet 650 mg PO BID 11/16/23 Unknown History Allergy/AdvReac Type Severity Reaction Status Date / Time No Known Allergies Allergy Verified 07/30/21 01:13 Family History Unknown Arthritis Breast cancer Mother Kidney stones Father Hypertension Other Colon cancer Surgical History S/P clamping of cerebral aneurysm H/O left inguinal hernia repair History of tonsillectomy and adenoidectomy Social History housing: skilled nursing Smoking Status: Former smoker how long ago did patient quit smoking: Quit 2017 after CVA, smoked 1 ppd since teen until quit. alcohol intake: never substance use type: does not use ROS ROS Narrative Admission Review of Systems: CONSTITUTIONAL: No weight loss, fever, chills, + weakness or fatigue. HEENT: + Headache, severe rhinorrhea, sore throat, congestion. Eyes: No visual loss, blurred vision, double vision or yellow sclerae. Ears, Nose, Throat: No hearing loss, sneezing. SKIN: No rash or itching, lesions, wounds. CARDIOVASCULAR: No chest pain, chest pressure or chest discomfort, palpitations, edema, orthopnea, syncopal events. RESPIRATORY: + Cough. No shortness of breath, increased sputum, wheezing, hemoptysis. GASTROINTESTINAL: No anorexia, nausea, vomiting or diarrhea, abdominal pain, melena, BRBPR. GENITOURINARY: No dysuria, frequency, urgency or retention. NEUROLOGICAL: + Hx CVA w/ chronic L sided paresis w/ contractures, headache, No dizziness, syncope, ataxia, change in bowel or bladder control, seizure. MUSCULOSKELETAL: + muscle, back pain, joint pain or stiffness. HEMATOLOGIC: No anemia, bleeding or bruising. LYMPHATICS: No enlarged nodes. No history of splenectomy. PSYCHIATRIC: + history of depression or anxiety. ENDOCRINOLOGIC: No reports of sweating, cold or heat intolerance. No polyuria or polydipsia. ALLERGIES: No history of asthma, hives, eczema or rhinitis. Physical Exam Narrative Alert and oriented, no apparent distress no obvious distress s1s2 RRR lungs clear abdomen soft no edema Tunneled HD catheter right chest accessed for hemodialysis Lab / Micro Data 11/23/23 02:33 11/23/23 02:33 Labs: Laboratory Results - last 24 hr 11/23/23 02:33: WBC 5.4, RBC 2.90 L, Hgb 7.9 L, Hct 26.6 L, MCV 91.7, MCH 27.2, MCHC 29.7 L, RDW Std Deviation 61.1 H, RDW Coeff of Tomas 18.4 H, Plt Count 256, MPV 11.0, Immature Gran % (Auto) 0.600, Neut % (Auto) 60.5, Lymph % (Auto) 18.0 L, [place] % (Auto) 16.7 H, Eos % (Auto) 3.3, Baso % (Auto) 0.9, Absolute Neuts (auto) 3.3, Absolute Lymphs (auto) 0.97, Nucleated RBC % 0, PT 15.8 H, INR 1.3, APTT 28.6, Sodium 142, Potassium 4.0, Chloride 111 H, Carbon Dioxide 24.0, Anion Gap 7, BUN 59 H, Creatinine 6.86 H, Estim Creat Clear Calc 10.80, Est GFR (MDRD) Af Amer 11 L, Est GFR (MDRD) Non-Af 9 L, BUN/Creatinine Ratio 8.6 L, Glucose 100, Calcium 8.8, TSH 2.01 Rhythm Strip Rhythm Strip: Sinus Rhythm Rate: 69 Ectopy: None Assessment & Plan Assessment/Plan (1) Acute kidney failure, unspecified: (2) Anemia: PLAN: Plan 63-year-old gentleman being admitted for abnormal labs sent from skilled nursing, hemoglobin 5.4. History of chronic anemia with iron infusion in the past. His creatinine was found 11.8. Patient was on temporary dialysis in the past when he had a stroke. He has a history of CKD stage V/ESRD for last 3 years: BUN 120, creatinine 11. He was found to be stool for occult blood positive. follow CBC. Blood pressure normal. He should undergo an upper GI with evaluation of his upper GI tract to see if there is any etiology of his severe anemia. If that is negative he may need a colonoscopy. He was explained alternatives, risk, benefits include not withstanding bleeding, infection, sepsis, perforation, need for emergent or . Have an ASA of 3. Charges/Coding Visit Charges Inpatient E&M: 21454 Init Hosp L3
[2023-11-22] MEDS: Polyethylene Glycol 3350 17 GM PACKET PO (21:55)
[2023-11-22] MEDS: Senna/Docusate Sodium 1 Tablet 2 TABLET PO (21:56)
[2023-11-22] MEDS: Atorvastatin Calcium 80 MG Tablet PO (21:57)
[2023-11-22] MEDS: Metoprolol Tartrate 25 MG Tablet 12.5 MG PO (21:57)
[2023-11-22] MEDS: Gabapentin 300 MG Capsule PO (21:57)
[2023-11-23] VITALS (12 sets, daily range): BP systolic 91–158; BP diastolic 58–110; PULSE 59–65; RESP 14–18; TEMP 36.2–37.1; O2SAT 93–96; BMI 21.3
[2023-11-23 02:41] LABS: Absolute Lymphocyte Count 0.97 X10^3/uL (0.83-4.51); Absolute Neutrophil Count 3.3 X10^3/uL (2.0-7.7); Basophil# 0.05 X10^3/uL; Basophil% 0.9 % (0-1); Eosinophil# 0.18 X10^3/uL; Eosinophils% 3.3 % (0-5); Hematocrit 26.6 % (40-54); Hemoglobin 7.9 g/dL (13.0-16.5); Lymphocyte # 0.97 X10^3/ul (0.83-4.51); Mean Corp Hgb Conc 29.7 g/dL (32-36); Mean Corpuscular Hgb 27.2 pg (27.0-32.0); Mean Corpuscular Volume 91.7 fL (80-94); Monocyte% 16.7 % (0-10); NRBC Flagged by Analyzer 0 % (0-5); Neutrophil # 3.25 X10^3/uL (2.7-7.7); Neutrophil % 60.5 % (47-70); Platelet Count 256 K/mm3 (150-450); RBC Distribution Width CV 18.4 % (11.6-14.6); RBC Distribution Width SD 61.1 fl (35.1-43.9); White Blood Count 5.4 K/mm3 (4.4-11.0)
[2023-11-23 02:57] LABS: International Normalized Ratio 1.3; Partial Thromboplast Time 28.6 Seconds (24.1-36.2); Prothrombin Time (Protime)PT. 15.8 SECONDS (11.7-14.9)
[2023-11-23 03:06] LABS: Anion Gap 7 (5-15); BUN 59 mg/dL (7-18); BUN/Creat Ratio 8.6 RATIO (10-20); Calcium,Total 8.8 mg/dL (8.5-10.1); Chloride 111 mmol/L (98-107); Creatinine, Serum 6.86 mg/dL (0.70-1.30); EST Glomerular Filtration Rate 9 mL/min (>60); Est Glom Filt Rate - Afr Amer 11 mL/min (>60); Glucose 100 mg/dL (74-106); Sodium Level 142 mmol/L (136-145); Thyroid Stim Hormone (TSH) 2.01 uIU/mL (0.358-3.74)
--- NOTE | 2023-11-23 05:55 | EKG12_ITS ---
Test Reason : AM EKG Blood Pressure : / mmHG Vent. Rate : 064 BPM Atrial Rate : 064 BPM P-R Int : 162 ms QRS Dur : 090 ms QT Int : 436 ms P-R-T Axes : 050 -01 030 degrees QTc Int : 449 ms Normal sinus rhythm Minimal voltage criteria for LVH, may be normal variant ( R in aVL ) Borderline ECG When compared with ECG of 18-NOV-2023 04:58, No significant change was found Confirmed by Viktor Trejo ([id number]), supervising film or videotape editor NIMA PA ([id number]) on 11/24/2023 8:56:24 AM Referred By: ABHAY Confirmed By:Viktor Trejo
[2023-11-23] MEDS: ARIPiprazole 5 MG Tablet 15 MG PO (09:53)
[2023-11-23] MEDS: Aspirin 81 MG TAB.CHEW PO (09:53)
[2023-11-23] MEDS: Fluticasone 0.05% 1 SPRAY NASAL.SRY 2 SPRAY NASAL (09:53)
[2023-11-23] MEDS: Metoprolol Tartrate 25 MG Tablet 12.5 MG PO ×2 (09:54→22:17)
[2023-11-23] MEDS: Sodium Chloride 0.65% 1 SPRAY SPRAY.BTL 2 SPRAY NASAL ×2 (09:54→22:18)
[2023-11-23] MEDS: Cholecalciferol (VIT D3) 25 MCG TABLET (1,000 UNITS) PO (09:55)
[2023-11-23] MEDS: Ascorbic Acid 500 MG Tablet PO ×2 (09:55→22:18)
[2023-11-23] MEDS: Pantoprazole Sodium 40 MG Tablet PO (09:55)
[2023-11-23] MEDS: Fluoxetine HCl 40 MG CAPSULE PO (09:56)
[2023-11-23] MEDS: Calcium Carbonate 500 MG Tablet 200 MG PO (09:56)
--- NOTE | 2023-11-23 11:46 | CASEMGMT ---
[facility] is not going to able to take patient. The only dialysis time available at [facility] is ,,Wed. ANURADHA called [facility] and spoke with Kathy. ANURADHA asked if dialysis was set up in [place] or [place] would they be able to transport depending availability. Kathy said at this time they would not be able to due to their busy schedule. Kathy notified SW that they are able to do patient's and dialysis, but not Wednesday. ANURADHA sent a message to [facility] Figuero[facility] via [email or web address] asking if they are able to get transport for Wednesday for patient. Samia Harrell [employer] CREWMEMBER KAREN
--- NOTE | 2023-11-23 12:03 | CASEMGMT ---
HUGO PETERS received message from Jeremiah at [facility] intake that patient was denied in the region for HD with [facility]. HUGO PETERS called [facility] intake and spoke with [facility]ita. Per notes, patient was denied and if his condition improves, he can reapply in 30 days. RN LORRAINE inquired about what condition and per Vita the [facility] denied patient. RN LORRAINE inquired if this RN CM could speak with [facility] to inquire why patient was denied. Vita to forward information to Jeremiah to see if [facility] is able to update this RN LORRAINE. RN LORRAINE updated CM editorial manager and SW regarding [facility] referral. HUGO PETERS called and spoke with Natalya at [facility] and only schedule available is TTS 1140, RN LORRAINE updated SW. CM will continue to follow this patient and plan for a safe discharge.
--- NOTE | 2023-11-23 12:49 | CASEMGMT ---
Addendum entered by Samia Harrell 11/23/23 13:00: ANURADHA called [facility] and asked when they would be able to start transporting patient. ANURADHA was informed that it is not definite they can transport patient. They do not know the chair time. ANURADHA told [facility] will have [facility]ero[facility] follow up with them. ANURADHA sent a message to [facility]dee Fgiueroa via [employer] letting them know [facility] may not be able to transport and they need to know the chair time. Samia JONES Original Note: [facility]dee Figueroa notified ANURADHA that [facility] will transport patient on and and [facility] Figuero[facility]'s armored car driver will do the Wednesday until they can secure a spot with a transport provider. ANURADHA will notify HUGO PETERS. ANURADHA will also check with [facility] to see when they are able to start transporting patient. Samia JONES
[2023-11-23] MEDS: 0.9% Normal Saline (500mL Bag) 500 ML 15 ML IV (14:44)
--- NOTE | 2023-11-23 14:50 | PCM.PN.HOSP ---
Reason for Visit Reason for Visit: Abnormal lab Subjective Subjective Patient has no complaints today. He is anxious to go back to [place] where he resides. He has been there for the last 4 years. He states he is hungry and would like to eat however I did explain we need to get his EGD done first. He voiced understanding. Objective Data Objective Data Vital Signs: Vital Signs Temp Pulse Resp BP Pulse Ox O2 Del Method O2 Flow Rate 98.4 F 61 16 104/71 95 Room Air 99 11/23/23 12:22 11/23/23 12:22 11/23/23 12:22 11/23/23 12:11/23/23 12:11/23/23 12:11/19/23 13:11 Oxygen Flow Rate (L/min) 99 Oxygen Delivery Method Room Air Weight: 67.5 kg Body Mass Index (BMI) 21.3 Intake & Output: Intake and Output for Last 24 Hours 11/21/23 11/22/23 11/23/23 23:59 23:59 23:59 Intake Total 1140 / 1140 1080 / 1080 Output Total 1600 / 1600 2100 / 2100 600 / 600 Balance -460 / -460 -1020 / -1020 -600 / -600 Lab / Micro Data 11/23/23 02:33 11/23/23 02:33 Labs: Laboratory Results - last 24 hr 11/23/23 02:33: WBC 5.4, RBC 2.90 L, Hgb 7.9 L, Hct 26.6 L, MCV 91.7, MCH 27.2, MCHC 29.7 L, RDW Std Deviation 61.1 H, RDW Coeff of Tomas 18.4 H, Plt Count 256, MPV 11.0, Immature Gran % (Auto) 0.600, Neut % (Auto) 60.5, Lymph % (Auto) 18.0 L, [place] % (Auto) 16.7 H, Eos % (Auto) 3.3, Baso % (Auto) 0.9, Absolute Neuts (auto) 3.3, Absolute Lymphs (auto) 0.97, Nucleated RBC % 0, PT 15.8 H, INR 1.3, APTT 28.6, Sodium 142, Potassium 4.0, Chloride 111 H, Carbon Dioxide 24.0, Anion Gap 7, BUN 59 H, Creatinine 6.86 H, Estim Creat Clear Calc 10.80, Est GFR (MDRD) Af Amer 11 L, Est GFR (MDRD) Non-Af 9 L, BUN/Creatinine Ratio 8.6 L, Glucose 100, Calcium 8.8, TSH 2.01 Micro: Microbiology 11/18/23 12:47 Stool Stool Occult Blood (CORETTA) - Final Rhythm Strip Rhythm Strip: Sinus Rhythm Rate: 69 Ectopy: None Physical Exam Const alert and no apparent distress; Negative for healthy appearing or well nourished Constitutional Narrative: Upper middle-aged white male, thin, sitting up in bed, watching television, appears comfortable, does not appear toxic HEENT normocephalic, head/scalp atraumatic and moist oral mucous membranes HEENT Narrative: Dentition is poor, Mallampati is 2, no thrush Resp normal respiratory effort, no retractions, no use of accessory muscles and clear to auscultation bilaterally Resp Narrative: Diminished at bases bilaterally but clear Auscultation: Negative for rales, rhonchi or wheezes Cardio regular rate, regular rhythm, S1 normal heart sound, S2 normal heart sound, no murmurs, no rub, no gallops and no clicks GI normal to inspection, nondistended, normoactive bowel sounds, soft to palpation and non-tender Extremity no clubbing, cyanosis or edema Extremity Narrative: Decreased lean muscle mass Skin Skin Narrative: Tunneled catheter in right side of chest-dressing intact and clean and dry Neuro No moves all extremities and No no focal motor deficits Neuro Narrative: Dense left sided hemiparesis with contractures noted in left upper and lower extremities Sensorium / Orientation: awake, alert, oriented to person, oriented to place and oriented to time Speech: speech normal Psych affect normal Psych Narrative: Interacts appropriately, eye contact is good, currently no behavioral issues Assessment & Plan Assessment/Plan (1) ESRD (end stage renal disease): (2) Anemia: PLAN: Plan End-stage renal disease -Serum creatinine is markedly elevated at greater than 11 on presentation -Patient has longstanding history of renal issues -Dialysis catheter placed on 11/18/2023 -Dialysis initiated on 11/18/2023 and patient continues to tolerate well -Plan is for ongoing outpatient dialysis from his ECF after arrangements can be made -Case management is currently working setting up outpatient dialysis from his ECF Acute on chronic anemia -Current baseline is unclear however he currently seems to be fluctuating between 7.5 and 8.5 -Iron studies are not consistent with iron deficiency -Highly suspect his overall anemia is most significantly related to his baseline renal dysfunction -EPO has been given with dialysis -Was given 2 units packed red blood cells on admission and hemoglobin has stabilized since that point in time -Stool occult was positive for blood -EGD is pending for today -With stable hemoglobin we will continue aspirin -Continue PPI -Continue home iron supplementation -Hold chemoprophylaxis for DVT at this time HTN/HPL -Continue home metoprolol -Continue home rosuvastatin -Continue home fenofibrate History of stroke -Patient has vascular dementia as a result -Continue aspirin -Continue treatment for modifiable secondary risk factors -Baseline patient has dense left hemiparesis and contractures -PT/OT following Hypothyroidism -Continue home levothyroxine -TSH is within normal limits Dementia with behavioral services -Continue home aripiprazole -Continue home Ativan -Continue home cimetidine Depression/anxiety -Continue home fluoxetine -Continue home Ativan Seasonal allergies -Continue fexofenadine -Continue home nasal spray DVT prophylaxis -Chemoprophylaxis contraindicated due to positive stool guaiac and anemia -Continue SCDs CODE STATUS -DNR CCA with no intubation Charges/Coding Visit Charges Inpatient E&M: 00736 Subs Hosp L2
--- NOTE | 2023-11-23 14:51 | PCM.PN.REN ---
Subjective Subjective no new events Objective Data Objective Data Vital Signs: Vital Signs Temp Pulse Resp BP Pulse Ox O2 Del Method O2 Flow Rate 98.4 F 61 16 104/71 95 Room Air 99 11/23/23 12:22 11/23/23 12:22 11/23/23 12:22 11/23/23 12:22 11/23/23 12:22 11/23/23 12:22 11/19/23 13:11 Oxygen Flow Rate (L/min) 99 Oxygen Delivery Method Room Air Weight: 67.5 kg Body Mass Index (BMI) 21.3 Intake & Output: Intake and Output for Last 24 Hours 11/21/23 11/22/23 11/23/23 23:59 23:59 23:59 Intake Total 1140 / 1140 1080 / 1080 Output Total 1600 / 1600 2100 / 2100 600 / 600 Balance -460 / -460 -1020 / -1020 -600 / -600 Lab / Micro Data 11/23/23 02:33 11/23/23 02:33 Labs: Laboratory Results - last 24 hr 11/23/23 02:33: WBC 5.4, RBC 2.90 L, Hgb 7.9 L, Hct 26.6 L, MCV 91.7, MCH 27.2, MCHC 29.7 L, RDW Std Deviation 61.1 H, RDW Coeff of Tomas 18.4 H, Plt Count 256, MPV 11.0, Immature Gran % (Auto) 0.600, Neut % (Auto) 60.5, Lymph % (Auto) 18.0 L, [place] % (Auto) 16.7 H, Eos % (Auto) 3.3, Baso % (Auto) 0.9, Absolute Neuts (auto) 3.3, Absolute Lymphs (auto) 0.97, Nucleated RBC % 0, PT 15.8 H, INR 1.3, APTT 28.6, Sodium 142, Potassium 4.0, Chloride 111 H, Carbon Dioxide 24.0, Anion Gap 7, BUN 59 H, Creatinine 6.86 H, Estim Creat Clear Calc 10.80, Est GFR (MDRD) Af Amer 11 L, Est GFR (MDRD) Non-Af 9 L, BUN/Creatinine Ratio 8.6 L, Glucose 100, Calcium 8.8, TSH 2.01 Micro: Microbiology 05/16/24 12:47 Stool Stool Occult Blood (CORETTA) - Final Rhythm Strip Rhythm Strip: Sinus Rhythm Rate: 69 Ectopy: None Physical Exam Narrative Alert and oriented, no apparent distress no obvious distress s1s2 RRR lungs clear abdomen soft no edema Tunneled HD catheter right chest accessed for hemodialysis Assessment & Plan Assessment/Plan (1) ESRD (end stage renal disease): PLAN: History of CKD stage V for more than 3 years, now ESRD. Patient had tunneled dialysis catheter placed and first HD session 11/17 over 2 hours, low blood flow rate with no fluid removal. Patient to dialyze today over 2.5 hours with no fluid removal, low blood flow rate. Today is patient's third hemodialysis session. Patient will need outpatient hemodialysis arrangements, discussed this with discharge planning team. Patient currently resides at [facility] (has been there at least last 4 years). Tentative dialysis schedule TTS at [facility]. Acidosis. Improved with dialysis. Anemia. Likely part of ESRD. Patient received MAURI with dialysis. He will also receive MAURI at outpatient chronic hemodialysis center along with iron. HTN. Bps acceptable on metoprolol. Recommend holding dose mornings of dialysis. Once outpatient dialysis is arranged patient can be discharged per renal standpoint
--- NOTE | 2023-11-23 15:30 | EGD_PTH ---
PATIENT: SHIRLENE HERNANDEZ LOC: [facility] U#:[id number] AGE/SX: 63/M ROOM: [facility] RE11/17/[address]: Dr. Vanessa Weber DO : 1960 BED: 1 DIS: 11/24/2023 SPEC #: [id number] RECD: 11/24/23 10:06 STATUS: SAVITA MARKUS #: [id number] [place]: 11/23/23 15:[address]: Rommel Turk DEPT: SURGICAL PATHOLOGY RECD BY: Barber Martinez ENTERED: 11/24/23 11:31 SP TYPE: EGD BIOPSY OT DR: DO Dr. Feng Mann MD Dr. Kathryn Lee, DO Dr. Prakash Chand, MD Dr. Tamera Robotham, MD Shobha Khandelwal Tissues: Duodenum, NOS Procedures: Surgery Specimen Level IV HEADER OPERATION: EGD with biopsy PRE-OP DIAGNOSIS: Anemia TISSUE SUBMITTED: Duodenum biopsy MICROSCOPIC DIAGNOSIS Duodenum, biopsy: Mild non-specific chronic inflammation. / 11/25/2023 MICROSCOPIC DESCRIPTION Slides are reviewed. GROSS DESCRIPTION Received in fixative is one container labeled with the patient's name and designated Duodenum biopsy. The specimen consists of two irregular fragments of light miller soft tissue that in aggregate measure 0.6 x 0.5 x 0.1 cm. The specimen is totally submitted in one cassette. / 11/24/2023 TC:3 CPT:69242
--- NOTE | 2023-11-23 16:39 | OP.CCLET_ITS ---
11/23/2023 Yesy Ortiz Re : Upper GI endoscopy procedure for Hay Diego Dear Diana This procedure was performed on Thursday, November 23, 2023. My impressions and recommendations are as follows: Impressions : - Normal esophagus. - Normal stomach. - Chronic duodenitis. Biopsied. Recommendations : - [facility]. - Resume previous diet. - Continue present medications. - Await pathology results. - Consider colonoscopy My findings are described in the full procedure note, which is enclosed. If I can be of further assistance, please feel free to contact me at . Sincerely, Rommel Turk, 11/23/2023 4:38:44 PM This report has been signed electronically.
--- NOTE | 2023-11-23 16:39 | OP.EGD_ITS ---
Patient Name: Hay Diego Procedure Date: 11/23/2023 4:16 PM Date of : 1960 Age: 63 Procedure: Upper GI endoscopy Indications: Iron deficiency anemia Providers: Rommel Turk DO Medicines: Monitored Anesthesia Care Patient Profile: This is a 63 year old male. Refer to note in patient chart for documentation of history and physical. Patient has symptoms. Complications: No immediate complications. Procedure: Pre-Anesthesia Assessment: - Prior to the procedure, a History and Physical was performed, and patient medications and allergies were reviewed. The patient is competent. The risks and benefits of the procedure and the sedation options and risks were discussed with the patient. All questions were answered and informed consent was obtained. Patient identification and proposed procedure were verified by the physician in the pre-procedure area. Mental Status Examination: normal. Prophylactic Antibiotics: The patient does not require prophylactic antibiotics. Prior Anticoagulants: The patient has taken no anticoagulant or antiplatelet agents. After reviewing the risks and benefits, the patient was deemed in satisfactory condition to undergo the procedure. The anesthesia plan was to use monitored anesthesia care (MAC). Immediately prior to administration of medications, the patient was re-assessed for adequacy to receive sedatives. The heart rate, respiratory rate, oxygen saturations, blood pressure, adequacy of pulmonary ventilation, and response to care were monitored throughout the procedure. The physical status of the patient was re-assessed after the procedure. After obtaining informed consent, the endoscope was passed under direct vision. Throughout the procedure, the patient's blood pressure, pulse, and oxygen saturations were monitored continuously. The Endoscope was introduced through the mouth, and advanced to the second part of duodenum. The upper GI endoscopy was accomplished without difficulty. The patient tolerated the procedure well. Scope In: 4:32:07 PM Scope Out: 4:34:55 PM Total Procedure Duration Time 0 hours 2 minutes 48 seconds Findings: The examined esophagus was normal. The entire examined stomach was normal. Patchy mild inflammation characterized by erythema was found in the duodenal bulb. Biopsies were taken with a cold forceps for histology. Verification of patient identification for the specimen was done. Estimated blood loss was minimal. Impression: - Normal esophagus. - Normal stomach. - Chronic duodenitis. Biopsied. Recommendation: - Return patient to [facility]. - Resume previous diet. - Continue present medications. - Await pathology results. - Consider colonoscopy Procedure Code(s): --- Professional --- 04026, Esophagogastroduodenoscopy, flexible, transoral; with biopsy, single or multiple CPT copyright 2021 [employer]. All rights reserved. The codes documented in this report are preliminary and upon mri tech review may be revised to meet current compliance requirements. Rommel Turk DO 11/23/2023 4:38:44 PM This report has been signed electronically. Number of Addenda: 0 Note Initiated On: 11/23/2023 4:16 PM
[2023-11-23] MEDS: Atorvastatin Calcium 80 MG Tablet PO (22:17)
[2023-11-23] MEDS: Gabapentin 300 MG Capsule PO (22:17)
[2023-11-24] VITALS (11 sets, daily range): BP systolic 95–136; BP diastolic 65–92; PULSE 54–68; RESP 13–18; TEMP 36.7–36.9; O2SAT 97–98; BMI 21.3
[2023-11-24 05:51] LABS: Hematocrit 29.7 % (40-54); Hemoglobin 8.5 g/dL (13.0-16.5); Mean Corp Hgb Conc 28.6 g/dL (32-36); Mean Corpuscular Hgb 27.1 pg (27.0-32.0); Mean Corpuscular Volume 94.6 fL (80-94); Mean Platelet Vol. 10.7 fl (6.2-12.0); Platelet Count 281 K/mm3 (150-450); RBC Distribution Width CV 18.6 % (11.6-14.6); RBC Distribution Width SD 63.8 fl (35.1-43.9); Red Blood Count 3.14 M/mm3 (4.6-6.2); White Blood Count 4.9 K/mm3 (4.4-11.0)
[2023-11-24] MEDS: Levothyroxine 50 MCG Tablet PO (05:58)
[2023-11-24] MEDS: Calcium Carbonate 500 MG Tablet 200 MG PO (05:58)
[2023-11-24 06:18] LABS: Anion Gap 7 (5-15); BUN 65 mg/dL (7-18); BUN/Creat Ratio 8.2 RATIO (10-20); Calcium,Total 8.9 mg/dL (8.5-10.1); Chloride 113 mmol/L (98-107); Creatinine, Serum 7.92 mg/dL (0.70-1.30); EST Glomerular Filtration Rate 7 mL/min (>60); Est Glom Filt Rate - Afr Amer 9 mL/min (>60); Estimated Creatinine Clearance 9.35 ml/min; Glucose 99 mg/dL (74-106); Potassium 4.8 mmol/L (3.5-5.1); Sodium Level 143 mmol/L (136-145)
[2023-11-24] MEDS: Ascorbic Acid 500 MG Tablet PO (09:32)
[2023-11-24] MEDS: Fluticasone 0.05% 1 SPRAY NASAL.SRY 2 SPRAY NASAL (09:32)
[2023-11-24] MEDS: Loratadine 10 MG Tablet PO (09:32)
[2023-11-24] MEDS: Fluoxetine HCl 40 MG CAPSULE PO (09:32)
[2023-11-24] MEDS: ARIPiprazole 5 MG Tablet 15 MG PO (09:33)
[2023-11-24] MEDS: Senna/Docusate Sodium 1 Tablet 2 TABLET PO (09:33)
[2023-11-24] MEDS: Aspirin 81 MG TAB.CHEW PO (09:33)
[2023-11-24] MEDS: Cyanocobalamin 500 MCG Tablet PO (09:33)
[2023-11-24] MEDS: Cholecalciferol (VIT D3) 25 MCG TABLET (1,000 UNITS) PO (09:34)
[2023-11-24] MEDS: Pantoprazole Sodium 40 MG Tablet PO (09:34)
[2023-11-24] MEDS: Sodium Chloride 0.65% 1 SPRAY SPRAY.BTL 2 SPRAY NASAL (09:34)
[2023-11-24] MEDS: Metoprolol Tartrate 25 MG Tablet 12.5 MG PO (09:38)
--- NOTE | 2023-11-24 09:59 | CASEMGMT ---
HUGO PETERS called [facility] to confirm that first day of HD at center is for Wednesday.
--- NOTE | 2023-11-24 10:00 | PN.RENAL_ITS ---
Subjective Subjective Resting in bed, no overnight events. Objective Data Objective Data Vital Signs: Vital Signs Temp Pulse Resp BP Pulse Ox O2 Del Method O2 Flow Rate 98.2 F 68 18 132/66 H 97 Room Air 99 11/24/23 03:52 11/24/23 09:38 11/24/23 03:52 11/24/23 03:52 11/24/23 03:52 11/24/23 03:52 11/19/23 13:11 Oxygen Flow Rate (L/min) 99 Oxygen Delivery Method Room Air Weight: 67.5 kg Body Mass Index (BMI) 21.3 Intake & Output: Intake and Output for Last 24 Hours 11/22/23 11/23/23 11/24/23 23:59 23:59 23:59 Intake Total 1080 / 1080 240 / 440 1000 / 1000 Output Total 2100 / 2100 825 / 1125 700 / 700 Balance -1020 / -1020 -585 / -685 300 / 300 Lab / Micro Data 11/24/23 05:25 11/24/23 05:25 Labs: Laboratory Results - last 24 hr 11/24/23 05:25: WBC 4.9, RBC 3.14 L, Hgb 8.5 L, Hct 29.7 L, MCV 94.6 H, MCH 27.1, MCHC 28.6 L, RDW Std Deviation 63.8 H, RDW Coeff of Tomas 18.6 H, Plt Count 281, MPV 10.7, Sodium 143, Potassium 4.8, Chloride 113 H, Carbon Dioxide 23.0, Anion Gap 7, BUN 65 H, Creatinine 7.92 H*, Estim Creat Clear Calc 9.35, Est GFR (MDRD) Af Amer 9 L, Est GFR (MDRD) Non-Af 7 L, BUN/Creatinine Ratio 8.2 L, Glucose 99, Calcium 8.9 Micro: Microbiology 11/18/23 12:47 Stool Stool Occult Blood (CORETTA) - Final Rhythm Strip Rhythm Strip: Sinus Rhythm Rate: 69 Ectopy: None Physical Exam Narrative Alert and oriented, no apparent distress no obvious distress s1s2 RRR lungs clear abdomen soft no edema Tunneled HD catheter right chest accessed for hemodialysis Assessment & Plan Assessment/Plan (1) ESRD (end stage renal disease): PLAN: New ESRD. Patient had tunneled dialysis catheter placed and first HD session 5/16. Patient currently resides at [facility] (has been there at least last 4 years). Dialysis schedule TTS at [facility]. Acidosis. Improved with dialysis. Anemia. Likely part of ESRD. Patient received MAURI with dialysis. He will also receive MAURI at outpatient chronic hemodialysis center along with iron. HTN. Bps acceptable on metoprolol. Recommend holding dose mornings of dialysis. Outpatient dialysis is arranged at [facility] TTS. Transportation has been arranged for patient to/from HD. Will plan HD today, possible discharge to [facility] today after HD. Next HD will be Wednesday
--- NOTE | 2023-11-24 10:07 | CASEMGMT ---
Discharge Planning BP updated that patient will return today after dialysis with next scheduled for Wednesday. Charley Watts DC Planning Asst.
[2023-11-24] MEDS: PureFlow B 2K Dialysis Soln 1 BAG 6 BAG PF (11:00)
[2023-11-24] MEDS: 0.9% Normal Saline 1,000 ML IV.SOLN. 1000 ML OPERA.SITE (11:00)
[2023-11-24] MEDS: 0.9% Saline Lock 10 ML Syringe IV (11:01)
--- NOTE | 2023-11-24 12:59 | TREXTCAR_ITS ---
Diet Diet Order/Speech Therapy: 11/23/23 18:15 Diet: Regular -Renal Food consistency:: Mechanical (Minced/Moist) Liquid Consistency:: Regular/Thin Is pt able to select menu?: Yes Routine Orders/Code Status Suppository Frequency: Daily PRN O2 Frequency: PRN Keep PO Greater than or Equal to (%): 89 Routine Lab Work: CBC (1 week) and BMP (1 week) Code Status: DNRCC-A (no ETT) Wound(s) RIGHT ANTERIOR CHEST: Wound Type: Surgical Incision RIGHT NECK: Wound Type: Surgical Incision Suggestions for Active Care Change Position every (hours): 2 Problem/Diagnosis (1) ESRD (end stage renal disease): Status: Acute Code(s): N18.6 - End stage renal disease Allergies/Procedures Done in Hospital Allergies No Known Allergies Allergy (Verified 07/30/21 01:13) Procedures: Blood transfusion, Dialysis, EGD and - (Tunneled dialysis catheter placement/renal ultrasound/chest x-ray) Type of Care/Length of Stay Estimated LOS: More Than 30 Days Type of Care Needed: Intermediate Rehab Potential: Fair Prognosis: Fair Additional Orders/Day of Discharge Day of Discharge: 11/24/23 Dietary and Speech Recommendations Dietitian Recommendations/Changes: Will change diet to Renal general; consistency as per CLAIMS INVESTIGATOR. Will offer PO Nepro as needed if oral intake fails at meals. Pt resides at SNF, pt is not appropriate for renal diet education at this time. Speech Linguistic Eval Summary: Pt. demonstrated 0% recall of 3 word elements after 2 minute delay. He was able to name 6 animals in 1 minute during divergent naming task. Poor orientation to place, town, date and [place]. He was able to follow 2-step commands with 90% accuracy. Discharge Plan Admission Admit Date/Time: 11/17/23 00:31 Attending Provider: Vanessa Weber Primary Care Provider: Yesy Ortiz Consulting Providers: Feng Wood; Efrain Hoyos; Bev Sands; Andrei Díaz Discharge Orders/Prescriptions Prescriptions: No Action metoprolol tartrate 25 mg tablet 12.5 mg PO BID aspirin 81 MG tablet,chewable 81 mg PO DAILY@0800 Patient Comments: heart health fluoxetine 10 mg Tablet 20 mg PO DAILY levothyroxine 50 mcg Tablet 50 mcg PO DAILY rosuvastatin [Crestor] 40 mg Tablet 40 mg PO QHS gabapentin 300 mg Tablet 300 mg PO QHS fenofibrate nanocrystallized 145 mg Tablet 145 mg PO DAILY aripiprazole 10 mg Tablet 10 mg PO QHS polyethylene glycol 3350 [Miralax] 17 gram Powder In Packet 17 g PO DAILY fluticasone propionate 50 mcg/actuation [place],Suspension 2 spray INTRANASAL DAILY Saline Nasal 0.65 % Aerosol,[place] 2 spray INTRANASAL BID cholecalciferol (vitamin D3) 1,250 mcg (50,000 unit) Tablet 1,250 mcg PO MOWEFR Ativan 0.5 mg PO/SL 4X/DAY lorazepam 0.5 mg Tablet See Rx Instructions PO Q6H Rx Instructions: 0.5 orally every 6 hours; 0.5 orally every 8 hours as needed aripiprazole 15 mg tablet 15 mg PO DAILY fexofenadine 180 mg tablet 180 mg PO DAILY ferrous sulfate [FeroSul] 325 mg (65 mg iron) tablet 325 mg PO BID fluoxetine 40 mg capsule 40 mg PO DAILY sodium bicarbonate 650 mg tablet 650 mg PO BID cimetidine [Tagamet HB] 200 mg tablet 400 mg PO BID Rx Instructions: administer with meals cyanocobalamin (vitamin B-12) [B-12 DOTS] 500 mcg tablet See Rx Instructions PO .COMPLEX Rx Instructions: 500 orally MOWEFR; cholecalciferol (vitamin D3) 25 mcg (1,000 unit) capsule 1,000 unit PO QDAY ascorbic acid (vitamin C) [Acerola C] 500 mg tablet,chewable 500 mg PO BID calcium carbonate [Antacid (calcium carbonate)] 200 mg calcium (500 mg) tablet,chewable 200 mg PO .ac Referrals / Follow Up: Yesy Ortiz [Primary Care Provider] -
--- NOTE | 2023-11-24 13:02 | PCM.DC.SUM ---
Providers Date of Admission: 11/17/23 Date of Discharge: 11/24/23 Primary Care Physician: Yesy Ortiz Consultations 11/17/23 00:48 Consult: Nephrology Routine Consulting Provider: Feng Wood Reason for Consult: JACI EMERGENT Consult: No Notified: Yes Date Notified: 11/17/23 Time Notified: 03:28 Method of Notification: Answering Service Method of Consult:: In-Person 11/17/23 16:02 Consult: General Surgery Routine Consulting Provider: Bev Sands Reason for Consult: dialysis catheter EMERGENT Consult: No Notified: Yes Date Notified: 11/17/23 Time Notified: 12:03 Method of Notification: Verbal 11/21/23 12:50 Consult: Gastroenterology Routine Consulting Provider: Mario Gastroenterology Reason for Consult: stool occult positive, severe anemia EMERGENT Consult: No Notified: Yes Date Notified: 11/21/23 Time Notified: 12:50 Method of Notification: Text Reason For Visit: JACI Diagnosis Discharge Diagnosis (1) ESRD (end stage renal disease): Status: Acute Code(s): N18.6 - End stage renal disease Medications at Discharge Home Medications aspirin 81 mg chewable tablet 81 mg PO DAILY@0800 heart health 05/08/17 metoprolol tartrate 25 mg tablet 12.5 mg PO BID blood pressure 06/02/18 fenofibrate nanocrystallized 145 mg tablet 145 mg PO DAILY elevated triglycerides 07/15/21 gabapentin 300 mg tablet 300 mg PO QHS neurontin 07/15/21 levothyroxine 50 mcg tablet 50 mcg PO DAILY Check with primary doctor 07/15/21 rosuvastatin 40 mg tablet (Crestor) 40 mg PO QHS cholesterol 07/15/21 aripiprazole 10 mg tablet 10 mg PO QHS [facility] dementia, conduct disorder 07/16/21 fluticasone propionate 50 mcg/actuation nasal spray,suspension 2 spray intranasal DAILY allergy 07/16/21 polyethylene glycol 3350 17 gram oral powder packet (Miralax) 17 g PO DAILY constipation 07/16/21 sodium chloride 0.65 % nasal spray aerosol (Saline Nasal) 2 spray intranasal BID nose 07/16/21 lorazepam 0.5 mg tablet See Rx Instructions PO Q6H Anxiety 07/30/21 aripiprazole 15 mg tablet 15 mg PO DAILY 11/16/23 ascorbic acid (vitamin C) 500 mg chewable tablet (Acerola C) 500 mg PO BID 11/16/23 calcium carbonate (Antacid (calcium carbonate)) 200 mg PO .ac 11/16/23 cholecalciferol (vitamin D3) 25 mcg (1,000 unit) capsule 1,000 unit PO QDAY 11/16/23 cimetidine 200 mg tablet (Tagamet HB) 400 mg PO BID 11/16/23 cyanocobalamin (vitamin B-12) 500 mcg tablet (B-12 DOTS) See Rx Instructions PO .COMPLEX 11/16/23 ferrous sulfate 325 mg (65 mg iron) tablet (FeroSul) 325 mg PO BID 11/16/23 fexofenadine 180 mg tablet 180 mg PO DAILY 11/16/23 fluoxetine 40 mg capsule 40 mg PO DAILY 11/16/23 sodium bicarbonate 650 mg tablet 650 mg PO BID 11/16/23 sennosides 8.6 mg-docusate sodium 50 mg tablet (Stool Softener-Stimulant Laxative) 2 tab PO BID #0 tabs 11/24/23 Hospital Course Operations - (Tunneled dialysis catheter placement) Procedures Blood transfusion, Dialysis, EGD and - (Renal ultrasound/chest x-ray) Summary of Care Provided Minutes Spent on Discharge: 45 Hospital Course: Mr. Diego is a 63-year-old white male who resides at [facility] and presented from the local nursing facility due to abnormal labs on 11/16/2023 to the emergency department at [facility]. His hemoglobin on presentation was noted to be 5.4. There is no reported history of melena or hematochezia. Patient has known history of anemia in the past with previous iron transfusions and was ordered 2 units of packed red blood cells in the emergency department. Additionally, his creatinine was noted to be elevated at 11.8 with previous being 7.35. He did receive IV fluids in the emergency department and his daughter noted that he did look like he was improved since receiving IV fluids. Dialysis was discussed as a possibility at the time of presentation and patient and family were open to this idea if need be. He previously did require dialysis when he had a stroke previously but was only dialysis dependent for a few days. Vital signs on presentation showed temperature of 36.7, heart rate 77, respiratory 16, initial blood pressure was 96/35 with repeat of 79/53 and pulse ox was 97% on room air. His initial CBC showed leukopenia with a white count of 3.1 and anemia with a hemoglobin of 5.4 with a normal MCV. Platelet count was normal. His chemistry panel showed elevated sodium at 147, elevated chloride at 116, serum bicarb of 20 with a BUN of 122 and a creatinine of 11.8. Glucose was 185. Iron studies were obtained and not consistent with iron deficiency. Liver functions were normal. Vitamin B12 and folate were both normal. TSH was unremarkable. After 2 units of packed red blood cells were given his hemoglobin improved from 5.4-8.4. Recent baseline hemoglobin is unknown. Despite markedly low hemoglobin at the time of presentation his hemoglobin has stabilized. He is not on any chronic anticoagulation at baseline other than daily aspirin for his previous stroke and this has been restarted as of 11/20/2023. He was admitted to the telemetry floor and consultation to nephrology was placed. Nephrology evaluated the patient and felt he was appropriate for initiation of dialysis and was actually surprised that he had made it without dialysis for as long as he had. General surgery was consulted and a tunneled dialysis catheter was placed on 11/18/2023. Dialysis was initiated on 11/18/2023 and he has been tolerating this well thus far. Stool guaiac was obtained and found to be positive so a consultation to GI was placed and EGD was performed on 11/23/2023 and showed a normal esophagus, normal stomach and chronic duodenitis which was biopsied. With his hemoglobin being stable for several days after transfusion urgent colonoscopy was felt not to be required but outpatient colonoscopy was recommended given his age and no previous colonoscopy has been performed. We have scheduled him as an outpatient to be seen by Dr. Turk for scheduling of outpatient colonoscopy and have asked that they follow his hemoglobin while he is at his ECF with a repeat being done in 1 week to ensure stability. Hemoglobin on discharge was 8.5 and fluctuated between 7.5 and 8.5 during his hospital stay. We were able to arrange transportation for dialysis his next dialysis session will be on Wednesday and this has been confirmed by case management prior to discharge. We also confirmed that transportation was available. Patient was able to be discharged to [facility] which is his residence for the last 4 years in stable condition on 11/24/2023 after dialysis. Discharge diagnoses: End-stage renal disease-now HD dependent Acute on chronic anemia-stabilized -Chronic anemia likely related to renal disease Hypertension Hyperlipidemia History of stroke Hypothyroidism Dementia with behavioral issues Depression Anxiety History of TBI Seasonal allergies Physical Exam Narrative Patient with no issues today. To receive dialysis and then be discharged with subsequent dialysis to start on Wednesday. Const alert, oriented x3, no apparent distress and average body habitus; Negative for no limitations, healthy appearing or well nourished Constitutional Narrative: Upper middle-aged white male, thin, sitting up in bed, watching television, appears comfortable, does not appear toxic, does make inappropriate comments at times General Appearance: cooperative, comfortable, well kempt and well developed Exam Limitations: behavioral limitations HEENT normocephalic, head/scalp atraumatic, hearing grossly normal bilaterally and moist oral mucous membranes HEENT Narrative: Dentition is fair, Mallampati is 2, no thrush Eyes PERRL and EOMs intact bilaterally Eyes Narrative: Mild conjunctival pallor bilaterally, no scleral icterus Neck no lymphadenopathy and supple Neck Narrative: Trachea midline, no significant thyroid enlargement noted Resp normal respiratory effort, no retractions, no use of accessory muscles and clear to auscultation bilaterally Resp Narrative: Diminished at bases bilaterally but clear Auscultation: Negative for rales, rhonchi or wheezes Cardio regular rate, regular rhythm, S1 normal heart sound, S2 normal heart sound, no murmurs, no rub, no gallops and no clicks GI normal to inspection, nondistended, normoactive bowel sounds, soft to palpation and non-tender Extremity no clubbing, cyanosis or edema Extremity Narrative: Decreased lean muscle mass Skin skin turgor normal and no jaundice Skin Narrative: Tunneled catheter in right side of chest-dressing intact and clean and dry Neuro No moves all extremities and No no focal motor deficits Neuro Narrative: Dense left sided hemiparesis with contractures noted in left upper and lower extremities Sensorium / Orientation: awake, alert, oriented to person, oriented to place and oriented to time Speech: speech normal Psych affect normal Psych Narrative: Interacts appropriately, eye contact is good, currently calm with no behavioral issues however patient does make inappropriate comments intermittently Weight / BMI Weight Weight: 67.5 kg Body Mass Index (BMI) 21.3 ABG / Lab / Microbiology Data 11/24/23 05:25 11/24/23 05:25 Laboratory: Laboratory Results - last 24 hr 11/24/23 05:25: WBC 4.9, RBC 3.14 L, Hgb 8.5 L, Hct 29.7 L, MCV 94.6 H, MCH 27.1, MCHC 28.6 L, RDW Std Deviation 63.8 H, RDW Coeff of Tomas 18.6 H, Plt Count 281, MPV 10.7, Sodium 143, Potassium 4.8, Chloride 113 H, Carbon Dioxide 23.0, Anion Gap 7, BUN 65 H, Creatinine 7.92 H*, Estim Creat Clear Calc 9.35, Est GFR (MDRD) Af Amer 9 L, Est GFR (MDRD) Non-Af 7 L, BUN/Creatinine Ratio 8.2 L, Glucose 99, Calcium 8.9 Microbiology: Microbiology 11/18/23 12:47 Stool Stool Occult Blood ([place]) - Final Meaningful Use Info Meaningful Use Meaningful Use Diagnoses (Choose all that apply): None applicable Ischemic Stroke Statin Dosing Therapy Reference: STATIN DOSE THERAPY REFERENCE: * Patients > 75 years receive moderate or high dose statin therapy. * Patients 75 years or YOUNGER should receive HIGH intensity statin dose unless contraindicated. You will be required to document reason for non-treatment if statin daily dose does not meet guidelines. HIGH DOSE STATIN THERAPY DAILY Atorvastatin > than or = to 40 mg Rosuvastatin > than or = to 20 mg Amlodipine + Atorvastatin > than or = to 2.5/40 mg Ezetimibe + Simvastatin 10/80 mg Simvastatin 80mg Discharge Plan Admission Admit Date/Time: 11/17/23 00:31 Primary Reason for Your Visit: Abnormal lab Attending Provider: Vanessa Weber Primary Care Provider: Yesy Ortiz Consulting Providers: Feng Wood; Efrain Hoyos; Bev Sands; Andrei Díaz Discharge Orders/Prescriptions Prescriptions: New sennosides-docusate sodium [Stool Softener-Stimulant Laxat] 8.6-50 mg Tablet 2 tab PO BID Qty: 0 0RF Continued metoprolol tartrate 25 mg tablet 12.5 mg PO BID aspirin 81 MG tablet,chewable 81 mg PO DAILY@0800 Patient Comments: heart health levothyroxine 50 mcg Tablet 50 mcg PO DAILY rosuvastatin [Crestor] 40 mg Tablet 40 mg PO QHS gabapentin 300 mg Tablet 300 mg PO QHS fenofibrate nanocrystallized 145 mg Tablet 145 mg PO DAILY aripiprazole 10 mg Tablet 10 mg PO QHS polyethylene glycol 3350 [Miralax] 17 gram Powder In Packet 17 g PO DAILY fluticasone propionate 50 mcg/actuation [place],Suspension 2 spray INTRANASAL DAILY Saline Nasal 0.65 % Aerosol,[place] 2 spray INTRANASAL BID lorazepam 0.5 mg Tablet See Rx Instructions PO Q6H Rx Instructions: 0.5 orally every 6 hours; 0.5 orally every 8 hours as needed aripiprazole 15 mg tablet 15 mg PO DAILY fexofenadine 180 mg tablet 180 mg PO DAILY ferrous sulfate [FeroSul] 325 mg (65 mg iron) tablet 325 mg PO BID fluoxetine 40 mg capsule 40 mg PO DAILY sodium bicarbonate 650 mg tablet 650 mg PO BID cimetidine [Tagamet HB] 200 mg tablet 400 mg PO BID Rx Instructions: administer with meals cyanocobalamin (vitamin B-12) [B-12 DOTS] 500 mcg tablet See Rx Instructions PO .COMPLEX Rx Instructions: 500 orally MOWEFR; cholecalciferol (vitamin D3) 25 mcg (1,000 unit) capsule 1,000 unit PO QDAY ascorbic acid (vitamin C) [Acerola C] 500 mg tablet,chewable 500 mg PO BID calcium carbonate [Antacid (calcium carbonate)] 200 mg calcium (500 mg) tablet,chewable 200 mg PO .ac Discontinued fluoxetine 10 mg Tablet 20 mg PO DAILY cholecalciferol (vitamin D3) 1,250 mcg (50,000 unit) Tablet 1,250 mcg PO MOWEFR Ativan 0.5 mg PO/SL 4X/DAY Referrals / Follow Up: Feng Wood MD [Med Staff - Consulting] - See Referral Note (As scheduled) Rommel Turk DO [Med Staff - Active Staff] - 01/18/24 10:00 am Yesy Ortiz [Primary Care Provider] - Within 1 Month Disposition Disposition (needs filled in before D/C Order can be placed): NonSkilled NH/Intermed Care Charges/Coding Visit Charges Inpatient E&M: 18010 SNF Disch >30 Min
[2023-11-24] MEDS: Heparin 10,000 UNITS/10 ML Vial IV (13:26)
--- NOTE | 2023-11-24 13:46 | CASEMGMT ---
Discharge Planning Discharge orders, signed med list, and transport time sent to [place] via [facility]. Physicians will transport patient by cot at 4p. Nursing, SW, patient, and his daughter (Lupe) updated. Charley Watts DC Planning Asst.
--- NOTE | 2023-11-24 14:29 | NURSING ---
report called to Kristi nurse at [facility] at this time
--- NOTE | 2023-11-24 15:02 | CASEMGMT ---
Patient is ready for discharge back to [facility]. Physicians will transport patient via cot. Plan: d/c back to [facility] under intermediate level of care. Physicians will transport via cot. Samia JONES
== END 2023-11-24 16:07 | disposition intermediate care facility (04) | DRG 470 ==
LOC: ED 22:45 → PCU 11-17 02:11
PROVIDERS: Anesthesiology; Internal Medicine; Internal Medicine Gastroenterology; Internal Medicine Nephrology; Surgery; Emergency Provider Emergency Medicine; PCP Internal Medicine Geriatric Medicine; Visit Provider Internal Medicine
PROC: 02HV33Z Insertion of Infusion Device into Superior Vena Cava, Percutaneous Approach (ICD-10-PCS; principal; 2023-11-18 11:25)
PROC: 0DJ08ZZ Inspection of Upper Intestinal Tract, Via Natural or Artificial Opening Endoscopic (ICD-10-PCS; CPT 43235; principal; 2023-11-23 15:25)
DX: I12.0 Hypertensive chronic kidney disease with stage 5 chronic kidney disease or end stage renal disease (principal); N18.6 End stage renal disease; E87.0 Hyperosmolality and hypernatremia; F01.511 Vascular dementia, unspecified severity, with agitation; D63.1 Anemia in chronic kidney disease; I69.354 Hemiplegia and hemiparesis following cerebral infarction affecting left non-dominant side; F01.53 Vascular dementia, unspecified severity, with mood disturbance; F01.54 Vascular dementia, unspecified severity, with anxiety; E03.9 Hypothyroidism, unspecified; F32.A Depression, unspecified; I69.328 Other speech and language deficits following cerebral infarction; Z99.2 Dependence on renal dialysis; J30.2 Other seasonal allergic rhinitis; K29.80 Duodenitis without bleeding; E78.5 Hyperlipidemia, unspecified; I69.398 Other sequelae of cerebral infarction; F41.9 Anxiety disorder, unspecified; R19.5 Other fecal abnormalities; N28.1 Cyst of kidney, acquired; Z66 Do not resuscitate; Z79.82 Long term (current) use of aspirin; Z79.890 Hormone replacement therapy; Z79.899 Other long term (current) drug therapy; Z87.891 Personal history of nicotine dependence
CPT/HCPCS: 36415; 71045; 76000; 76770; 80048; 80053; 82274; 82570; 82607; 82728; 82746; 83540; 83550; 84300; 84443; 85025; 85027; 85610; 85730; 86850; 86900; 86901; 86920; 86922; 87340; 88305; 90937; 92507; 92523; 93005; 97110; 97129; 97130; 97163; 97166; 97530; 97535; 97802; 99284; J7030; J7040; P9016; A4216; C1750; G0257; J2405; Q5106

== ENCOUNTER → 2024-08-18 | Outpatient (CLI) | payer MEDICAID, SELFPAY ==
--- NOTE | 2024-08-18 | TISS_PTH ---
PATIENT: SHIRLENE HERNANDEZ LOC: [facility]#:[id number] AGE/SX: 64/M ROOM: RE08/18/[address]: Dr. Anand Kim MD : [id number] BED: DIS: 08/18/2024 SPEC #: [id number] RECD: 08/21/24 09:38 STATUS: SAVITA APARICIO #: [id number] [place]: 08/18/24 00:[address]: Anand Kim DEPT: SURGICAL PATHOLOGY RECD BY: Barber Martinez ENTERED: 08/21/24 09:39 SP TYPE: Tissue Bx SHARON DR: Yesy Ortiz Tissues: TISSUE SURGICALLY REMOVED Procedures: Surgery Specimen Level IV HEADER OPERATION: Left nasal mass biopsy PRE-OP DIAGNOSIS: Left nasal mass TISSUE SUBMITTED: Left nasal mass biopsy MICROSCOPIC DIAGNOSIS Left nasal mass, biopsy: Inflamed squamous papilloma. Negative for malignancy. See comment. SJ.mr 08/22/2024 COMMENT A detached piece of superficial keratin layer of epidermis with bacterial colonization is also noted. Clinical correlation and appropriate follow up are necessary. MICROSCOPIC DESCRIPTION Slides are reviewed. GROSS DESCRIPTION Received in fixative is one container labeled with the patient's name and designated Nasal biopsy. The specimen consists of a piece of miller soft tissue measuring 0.3 x 0.3 x 0.2cm. Also present in the container is a fragment of miller soft tissue measuring 0.5 x 0.1 x 0.1cm. The entire specimen is submitted in one cassette. Silverio 08/21/2024 TC:1 CPT:04979
== END | disposition home or self-care (01) ==
LOC: LABSPEC 15:15
PROVIDERS: PCP Internal Medicine Geriatric Medicine; Referring Provider Otolaryngology; Visit Provider Otolaryngology
DX: J34.9 Unspecified disorder of nose and nasal sinuses (principal)
CPT/HCPCS: 88305

== ENCOUNTER 2024-08-22 16:14 | Emergency (ER) | payer MEDICAID, SELFPAY ==
[2024-08-22 16:19] VITALS: BP 116/69; PULSE 61; RESP 20; TEMP 36.4; O2SAT 100
--- NOTE | 2024-08-22 17:15 | EX.ED.GENINJ ---
HPI History of Present Illness Chief Complaint: Other, Pain/Inj [facility] Medical History (Updated 08/22/24 @ 16:58 by José Manuel Delatorre) Contracture of left hand Anxiety Former smoker Seizures History of hemiparesis History of stroke Major depressive disorder Chronic kidney disease, stage 4 (severe) Vascular dementia Hypothyroidism Thyroid dysfunction Brain aneurysm Vitamin D deficiency Stroke Seizure Kidney failure Kidney disease HTN (hypertension) H/O transfusion of whole blood Bone fracture Back problem Arthritis Anxiety and depression Seasonal allergies Ingrown nail Foot drop, left Ingrown left big toenail Toe pain, left Toe pain, right Tinea unguium Essential (primary) hypertension CKD (chronic kidney disease) stage 4, GFR 15-29 ml/min History of hemorrhagic stroke with residual hemiparesis Seizure Aphasia Home Medications ?Medication ?Instructions ?Recorded ?Last Taken ?Type aspirin 81 mg chewable tablet 81 mg PO DAILY@0800 heart health 05/08/17 05/13/17 History metoprolol tartrate 25 mg tablet 25 mg PO BID blood pressure 06/02/18 Unknown History fenofibrate nanocrystallized 145 145 mg PO DAILY elevated 07/15/21 Unknown History mg tablet triglycerides gabapentin 300 mg tablet 300 mg PO QHS neurontin 07/15/21 Unknown History rosuvastatin 40 mg tablet (Crestor) 40 mg PO QHS cholesterol 07/15/21 Unknown History aripiprazole 10 mg tablet 10 mg PO QHS vasc dementia, 07/16/21 Unknown History conduct disorder fluticasone propionate 50 2 spray intranasal DAILY allergy 07/16/21 Unknown History mcg/actuation nasal spray,suspension polyethylene glycol 3350 17 gram 17 g PO DAILY constipation 07/16/21 Unknown History oral powder packet (Miralax) sodium chloride 0.65 % nasal spray 2 spray intranasal BID nose 07/16/21 Unknown History aerosol (Saline Nasal) lorazepam 0.5 mg tablet See Rx Instructions PO Q6H Anxiety 07/30/21 Unknown History aripiprazole 15 mg tablet 15 mg PO DAILY 11/16/23 Unknown History ascorbic acid (vitamin C) 500 mg 500 mg PO BID 11/16/23 Unknown History chewable tablet (Acerola C) calcium carbonate (Antacid 200 mg PO TID 11/16/23 Unknown History (calcium carbonate)) cholecalciferol (vitamin D3) 25 1,000 unit PO QDAY 11/16/23 Unknown History mcg (1,000 unit) capsule cimetidine 200 mg tablet (Tagamet 400 mg PO BID 11/16/23 Unknown History HB) cyanocobalamin (vitamin B-12) 500 See Rx Instructions PO .COMPLEX 11/16/23 Unknown History mcg tablet (B-12 DOTS) ferrous sulfate 325 mg (65 mg 325 mg PO BID 11/16/23 Unknown History iron) tablet (FeroSul) fexofenadine 180 mg tablet 180 mg PO DAILY 11/16/23 Unknown History fluoxetine 40 mg capsule 40 mg PO DAILY 11/16/23 Unknown History sodium bicarbonate 650 mg tablet 650 mg PO BID 11/16/23 Unknown History sennosides 8.6 mg-docusate sodium 2 tab PO BID #0 tabs 11/24/23 Unknown Rx 50 mg tablet (Stool Softener-Stimulant Laxative) bisacodyl 10 mg rectal suppository 10 mg ID DAILY PRN constipation 08/22/24 Unknown History (Laxative (bisacodyl)) famotidine 20 mg tablet (Acid 20 mg PO QHS 08/22/24 Unknown History Controller) haloperidol 2 mg tablet 2 mg PO QHS 08/22/24 Unknown History haloperidol decanoate 50 mg/mL 50 mg IM DAILY 08/22/24 Unknown History intramuscular solution haloperidol lactate 5 mg/mL 50 mg .Route DAILY 08/22/24 Unknown History injection syringe hypromellose 2.5 % eye drops 1 drp EACH EYE BID 08/22/24 Unknown History (Goniotaire) levothyroxine 75 mcg tablet 75 mcg PO DAILY 08/22/24 Unknown History melatonin 3 mg capsule 3 mg PO QHS 08/22/24 Unknown History midodrine 10 mg tablet 10 mg PO .COMPLEX 08/22/24 Unknown History pyridoxine (vitamin B6) 100 mg 100 mg PO DAILY 08/22/24 Unknown History tablet sevelamer carbonate 2.4 gram oral 2.4 g PO BID CKD 08/22/24 Unknown History powder packet tamsulosin 0.4 mg capsule 0.4 mg PO Q24H 08/22/24 Unknown History Allergy/AdvReac Type Severity Reaction Status Date / Time No Known Allergies Allergy Verified 08/22/24 16:19 Family History Unknown Arthritis Breast cancer Mother Kidney stones Father Hypertension Other Colon cancer Surgical History S/P clamping of cerebral aneurysm H/O left inguinal hernia repair History of tonsillectomy and adenoidectomy Social History housing: custodial Smoking Status: Former smoker how long ago did patient quit smoking: Quit 2017 after CVA, smoked 1 ppd since teen until quit. alcohol intake: never substance use type: does not use EXAM Physical Exam Const Vital Signs: 08/22/24 16:19 08/22/24 17:14 08/22/24 18:14 Temperature 97.5 F L Temperature Source Oral Pulse Rate 61 76 Respiratory Rate 20 H 18 Respiratory Pattern Normal Blood Pressure 116/69 125/70 H Blood Pressure Mean 84 88 Pulse Ox 100 98 Oxygen Delivery Method Room Air Room Air 08/22/24 20:00 Temperature Temperature Source Pulse Rate 63 Respiratory Rate 15 Respiratory Pattern Blood Pressure 143/68 H Blood Pressure Mean 93 Pulse Ox 97 Oxygen Delivery Method Room Air MDM MDM MDM Narrative Medical decision making narrative: HISTORY OF PRESENT ILLNESS: 64-year-old male presents with concern for dialysis for malfunction. Per triage note patient tried Cathflo however did not relieve obstruction. Per patient and [place] [facility] staff patient had his left femoral dialysis catheter placed at [facility]. They are unsure of the physician's name. REVIEW OF SYSTEMS: Pertinent positives: Dialysis port malfunction Pertinent negatives: Shortness of breath or fever PHYSICAL EXAM: Nursing triage notes reviewed, Vital signs reviewed Constitutional: please see mdm HENT: MMM Eyes: Pupils equal round and reactive to light, Extraocular muscles intact Neck: No stridor, no JVD, full neck ROM Lungs: Clear to auscultation, No wheezing or rales. No increased work of breathing, no conversational dyspnea, no accessory muscle use, no nasal flaring. No respiratory distress noted Heart: Regular rate and rhythm, No murmurs, No rubs and No gallops, 2+ distal pulses (radial, femoral, posterior tibial) in all extremities Abdomen: Soft, there is no tenderness, rigidity, rebound or guarding, no obvious peritoneal signs, no palpable pulsatile abdominal masses, no auscultated abdominal bruit : No CVAT Extremities: No edema, left femoral dialysis catheter clean dry intact with no function induration or sign of infection Neuro: No new focal neurological deficits, cranial nerves II through XII intact, 5/5 strength in all present extremities. Intact sensation to light touch in all present extremities, 2+ reflexes bilateral patella tendons. Skin: No rash or lesions noted MEDICAL DECISION MAKING: Chief Complaint: Dialysis port malfunction External records reviewed: Reviewed prior operative note from Dr. Sands. Performed placement of right IJ tunneled dialysis catheter in November 2023 Factors affecting care: ESRD Social determinants of health: none History obtained from others: none Consults: General Surgery (Dr. Crane) clinic transfer center. Spoke to business services specialist sales. Noted Dr. Raphael accepted the patient in transfer. The transfer center did note they have no beds, she is on a wait list and if not disposition by tomorrow they [facility] except[facility] MDM Narrative: Patient was initially hemodynamically stable, afebrile and nontoxic-appearing. Exam unremarkable. I obtained labs and images to rule out signs of severe end-stage renal disease requiring emergent dialysis. EKG with normal sinus rhythm rate of 69, normal axis, normal intervals, no STEMI CBC with no leukocytosis to suggest this information, noted anemia of chronic disease, no thrombocytopenia BMP without significant electrolyte overnights, potassium 4.2, noted ESRD that is essentially baseline I have personally reviewed the patient's chest x-ray. Chest x-ray is unremarkable for pulmonary edema, pneumothorax, pneumonia or focal cardiopulmonary abnormality. Labs images were reassuring. No need for emergent dialysis. I did reach out to our surgeon on-call Dr. Crane to ascertain t if he could troubleshoot the patient's catheter. He noted he does not have much experience with this. He recommended transfer given we do not have IR available. Discussed with [facility]. Got accepting physician. Awaiting bed. Obtain an accepting physician at 10:30 PM on 04/21/2025. The patient and/or family, caregivers express understanding. The patient and/or family, caregivers agrees with the plan. Shared decision making: I will have a discussion with the patient and or visitors regarding risk/benefits of further testing or admission. They will be made aware of of the risk/benefits inherent in this decision they will be given the opportunity to voice understanding. Total critical care time today provided was at least 0 minutes. This excludes separately billable procedures. Critical care time (if documented) is secondary to the patient having high probability of clinically significant/life threatening deterioration in the patient's condition which required my urgent intervention. Impression: 1. Dialysis catheter malfunction 2. ESRD Dispo: Awaiting transfer Signed out to overnight physician awaiting transfer. This note was generated with [employer] dictation software. It may contain incorrect words, spelling, and punctuation that were not noted in review of the chart prior to signing. Lab Data Labs: Laboratory Results - last 24 hr 08/22/24 17:30 WBC 6.3 RBC 3.12 L Hgb 8.9 L Hct 28.8 L MCV 92.3 MCH 28.5 MCHC 30.9 L RDW Std Deviation 52.3 H RDW Coeff of Tomas 15.6 H Plt Count 252 MPV 10.3 Sodium 143 Potassium 4.2 Chloride 107 Carbon Dioxide 24.0 Anion Gap 12 BUN 50 H Creatinine 7.99 H* Est GFR (MDRD) Af Amer 9 L Est GFR (MDRD) Non-Af 7 L BUN/Creatinine Ratio 6.3 L Glucose 96 Calcium 9.7 Radiography Diagnostic Testing: Clinical Impression(s) from Imaging Studies Chest X-Ray 08/22/24 17:26 IMPRESSION: NO ACUTE ABNORMALITY IN THE CHEST. CATHETER TIP IS LOCATED AT THE IVC-RA JUNCTION. Reading Location: [id number] Discharge Plan Triage Chief Complaint: Other, Pain/Inj ED Provider: Abdulaziz Martel Dx/Rx/DC Orders Prescriptions: No Action metoprolol tartrate 25 mg tablet 25 mg PO BID aspirin 81 MG tablet,chewable 81 mg PO DAILY@0800 Patient Comments: heart health rosuvastatin [Crestor] 40 mg Tablet 40 mg PO QHS gabapentin 300 mg Tablet 300 mg PO QHS fenofibrate nanocrystallized 145 mg Tablet 145 mg PO DAILY aripiprazole 10 mg Tablet 10 mg PO QHS polyethylene glycol 3350 [Miralax] 17 gram Powder In Packet 17 g PO DAILY fluticasone propionate 50 mcg/actuation [place],Suspension 2 spray INTRANASAL DAILY Saline Nasal 0.65 % Aerosol,[place] 2 spray INTRANASAL BID lorazepam 0.5 mg Tablet See Rx Instructions PO Q6H Rx Instructions: 0.25mg orally once a day and 0.25mg at noon aripiprazole 15 mg tablet 15 mg PO DAILY fexofenadine 180 mg tablet 180 mg PO DAILY ferrous sulfate [FeroSul] 325 mg (65 mg iron) tablet 325 mg PO BID fluoxetine 40 mg capsule 40 mg PO DAILY sodium bicarbonate 650 mg tablet 650 mg PO BID cimetidine [Tagamet HB] 200 mg tablet 400 mg PO BID Rx Instructions: administer with meals cyanocobalamin (vitamin B-12) [B-12 DOTS] 500 mcg tablet See Rx Instructions PO .COMPLEX Rx Instructions: 500 orally MOWEFR; cholecalciferol (vitamin D3) 25 mcg (1,000 unit) capsule 1,000 unit PO QDAY ascorbic acid (vitamin C) [Acerola C] 500 mg tablet,chewable 500 mg PO BID calcium carbonate [Antacid (calcium carbonate)] 200 mg calcium (500 mg) tablet,chewable 200 mg PO TID sennosides-docusate sodium [Stool Softener-Stimulant Laxat] 8.6-50 mg Tablet 2 tab PO BID Qty: 0 0RF Goniotaire 2.5 % drops 1 drp EACH EYE BID bisacodyl [Laxative (bisacodyl)] 10 mg suppository 10 mg ID DAILY PRN (Reason: constipation) famotidine [Acid Controller] 20 mg tablet 20 mg PO QHS haloperidol lactate 5 mg/mL syringe 50 mg .Route DAILY haloperidol 2 mg tablet 2 mg PO QHS Patient Comments: [NO ORIGINAL SIG] haloperidol decanoate 50 mg/mL solution 50 mg IM DAILY levothyroxine 75 mcg tablet 75 mcg PO DAILY melatonin 3 mg capsule 3 mg PO QHS midodrine 10 mg tablet 10 mg PO .COMPLEX Patient Comments: [NO ORIGINAL SIG] Rx Instructions: 10 mg orally every Wednesday and \; pyridoxine (vitamin B6) 100 mg tablet 100 mg PO DAILY tamsulosin 0.4 mg capsule 0.4 mg PO Q24H Patient Comments: [NO ORIGINAL SIG] sevelamer carbonate 2.4 gram powder in packet 2.4 g PO BID Patient Comments: [NO ORIGINAL SIG] Primary Care Provider: Yesy Ortiz Referrals: Yesy Ortiz [Primary Care Provider] - Print Language: Sami
--- NOTE | 2024-08-22 17:26 | RAD_ITS ---
PROCEDURE: CHEST 1 VIEW (PORTABLE) REASON FOR EXAM: Missed dialysis. Port not working. TECHNIQUE: Frontal view of the chest. COMPARISON: Multiple prior studies, most recently dated 11/18/2023. FINDINGS: The right costophrenic sulcus is not well imaged. No large pleural effusion or pneumothorax is seen. The heart size is normal. The lungs are clear. The tip of the a catheter is located at the IVC-right atrial junction. Patient is rotated to the right. RAD/Chest 1 View (Portable) IMPRESSION: NO ACUTE ABNORMALITY IN THE CHEST. CATHETER TIP IS LOCATED AT THE IVC-RA JUNCTION. Reading Location: [id number]
[2024-08-22 17:45] LABS: Hematocrit 28.8 % (40-54); Hemoglobin 8.9 g/dL (13.0-16.5); Mean Corp Hgb Conc 30.9 g/dL (32-36); Mean Corpuscular Hgb 28.5 pg (27.0-32.0); Mean Corpuscular Volume 92.3 fL (80-94); Mean Platelet Vol. 10.3 fl (6.2-12.0); Platelet Count 252 K/mm3 (150-450); RBC Distribution Width CV 15.6 % (11.6-14.6); RBC Distribution Width SD 52.3 fl (35.1-43.9); Red Blood Count 3.12 M/mm3 (4.6-6.2); White Blood Count 6.3 K/mm3 (4.4-11.0)
[2024-08-22 18:14] VITALS: BP 125/70; PULSE 76; RESP 18; O2SAT 98
[2024-08-22 18:31] LABS: Anion Gap 12 (5-15); BUN 50 mg/dL (7-18); BUN/Creat Ratio 6.3 RATIO (10-20); Calcium,Total 9.7 mg/dL (8.5-10.1); Chloride 107 mmol/L (98-107); Creatinine, Serum 7.99 mg/dL (0.70-1.30); EST Glomerular Filtration Rate 7 mL/min (>60); Est Glom Filt Rate - Afr Amer 9 mL/min (>60); Glucose 96 mg/dL (74-106); Potassium 4.2 mmol/L (3.5-5.1); Sodium Level 143 mmol/L (136-145)
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
[2024-08-22 20:00] VITALS: BP 143/68; PULSE 63; RESP 15; O2SAT 97
[2024-08-22 22:00] VITALS: BP 139/72; PULSE 70; RESP 16; O2SAT 99
[2024-08-23] VITALS (13 sets, daily range): BP systolic 111–159; BP diastolic 63–102; PULSE 54–87; RESP 12–20; TEMP 36.9; O2SAT 94–99; BMI 19.8
[2024-08-23] MEDS: MELATONIN 3 MG TABLET PO (02:40)
[2024-08-23] MEDS: Famotidine 20 MG Tablet PO (02:40)
[2024-08-23] MEDS: Metoprolol Tartrate 25 MG Tablet PO ×2 (02:40→11:27)
[2024-08-23] MEDS: Ascorbic Acid 500 MG Tablet PO ×2 (02:40→11:27)
[2024-08-23] MEDS: Haloperidol 1 MG Tablet 2 MG PO (02:40)
[2024-08-23] MEDS: Atorvastatin Calcium 80 MG Tablet PO (02:41)
[2024-08-23] MEDS: Ferrous Sulfate 325 MG Tablet PO ×3 (02:41→17:38)
--- NOTE | 2024-08-23 05:12 | ED.RN ---
I CALLED [facility] FOR BED UPDATE, THEY SAID NOT FOR DAYS, THEY ARE BOARDING IN THEIR ED [phone]
[2024-08-23 09:26] LABS: Albumin, Serum 3.3 g/dL (3.2-5.0); BUN 53 mg/dL (7-18); BUN/Creat Ratio 6.4 RATIO (10-20); Chloride 111 mmol/L (98-107); EST Glomerular Filtration Rate 7 mL/min (>60); Est Glom Filt Rate - Afr Amer 9 mL/min (>60); Glucose 89 mg/dL (74-106); Phosphorus 5.3 mg/dL (2.5-4.9); Potassium 4.4 mmol/L (3.5-5.1); Sodium Level 144 mmol/L (136-145)
--- NOTE | 2024-08-23 09:35 | ED.RN ---
CALLED [facility] @ 1555
--- NOTE | 2024-08-23 09:39 | ED.RN ---
STILL NO UPDATE ON WHEN A BED WILL BE AVAILABLE
--- NOTE | 2024-08-23 16:10 | ED.RN ---
AT THIS TIME, ADRIENNE BRANDT CALLED REQUESTING PT. UPDATE. SHE WAS NOTIFIED OF PT. STILL IN ED WAITING ON BED AT [facility].
--- NOTE | 2024-08-23 16:12 | ED.RN ---
CALLED [facility] @ 1610 AND THEY SAID THEY WILL DEF HAVE A BED TONIGHT. THEY HAVE HIM SCHEDULED TOMORROW FOR SURGERY
--- NOTE | 2024-08-23 17:08 | ED.RN ---
PHARMACY CALLED FOR MEDICATION NOT IN DEPARTMENT. RESPONSE, I WILL LOOK INTO IT
--- NOTE | 2024-08-23 17:39 | ED.RN ---
PT. ADULT DIAPER CHANGED AFTER DINNER TRAY WAS EATEN. PT. ATTEMPTED TO BITE THIS NURSE DURING BRIEF CHANGE.
--- NOTE | 2024-08-23 19:13 | ED.RN ---
PT ACCEPTED AT [facility] BED [id number]
--- NOTE | 2024-08-23 20:27 | ED.RN ---
INTERMEDIATE NOTIFIED OF PT. TRANSFER
--- NOTE | 2024-08-23 20:28 | ED.RN ---
DAUGHTER ADRIENEN CALLED AND NOTIFIED OF PT. TRANSFER
== END 2024-08-23 22:20 | disposition short-term general hospital (02) ==
PROVIDERS: Emergency Medicine; Emergency Provider Emergency Medicine; PCP Internal Medicine Geriatric Medicine; Visit Provider Emergency Medicine
DX: T82.49XA Other complication of vascular dialysis catheter, initial encounter (principal); I12.0 Hypertensive chronic kidney disease with stage 5 chronic kidney disease or end stage renal disease; N18.6 End stage renal disease; I69.359 Hemiplegia and hemiparesis following cerebral infarction affecting unspecified side; F01.50 Vascular dementia, unspecified severity, without behavioral disturbance, psychotic disturbance, mood disturbance, and anxiety; Y71.8 Miscellaneous cardiovascular devices associated with adverse incidents, not elsewhere classified; E03.9 Hypothyroidism, unspecified; Z79.82 Long term (current) use of aspirin; Z79.899 Other long term (current) drug therapy; Z87.891 Personal history of nicotine dependence
CPT/HCPCS: J3486; 71045; 80048; 80069; 85027; 93005; 99285; A4216